=== PATIENT | female | born 1990 | race Caucasian/White ===

== ENCOUNTER 2016-03-12 00:11 | Emergency (ER) | payer OTHER ==
[2016-03-12] MEDS ORDERED: TORAdol 30 mg Injection IM ONE (00:20)
[2016-03-12] MEDS ORDERED: Neurontin 100 MG PO ONE (00:21)
[2016-03-12] MEDS ORDERED: TORAdol 30 mg Injection ONE (00:28)
--- NOTE | 2016-03-12 00:29 | ERPHSYRPT ---
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 She noted numbness in right upper and lateral thigh a month ago. No real back pain. No specific injury. No rash. She notes increased numbness and then pain in this area. She feels like there is some lateral swelling. No redness. No fever or chills. No hx of this in the past. Occurred: other (one month) Severity of Pain-Max: moderate Severity of Pain-Current: moderate Lower Extremities Pain: leg: right Allergies/Adverse Reactions: fluoxetine HCl [From [employer]] Adverse Reaction (Verified 03/12/16 00:26) Nausea Home Medications: Citalopram Hydrobromide [ceLEXa] 40 mg DAILY 12/21/15 [History] Varenicline Tartrate [Chantix] 0.5 mg DAILY 12/21/15 [History] Hx Tetanus, Diphtheria Vaccination/Date Given: No Hx Influenza Vaccination/Date Given: No Hx Pneumococcal Vaccination/Date Given: No - Review of Systems Constitutional: No Fever, No Chills Eyes: No Symptoms Ears, Nose, & Throat: No Symptoms Respiratory: No Dyspnea Cardiac: No Chest Pain Neurological: Parasthesia (right lateral thigh), No Focal Weakness All Other Systems: Reviewed and Negative - Past Medical History Pertinent Past Medical History: Yes Neurological History: Migraines Psycho-Social History: Anxiety, Bipolar, Depression - Past Surgical History Past Surgical History: No - Social History Smoking Status: Current every day smoker How long have you smoked: 11 Exposure to second hand smoke: Yes Drug Use: none Patient Lives Alone: No - Female History Hx Last Menstrual Period: 02/25 Hx Now: No - Nursing Vital Signs Nursing Vital Signs: Initial Vital Signs Temperature 98.8 F Temperature Source Oral Pulse Rate 96 Respiratory Rate 16 Blood Pressure 118/88 Pain Intensity 4 - Physical Exam General Appearance: alert, obese Eyes, Ears, Nose, Throat Exam: moist mucous membranes Neck Exam: normal inspection, supple Cardiovascular/Respiratory Exam: normal breath sounds, regular rate/rhythm Neuro/Tendon Exam: normal sensation, normal motor functions Mental Status Exam: alert, oriented x 3, cooperative Skin Exam: normal color, warm, dry, No rash SpO2 Interpretation: normal SpO2: 96 Oxygen Delivery: Room Air Comments: some light touch tenderness superficially in lateral and upper right leg area. No rash, vesicles, or redness. - Course Nursing assessment & vital signs reviewed: Yes - Radiology Exams right femur X-ray Interpretation: Reviewed by me, Negative Ordered Tests: Active Orders 24 hr Category Date Time Status FEMUR Stat Exams 03/12/16 00:20 Taken Medication Summary Discontinued Medications Generic Name Dose Route Start Last Admin Trade Name Freq PRN Reason Stop Dose Admin Gabapentin 100 mg 03/12/16 00:21 Neurontin 100 Mg PO 03/12/16 00:22 STAT ONE Ketorolac Tromethamine 60 mg 03/12/16 00:20 03/12/16 00:29 Toradol 30 Mg Injection IM 03/12/16 00:21 60 mg STAT ONE Administration Ketorolac Tromethamine Confirm 03/12/16 00:28 Toradol 30 Mg Injection Administered 03/12/16 00:29 Dose 60 mg .ROUTE .STK-MED ONE - Departure Time of Disposition: 01:05 Departure Disposition: Home Clinical Impression: Meralgia paresthetica, right lower limb Condition: Stable Critical Care Time: No Referrals: LIAM DE ANDA MD [Primary Care Provider] - Instructions: Leg Pain Additional Instructions: Rx motrin for pain. Rx Neurontin- take care for sleepiness and no driving with sleepiness. Follow up with Dr De Anda next week. Prescriptions: Ibuprofen 600 mg PO Q6H PRN PRN #24 tablet PRN Reason: Pain Gabapentin [Neurontin] 100 mg PO TID #30 capsule
[2016-03-12 01:36] VITALS: BP 130/78; PULSE 80; O2SAT 98
--- NOTE | 2016-03-12 09:01 | XRAY ---
Indication: Pain and numbness. Comparison: None 2 views of the right femur obtained. No bony, articular, or soft tissue abnormalities.
== END 2016-03-12 01:37 | disposition home or self-care (01) ==
LOC: ED 00:11
DX: G57.11 Meralgia paresthetica, right lower limb (principal); M79.651 Pain in right thigh
CPT/HCPCS: 73552; 96372; 99283; J1885

== ENCOUNTER 2016-03-16 14:44 | Emergency (ER) | payer OTHER ==
[2016-03-16 14:58] VITALS: PULSE 86; O2SAT 97
[2016-03-16] MEDS ORDERED: Tylenol #3 Tablet PO ONE (15:02)
[2016-03-16] MEDS ORDERED: Tylenol #3 Tablet ONE (15:05)
--- NOTE | 2016-03-16 15:05 | ERPHSYRPT ---
- History of Present Illness Time Seen by Provider: 03/16/16 14:50 Source: patient Exam Limitations: clinical condition Patient Subjective Stated Complaint: states twisted left foot earlier today. Triage Nursing Assessment: to room per w/c. left foot has slight swelling. normal temp, normal color. good pedal pulse. Physician History: PATIENT STATES SHE TRIPPED OVER A BUCKET AND INJURED HER LEFT GREAT TOE AND FOOT. HAS PAIN WITH SWELLING, UNABLE TO N BEAR WEIGHT. Method of Injury: direct blow, twisted Occurred: just prior to arrival Quality: constant Severity of Pain-Max: severe Severity of Pain-Current: severe Lower Extremities Pain: 1st toe: left Modifying Factors: Improves With: movement (WEIGHT BEARING) Associated Symptoms: unable to bear weight Allergies/Adverse Reactions: fluoxetine HCl [From [employer]] Adverse Reaction (Verified 03/16/16 15:00) Nausea Hx Tetanus, Diphtheria Vaccination/Date Given: Yes (2015) Hx Influenza Vaccination/Date Given: No Hx Pneumococcal Vaccination/Date Given: No - Review of Systems Constitutional: No Fever, No Chills Respiratory: No Cough, No Dyspnea Cardiac: No Chest Pain, No Edema, No Syncope Abdominal/Gastrointestinal: No Abdominal Pain, No Nausea, No Vomiting, No Diarrhea Genitourinary Symptoms: No Dysuria Musculoskeletal: Injury, Joint Pain, Joint Swelling, No Back Pain, No Neck Pain Skin: No Rash Neurological: No Dizziness, No Focal Weakness, No Sensory Changes Psychological: No Symptoms All Other Systems: Reviewed and Negative - Past Medical History Pertinent Past Medical History: Yes Neurological History: Migraines Psycho-Social History: Anxiety, Depression - Past Surgical History Past Surgical History: No - Social History Smoking Status: Current every day smoker How long have you smoked: 11 Exposure to second hand smoke: Yes Drug Use: none Patient Lives Alone: No - Female History Hx Last Menstrual Period: 02/28/16 Hx Now: No - Nursing Vital Signs Nursing Vital Signs: Initial Vital Signs Temperature 99.1 F Temperature Source Oral Pulse Rate 86 Respiratory Rate 18 Blood Pressure 148/97 Pain Intensity 9 - Physical Exam General Appearance: alert Back Exam: No vertebral tenderness Ankle Exam: left ankle: non-tender, normal inspection, normal range of motion Foot Exam: left foot: pain (LEFT GREAT TOE METATARSAL PHALANGEAL JOINT AND DIP JOINT, WITH SWELLING, TENDERNESS, NO ECCHYMOSIS, LEFT PEDIS PULSE 2+), soft tissue tenderness, swelling Neuro/Tendon Exam: normal sensation, normal motor functions Mental Status Exam: alert, oriented x 3, cooperative Skin Exam: normal color, warm, dry SpO2: 97 Oxygen Delivery: Room Air - Radiology Exams Left Foot X-ray Interpretation: Discussed w/ radiologist, No Fracture (THERE IS A TINY CALCANEAL SPUR) Ordered Tests: Active Orders 24 hr Category Date Time Status Cold Application STAT Care 03/16/16 14:58 Active Crutches STAT Care 03/16/16 15:03 Active Splint STAT Care 03/16/16 15:42 Active FOOT (MINIMUM 3 VIEWS) Stat Exams 03/16/16 15:02 Completed Medication Summary Discontinued Medications Generic Name Dose Route Start Last Admin Trade Name Freq PRN Reason Stop Dose Admin Acetaminophen/Codeine Phosphate 2 tab 03/16/16 15:02 03/16/16 15:05 Tylenol #3 Tablet PO 03/16/16 15:03 2 tab STAT ONE Administration Acetaminophen/Codeine Phosphate Confirm 03/16/16 15:05 Tylenol #3 Tablet Administered 03/16/16 15:06 Dose 2 tab .ROUTE .STK-MED ONE - Progress Progress: pain not gone completely Progress Note: 03/16/16 15:37 PATIENT GIVEN TYLENOL #3, 2 TABLETS, PATIENT PROVIDED WITH CRUTCHES AND POST OP SHOE 03/16/16 15:50 Counseled pt/family regarding: diagnosis, need for follow-up, rad results - Departure Time of Disposition: 15:50 Departure Disposition: Home Clinical Impression: CONTUSION/STRAIN LEFT GREAT TOE Condition: Stable Critical Care Time: No Referrals: LIAM DE ANDA MD [Primary Care Provider] - Additional Instructions: AMBULATE WITH WALKER ASSISTANCE AND POST OP BOOT FOR COMFORT. ELEVATE FOOT AND APPLY ICE OVER FOOT SWELLING EVERY 4 HOURS, 30 MINUTES FOR 48 HOURS. MOTRIN 600MG EVERY 6 HOURS FOR MILD TO MODERATE PAIN. TYLENOL #3 EVERY 4 HOURS FOR SEVERE PAIN. CONSULT YOUR FAMILY PHYSICIAN FOR EVALUATION IN 1 WEEK. Prescriptions: Acetaminophen with Codeine [Tylenol #3 (Acetaminophen-Cod #3) Tablet] 1 each PO Q4H PRN PRN #10 tablet PRN Reason: Pain Ibuprofen 600 mg PO Q6H PRN PRN #15 tablet PRN Reason: Mild To Moderate Pain
--- NOTE | 2016-03-16 15:29 | XRAY ---
Indication: Medial foot pain following tripping injury. Comparison: March 12, 2008 3 nonweightbearing views of the left foot demonstrates stable tiny posterior heel spur. No new/acute bony, articular, or soft tissue abnormalities.
[2016-03-16 16:06] VITALS: BP 142/90
== END 2016-03-16 16:06 | disposition home or self-care (01) ==
LOC: ED 14:44
DX: S90.112A Contusion of left great toe without damage to nail, initial encounter (principal); S93.502A Unspecified sprain of left great toe, initial encounter; X50.0XXA Overexertion from strenuous movement or load, initial encounter; F17.200 Nicotine dependence, unspecified, uncomplicated
CPT/HCPCS: 73630; 99283

== ENCOUNTER 2017-07-06 13:00 | Emergency (ER) | payer OTHER ==
--- NOTE | 2017-07-06 13:17 | ERPHSYRPT ---
- History of Present Illness Time Seen by Provider: 07/06/17 13:14 Source: patient Patient Subjective Stated Complaint: Right Forearm Pain Triage Nursing Assessment: Pt presents to the ED with complaints of right forearm pain. Pt states onset yesterday with worsening today. Pt states movement and touch make pain worse. Pt states she opened a window 2 days ago and believes that caused pain. No distress noted, no wound or deformity noted. Physician History: mild to mod right wrist ache for 2 days after straining to open a window, pt is right handed, pt refuse pain med, no other injury Allergies/Adverse Reactions: fluoxetine HCl [From [employer]] Adverse Reaction (Verified 03/16/16 15:00) Nausea Hx Tetanus, Diphtheria Vaccination/Date Given: Yes Hx Influenza Vaccination/Date Given: No Hx Pneumococcal Vaccination/Date Given: No Immunizations Up to Date: No - Review of Systems Constitutional: No Symptoms Musculoskeletal: Injury Skin: No Rash Neurological: No Dizziness - Past Medical History Pertinent Past Medical History: Yes Neurological History: Migraines Psycho-Social History: Anxiety, Depression - Past Surgical History Past Surgical History: No - Social History Smoking Status: Current every day smoker How long have you smoked: 14 years Exposure to second hand smoke: Yes Drug Use: none Patient Lives Alone: No - Female History Hx Last Menstrual Period: 06/23/2017 Hx Now: No - Nursing Vital Signs Nursing Vital Signs: Initial Vital Signs Temperature 97.5 F 07/06/17 13:05 Pulse Rate 75 07/06/17 13:05 Respiratory Rate 16 07/06/17 13:05 Blood Pressure 170/104 07/06/17 13:05 O2 Sat by Pulse Oximetry 97 07/06/17 13:05 Pain Scale Pain Intensity 7 - Physical Exam General Appearance: no apparent distress Extremity Exam: other (tender right wrist, no sts, rom limited by pain, sen and pulses intact) Neurologic Exam: alert, oriented x 3, cooperative SpO2: 97 Oxygen Delivery: Room Air - Course Nursing assessment & vital signs reviewed: Yes - Radiology Exams Wrist X-ray Interpretation: Discussed w/ radiologist, No Fracture Ordered Tests: Active Orders 24 hr Category Date Time Status Splint STAT Care 07/06/17 13:54 Ordered WRIST (MIN 3 VIEWS) Stat Exams 07/06/17 13:23 Completed - Progress Progress: re-examined Progress Note: 05/03/18 13:55 motrin ice and elevation, see your doctor, return if worse Discussed with : Hailee Will see patient in: office Counseled pt/family regarding: diagnosis, need for follow-up, rad results - Departure Time of Disposition: 13:56 Departure Disposition: Home Clinical Impression: Right wrist sprain Qualifiers: Encounter type: initial encounter Qualified Code(s): S63.501A - Unspecified sprain of right wrist, initial encounter Condition: Stable Critical Care Time: No Referrals: LIAM DE ANDA MD [Primary Care Provider] -
--- NOTE | 2017-07-06 13:40 | XRAY ---
Indication: Pain following injury 3 days ago. Comparison: None 3 views of the right wrist demonstrates normal bones, articulation, and soft tissues.
[2017-07-06 13:57] VITALS: BP 149/84; PULSE 70
[2017-07-06 14:00] VITALS: O2SAT 97
== END 2017-07-06 14:05 | disposition home or self-care (01) ==
LOC: ED 13:00
DX: S63.501A Unspecified sprain of right wrist, initial encounter (principal); M25.531 Pain in right wrist; X50.0XXA Overexertion from strenuous movement or load, initial encounter
CPT/HCPCS: 73110; 99283; L3908

== ENCOUNTER 2018-08-07 21:35 | Emergency (ER) | payer OTHER ==
--- NOTE | 2018-08-07 21:41 | ERPHSYRPT ---
- History of Present Illness Time Seen by Provider: 08/07/18 21:40 Source: patient, family Exam Limitations: no limitations Physician History: 27 y/o right handed white female presents to ED immediately after laceration to left middle finger. 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 pts tetanus status is not utd. Timing/Duration: today Quality: painful Severity: mild Location: hands (left middle finger) Associated Symptoms: denies symptoms Allergies/Adverse Reactions: fluoxetine HCl [From [employer]] Adverse Reaction (Verified 03/16/16 15:00) Nausea Home Medications: Citalopram Hydrobromide [Citalopram HBr] 10 mg PO DAILY 08/07/18 [History] Hx Tetanus, Diphtheria Vaccination/Date Given: Yes Hx Influenza Vaccination/Date Given: No Hx Pneumococcal Vaccination/Date Given: No - Review of Systems Constitutional: No Symptoms Eyes: No Symptoms Ears, Nose, & Throat: No Symptoms Respiratory: No Symptoms Cardiac: No Symptoms Abdominal/Gastrointestinal: No Symptoms Genitourinary Symptoms: No Symptoms Musculoskeletal: No Symptoms Skin: Other (laceration left middle finger) Neurological: No Symptoms Psychological: No Symptoms Endocrine: No Symptoms Hematologic/Lymphatic: No Symptoms Immunological/Allergic: No Symptoms All Other Systems: Reviewed and Negative - Past Medical History Pertinent Past Medical History: Yes Neurological History: Migraines ENT History: No Pertinent History Cardiac History: No Pertinent History Respiratory History: No Pertinent History Endocrine Medical History: No Pertinent History Musculoskeletal History: No Pertinent History GI Medical History: No Pertinent History History: No Pertinent History Psycho-Social History: Anxiety, Depression - Past Surgical History Past Surgical History: No Neuro Surgical History: No Pertinent History Cardiac: No Pertinent History Respiratory: No Pertinent History Gastrointestinal: No Pertinent History Genitourinary: No Pertinent History Musculoskeletal: No Pertinent History Female Surgical History: No Pertinent History - Social History Smoking Status: Current every day smoker How long have you smoked: 14 years Exposure to second hand smoke: Yes Drug Use: none Patient Lives Alone: No - Nursing Vital Signs Nursing Vital Signs: Initial Vital Signs Temperature 99.0 F 08/07/18 21:39 Pulse Rate 83 08/07/18 21:39 Respiratory Rate 18 08/07/18 21:39 Blood Pressure 140/106 08/07/18 21:39 O2 Sat by Pulse Oximetry 96 08/07/18 21:39 Pain Scale Pain Intensity 5 - Physical Exam General Appearance: no apparent distress, alert, anxiety Eye Exam: PERRL/EOMI Ears, Nose, Throat Exam: normal ENT inspection, moist mucous membranes Neck Exam: normal inspection, non-tender, supple, full range of motion Respiratory Exam: airway intact, No chest tenderness, No respiratory distress Gastrointestinal/Abdomen Exam: No tenderness, No guarding Pelvic Exam: not done Rectal Exam: not done Back Exam: normal inspection, normal range of motion, No CVA tenderness, No vertebral tenderness Extremity Exam: normal range of motion, pelvis stable, lacerations (left middle finger) Neurologic Exam: alert, oriented x 3, cooperative, tassel snipper II-XII nml as tested, normal mood/affect, nml cerebellar function, nml station & gait Skin Exam: normal color, warm, dry, laceration (1cm superficial lac left middle finger. no active bleeding. tendon function intact. nv intact) Lymphatic Exam: No adenopathy SpO2 Interpretation: normal O2 Delivery: Room Air Procedures - Laceration/Wound Repair Left Finger Wound Location: Left, hand (middle finger) Wound Length (cm): 1 Wound's Depth, Shape: superficial, linear Wound Explored: to base Irrigated: Yes Hibiclens Prep: Yes Wound Repaired With: Steri-strips, Dermabond Splint Applied?: Yes Type of Splint Applied: finger splint Progress: 08/07/18 22:02 no complications harpreet well - Course Nursing assessment & vital signs reviewed: Yes - Progress Progress: improved Counseled pt/family regarding: diagnosis, need for follow-up - Departure Departure Disposition: Home Clinical Impression: Finger laceration Condition: Stable Critical Care Time: No Referrals: QUINTON POWERS DO [Primary Care Provider] - Additional Instructions: keep top dressing and finger splint in place for 24 hours. after 24 hours may wash daily. leave steristrips in place until they fall.
[2018-08-07 21:45] VITALS: BP 140/106; PULSE 83; O2SAT 96
[2018-08-07] MEDS ORDERED: Adacel Vial IM ONE ×2 (22:04→22:17)
[2018-08-07] MEDS ORDERED: NORCO 5/325 MG PO ONE (22:04)
[2018-08-07] MEDS ORDERED: NORCO 5/325 MG ONE (22:13)
== END 2018-08-07 22:25 | disposition home or self-care (01) ==
LOC: ED 21:35
DX: S61.231A Puncture wound without foreign body of left index finger without damage to nail, initial encounter (principal); W26.8XXA Contact with other sharp object(s), not elsewhere classified, initial encounter
CPT/HCPCS: 12001; 90471; 90715; 99283; A9270-GY

== ENCOUNTER 2018-12-02 13:43 | Emergency (ER) | payer OTHER ==
[2018-12-02] MEDS ORDERED: Norflex 60 MG/2 ML IM ONE (14:04)
[2018-12-02] MEDS ORDERED: TORAdol 30 mg Injection IM ONE (14:04)
[2018-12-02] MEDS ORDERED: Toprol Xl 100 MG PO STA (14:10)
--- NOTE | 2018-12-02 14:10 | ERPHSYRPT ---
- History of Present Illness Time Seen by Provider: 12/02/18 14:05 Source: patient Exam Limitations: no limitations Patient Subjective Stated Complaint: states woke up with "migraine" today. has hx of migraines. Triage Nursing Assessment: ambulated to room per self. skin w/d, color normal. is wearing dark glasses and has pillow over eyes. a/o times four. viveros without difficulty. Physician History: states woke up with "migraine" today. has hx of migraines. also c/o swollen neck glands both side of neck, no fever, Timing/Duration: today Quality: aching, throbbing, tightness Head Pain Location: frontal Severity of Pain-Max: severe Severity of Pain-Current: severe Recent Head Trauma: frequent headaches Modifying Factors: Improves With: exposure to light Associated Symptoms: denies symptoms, other (states that blood pressure runs high when she comes to ER) Allergies/Adverse Reactions: fluoxetine HCl [From [employer]] Adverse Reaction (Verified 03/16/16 15:00) Nausea Home Medications: Citalopram Hydrobromide 20 mg* [ceLEXa 20 MG] 20 mg PO DAILY 12/02/18 [ History] Cyanocobalamin (Vitamin B-12) [Cyanocobalamin Injection] 1,000 mcg IJ UD [History] Levothyroxine Sodium 25 Mcg [Synthroid 25 Mcg] 25 mcg PO DAILY 12/02/18 [ History] Loratadine 10 mg PO DAILY 12/02/18 [History] Quetiapine Fumarate 25 mg PO HS 12/02/18 [History] Simvastatin 10 mg PO DAILY 12/02/18 [History] Hx Tetanus, Diphtheria Vaccination/Date Given: Yes Hx Influenza Vaccination/Date Given: No Hx Pneumococcal Vaccination/Date Given: No - Review of Systems Constitutional: No Fever, No Chills Eyes: No Symptoms Ears, Nose, & Throat: No Symptoms Respiratory: No Cough, No Dyspnea Cardiac: No Chest Pain, No Edema, No Syncope Abdominal/Gastrointestinal: No Abdominal Pain, No Nausea, No Vomiting, No Diarrhea Genitourinary Symptoms: No Dysuria Musculoskeletal: No Back Pain, No Neck Pain Skin: No Rash Neurological: Headache, No Dizziness, No Focal Weakness, No Sensory Changes Psychological: No Symptoms Endocrine: No Symptoms All Other Systems: Reviewed and Negative - Past Medical History Pertinent Past Medical History: Yes Neurological History: Migraines ENT History: No Pertinent History Cardiac History: No Pertinent History Respiratory History: No Pertinent History Endocrine Medical History: No Pertinent History Musculoskeletal History: No Pertinent History GI Medical History: No Pertinent History History: No Pertinent History Psycho-Social History: Anxiety, Depression Female Reproductive Disorders: No Pertinent History - Past Surgical History Past Surgical History: No Neuro Surgical History: No Pertinent History Cardiac: No Pertinent History Respiratory: No Pertinent History Gastrointestinal: No Pertinent History Genitourinary: No Pertinent History Musculoskeletal: No Pertinent History Female Surgical History: No Pertinent History - Social History Smoking Status: Current every day smoker How long have you smoked: 16 Exposure to second hand smoke: No Drug Use: none Patient Lives Alone: No - Female History Hx Last Menstrual Period: three weeks ago Hx Now: No - Nursing Vital Signs Nursing Vital Signs: Initial Vital Signs Temperature 97.2 F 12/02/18 13:50 Pulse Rate 74 12/02/18 13:50 Respiratory Rate 16 12/02/18 13:50 Blood Pressure 163/100 12/02/18 13:50 O2 Sat by Pulse Oximetry 96 12/02/18 13:50 Pain Scale Pain Intensity 9 - Physical Exam General Appearance: no apparent distress Eye Exam: PERRL/EOMI Ears, Nose, Throat Exam: normal ENT inspection, moist mucous membranes Neck Exam: normal inspection, supple, full range of motion, lymphadenopathy ( bilateral posterior neck area), No meningismus Respiratory Exam: normal breath sounds, lungs clear Cardiovascular Exam: regular rate/rhythm, normal heart sounds Gastrointestinal/Abdominal Exam: soft, No tenderness, No distention Back Exam: normal inspection, normal range of motion Mental Status Exam: alert, oriented x 3, cooperative market research manager Exam: normal speech, PERRL, No facial droop Coordination/Gait Exam: normal cerebellar function Motor/Sensory Exam: no motor deficit, no sensory deficit Skin Exam: normal color, warm, dry, No rash SpO2: 96 - Course Nursing assessment & vital signs reviewed: Yes Ordered Tests: Medication Summary Discontinued Medications Generic Name Dose Route Start Last Admin Trade Name Freq PRN Reason Stop Dose Admin Ketorolac Tromethamine 60 mg 12/02/18 14:04 Toradol 30 Mg Injection IM 12/02/18 14:05 STAT ONE Ketorolac Tromethamine Confirm 12/02/18 14:21 Toradol 30 Mg Injection Administered 12/02/18 14:22 Dose 60 mg .ROUTE .STK-MED ONE Metoprolol Succinate 100 mg 12/02/18 14:10 Toprol Xl 100 Mg PO 12/02/18 14:11 DAILY STA Orphenadrine Citrate 60 mg 12/02/18 14:04 Norflex 60 Mg/2 Ml IM 12/02/18 14:05 STAT ONE Orphenadrine Citrate Confirm 12/02/18 14:21 Norflex 60 Mg/2 Ml Administered 12/02/18 14:22 Dose 60 mg .ROUTE .STK-MED ONE - Progress Progress: improved Air Movement: good Counseled pt/family regarding: diagnosis, need for follow-up - Departure Departure Disposition: Home Clinical Impression: Lymphadenitis, acute Migraine Qualifiers: Migraine type: with aura Status migrainosus presence: without status migrainosus Intractability: intractable Qualified Code(s): G43.119 - Migraine with aura, intractable, without status migrainosus Hypertension Qualifiers: Hypertension type: essential hypertension Qualified Code(s): I10 - Essential ( primary) hypertension Condition: Stable Critical Care Time: No Referrals: QUINTON POWERS DO [Primary Care Provider] - Instructions: Migraine Headache (DC), Headache, Adult (DC) Additional Instructions: HEADACHE 1. After discharge from the emergency department, you should rest at home in a cool, dark, quiet place for 12-24 hours. 2. If any of the following signs or symptoms are noticed, you should be re- evaluated right away: A. Visual changes B. Stiff Neck C. Change in quality or location of pain D. Fever E. Recurrent vomiting 3. If pain medications were prescribed or given, they may cause drowsiness. Prescriptions: Amoxicillin 500 mg PO TID #30 tablet Metoprolol Succinate 50 mg [Toprol Xl 50 MG] 50 mg PO DAILY #30 tablet
[2018-12-02] MEDS ORDERED: TORAdol 30 mg Injection ONE (14:21)
[2018-12-02] MEDS ORDERED: Norflex 60 MG/2 ML ONE (14:21)
[2018-12-02 15:26] VITALS: BP 181/105; PULSE 51; O2SAT 97
== END 2018-12-02 15:27 | disposition home or self-care (01) ==
LOC: ED 13:43
DX: I88.9 Nonspecific lymphadenitis, unspecified (principal); G43.119 Migraine with aura, intractable, without status migrainosus; I10 Essential (primary) hypertension
CPT/HCPCS: 96372; 99284; J1885; J2360; A9270-GY

== ENCOUNTER 2018-12-06 15:41 | Emergency (ER) | payer OTHER ==
[2018-12-06 18:03] VITALS: PULSE 70; O2SAT 96
[2018-12-06 19:38] LABS: Group A Strep NEGATIVE (NEGATIVE); INFLUENZA A NEGATIVE (NEGATIVE); INFLUENZA B NEGATIVE (NEGATIVE); RESPIRATORY SYNCTIAL VIRUS NEGATIVE (Negative)
[2018-12-06] MEDS ORDERED: Hydromorphone 1 mg/ml Ampule IM ONE (19:50)
[2018-12-06] MEDS ORDERED: Phenergan 25 MG INJ IM ONE (19:51)
[2018-12-06] MEDS ORDERED: solu-MEDROL 125 MG IM ONE (19:51)
--- NOTE | 2018-12-06 19:57 | ERPHSYRPT ---
- History of Present Illness Time Seen by Provider: 12/06/18 18:30 Source: patient, family Exam Limitations: no limitations Patient Subjective Stated Complaint: STATES WOKE UP THIS AM WITH HEADACHE. TOOK TYLENOL AT 1300 TODAY. APPROX TWO HOURS AGO HAD SOME NUMBNESS TO LEFT SIDE OF FACE AND LEFT HAND. STATES THE NUMBNESS IS GONE NOW. ALSO STATES RIGHT EAR FELT "WET". Triage Nursing Assessment: AMBULATED TO ROOM PER SELF. SKIN W/D, COLOR NORMAL. A/O TIMES FOUR. GATE STEADY. JAY Physician History: 28 y/o obese white female presents with headache and right neck swollen lymph nodes. pt seen here on 12/02/18. pt given rx for amoxicillin. pt still has a few days left. pt denies fever or chills. she has sore throat but no cough. pt denies vomitng and denies diarrhea. 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 those sx now resolved completely. Timing/Duration: day(s) (4) Quality: aching Head Pain Location: global Severity of Pain-Max: moderate Severity of Pain-Current: moderate Recent Head Trauma: no recent headache/trauma Modifying Factors: Improves With: exposure to light, noise Associated Symptoms: No fever/chills, No loss of consciousness, No neck pain, No stiff neck Previous symptoms: same symptoms as today, recently seen, recently treated Allergies/Adverse Reactions: fluoxetine HCl [From [email or web address]] Adverse Reaction (Verified 12/06/18 16:48) Nausea Home Medications: Citalopram Hydrobromide 20 mg* [ceLEXa 20 MG] 20 mg PO DAILY 12/02/18 [ History] Cyanocobalamin (Vitamin B-12) [Cyanocobalamin Injection] 1,000 mcg IJ UD [History] Levothyroxine Sodium 25 Mcg [Synthroid 25 Mcg] 25 mcg PO DAILY 12/02/18 [ History] Loratadine 10 mg PO DAILY 12/02/18 [History] Quetiapine Fumarate 25 mg PO HS 12/02/18 [History] Simvastatin 10 mg PO DAILY 12/02/18 [History] Hx Tetanus, Diphtheria Vaccination/Date Given: Yes Hx Influenza Vaccination/Date Given: Yes Hx Pneumococcal Vaccination/Date Given: No - Review of Systems Eyes: No Symptoms Ears, Nose, & Throat: No Symptoms Respiratory: No Symptoms Cardiac: No Symptoms Abdominal/Gastrointestinal: No Symptoms Genitourinary Symptoms: No Symptoms Musculoskeletal: No Symptoms Neurological: Headache, Parasthesia (resolved) Psychological: No Symptoms Endocrine: No Symptoms Hematologic/Lymphatic: No Symptoms Immunological/Allergic: No Symptoms All Other Systems: Reviewed and Negative - Past Medical History Pertinent Past Medical History: Yes Neurological History: Migraines ENT History: No Pertinent History Cardiac History: No Pertinent History Respiratory History: No Pertinent History Endocrine Medical History: No Pertinent History Musculoskeletal History: No Pertinent History GI Medical History: No Pertinent History History: No Pertinent History Psycho-Social History: Anxiety, Depression Female Reproductive Disorders: No Pertinent History - Past Surgical History Past Surgical History: No Neuro Surgical History: No Pertinent History Cardiac: No Pertinent History Respiratory: No Pertinent History Gastrointestinal: No Pertinent History Genitourinary: No Pertinent History Musculoskeletal: No Pertinent History Female Surgical History: No Pertinent History - Social History Smoking Status: Current every day smoker How long have you smoked: 16 Exposure to second hand smoke: No Drug Use: none Patient Lives Alone: No - Female History Hx Last Menstrual Period: NOW Hx Now: No - Nursing Vital Signs Nursing Vital Signs: Initial Vital Signs Temperature 97.6 F 12/06/18 16:41 Pulse Rate 57 L 12/06/18 16:41 Respiratory Rate 16 12/06/18 16:41 Blood Pressure 164/97 12/06/18 16:41 O2 Sat by Pulse Oximetry 98 12/06/18 16:41 Pain Scale Pain Intensity 8 - Physical Exam General Appearance: mild distress, alert, anxiety Eye Exam: PERRL/EOMI, eyes nml inspection Ears, Nose, Throat Exam: normal ENT inspection, moist mucous membranes Neck Exam: non-tender, supple, full range of motion, lymphadenopathy (right > left) Respiratory Exam: normal breath sounds, lungs clear, airway intact, No chest tenderness, No respiratory distress Cardiovascular Exam: regular rate/rhythm, normal heart sounds, normal peripheral pulses Gastrointestinal/Abdominal Exam: soft, normal bowel sounds, No tenderness Back Exam: normal inspection, normal range of motion, No CVA tenderness Extremity Exam: normal inspection, normal range of motion, pelvis stable Mental Status Exam: alert, oriented x 3, 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 Exam: normal hearing, normal speech, PERRL, tongue midline Coordination/Gait Exam: normal finger to nose, normal gait, normal cerebellar function Motor/Sensory Exam: no motor deficit, no sensory deficit Skin Exam: normal color, warm Lymphatic Exam: adenopathy (as avove) SpO2 Interpretation: normal SpO2: 96 - Course Nursing assessment & vital signs reviewed: Yes Ordered Tests: Active Orders 24 hr Category Date Time Status HEAD WITHOUT CONTRAST [CT] Stat Exams 12/06/18 20:02 Taken Medication Summary Discontinued Medications Generic Name Dose Route Start Last Admin Trade Name Davidq PRN Reason Stop Dose Admin Hydromorphone HCl 1 mg 12/06/18 19:50 12/06/18 20:57 Hydromorphone 1 Mg/Ml Ampule IM 12/06/18 19:51 1 mg STAT ONE Administration Hydromorphone HCl Confirm 12/06/18 20:26 Hydromorphone 1 Mg/Ml Ampule Administered 12/06/18 20:27 Dose 1 mg .ROUTE .STK-MED ONE Methylprednisolone Sodium Succinate 125 mg 12/06/18 19:51 12/06/18 20:57 Solu-Medrol 125 Mg IM 12/06/18 19:52 125 mg STAT ONE Administration Methylprednisolone Sodium Succinate Confirm 12/06/18 20:27 Solu-Medrol 125 Mg Administered 12/06/18 20:28 Dose 125 mg .ROUTE .STK-MED ONE Promethazine HCl 12.5 mg 12/06/18 19:51 12/06/18 20:57 Phenergan 25 Mg Inj IM 12/06/18 19:52 12.5 mg STAT ONE Administration Promethazine HCl Confirm 12/06/18 20:26 Phenergan 25 Mg Inj Administered 12/06/18 20:27 Dose 25 mg .ROUTE .STK-MED ONE Lab/Rad Data: Laboratory Results 12/06/18 Range/Units 19:02 Influenza Type A Ag NEGATIVE (NEGATIVE) Influenza Type B Ag NEGATIVE (NEGATIVE) RSV (PCR) NEGATIVE (Negative) Group A Strep Antibody NEGATIVE (NEGATIVE) - Progress Progress: improved Air Movement: good Progress Note: 12/06/18 21:45 ct head-no acute process Blood Culture(s) Obtained: No Antibiotics given: No Counseled pt/family regarding: lab results, diagnosis, need for follow-up, rad results - Departure Departure Disposition: Home Clinical Impression: Head and neck lymphadenopathy Condition: Stable Critical Care Time: No Referrals: QUINTON POWERS DO [Primary Care Provider] - Additional Instructions: drink plenty of fluids. complete your antibiotic therapy. follow up with primary doctor for further management Prescriptions: Hydrocodone Bit/Acetaminophen [Hydrocodone-Acetaminophen Soln] 10 ml PO Q6H # 120 ml Prednisone 5 mg [Deltasone 5 mg] 5 mg PO TID #6 tablet
[2018-12-06] MEDS ORDERED: Hydromorphone 1 mg/ml Ampule ONE (20:26)
[2018-12-06] MEDS ORDERED: Phenergan 25 MG INJ ONE (20:26)
[2018-12-06] MEDS ORDERED: solu-MEDROL 125 MG ONE (20:27)
[2018-12-06 22:10] VITALS: BP 125/82
--- NOTE | 2018-12-07 08:53 | XRAY ---
Indication: Persistent headache. History of migraines. Multiple contiguous axial images obtained through the head without contrast. Comparison: December 21, 2015. Normal appearing brain parenchyma, ventricles, and bony calvarium. Again incompletely visualized 2 cm right maxillary sinus polyp/retention cyst. Remaining visualized paranasal sinuses and mastoid air cells are clear. Impression: Negative CT head without contrast exam. Again incidental right maxillary sinus polyp/retention cyst. CT DI 68.32
== END 2018-12-06 22:12 | disposition home or self-care (01) ==
LOC: ED 15:41
DX: R59.1 Generalized enlarged lymph nodes (principal)
CPT/HCPCS: 70450; 87631; 87651; 96372; 99284; J1170; J2550; J2930

== ENCOUNTER 2019-02-08 13:37 | Emergency (ER) | payer OTHER ==
--- NOTE | 2019-02-08 13:54 | ERPHSYRPT ---
- History of Present Illness Time Seen by Provider: 02/08/19 13:53 Historian: patient, family Exam Limitations: no limitations Physician History: 28 y/o morbidly obese white female who is 9 weeks , presents with significant and worsening, localized right lower quadrant abdominal pain. nausea but no vomiting. no urinary sx. no pain radiation. denies vaginal bleeding. pt underwent an ultrasound at approx 3 weeks gestation and verified fetus was intrauterine and it was. pt has had issues with maintaining . last pt was bed bound after 7 weeks secondary to subchorionic hemorrhage. Timing/Duration: day(s) (2) Activities at Onset: none Quality: sharpness, stabbing Abdominal Pain Onset Location: RLQ Pain Radiation: no radiation Severity of Pain-Max: moderate Severity of Pain-Current: moderate Modifying Factors: Improves With: nothing Associated Symptoms: nausea, No diaphoresis, No diarrhea, No fever/chills, No loss of appetite, No vomiting Previous symptoms: no prior history Allergies/Adverse Reactions: fluoxetine HCl [From [employer]] Adverse Reaction (Verified 12/06/18 16:48) Nausea Home Medications: Cyanocobalamin (Vitamin B-12) [Cyanocobalamin Injection] 1,000 mcg IJ UD [History] Levothyroxine Sodium 25 Mcg [Synthroid 25 Mcg] 25 mcg PO DAILY 12/02/18 [ History] Loratadine 10 mg PO DAILY 12/02/18 [History] Hx Tetanus, Diphtheria Vaccination/Date Given: Yes Hx Influenza Vaccination/Date Given: Yes Hx Pneumococcal Vaccination/Date Given: No - Review of Systems Constitutional: No Symptoms Eyes: No Symptoms Ears, Nose, & Throat: No Symptoms Respiratory: No Symptoms Cardiac: No Symptoms Abdominal/Gastrointestinal: Abdominal Pain (localized rlq), Nausea, No Vomiting , No Diarrhea Genitourinary Symptoms: No Symptoms Musculoskeletal: No Symptoms Skin: No Symptoms Neurological: No Symptoms Psychological: No Symptoms Endocrine: No Symptoms Hematologic/Lymphatic: No Symptoms Immunological/Allergic: No Symptoms All Other Systems: Reviewed and Negative - Past Medical History Pertinent Past Medical History: Yes Neurological History: Migraines ENT History: No Pertinent History Cardiac History: No Pertinent History Respiratory History: No Pertinent History Endocrine Medical History: No Pertinent History Musculoskeletal History: No Pertinent History GI Medical History: No Pertinent History History: No Pertinent History Psycho-Social History: Anxiety, Depression Female Reproductive Disorders: No Pertinent History - Past Surgical History Past Surgical History: No Neuro Surgical History: No Pertinent History Cardiac: No Pertinent History Respiratory: No Pertinent History Gastrointestinal: No Pertinent History Genitourinary: No Pertinent History Musculoskeletal: No Pertinent History Female Surgical History: No Pertinent History - Social History Smoking Status: Current every day smoker How long have you smoked: 16 Exposure to second hand smoke: No Drug Use: none Patient Lives Alone: No - Nursing Vital Signs Nursing Vital Signs: Initial Vital Signs Temperature 97.4 F 02/08/19 13:47 Pulse Rate 70 02/08/19 13:47 Respiratory Rate 17 02/08/19 13:47 Blood Pressure 116/86 02/08/19 13:47 O2 Sat by Pulse Oximetry 98 02/08/19 13:47 Pain Scale Pain Intensity 4 - Physical Exam General Appearance: mild distress, alert, anxiety Eye Exam: PERRL/EOMI, eyes nml inspection Ears, Nose, Throat Exam: normal ENT inspection, moist mucous membranes Neck Exam: normal inspection, non-tender, supple, full range of motion Respiratory Exam: normal breath sounds, lungs clear, airway intact, No chest tenderness, No respiratory distress Cardiovascular Exam: regular rate/rhythm, normal heart sounds, normal peripheral pulses Gastrointestinal/Abdomen Exam: soft, normal bowel sounds, tenderness (localized rlq), guarding, rebound Pelvic Exam: not done Rectal Exam: not done Back Exam: normal inspection, normal range of motion, No CVA tenderness, No vertebral tenderness Extremity Exam: normal inspection, normal range of motion, pelvis stable Neurologic Exam: alert, oriented x 3, cooperative, 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 nml as tested, normal mood/affect, nml cerebellar function, nml station & gait Skin Exam: normal color, warm, dry Lymphatic Exam: No adenopathy SpO2 Interpretation: normal O2 Delivery: Room Air - Course Nursing assessment & vital signs reviewed: Yes Ordered Tests: Active Orders 24 hr Category Date Time Status IV Insertion STAT Care 02/08/19 14:21 Active ABDOMEN AND PELVIS W/0 CONTRAS [CT] Stat Exams 02/08/19 15:23 Completed AMYLASE Stat Lab 02/08/19 14:21 Completed CBC W DIFF Stat Lab 02/08/19 14:21 Completed CMP Stat Lab 02/08/19 14:21 Completed LIPASE Stat Lab 02/08/19 14:21 Completed Lactic Acid Stat Lab 02/08/19 14:21 Received UA W/RFX UR CULTURE Stat Lab 02/08/19 14:23 Completed Medication Summary Discontinued Medications Generic Name Dose Route Start Last Admin Trade Name Silvestre PRN Reason Stop Dose Admin Sodium Chloride 1,000 mls @ 999 mls/hr 02/08/19 14:21 02/08/19 15:28 Sodium Chloride 0.9% 1000 Ml IV 02/08/19 15:21 Infused .Q1H1M STA Infusion Sodium Chloride Confirm 02/08/19 14:24 Sodium Chloride 0.9% 1000 Ml Administered 02/08/19 14:25 Dose 1,000 mls @ ud .ROUTE .STK-MED ONE Lab/Rad Data: Laboratory Result Diagrams 02/08/19 14:21 02/08/19 14:21 Laboratory Results 02/08/19 02/08/19 02/08/19 Range/Units 14:23 14:21 14:21 WBC 12.8 H (4.0-10.5) K/mm3 RBC 4.26 (4.1-5.4) M/mm3 Hgb 11.8 L (12.0-16.0) gm/dl Hct 36.8 (35-47) % MCV 86.4 (78-100) fl MCH 27.7 (26-32) pg MCHC 32.1 (32-36) g/dl RDW 13.5 (11.5-14.0) % Plt Count 256 (150-450) K/mm3 MPV 11.8 H (6-9.5) fl Gran % 71.8 H (36.0-66.0) % Eos # (Auto) 0.21 (0-0.5) Absolute Lymphs (auto) 2.53 (1.0-4.6) Absolute Monos (auto) 0.84 (0.0-1.3) Lymphocytes % 19.8 L (24.0-44.0) % Monocytes % 6.6 (0.0-12.0) % Eosinophils % 1.6 (0.00-5.0) % Basophils % 0.2 (0.0-0.4) % Absolute Granulocytes 9.16 H (1.4-6.9) Basophils # 0.02 (0-0.4) Sodium 141 (137-145) mmol/L Potassium 4.0 (3.5-5.1) mmol/L Chloride 105 (98-107) mmol/L Carbon Dioxide 26 (22-30) mmol/L Anion Gap 13.3 (5-15) MEQ/L BUN 12 (7-17) mg/dL Creatinine 0.63 (0.52-1.04) mg/dL Estimated GFR > 60.0 ML/MIN Glucose 91 (74-106) mg/dL Calcium 9.6 (8.4-10.2) mg/dL Total Bilirubin 0.50 (0.2-1.3) mg/dL AST 20 (14-36) U/L ALT 13 (0-35) U/L Alkaline Phosphatase 59 (38-126) U/L Serum Total Protein 7.6 (6.3-8.2) g/dL Albumin 3.9 (3.5-5.0) g/dL Amylase 55 (30-110) U/L Lipase 51 (23-300) U/L Urine Color YELLOW (YELLOW) Urine Appearance CLOUDY (CLEAR) Urine pH 5.0 (5-6) Ur Specific Hallock 1.026 (1.005-1.025) Urine Protein NEGATIVE (Negative) Urine Ketones NEGATIVE (NEGATIVE) Urine Blood NEGATIVE (0-5) René/ul Urine Nitrite NEGATIVE (NEGATIVE) Urine Bilirubin NEGATIVE (NEGATIVE) Urine Urobilinogen 4 (0-1) mg/dL Ur Leukocyte Esterase NEGATIVE (NEGATIVE) Urine WBC (Auto) NONE (0-5) /HPF Urine RBC (Auto) 16-25 (0-2) /HPF U Epithel Cells (Auto) RARE (FEW) /HPF Urine Bacteria (Auto) RARE (NEGATIVE) /HPF Amorphous Crystals FEW (NEGATIVE) /HPF Urine Mucus (Auto) SLIGHT (NEGATIVE) /HPF Urine Culture Reflexed NO (NO) Urine Glucose NEGATIVE (NEGATIVE) mg/dL - Progress Progress: unchanged, re-examined Progress Note: 02/08/19 16:20 i had several long discussions with pt and sig other regarding risks, benefits and alternatives to ct scan abd/pelvis. risks of not performing a ct abd/pelvis may lead to worsening condition, to you as well as miscarriage. risks of performing ct abd/pelvis including radiation exposure to fetus and low risk of miscarriage. pt has opted for ct scan abd/pelvis Counseled pt/family regarding: lab results, diagnosis, need for follow-up, rad results - Departure Departure Disposition: Home Clinical Impression: Abdominal pain, Constipation Condition: Stable Critical Care Time: No Referrals: QUINTON POWERS DO [Primary Care Provider] - Additional Instructions: drink plenty fluids. use tylenol for pain. increase activity. follow up with courtroom deputy or calendar clerk for further management
[2019-02-08] MEDS ORDERED: Sodium Chloride 0.9% 1000 ML 1,000 ML IV STA (14:21)
[2019-02-08] MEDS ORDERED: Sodium Chloride 0.9% 1000 ML 1,000 ML ONE (14:24)
[2019-02-08 14:42] LABS: Absolute Neutrophil Ct (ANC) 9.16 (1.4-6.9); BASOPHIL % 0.2 % (0.0-0.4); Basophil (Absolute #) 0.02 (0-0.4); Eosinophil % 1.6 % (0.00-5.0); Eosinophil (Absolute #) 0.21 (0-0.5); Hematocrit 36.8 % (35-47); Hemoglobin 11.8 gm/dl (12.0-16.0); Lymphocyte (Absolute #) 2.53 (1.0-4.6); Lymphocytes % 19.8 % (24.0-44.0); Mean Cell Volume 86.4 fl (78-100); Mean Corpuscular Hemoglobin 27.7 pg (26-32); Mean Corpuscular Hgb Concent. 32.1 g/dl (32-36); Mean Platelet Volume 11.8 fl (6-9.5); Monocyte (Absolute #) 0.84 (0.0-1.3); Monocytes % 6.6 % (0.0-12.0); Neutrophil % 71.8 % (36.0-66.0); Platelet Count 256 K/mm3 (150-450); Red Blood Count 4.26 M/mm3 (4.1-5.4); Red Cell Distribution Width 13.5 % (11.5-14.0); White Blood Count 12.8 K/mm3 (4.0-10.5)
[2019-02-08 14:57] LABS: Amourphous Crystal FEW /HPF (NEGATIVE); Appearance CLOUDY (CLEAR); Bacteria RARE /HPF (NEGATIVE); Bilirubin NEGATIVE (NEGATIVE); Blood NEGATIVE Ery/ul (0-5); Epithelial Cells RARE /HPF (FEW); Glucose NEGATIVE (NEGATIVE); Ketones NEGATIVE (NEGATIVE); Leukocyte Esterase NEGATIVE (NEGATIVE); Mucus SLIGHT /HPF (NEGATIVE); Nitrite NEGATIVE (NEGATIVE); Protein,Urine Dip NEGATIVE (Negative); Specific Gravity 1.026 (1.005-1.025); Urobilinogen 4 mg/dL (0-1)
[2019-02-08 15:22] LABS: ALBUMIN 3.9 g/dL (3.5-5.0); ALKALINE PHOSPHATASE 59 U/L (38-126); AMYLASE 55 U/L (30-110); ANION GAP 13.3 MEQ/L (5-15); BLOOD UREA NITROGEN 12 mg/dL (7-17); CHLORIDE 105 mmol/L (98-107); Calcium 9.6 mg/dL (8.4-10.2); Carbon Dioxide 26 mmol/L (22-30); Creatinine 1 0.63 mg/dL (0.52-1.04); Glucose 91 mg/dL (74-106); LIPASE 51 U/L (23-300); SGOT/AST 20 U/L (14-36); SGPT/ALT 13 U/L (0-35); SODIUM 141 mmol/L (137-145); Total Protein 7.6 g/dL (6.3-8.2)
[2019-02-08 15:47] VITALS: O2SAT 98
--- NOTE | 2019-02-08 16:32 | XRAY ---
Exam: CT of the abdomen and pelvis without IV contrast from 02/08/2019. CTDI: 39.07 mGy. Comparison: CT of the abdomen and pelvis with IV contrast from 12/10/2013. Indication: Right lower quadrant abdominal pain for 2 days with leukocytosis. Possible appendicitis. The patient is known to be 9 weeks . Technique: Non-IV contrast axial images were obtained through the abdomen and pelvis. Reconstructed coronal and sagittal images were created and reviewed. Evidently, the Emergency Department physician, Dr. Dowell, spoke with the patient about the need for the CT examination despite her . The photonics engineering technologist spoke with the patient as well and obtained a written consent to perform the CT scan despite her . I did not personally speak or see the patient before the exam was performed. Findings: The visualized lung bases appear clear. The transverse heart size is normal. Assessment of the solid organs is limited on a non-IV contrast study only. With this limitation in mind, the liver, spleen, pancreas, adrenal glands, and kidneys appear essentially unremarkable. The spleen is perhaps borderline enlarged measuring 12.9 cm in maximum craniocaudal dimension on coronal image #114. I don't believe this represents a significant interval change. Previously noted small nonobstructing right renal calculus on axial image #35 from 12/10/2013 is no longer seen. The gallbladder is only minimally distended. No calcified gallstones are seen within it. The abdominal aorta appears of normal diameter. No abnormal retroperitoneal lymphadenopathy is seen. The patient is noted to be obese. No free intraperitoneal air or ventral abdominal wall hernia is seen. The bowel is not distended. The appendix is identified within the right lower quadrant and appears unremarkable without evidence of appendicitis. Some scattered colonic stool is seen within the colon. The uterus is enlarged and anteflexed. There is a fluid collection within the central aspect of the upper uterine segment measuring 5.1 cm x 3.3 cm in cross section on axial image #73. This is consistent with an intrauterine , probably during the first trimester. The ovaries appear unremarkable. No other suspicious pelvic mass or enlarged pelvic lymph nodes are seen. Abundant stool is seen within the distal rectosigmoid colon. There is no free intraperitoneal fluid. The deep pelvic sidewalls appear unremarkable. The urinary bladder is partially distended and appears unremarkable. The skeleton reveals no acute fracture or aggressive bone lesion. A few small Schmorl's nodes are seen within the vertebral endplates of several lower thoracic and upper lumbar vertebra as an incidental note. Impression: 1. The appendix within the right lower quadrant appears unremarkable. No findings to suggest acute appendicitis are seen. 2. Moderate scattered colonic stool is noted, particularly within the distal rectosigmoid colon. Consider constipation. 3. Prior small nonobstructing stone within the right kidney is no longer seen. 4. No other acute intra-abdominal or pelvic process is seen. 5. Enlarged anteflexed uterus containing an apparent gestational sac within the central aspect of the upper uterine segment consistent with a first trimester . This was known prior to the CT exam. Evidently, the pros and cons of performing the exam were explained to the patient by the Emergency Department physician prior to the exam, and it was decided to proceed with the CT study. The patient signed a consent for the exam be performed despite her before the exam was performed.
[2019-02-08 17:13] VITALS: BP 148/87; PULSE 87
== END 2019-02-08 17:11 | disposition home or self-care (01) ==
LOC: ED 13:37
DX: O26.891 Other specified pregnancy related conditions, first trimester (principal); R10.31 Right lower quadrant pain; K59.00 Constipation, unspecified; Z3A.09 9 weeks gestation of pregnancy
CPT/HCPCS: 36000; 36415; 74176; 80053; 81001; 82150; 83605; 83690; 85025; 96360; 99284

== ENCOUNTER 2019-05-25 11:13 | Observation (INO) | payer OTHER ==
[2019-05-25 11:55] VITALS: PULSE 87
[2019-05-25 12:44] VITALS: BP 131/70
== END 2019-05-25 12:40 | disposition home or self-care (01) ==
LOC: OB 11:13
PROVIDERS: ADMIT Obstetrics & Gynecology; ATTEND Obstetrics & Gynecology
DX: Z34.82 Encounter for supervision of other normal pregnancy, second trimester (principal)
CPT/HCPCS: 84112; G0378

== ENCOUNTER 2019-07-17 07:46 | Observation (INO) | payer OTHER ==
[2019-07-17 14:31] VITALS: BP 132/75; PULSE 88
--- NOTE | 2019-07-17 15:24 | XRAY ---
Indication: well-being. 2-dimensional OB ultrasound performed. Comparison: None for this . There is a single viable intrauterine currently in breech presentation. heart rates 141 BPM. Posterior placenta without abruption/previa. BPD measures 8.53 cm corresponding to 34 weeks 3 days. HC measures 30.69 cm corresponding to 34 weeks 1 day. AC measures 30.99 cm corresponding to 35 weeks 0 days. FL measures 6.62 cm corresponding to 34 weeks 1 day. ANDREW is 15.4 cm. Impression: Single viable intrauterine with mean gestational age 34 weeks 3 days. Expected date of confinement is August 25, 2019.
--- NOTE | 2019-07-17 15:24 | XRAY ---
Indication: well-being. Ultrasound biophysical profile exam was performed. There is a single viable intrauterine reported separately. Four-quadrant ANDREW is 15.4 cm. 2 points given for breathing, movement, tone, and qualitative amniotic fluid volume. Impression: Total biophysical profile score is 8 out of 8.
== END 2019-07-17 15:25 | disposition home or self-care (01) ==
LOC: OB 14:03
PROVIDERS: ADMIT Obstetrics & Gynecology; ATTEND Obstetrics & Gynecology
DX: O24.410 Gestational diabetes mellitus in pregnancy, diet controlled (principal); Z3A.32 32 weeks gestation of pregnancy
CPT/HCPCS: 59025; 76805; 76819; G0378

== ENCOUNTER 2019-07-24 14:25 | Observation (INO) | payer OTHER ==
[2019-07-24 14:56] VITALS: BP 142/65; PULSE 76
== END 2019-07-24 15:35 | disposition home or self-care (01) ==
LOC: OB 14:25
PROVIDERS: ADMIT Obstetrics & Gynecology; ATTEND Obstetrics & Gynecology
DX: Z34.83 Encounter for supervision of other normal pregnancy, third trimester (principal)
CPT/HCPCS: 59025; G0378

== ENCOUNTER 2019-07-31 11:59 | Observation (INO) | payer OTHER ==
[2019-07-31 13:04] VITALS: PULSE 74
--- NOTE | 2019-07-31 13:08 | XRAY ---
Indication: Gestational diabetes. Ultrasound biophysical profile exam was performed. There is a single viable intrauterine currently in cephalic presentation with heart rate 151 BPM. Four-quadrant ANDREW is 14.5 cm. 2 points given for breathing and qualitative amniotic fluid volume. 0 points given for movement and tone. Impression: Total biophysical profile score is 4 out of 8. Preliminary report was given to the patient's nurse.
[2019-07-31 13:55] VITALS: BP 140/77
== END 2019-07-31 13:35 | disposition home or self-care (01) ==
LOC: OB 11:59
PROVIDERS: ADMIT Obstetrics & Gynecology; ATTEND Obstetrics & Gynecology
DX: O24.410 Gestational diabetes mellitus in pregnancy, diet controlled (principal); Z3A.34 34 weeks gestation of pregnancy
CPT/HCPCS: 59025; 76818; G0378

== ENCOUNTER 2019-08-03 10:38 | Observation (INO) | payer OTHER ==
[2019-08-03 12:29] VITALS: O2SAT 98
[2019-08-03 12:48] VITALS: BP 138/75; PULSE 93
== END 2019-08-03 11:50 | disposition home or self-care (01) ==
LOC: OB 10:38
PROVIDERS: ADMIT Obstetrics & Gynecology; ATTEND Obstetrics & Gynecology
DX: Z34.83 Encounter for supervision of other normal pregnancy, third trimester (principal)
CPT/HCPCS: 59025; G0378

== ENCOUNTER 2019-08-07 07:09 | Observation (INO) | payer OTHER ==
[2019-08-18 12:37] VITALS: BP 143/76; PULSE 90; O2SAT 96
== END 2019-08-18 11:40 | disposition home or self-care (01) ==
LOC: EDSTATUS 07:09 → OB 08-18 10:44
PROVIDERS: ADMIT Obstetrics & Gynecology; ATTEND Obstetrics & Gynecology
DX: Z34.83 Encounter for supervision of other normal pregnancy, third trimester (principal)
CPT/HCPCS: 59025; G0378

== ENCOUNTER 2019-08-07 13:55 | Observation (INO) | payer OTHER ==
--- NOTE | 2019-08-07 14:56 | XRAY ---
Indication: Gestational diabetes. Comparison: July 31, 2019. Ultrasound biophysical profile exam was performed. There is a single viable intrauterine in cephalic presentation. heart rate 133 BPM. 4 quadrant ANDREW is 15.2 cm. 2 points given for breathing, movements, tone, and qualitative amniotic fluid volume. Impression: Total biophysical profile score is now 8 out of 8.
[2019-08-07 15:24] VITALS: BP 146/86; PULSE 86
== END 2019-08-07 15:05 | disposition home or self-care (01) ==
LOC: OB 13:55
PROVIDERS: ADMIT Obstetrics & Gynecology; ATTEND Obstetrics & Gynecology
DX: Z34.83 Encounter for supervision of other normal pregnancy, third trimester (principal)
CPT/HCPCS: 59025; 76818; G0378

== ENCOUNTER 2019-08-11 12:29 | Observation (INO) | payer OTHER ==
[2019-08-11 14:30] VITALS: BP 128/76; PULSE 86
== END 2019-08-11 13:45 | disposition home or self-care (01) ==
LOC: OB 12:29
PROVIDERS: ADMIT Obstetrics & Gynecology; ATTEND Obstetrics & Gynecology
DX: Z34.83 Encounter for supervision of other normal pregnancy, third trimester (principal)
CPT/HCPCS: 59025; G0378

== ENCOUNTER 2019-08-14 10:36 | Observation (INO) | payer OTHER ==
[2019-08-14 14:10] VITALS: BP 145/70; PULSE 77
--- NOTE | 2019-08-14 22:38 | XRAY ---
Exam: OB biophysical profile without nonstress from 08/14/2019. Comparison: OB biophysical profile with nonstress from 08/07/2019. Indication: Gestational diabetes, well being. Findings: A follow-up OB ultrasound was obtained concomitantly. Please see that study. The biophysical profile reveals 2 points out of a possible 2 points for breathing movements, gross body movements, tone, and qualitative amniotic fluid volume. The biophysical profile score is 8 points out of a maximum of 8 points representing no change from 08/07/2019. Impression: 1. Biophysical profile score is 8 points out of a maximum of 8 points representing no change from 08/07/2019.
--- NOTE | 2019-08-15 10:14 | XRAY ---
Exam: OB follow-up ultrasound from 08/14/2019. Comparison: OB ultrasound greater than 14 weeks from 07/17/2019. Indication: Gestational diabetes, well being. Findings: The fetus is now in a cephalic lie. The heart rate measures 134 bpm. Amniotic fluid index measures 11.53 cm with the largest pocket measuring 4.23 cm. Prior posteriorly located placenta is not well imaged on the current study. biometry: BPD measures 8.94 cm consistent with a gestational age of 36 weeks, 1 day. Head circumference measures 32.62 cm consistent with a gestational age of 37 weeks, 0 days. Abdominal circumference measures 34.42 cm consistent with a gestational age of 38 weeks, 2 days. Femur length measures 7.19 cm consistent with a gestational age of 36 weeks, 6 days. The average composite gestational age based on all of the above dates is 37 weeks, 1 day plus or -2 weeks, 4 days yielding a due date of 09/03/2019. This is about 9 days behind that anticipated by the size measurements from the OB ultrasound of 07/17/2019, but is still within the normal range of variability of plus or -2 weeks, 4 days. Correlate clinically. Estimated weight is 3245 g plus or -486.69 g (7 lbs. 2 oz.+ or -1 lb. 1 oz.) placing the fetus in the 86.6 percentile. size ratios are all within normal limits. body movement was identified. Both a fluid-filled stomach and fluid filled urinary bladder are seen. A detailed anatomy scan was not performed. The charge histotechnologist noted respiration. Impression: 1. 37 week, 1 day single live intrauterine fetus which is now in the cephalic lie. See above. heart rate measured 134 bpm. 2. Previously noted posterior located placenta is not well imaged on the current study. 3. Amniotic fluid index measures 11.53 cm which is within normal limits for this stage of .
== END 2019-08-14 15:11 | disposition home or self-care (01) ==
LOC: WHC 10:36 → OB 13:42
PROVIDERS: ADMIT Obstetrics & Gynecology; ATTEND Obstetrics & Gynecology
DX: Z34.83 Encounter for supervision of other normal pregnancy, third trimester (principal); Z3A.36 36 weeks gestation of pregnancy
CPT/HCPCS: 59025; 76816; 76819; G0378; 59426

== ENCOUNTER 2019-08-21 13:26 | Observation (INO) | payer OTHER ==
[2019-08-21 14:12] VITALS: BP 138/77; PULSE 77
--- NOTE | 2019-08-21 14:55 | XRAY ---
Indication: well-being. Ultrasound biophysical profile exam was performed and compared to August 14, 2019. There is again a single viable intrauterine currently in cephalic presentation with heart rate 120 BPM. Four-quadrant ANDREW is 20 cm. 2 points given for breathing, movements, tone, and qualitative amniotic fluid volume. Impression: Total biophysical profile score remains 8 out of 8.
== END 2019-08-21 15:10 | disposition home or self-care (01) ==
LOC: OB 13:26
PROVIDERS: ADMIT Obstetrics & Gynecology; ATTEND Obstetrics & Gynecology
DX: O24.410 Gestational diabetes mellitus in pregnancy, diet controlled (principal); Z3A.37 37 weeks gestation of pregnancy
CPT/HCPCS: 59025; 76819; G0378

== ENCOUNTER 2019-08-24 10:37 | Observation (INO) | payer OTHER ==
[2019-08-24 11:41] VITALS: BP 132/75; PULSE 71
== END 2019-08-24 11:25 | disposition home or self-care (01) ==
LOC: OB 10:37
PROVIDERS: ADMIT Obstetrics & Gynecology; ATTEND Obstetrics & Gynecology
DX: Z34.83 Encounter for supervision of other normal pregnancy, third trimester (principal)
CPT/HCPCS: 59025; G0378

== ENCOUNTER 2019-08-27 12:45 | Observation (INO) | payer OTHER ==
[2019-08-27 14:07] VITALS: BP 145/80; PULSE 94
[2019-08-27 14:29] LABS: Amphetamine,Urine NEGATIVE (NEGATIVE); Barbiturate,Urine NEGATIVE (NEGATIVE); Benzodiazepine,Urine NEGATIVE (NEGATIVE); Cocaine,Urine NEGATIVE (NEGATIVE); Methadone,Urine NEGATIVE (NEGATIVE); Opiate,Urine NEGATIVE (NEGATIVE); PCP,Urine NEGATIVE (NEGATIVE); THC,Urine NEGATIVE (NEGATIVE)
[2019-08-27 14:47] LABS: Amourphous Crystal FEW /HPF (NEGATIVE); Appearance CLOUDY (CLEAR); Bacteria RARE /HPF (NEGATIVE); Bilirubin NEGATIVE (NEGATIVE); Blood NEGATIVE Ery/ul (0-5); Epithelial Cells RARE /HPF (FEW); Glucose NEGATIVE (NEGATIVE); Ketones NEGATIVE (NEGATIVE); Leukocyte Esterase NEGATIVE (NEGATIVE); Mucus SLIGHT /HPF (NEGATIVE); Nitrite NEGATIVE (NEGATIVE); Protein,Urine Dip NEGATIVE (Negative); Specific Gravity 1.019 (1.005-1.025); Urobilinogen 2 mg/dL (0-1)
== END 2019-08-27 15:00 | disposition home or self-care (01) ==
LOC: OB 12:45
PROVIDERS: ADMIT Obstetrics & Gynecology; ATTEND Obstetrics & Gynecology
DX: Z34.83 Encounter for supervision of other normal pregnancy, third trimester (principal)
CPT/HCPCS: 59025; 80307; 81001; G0378

== ENCOUNTER 2019-08-29 07:45 | Inpatient (IN) | payer OTHER ==
[2019-08-29] MEDS ORDERED: Zofran 4 MG/2 ML VIAL IV PRN (19:59)
[2019-08-29] MEDS ORDERED: PITOCIN 30 UNITS/ LR 500 ML 30 UNITS/500 ML IV.SOLN. IV SCH ×2 (20:00→20:30)
[2019-08-29] MEDS ORDERED: BRETHINE 1 MG/ML SQ PRN (20:01)
[2019-08-29 20:54] LABS: Amphetamine,Urine NEGATIVE (NEGATIVE); Barbiturate,Urine NEGATIVE (NEGATIVE); Benzodiazepine,Urine NEGATIVE (NEGATIVE); Cocaine,Urine NEGATIVE (NEGATIVE); Methadone,Urine NEGATIVE (NEGATIVE); Opiate,Urine NEGATIVE (NEGATIVE); PCP,Urine NEGATIVE (NEGATIVE); THC,Urine NEGATIVE (NEGATIVE)
[2019-08-29 21:05] LABS: Hematocrit 35.5 % (35-47); Hemoglobin 11.4 gm/dl (12.0-16.0); Mean Cell Volume 84.1 fl (78-100); Mean Corpuscular Hgb Concent. 32.1 g/dl (32-36); Mean Platelet Volume 12.6 fl (7.5-11.0); Platelet Count 229 K/mm3 (150-450); Red Blood Count 4.22 M/mm3 (4.1-5.4); Red Cell Distribution Width 15.3 % (11.5-14.0); White Blood Count 13.8 K/mm3 (4.0-10.5)
[2019-08-29] MEDS: Lactated Ringers 1,000 ML IV SCH (21:27)
[2019-08-29 22:44] LABS: Basophil 1 % (0.0-1.0); Eosinophil 2 % (0.00-3.0); Lymphocytes 16 % (24-44); Monocyte 6 % (0.0-12.0); Neutrophils 75 % (36.0-66.0); Platelet Estimate NORMAL (NORMAL); Total Cells Counted 100
[2019-08-30] MEDS: Lactated Ringers 1,000 ML IV SCH ×3 (02:04→13:15)
[2019-08-30] MEDS ORDERED: Lactated Ringers 1,000 ML IV ONE (06:04)
[2019-08-30] MEDS ORDERED: OB EPIDURAL NAROPIN/SUFENTANIL IN NACL EPIDURAL PRN (06:04)
[2019-08-30] MEDS ORDERED: Ephedrine Sulfate 50 MG/ML IV PRN (06:04)
[2019-08-30] MEDS ORDERED: XYLOCAINE 1% HCL 20 ML MDV ONE (08:57)
[2019-08-30] MEDS ORDERED: [UNRECOGNIZED DRUG - REMARK] PO SCH (10:00)
[2019-08-30] MEDS ORDERED: VALACYCLOVIR HCL PO SCH (10:00)
[2019-08-30] MEDS: SYNTHROID 25 MCG PO SCH (11:35)
[2019-08-30] MEDS: ZOVIRAX 200 MG PO SCH ×3 (11:35→21:40)
[2019-08-30] MEDS: THERAGRAN MULTIVITAMIN PO SCH (11:35)
[2019-08-30] MEDS: CLARITIN 10 MG PO SCH (11:40)
[2019-08-30] MEDS: ECOTRIN 81 MG PO SCH (11:40)
[2019-08-30] MEDS ORDERED: Anucort-HC SUPPOSITORY PR PRN (18:07)
[2019-08-30] MEDS ORDERED: Ambien 10 MG PO PRN (18:07)
[2019-08-30] MEDS ORDERED: Dulcolax 10 MG SUPP PR PRN (18:07)
[2019-08-30] MEDS ORDERED: Dermoplast Spray TP PRN (18:07)
[2019-08-30] MEDS ORDERED: NORCO 5/325 MG PO PRN (18:07)
[2019-08-30] MEDS ORDERED: Restoril 15 MG PO PRN (18:07)
[2019-08-30] MEDS ORDERED: CORTISONE 1% CREAM TP PRN (18:07)
[2019-08-30] MEDS ORDERED: TYLENOL EXTRA STRENGTH 500 MG PO PRN (18:07)
[2019-08-30] MEDS ORDERED: LANSINOH 40 GM TOP PRN (18:07)
[2019-08-30] MEDS ORDERED: TUCKS TP PRN (18:07)
[2019-08-30] MEDS ORDERED: Mylicon 80MG PO PRN (18:07)
[2019-08-30] MEDS: MOTRIN 400 MG PO PRN (21:39)
[2019-08-30] MEDS: Colace 100 MG PO SCH (21:39)
[2019-08-31] MEDS: MOTRIN 400 MG PO PRN ×3 (03:45→21:39)
[2019-08-31] MEDS: ENOXAPARIN SODIUM SQ SCH ×2 (06:34→13:09)
[2019-08-31] MEDS: TYLENOL EXTRA STRENGTH 500 MG PO PRN (08:09)
[2019-08-31 08:32] LABS: Absolute Neutrophil Ct (ANC) 9.71 (1.4-6.9); BASOPHIL % 0.1 % (0.0-0.4); Basophil (Absolute #) 0.02 (0-0.4); Eosinophil % 2.6 % (0.00-5.0); Eosinophil (Absolute #) 0.35 (0-0.5); Hematocrit 33.2 % (35-47); Hemoglobin 10.5 gm/dl (12.0-16.0); Lymphocyte (Absolute #) 2.65 (1.0-4.6); Lymphocytes % 19.6 % (24.0-44.0); Mean Cell Volume 85.1 fl (78-100); Mean Corpuscular Hemoglobin 26.9 pg (26-32); Mean Corpuscular Hgb Concent. 31.6 g/dl (32-36); Mean Platelet Volume 12.5 fl (7.5-11.0); Monocytes % 5.9 % (0.0-12.0); Neutrophil % 71.8 % (36.0-66.0); Platelet Count 181 K/mm3 (150-450); Red Cell Distribution Width 15.4 % (11.5-14.0); White Blood Count 13.5 K/mm3 (4.0-10.5)
[2019-08-31] MEDS: THERAGRAN MULTIVITAMIN PO SCH (09:52)
[2019-08-31] MEDS: FERREX 150 PO SCH (09:53)
[2019-08-31] MEDS: ECOTRIN 81 MG PO SCH (09:53)
[2019-08-31] MEDS: CLARITIN 10 MG PO SCH (09:54)
[2019-08-31] MEDS: Colace 100 MG PO SCH ×2 (09:54→21:39)
[2019-08-31] MEDS: SYNTHROID 25 MCG PO SCH (09:54)
[2019-08-31] MEDS: ZOVIRAX 200 MG PO SCH (09:54)
--- NOTE | 2019-08-31 10:28 | PCM.NOTE ---
Date and Time: 08/31/19 1025 Subjective Assessment: PPD 1 SP PT RESTING IN BED AND DOING WELL. AMBULATING AND TOLERATING DIET WITHOUT COMPLAINTS VSS AFEBRILE ABD; SOFT UTERUS; FIRM LOCHIA; MILD LAB; HGB; 10 A/P SP PPD 1 ANTICIPATE DISCHARGE HOME TOMORROW OBJECTIVE DATA Vital Signs: Vital Signs - 24 hr Temp Pulse Resp BP BP Pulse Ox 08/31/19 02:00 97.7 F 84 20 134/68 97 08/31/19 00:00 98.2 F 89 20 132/77 97 08/30/19 20:00 98.2 F 100 H 20 135/71 97 08/30/19 19:15 130 H 20 136/85 08/30/19 19:00 98.2 F 130 H 20 136/85 08/30/19 18:00 108 H 20 150/65 08/30/19 17:45 99 H 20 155/71 08/30/19 17:34 20 08/30/19 17:30 90 20 216/100 08/30/19 17:15 90 20 161/92 08/30/19 17:00 71 20 121/60 08/30/19 16:45 75 20 123/58 08/30/19 16:30 88 20 117/60 08/30/19 16:15 77 20 149/75 08/30/19 16:00 77 20 143/78 08/30/19 15:54 70 20 129/63 08/30/19 15:45 82 20 166/98 08/30/19 15:30 70 20 129/63 08/30/19 15:15 84 20 141/83 08/30/19 15:00 82 20 142/77 08/30/19 14:45 74 20 131/65 08/30/19 14:30 76 20 128/61 08/30/19 14:15 77 20 106/54 08/30/19 14:00 63 20 110/54 08/30/19 13:45 82 20 114/56 08/30/19 13:30 67 20 112/53 08/30/19 13:15 77 20 107/53 08/30/19 13:00 75 20 130/68 08/30/19 12:45 66 20 136/72 08/30/19 12:30 71 20 134/76 08/30/19 12:15 65 20 126/59 08/30/19 12:00 65 20 130/65 08/30/19 11:45 62 20 131/66 08/30/19 11:30 65 20 121/60 08/30/19 11:15 75 20 122/61 08/30/19 11:00 72 20 114/60 08/30/19 10:45 72 20 114/60 08/30/19 10:30 72 20 136/63 Pain Assessment - Last Documented Pain Intensity [Lower Anterior 3 Medial] Pain Intensity 2 Pain Scale Used 0-10 Pain Scale Intake and Output: Intake & Output 08/28/19 08/29/19 08/30/19 08/31/19 11:59 11:59 11:59 11:59 Intake Total 3711 3688 Output Total 8050 Balance 3711 1638 Weight 165.561 kg Lab Results: Accuchecks Date 08/30/19 Time 21:00 Accucheck Value: 85 Lab Results-Last 24 Hours 08/31/19 Range/Units 08:25 WBC 13.5 H (4.0-10.5) K/mm3 RBC 3.90 L (4.1-5.4) M/mm3 Hgb 10.5 L (12.0-16.0) gm/dl Hct 33.2 L (35-47) % MCV 85.1 (78-100) fl MCH 26.9 (26-32) pg MCHC 31.6 L (32-36) g/dl RDW 15.4 H (11.5-14.0) % Plt Count 181 (150-450) K/mm3 MPV 12.5 H (7.5-11.0) fl Gran % 71.8 H (36.0-66.0) % Eos # (Auto) 0.35 (0-0.5) Absolute Lymphs (auto) 2.65 (1.0-4.6) Absolute Monos (auto) 0.80 (0.0-1.3) Lymphocytes % 19.6 L (24.0-44.0) % Monocytes % 5.9 (0.0-12.0) % Eosinophils % 2.6 (0.00-5.0) % Basophils % 0.1 (0.0-0.4) % Absolute Granulocytes 9.71 H (1.4-6.9) Basophils # 0.02 (0-0.4) Multi-Disciplinary Progress Notes: Multi-Disciplinary Progress Notes 08/30/19 17:57 Respiratory Note by Rosangela Le FOR DELIVERY PER REQUEST NO COMPLICATIONS Initialized on 08/30/19 17:57 - END OF NOTE Assessment/Plan (1) Gestational diabetes mellitus (GDM) affecting Current Visit: Yes Status: Acute Code(s): O24.419 - GESTATIONAL DIABETES MELLITUS IN , UNSP CONTROL (2) Labor abnormality, delivered Current Visit: Yes Status: Acute Code(s): O62.9 - ABNORMALITY OF FORCES OF LABOR, UNSPECIFIED
[2019-08-31 17:33] VITALS: O2SAT 98
[2019-09-01 02:03] VITALS: PULSE 67
[2019-09-01] MEDS: MOTRIN 400 MG PO PRN (04:20)
[2019-09-01 08:49] VITALS: BP 154/77
[2019-09-01] MEDS: SYNTHROID 25 MCG PO SCH (09:33)
[2019-09-01] MEDS: Colace 100 MG PO SCH (09:33)
[2019-09-01] MEDS: ENOXAPARIN SODIUM SQ SCH (09:33)
[2019-09-01] MEDS: FERREX 150 PO SCH (09:33)
[2019-09-01] MEDS: ECOTRIN 81 MG PO SCH (09:33)
[2019-09-01] MEDS: THERAGRAN MULTIVITAMIN PO SCH (09:33)
[2019-09-01] MEDS: CLARITIN 10 MG PO SCH (09:34)
[2019-09-01] MEDS: TYLENOL EXTRA STRENGTH 500 MG PO PRN (09:37)
--- NOTE | 2019-09-01 09:57 | PCM.NOTE ---
Date and Time: 09/01/19954 Subjective Assessment: PPD 2 SP PT RESTING IN BED AND DONG WELL, AMBULATING AND TOLERATING DIET VSS AFEBRILE 150/92 ABD; SOFT UTERUS; FIRM LOCHI; MILD A/P SP PPD 2 DC HOME TODAY PT NOTED HAVING MILDLY ELEVATED BP SHOULD FU IN OFFICE IN 1 WK FOR EVAL OF BP OBJECTIVE DATA Vital Signs: Vital Signs - 24 hr Temp Pulse Resp BP Pulse Ox 09/01/19 08:00 97.2 F 20 154/77 09/01/19 02:00 98.2 F 67 18 113/62 08/31/19 19:59 97.4 F 77 20 146/72 08/31/19 14:00 98.2 F 85 20 133/78 98 Pain Assessment - Last Documented Pain Intensity [Lower Anterior 3 Medial] Pain Intensity 2 Pain Scale Used 0-10 Pain Scale Intake and Output: Intake & Output 08/29/19 08/30/19 08/31/19 09/01/19 11:59 11:59 11:59 11:59 Intake Total 3711 3688 1000 Output Total 2300 Balance 3711 1388 1000 Weight 165.561 kg Lab Results: Lab Results-Last 24 Hours 08/29/19 Range/Units 21:00 Hep Bs Antigen Non Reactive (Non Reactive) Assessment/Plan (1) Gestational diabetes mellitus (GDM) affecting Current Visit: Yes Status: Acute Code(s): O24.419 - GESTATIONAL DIABETES MELLITUS IN , UNSP CONTROL (2) Labor abnormality, delivered Current Visit: Yes Status: Acute Code(s): O62.9 - ABNORMALITY OF FORCES OF LAB[employer], UNSPECIFIED
--- NOTE | 2019-09-01 09:58 | PCM.DS ---
Discharge Summary Date of Admission: 08/30/19 07:45 Admitting Physician: JUAN WHITING DO Consults: Consults on Case 08/30/19 06:04 Notify Anesthesia Provider PRN Primary Care Provider: QUINTON POWERS DO Allergies Allergies fluoxetine HCl [From Prozac] Adverse Reaction (Severe, Verified 08/29/19 21:55) Nausea PROZAC WITH FLUOXETINE HAS BLOOD IN STOOL Hospital Summary - Vitals & Intake/Output Vital Signs: Vital Signs Temperature 97.2 F 09/01/19 08:00 Pulse Rate 67 09/01/19 02:00 Respiratory Rate 20 09/01/19 08:00 Blood Pressure 154/77 09/01/19 08:00 O2 Sat by Pulse Oximetry 98 08/31/19 14:00 Intake & Output: Intake & Output 08/29/19 08/30/19 08/31/19 09/01/19 11:59 11:59 11:59 11:59 Intake Total 3711 3688 1000 Output Total 2300 Balance 3711 1388 1000 Weight 165.561 kg - Lab Result Diagrams: 08/31/19 08:25 Lab Results-Last 24 Hrs: Lab Results-Last 24 Hours 08/29/19 Range/Units 21:00 Hep Bs Antigen Non Reactive (Non Reactive) Micro Results-Entire Visit: Microbiology 08/30/19 11:02 Urine Culture - Preliminary Catherized NO GROWTH TO DATE - Procedures and Test Procedures and Tests throughout Hospitalization: Therapy Orders & Screens 08/30/19 17:56 Standby ROUTINE Comment: Final Diagnosis/Problem List - Final Discharge Diagnosis/Problem (1) Gestational diabetes mellitus (GDM) affecting Current Visit: Yes Status: Acute Code(s): O24.419 - GESTATIONAL DIABETES MELLITUS IN , UNSP CONTROL (2) Labor abnormality, delivered Current Visit: Yes Status: Acute Code(s): O62.9 - ABNORMALITY OF FORCES OF LAB[employer], UNSPECIFIED - Discharge Condition: Stable Prescriptions: No Action Levothyroxine Sodium 25 Mcg [Synthroid 25 Mcg] 25 mcg PO DAILY Loratadine 10 mg PO DAILY Pnv No.103/Folic/Om3s/Fish Oil [ Gummies] 2 cap PO DAILY Aspirin 81 gm Chew [Baby Aspirin 81 mg Chew] 2 cap PO DAILY glyBURIDE [Glyburide] 2.5 mg PO BID Valacyclovir HCl [Valtrex] 1 tab PO BID Instructions: Vaginal Delivery (DC) Follow up with: QUINTON POWERS DO [Primary Care Provider] - JUAN WHITING DO [ACTIVE STAFF] - 1 Week (MAKE A FOLLOW UP APPOINTMENT FOR NEXT WEEK WITH DR WHITING TO RECHECK BLOOD PRESSURE. ) Forms: OB Discharge Instructions
--- NOTE | 2019-09-01 09:59 | PCM.DCORD ---
- Discharge Condition: Stable Prescriptions: No Action Levothyroxine Sodium 25 Mcg [Synthroid 25 Mcg] 25 mcg PO DAILY Loratadine 10 mg PO DAILY Pnv No.103/Folic/Om3s/Fish Oil [ Gummies] 2 cap PO DAILY Aspirin 81 gm Chew [Baby Aspirin 81 mg Chew] 2 cap PO DAILY glyBURIDE [Glyburide] 2.5 mg PO BID Valacyclovir HCl [Valtrex] 1 tab PO BID Instructions: Vaginal Delivery (DC) Additional Instructions: CALL DR WHITING IF YOU HAVE ANY SYMPTOMS OF HEADACHE, BLURRY VISION, NAUSEA OR ANYTHING OUT OF THE ORDINARY TO BE SEEN EARLIER THAN ONE WEEK. Follow up with: QUINTON POWERS DO [Primary Care Provider] - JUAN WHITING DO [ACTIVE STAFF] - 1 Week (MAKE A FOLLOW UP APPOINTMENT FOR NEXT WEEK WITH DR WHITING TO RECHECK BLOOD PRESSURE. ) Forms: OB Discharge Instructions
== END 2019-09-01 12:45 | disposition home or self-care (01) | DRG 806 ==
LOC: OB 07:45 → UNDOADMOB 20:05 → OBSVTOIN 08-30 07:45 → INTOOBSV 08-30 07:45
PROVIDERS: ADMIT Obstetrics & Gynecology; ATTEND Obstetrics & Gynecology
PROC: 10E0XZZ Delivery of Products of Conception, External Approach (ICD-10-PCS; principal; 2019-08-30)
PROC: 0HQ9XZZ Repair Perineum Skin, External Approach (ICD-10-PCS; 2019-08-30)
DX: O24.425 Gestational diabetes mellitus in childbirth, controlled by oral hypoglycemic drugs (principal); O41.03X0 Oligohydramnios, third trimester, not applicable or unspecified; Z37.0 Single live birth; Z3A.38 38 weeks gestation of pregnancy
CPT/HCPCS: 36415; 59409; 80307; 82962; 85025; 87086; 87340; 94799; G0378; J1650; J2590; J2795; A9270-GY

== ENCOUNTER 2019-09-04 22:03 | Emergency (ER) | payer OTHER ==
[2019-09-04] MEDS ORDERED: BABY ASPIRIN 81 MG CHEW PO ONE (22:23)
--- NOTE | 2019-09-04 22:23 | ERPHSYRPT ---
- History of Present Illness Time Seen by Provider: 09/04/19 22:20 Historian: patient Physician History: Patient is a 29-year-old female who presents to our ED with complaints of pain to her left shoulder and arm. Patient is 5 days status post normal spontaneous vaginal delivery. was complicated by gestational diabetes. Patient blood pressure was somewhat elevated. Patient states her legs are somewhat swollen. Patient currently being worked up for possible preeclampsia. No associated nausea vomiting or diaphoresis. Patient was just started on nifedipine today for elevated blood pressure. Patient symptoms are mild to moderate intensity. No specific worsening or improving factors. Patient is otherwise generally healthy. She voices no other complaint at this time. Timing/Duration: today Activities at Onset: none Quality: aching Location: other (Pain at her left arm left shoulder and patient voiced pain under left breast to RN.) Chest Pain Radiation: no radiation Severity of Pain-Max: moderate Severity of Pain-Current: mild Modifying Factors: Improves With: nothing Associated Symptoms: denies symptoms Prior Chest Pain/Cardiac Workup: no prior chest pain Nitro Today/Relief: no nitro taken today Aspirin Treatment Today: 81 mg x 2 Allergies/Adverse Reactions: fluoxetine HCl [From Prozac] Adverse Reaction (Severe, Verified 09/04/19 22:35) Nausea PROZAC WITH FLUOXETINE HAS BLOOD IN STOOL Home Medications: Levothyroxine Sodium 25 Mcg [Synthroid 25 Mcg] 25 mcg PO DAILY 12/02/18 [History] Loratadine 10 mg PO DAILY 12/02/18 [History] Aspirin 81 gm Chew [Baby Aspirin 81 mg Chew] 2 cap PO DAILY 05/25/19 [History] Pnv No.103/Folic/Om3s/Fish Oil [ Gummies] 2 cap PO DAILY 05/25/19 [History] Nifedipine Xl 30 mg [Adalat CC 30 MG TABLET] 30 mg PO DAILY 09/04/19 [History] Hx Tetanus, Diphtheria Vaccination/Date Given: Yes Hx Influenza Vaccination/Date Given: Yes Hx Pneumococcal Vaccination/Date Given: No - Review of Systems Constitutional: No Symptoms, No Fever, No Chills Eyes: No Symptoms Ears, Nose, & Throat: No Symptoms Respiratory: No Symptoms, No Cough, No Dyspnea Cardiac: No Symptoms, No Chest Pain, No Edema, No Syncope Abdominal/Gastrointestinal: No Symptoms, No Abdominal Pain, No Nausea, No Vomiting, No Diarrhea Genitourinary Symptoms: No Symptoms, No Dysuria Musculoskeletal: No Symptoms, No Back Pain, No Neck Pain Skin: No Symptoms, No Rash Neurological: No Symptoms, No Dizziness, No Focal Weakness, No Sensory Changes Psychological: No Symptoms Endocrine: No Symptoms Hematologic/Lymphatic: No Symptoms Immunological/Allergic: No Symptoms All Other Systems: Reviewed and Negative - Past Medical History Pertinent Past Medical History: Yes Neurological History: Migraines ENT History: No Pertinent History Cardiac History: No Pertinent History Respiratory History: No Pertinent History Endocrine Medical History: Diabetes Type II, Hypothyroidism Musculoskeletal History: No Pertinent History GI Medical History: No Pertinent History History: No Pertinent History Psycho-Social History: Anxiety, Depression Female Reproductive Disorders: No Pertinent History - Past Surgical History Past Surgical History: No Neuro Surgical History: No Pertinent History Cardiac: No Pertinent History Respiratory: No Pertinent History Gastrointestinal: No Pertinent History Genitourinary: No Pertinent History Musculoskeletal: No Pertinent History Female Surgical History: No Pertinent History - Social History Smoking Status: Former smoker How long have you smoked: 16 Exposure to second hand smoke: Yes Drug Use: none Patient Lives Alone: No - Nursing Vital Signs Nursing Vital Signs: Initial Vital Signs Temperature 98.8 F 09/04/19 22:17 Pulse Rate 68 09/04/19 22:17 Respiratory Rate 18 09/04/19 22:17 Blood Pressure 165/99 09/04/19 22:17 O2 Sat by Pulse Oximetry 99 09/04/19 22:17 Pain Scale Pain Intensity 7 - Physical Exam General Appearance: no apparent distress, alert Eye Exam: PERRL/EOMI, eyes nml inspection Ears, Nose, Throat Exam: normal ENT inspection, moist mucous membranes Neck Exam: normal inspection, non-tender, supple, full range of motion Respiratory Exam: normal breath sounds, lungs clear, No respiratory distress Cardiovascular Exam: regular rate/rhythm, normal heart sounds Gastrointestinal/Abdomen Exam: soft, No tenderness, No mass Pelvic Exam: not done Rectal Exam: deferred Back Exam: normal inspection, No CVA tenderness, No vertebral tenderness Extremity Exam: normal inspection, normal range of motion Neurologic Exam: alert, oriented x 3, cooperative, normal mood/affect, sensation nml, No motor deficits Skin Exam: normal color, warm, dry SpO2 Interpretation: normal SpO2: 99 O2 Delivery: Room Air - Course Nursing assessment & vital signs reviewed: Yes EKG Interpreted by Me: RATE (66), Sinus Rhythm, NORMAL AXIS, NORMAL INTERVALS - Radiology Exams Chest X-ray Interpretation: Interpreted by me (No infiltrate, no consolidation, no pneumothorax, no pleural effusion, normal cardiac silhouette. Normal bony thorax.) - CT Exams Chest CT Interpretation: Tele-radiologist Report (Lung granuloma. Negative for PE.) Ordered Tests: Active Orders 24 hr Category Date Time Status Clinical Assistant STAT Care 09/04/19 22:24 Active EKG-ER Only STAT Care 09/04/19 22:23 Active IV Insertion STAT Care 09/04/19 22:23 Active Pulse Oximetry (ED) STAT Care 09/04/19 22:23 Active CHEST 1 VIEW (PORTABLE) Stat Exams 09/04/19 22:24 Taken CHEST WITH CONTRAST [CT] Stat Exams 09/04/19 23:11 Taken CBC W DIFF Stat Lab 09/04/19 22:48 Completed CMP Stat Lab 09/04/19 22:48 Completed D-DIMER QUANTITATIVE Stat Lab 09/04/19 22:48 Completed NT PRO BNP Stat Lab 09/04/19 22:48 Completed TROPONIN Q3H Lab 09/04/19 22:48 Completed TROPONIN Q3H Lab 09/05/19 01:02 Completed TROPONIN Q3H Lab 09/05/19 04:30 Ordered TROPONIN Q3H Lab 09/05/19 07:30 Ordered TROPONIN Q3H Lab 09/05/19 10:30 Ordered Medication Summary Discontinued Medications Generic Name Dose Route Start Last Admin Trade Name Freq PRN Reason Stop Dose Admin Aspirin 324 mg 09/04/19 22:23 09/04/19 22:42 Baby Aspirin 81 Mg Chew PO 09/04/19 22:24 324 mg STAT ONE Administration Sodium Chloride Confirm 09/04/19 23:27 Sodium Chloride 0.9% 1000 Ml Administered 09/04/19 23:28 Dose 1,000 mls @ .[facility] Lab/Rad Data: Laboratory Result Diagrams 09/04/19 22:48 09/04/19 22:48 Laboratory Results 09/05/19 09/04/19 09/04/19 Range/Units 01:02 22:48 22:48 WBC (4.0-10.5) K/mm3 RBC (4.1-5.4) M/mm3 Hgb (12.0-16.0) gm/dl Hct (35-47) % MCV (78-100) fl MCH (26-32) pg MCHC (32-36) g/dl RDW (11.5-14.0) % Plt Count (150-450) K/mm3 MPV (7.5-11.0) fl Gran % (36.0-66.0) % Eos # (Auto) (0-0.5) Absolute Lymphs (auto) (1.0-4.6) Absolute Monos (auto) (0.0-1.3) Lymphocytes % (24.0-44.0) % Monocytes % (0.0-12.0) % Eosinophils % (0.00-5.0) % Basophils % (0.0-0.4) % Absolute Granulocytes (1.4-6.9) Basophils # (0-0.4) D-Dimer 1200 H* (215-500) ng/mL Sodium (137-145) mmol/L Potassium (3.5-5.1) mmol/L Chloride (98-107) mmol/L Carbon Dioxide (22-30) mmol/L Anion Gap (5-15) MEQ/L BUN (7-17) mg/dL Creatinine (0.52-1.04) mg/dL Estimated GFR ML/MIN Glucose (74-106) mg/dL Calcium (8.4-10.2) mg/dL Total Bilirubin (0.2-1.3) mg/dL AST (14-36) U/L ALT (0-35) U/L Alkaline Phosphatase (38-126) U/L Troponin I < 0.012 < 0.012 (0.000-0.034) ng/mL NT-Pro-B Natriuret Pep (0-450) pg/mL Serum Total Protein (6.3-8.2) g/dL Albumin (3.5-5.0) g/dL Urine Opiates Level (NEGATIVE) Ur Methadone (NEGATIVE) Urine Barbiturates (NEGATIVE) Ur Phencyclidine (PCP) (NEGATIVE) Urine Amphetamine (NEGATIVE) U Benzodiazepine Level (NEGATIVE) Urine Cocaine (NEGATIVE) Urine Marijuana (THC) (NEGATIVE) 09/04/19 09/04/19 09/04/19 Range/Units 22:48 22:48 00:04 WBC 9.3 (4.0-10.5) K/mm3 RBC 3.84 L (4.1-5.4) M/mm3 Hgb 10.4 L (12.0-16.0) gm/dl Hct 33.3 L (35-47) % MCV 86.7 (78-100) fl MCH 27.1 (26-32) pg MCHC 31.2 L (32-36) g/dl RDW 14.9 H (11.5-14.0) % Plt Count 215 (150-450) K/mm3 MPV 12.2 H (7.5-11.0) fl Gran % 60.7 (36.0-66.0) % Eos # (Auto) 0.51 H (0-0.5) Absolute Lymphs (auto) 2.49 (1.0-4.6) Absolute Monos (auto) 0.64 (0.0-1.3) Lymphocytes % 26.7 (24.0-44.0) % Monocytes % 6.9 (0.0-12.0) % Eosinophils % 5.5 H (0.00-5.0) % Basophils % 0.2 (0.0-0.4) % Absolute Granulocytes 5.68 (1.4-6.9) Basophils # 0.02 (0-0.4) D-Dimer (215-500) ng/mL Sodium 141 (137-145) mmol/L Potassium 4.0 (3.5-5.1) mmol/L Chloride 108 H (98-107) mmol/L Carbon Dioxide 28 (22-30) mmol/L Anion Gap 8.8 (5-15) MEQ/L BUN 15 (7-17) mg/dL Creatinine 0.74 (0.52-1.04) mg/dL Estimated GFR > 60.0 ML/MIN Glucose 98 (74-106) mg/dL Calcium 9.0 (8.4-10.2) mg/dL Total Bilirubin 0.40 (0.2-1.3) mg/dL AST 35 (14-36) U/L ALT 29 (0-35) U/L Alkaline Phosphatase 96 (38-126) U/L Troponin I (0.000-0.034) ng/mL NT-Pro-B Natriuret Pep 146 (0-450) pg/mL Serum Total Protein 6.7 (6.3-8.2) g/dL Albumin 3.4 L (3.5-5.0) g/dL Urine Opiates Level NEGATIVE (NEGATIVE) Ur Methadone NEGATIVE (NEGATIVE) Urine Barbiturates NEGATIVE (NEGATIVE) Ur Phencyclidine (PCP) NEGATIVE (NEGATIVE) Urine Amphetamine NEGATIVE (NEGATIVE) U Benzodiazepine Level NEGATIVE (NEGATIVE) Urine Cocaine NEGATIVE (NEGATIVE) Urine Marijuana (THC) NEGATIVE (NEGATIVE) - Progress Progress: improved Air Movement: good Progress Note: 09/05/19 01:35 Patient reassessed. No chest pain. Patient is comfortable. Work-up essentially negative. EKG negative for ischemic changes. Chest x-ray negative for acute pathology. CT chest negative for PE. Cardiac troponin negative x2. Will discharge patient home. Patient follow-up with a primary care doctor within 48 hours for reevaluation. Blood Culture(s) Obtained: No Antibiotics given: No Counseled pt/family regarding: lab results, diagnosis, need for follow-up, rad results - Departure Departure Disposition: Home Clinical Impression: Arm pain, left, Shoulder pain, Hypertension Condition: Stable Critical Care Time: No Referrals: QUINTON POWERS DO [Primary Care Provider] - Additional Instructions: Discharge/Care Plan KENERIC DANA was seen on 09/05/19 in the Emergency Room. The patient was counseled regarding Diagnosis,Lab results, Imaging studies, need for follow up and when to return to the Emergency Room. Prescriptions given: Discharge Note I have spoken with the patient and/or caregivers. I have explained the patient's condition, diagnosis and treatment plan based on the information available to me at this time. I have answered the patient's and/or caregiver's questions and addressed any concerns. The patient and/or caregivers have as good understanding of the patient's diagnosis, condition and treatment plan as can be expected at this point. The vital signs have been stable. The patient's condition is stable and appropriate for discharge from the emergency department. The patient will pursue further outpatient evaluation with the primary care physician or other designated or consulting physician as outlined in the discharge instructions. The patient and/or caregivers are agreeable to this plan of care and follow-up instructions have been explained in detail. The patient and/or caregivers have received these instruction. The patient/and or caregivers are aware that any significant change in condition or worsening of symptoms should prompt an immediate return to this or the closest emergency department or call 911.
[2019-09-04 22:52] LABS: Absolute Neutrophil Ct (ANC) 5.68 (1.4-6.9); BASOPHIL % 0.2 % (0.0-0.4); Basophil (Absolute #) 0.02 (0-0.4); Eosinophil % 5.5 % (0.00-5.0); Eosinophil (Absolute #) 0.51 (0-0.5); Hematocrit 33.3 % (35-47); Hemoglobin 10.4 gm/dl (12.0-16.0); Lymphocyte (Absolute #) 2.49 (1.0-4.6); Lymphocytes % 26.7 % (24.0-44.0); Mean Cell Volume 86.7 fl (78-100); Mean Corpuscular Hemoglobin 27.1 pg (26-32); Mean Corpuscular Hgb Concent. 31.2 g/dl (32-36); Mean Platelet Volume 12.2 fl (7.5-11.0); Monocyte (Absolute #) 0.64 (0.0-1.3); Monocytes % 6.9 % (0.0-12.0); Neutrophil % 60.7 % (36.0-66.0); Platelet Count 215 K/mm3 (150-450); Red Blood Count 3.84 M/mm3 (4.1-5.4); Red Cell Distribution Width 14.9 % (11.5-14.0); White Blood Count 9.3 K/mm3 (4.0-10.5)
[2019-09-04 23:13] LABS: ALBUMIN 3.4 g/dL (3.5-5.0); ALKALINE PHOSPHATASE 96 U/L (38-126); ANION GAP 8.8 MEQ/L (5-15); BLOOD UREA NITROGEN 15 mg/dL (7-17); CHLORIDE 108 mmol/L (98-107); Carbon Dioxide 28 mmol/L (22-30); Creatinine 1 0.74 mg/dL (0.52-1.04); Glucose 98 mg/dL (74-106); NT PRO BNP 146 pg/mL (0-450); SGOT/AST 35 U/L (14-36); SGPT/ALT 29 U/L (0-35); SODIUM 141 mmol/L (137-145); Total Protein 6.7 g/dL (6.3-8.2)
[2019-09-04] MEDS ORDERED: Sodium Chloride 0.9% 1000 ML 1,000 ML ONE (23:27)
[2019-09-05 00:25] VITALS: O2SAT 99
[2019-09-05 00:26] LABS: Amphetamine,Urine NEGATIVE (NEGATIVE); Barbiturate,Urine NEGATIVE (NEGATIVE); Benzodiazepine,Urine NEGATIVE (NEGATIVE); Cocaine,Urine NEGATIVE (NEGATIVE); Methadone,Urine NEGATIVE (NEGATIVE); Opiate,Urine NEGATIVE (NEGATIVE); PCP,Urine NEGATIVE (NEGATIVE); THC,Urine NEGATIVE (NEGATIVE)
[2019-09-05 01:32] VITALS: BP 176/97; PULSE 63
--- NOTE | 2019-09-05 08:56 | XRAY ---
Indication: Chest pain. Status post . Comparison: June 25, 2008. Portable chest again demonstrates normal heart, lungs, and bony thorax.
--- NOTE | 2019-09-05 09:06 | XRAY ---
Indication: Chest pain radiating left arm/shoulder. Status post . Multiple contiguous axial images obtained through the chest using 80 cc Isovue 370 contrast and PE protocol. Comparison: None There is satisfactory opacification of the pulmonary arteries including lobar and segmental branches. No filling defect or pulmonary embolus. Heart is not enlarged. Aorta is normal in course and caliber. No pathologic mediastinal/hilar lymphadenopathy. Lungs inflated and clear with incidental tiny left upper lobe calcified granuloma. Bony thorax intact. Limited upper abdomen demonstrates mild fatty liver. Impression: Negative pulmonary embolus. No acute cardiopulmonary abnormalities. Incidental fatty liver. Comment: Preliminary interpretation was made by [facility]. No critical discrepancy
== END 2019-09-05 01:53 | disposition home or self-care (01) ==
LOC: ED 22:03
DX: M25.512 Pain in left shoulder (principal); I10 Essential (primary) hypertension
CPT/HCPCS: 36000; 36415; 71045; 71260; 80053; 80307; 83880; 84484; 85025; 85379; 93005; 93041; 94760; 99284; A9270-GY

== ENCOUNTER 2019-11-13 05:42 | Emergency (ER) | payer OTHER ==
[2019-11-13] MEDS ORDERED: XYLOCAINE 1% HCL 20 ML MDV IJ ONE (05:43)
[2019-11-13] MEDS ORDERED: Rocephin 1000 MG INJ IM ONE (06:16)
[2019-11-13] MEDS ORDERED: solu-MEDROL 125 MG IM ONE (06:16)
[2019-11-13] MEDS ORDERED: HYDROCODONE-ACETAMIN 2.5-108/5 ML SOLUTION PO STA (06:17)
[2019-11-13] MEDS ORDERED: Rocephin 1000 MG INJ ONE (06:23)
[2019-11-13] MEDS ORDERED: solu-MEDROL 125 MG ONE (06:23)
[2019-11-13] MEDS ORDERED: HYDROCODONE-ACETAMIN 2.5-108/5 ML SOLUTION ONE (06:23)
--- NOTE | 2019-11-13 06:24 | ERPHSYRPT ---
- History of Present Illness Time Seen by Provider: 11/13/19 06:00 Source: patient Exam Limitations: no limitations Patient Subjective Stated Complaint: pt states she woke up with sore throat. states she feels like her throat is swollen and scratchy. also has had rt ear pa in for approx 1 week. Triage Nursing Assessment: pt alert and oriented, answers qeustions approp. pt ambualtory with steady gait noted. respirations nonlabored with lungs cta. redness noted to throat, no distress, no difficulty breathing or swallowing. skin pink warm and dry Physician History: This is a morbidly obese 29-year-old white female who presents with right ear pain for 1 week and sore throat for 1 day. Symptoms of sore throat were worse this morning. She had a mild cough as well. She denies fever chills, shortness of air and chest pain. She denies abdominal pain, nausea vomiting and diarrhea. Timing/Duration: yesterday Cough Quality/Degree: mild, dry cough Possible Cause: occasional episodes Associated Symptoms: earache (Right), sore throat, No fever, No chills, No shortness of breath Allergies/Adverse Reactions: fluoxetine HCl [From Prozac] Adverse Reaction (Severe, Verified 11/13/19 06:04) Nausea PROZAC WITH FLUOXETINE HAS BLOOD IN STOOL sertraline [From Zoloft] Adverse Reaction (Intermediate, Verified 11/13/19 06:04) Home Medications: Levothyroxine Sodium 25 Mcg [Synthroid 25 Mcg] 25 mcg PO DAILY 12/02/18 [History] Loratadine 10 mg PO DAILY 12/02/18 [History] Aspirin 81 gm Chew [Baby Aspirin 81 mg Chew] 2 cap PO DAILY 05/25/19 [History] Nifedipine Xl 30 mg [Adalat CC 30 MG TABLET] 60 mg PO DAILY 09/04/19 [History] Citalopram Hydrobromide 20 mg* [ceLEXa 20 MG] 20 mg PO DAILY 11/13/19 [History] Hx Tetanus, Diphtheria Vaccination/Date Given: Yes Hx Influenza Vaccination/Date Given: No Hx Pneumococcal Vaccination/Date Given: No Immunizations Up to Date: Yes Travel Risk - International Travel Have you traveled outside of the country in past 3 weeks: No - Coronavirus Screening Are you exhibiting any of the following symptoms?: No Close contact with a COVID-19 positive Pt in past 14-21 Days: No - Review of Systems Constitutional: No Symptoms Eyes: No Symptoms Ears, Nose, & Throat: Ear Pain (Right), Throat Pain Respiratory: Cough (Held) Cardiac: No Symptoms Abdominal/Gastrointestinal: No Symptoms Genitourinary Symptoms: No Symptoms Musculoskeletal: No Symptoms Skin: No Symptoms Neurological: No Symptoms Psychological: No Symptoms Endocrine: No Symptoms Hematologic/Lymphatic: No Symptoms Immunological/Allergic: No Symptoms All Other Systems: Reviewed and Negative - Past Medical History Pertinent Past Medical History: Yes Neurological History: Migraines ENT History: No Pertinent History Cardiac History: Hypertension Respiratory History: No Pertinent History Endocrine Medical History: Hypothyroidism Musculoskeletal History: No Pertinent History GI Medical History: No Pertinent History History: No Pertinent History Psycho-Social History: Anxiety, Depression Female Reproductive Disorders: No Pertinent History Other Medical History: gestational diabetes - Past Surgical History Past Surgical History: No Neuro Surgical History: No Pertinent History Cardiac: No Pertinent History Respiratory: No Pertinent History Gastrointestinal: No Pertinent History Genitourinary: No Pertinent History Musculoskeletal: No Pertinent History Female Surgical History: No Pertinent History - Social History Smoking Status: Former smoker How long have you smoked: 16 Exposure to second hand smoke: No Drug Use: none Patient Lives Alone: No - Female History Hx Last Menstrual Period: last week Hx Now: No - Nursing Vital Signs Nursing Vital Signs: Initial Vital Signs Temperature 98.0 F 11/13/19 05:48 Pulse Rate 80 11/13/19 05:48 Respiratory Rate 16 11/13/19 05:48 Blood Pressure 149/83 11/13/19 05:48 O2 Sat by Pulse Oximetry 97 11/13/19 05:48 Pain Scale Pain Intensity 5 - Physical Exam General Appearance: no apparent distress, anxiety, obese Eye Exam: PERRL/EOMI, eyes nml inspection Ears, Nose, Throat Exam: TMs normal, moist mucous membranes, pharyngeal erythema Neck Exam: normal inspection, non-tender, supple, full range of motion Respiratory Exam: normal breath sounds, lungs clear, airway intact, No chest tenderness, No respiratory distress Cardiovascular Exam: regular rate/rhythm, normal heart sounds, normal peripheral pulses Gastrointestinal/Abdomen Exam: No tenderness Pelvic Exam: not done Rectal Exam: not done Back Exam: normal inspection, normal range of motion, No CVA tenderness Extremity Exam: normal inspection, normal range of motion, pelvis stable Neurologic Exam: alert, oriented x 3, cooperative, clinical team lead II-XII nml as tested, normal mood/affect, nml cerebellar function, nml station & gait, sensation nml Skin Exam: normal color, warm, dry Lymphatic Exam: No adenopathy SpO2 Interpretation: normal SpO2: 97 O2 Delivery: Room Air - Course Nursing assessment & vital signs reviewed: Yes Ordered Tests: Medication Summary Generic Name Dose Route Start Last Admin Trade Name Silvestre PRN Reason Stop Dose Admin Ceftriaxone Sodium 1,000 mg 11/13/19 06:16 Rocephin 1000 Mg Inj IM 11/13/19 06:17 STAT ONE - Progress Progress: unchanged Air Movement: good Blood Culture(s) Obtained: No Antibiotics given: Yes Counseled pt/family regarding: diagnosis, need for follow-up - Departure Departure Disposition: Home Clinical Impression: Pharyngitis, Upper respiratory infection Condition: Stable Critical Care Time: No Referrals: QUINTON POWERS, [Primary Care Provider] - Additional Instructions: Drink plenty of fluids. Take medication as prescribed. Follow-up with your primary care physician for persistent symptoms. Prescriptions: Prednisone 10 mg [Deltasone 10 mg] 10 mg PO TID #12 tablet Hydrocodone Bit/Acetaminophen [Hydrocodone-Acetaminophen Soln] 10 ml PO Q6H #120 ml Azithromycin 250 mg [Zithromax 250 MG TABLET] 250 mg PO ZPACK #6 tablet
[2019-11-13 06:51] VITALS: BP 144/88; PULSE 70; O2SAT 98
== END 2019-11-13 06:59 | disposition home or self-care (01) ==
LOC: ED 05:42
DX: J02.9 Acute pharyngitis, unspecified (principal); J06.9 Acute upper respiratory infection, unspecified
CPT/HCPCS: 96372; 99284; J0696; J2930; A9270-GY

== ENCOUNTER 2019-12-19 11:31 | Observation (INO) | payer OTHER ==
--- NOTE | 2019-12-19 11:55 | ERPHSYRPT ---
- History of Present Illness Time Seen by Provider: 12/19/19 11:40 Historian: patient Exam Limitations: no limitations Patient Subjective Stated Complaint: chest pain, FELIX, nausa Triage Nursing Assessment: pt to ED with multiple complaints. states woke with FELIX at 0700 and has progressed to nausea, L sided chest pain, and HTN after seeing chiropractor this am. routine adjustment done this am. rates chest pain 5/10 that does not radiate out of L chest. rates 9/10 headache that she has not yet treated with OTC meds. heart sounds clear, lungs clear and equal. A&Ox4. Physician History: Patient is a 29-year-old female who presents to our ED with complaints of a headache that started at 7 AM this morning. Headache progressed to nausea and left-sided chest pain. Chest pain described as an ache that is well localized. No radiation. Patient had a chiropractic manipulation done today. Shortly thereafter she checked her blood pressure and found it was elevated. Patient became concerned and came to our ED for an evaluation. Symptoms are mild to moderate in intensity. No specific worsening or improving factors. Patient voices no other complaints or concerns at this time. Timing/Duration: today Activities at Onset: none Quality: aching Location: other (Chest) Chest Pain Radiation: no radiation Severity of Pain-Max: moderate Modifying Factors: Improves With: nothing Associated Symptoms: nausea Nitro Today/Relief: no nitro taken today Aspirin Treatment Today: no aspirin today Allergies/Adverse Reactions: fluoxetine HCl [From Prozac] Adverse Reaction (Severe, Verified 12/19/19 11:49) Nausea PROZAC WITH FLUOXETINE HAS BLOOD IN STOOL sertraline [From Zoloft] Adverse Reaction (Intermediate, Verified 12/19/19 11:49) Home Medications: Levothyroxine Sodium 25 Mcg [Synthroid 25 Mcg] 25 mcg PO DAILY 12/02/18 [History] Citalopram Hydrobromide 20 mg* [ceLEXa 20 MG] 30 mg PO DAILY 11/13/19 [History] Loratadine 10 mg [Claritin 10 mg] 10 mg PO DAILY 12/19/19 [History] Hx Tetanus, Diphtheria Vaccination/Date Given: Yes Hx Influenza Vaccination/Date Given: Yes Hx Pneumococcal Vaccination/Date Given: No Immunizations Up to Date: Yes Travel Risk - International Travel Have you traveled outside of the country in past 3 weeks: No - Coronavirus Screening Are you exhibiting any of the following symptoms?: Yes Symptoms: Headaches/Body Aches/Fatigue Close contact with a COVID-19 positive Pt in past 14-21 Days: No - Review of Systems Constitutional: No Symptoms, No Fever, No Chills Eyes: No Symptoms Ears, Nose, & Throat: No Symptoms Respiratory: No Symptoms, No Cough, No Dyspnea Cardiac: No Symptoms, No Chest Pain, No Edema, No Syncope Abdominal/Gastrointestinal: No Symptoms, No Abdominal Pain, No Nausea, No Vomiting, No Diarrhea Genitourinary Symptoms: No Symptoms, No Dysuria Musculoskeletal: No Symptoms, No Back Pain, No Neck Pain Skin: No Symptoms, No Rash Neurological: No Symptoms, No Dizziness, No Focal Weakness, No Sensory Changes Psychological: No Symptoms Endocrine: No Symptoms Hematologic/Lymphatic: No Symptoms Immunological/Allergic: No Symptoms All Other Systems: Reviewed and Negative - Past Medical History Pertinent Past Medical History: Yes Neurological History: Migraines ENT History: No Pertinent History Cardiac History: Hypertension Respiratory History: No Pertinent History Endocrine Medical History: Hypothyroidism Musculoskeletal History: No Pertinent History GI Medical History: No Pertinent History History: No Pertinent History Psycho-Social History: Anxiety, Depression Female Reproductive Disorders: No Pertinent History Other Medical History: gestational diabetes. 2 vaginal births - Past Surgical History Past Surgical History: No Neuro Surgical History: No Pertinent History Cardiac: No Pertinent History Respiratory: No Pertinent History Gastrointestinal: No Pertinent History Genitourinary: No Pertinent History Musculoskeletal: No Pertinent History Female Surgical History: No Pertinent History - Social History Smoking Status: Former smoker How long have you smoked: 16 Exposure to second hand smoke: No Drug Use: none Patient Lives Alone: No - Female History Hx Now: No - Nursing Vital Signs Nursing Vital Signs: Initial Vital Signs Temperature 97.7 F 12/19/19 11:34 Pulse Rate 73 12/19/19 11:34 Respiratory Rate 17 12/19/19 11:34 Blood Pressure 140/80 12/19/19 11:34 O2 Sat by Pulse Oximetry 99 12/19/19 11:34 Pain Scale Pain Intensity 2 - Physical Exam General Appearance: no apparent distress, alert Eye Exam: PERRL/EOMI, eyes nml inspection Ears, Nose, Throat Exam: normal ENT inspection, moist mucous membranes Neck Exam: normal inspection, non-tender, supple, full range of motion Respiratory Exam: normal breath sounds, lungs clear, No respiratory distress Cardiovascular Exam: regular rate/rhythm, normal heart sounds Gastrointestinal/Abdomen Exam: soft, No tenderness, No mass Back Exam: normal inspection, No CVA tenderness, No vertebral tenderness Extremity Exam: normal inspection, normal range of motion Neurologic Exam: alert, oriented x 3, cooperative, normal mood/affect, sensation nml, No motor deficits Skin Exam: normal color, warm, dry Lymphatic Exam: No adenopathy SpO2 Interpretation: normal SpO2: 98 O2 Delivery: Room Air - Course Nursing assessment & vital signs reviewed: Yes EKG Interpreted by Me: RATE (61), Sinus Rhythm, NORMAL AXIS, NORMAL INTERVALS - Radiology Exams Chest X-ray Interpretation: Teleradiologist Report (Heart normal lungs normal bony thorax. A few incidental tiny calcified granulomas.) - CT Exams Chest CT Interpretation: Tele-radiologist Report (New tiny nonoccluding pulmonary emboli in the distal right lower lobe lingula and left upper lobe segmental branch. New hiatal hernia.) Ordered Tests: Active Orders 24 hr Category Date Time Status Consulting Sme STAT Care 12/19/19 11:39 Active EKG-ER Only STAT Care 12/19/19 11:37 Active IV Insertion STAT Care 12/19/19 11:37 Active Pulse Oximetry (ED) STAT Care 12/19/19 11:37 Active CHEST 1 VIEW (PORTABLE) Stat Exams 12/19/19 11:38 Completed CHEST WITH CONTRAST [CT] Stat Exams 12/19/19 12:40 Completed CBC W DIFF Stat Lab 12/19/19 11:37 Completed CMP Stat Lab 12/19/19 11:50 Completed D-DIMER QUANTITATIVE Stat Lab 12/19/19 11:50 Completed HCG,QUALITATIVE URINE Stat Lab 12/19/19 12:22 Completed MAGNESIUM Stat Lab 12/19/19 11:50 Completed NT PRO BNP Stat Lab 12/19/19 11:50 Completed TROPONIN Q3H Lab 12/19/19 11:50 Completed TROPONIN Q3H Lab 12/19/19 14:31 Completed TROPONIN Q3H Lab 12/19/19 17:45 Ordered TROPONIN Q3H Lab 12/19/19 20:45 Ordered TROPONIN Q3H Lab 12/19/19 23:45 Ordered UA W/RFX UR CULTURE Stat Lab 12/19/19 12:09 Completed Urine Triage Profile Stat Lab 12/19/19 12:22 Completed Transfer Order Routine Transfer 12/19/19 Ordered Medication Summary Discontinued Medications Generic Name Dose Route Start Last Admin Trade Name Silvestre PRN Reason Stop Dose Admin Morphine Sulfate 4 mg 12/19/19 12:04 12/19/19 12:08 Morphine Sulfate 4 Mg Inj IV 12/19/19 12:05 4 mg STAT ONE Administration Morphine Sulfate Confirm 12/19/19 12:06 Morphine Sulfate 4 Mg Inj Administered 12/19/19 12:07 Dose 4 mg .ROUTE .STK-MED ONE Prochlorperazine Edisylate 10 mg 12/19/19 12:04 12/19/19 12:08 Compazine 10 Mg/2 Ml IV 12/19/19 12:05 10 mg STAT ONE Administration Prochlorperazine Edisylate Confirm 12/19/19 12:06 Compazine 10 Mg/2 Ml Administered 12/19/19 12:07 Dose 10 mg .ROUTE .STK-MED ONE Lab/Rad Data: Laboratory Result Diagrams 12/19/19 11:37 12/19/19 11:50 Laboratory Results 12/19/19 12/19/19 12/19/19 Range/Units 14:31 12:22 12:22 WBC (4.0-10.5) K/mm3 RBC (4.1-5.4) M/mm3 Hgb (12.0-16.0) gm/dl Hct (35-47) % MCV (78-100) fl MCH (26-32) pg MCHC (32-36) g/dl RDW (11.5-14.0) % Plt Count (150-450) K/mm3 MPV (7.5-11.0) fl Gran % (36.0-66.0) % Eos # (Auto) (0-0.5) Absolute Lymphs (auto) (1.0-4.6) Absolute Monos (auto) (0.0-1.3) Lymphocytes % (24.0-44.0) % Monocytes % (0.0-12.0) % Eosinophils % (0.00-5.0) % Basophils % (0.0-0.4) % Absolute Granulocytes (1.4-6.9) Basophils # (0-0.4) D-Dimer (215-500) ng/mL Sodium (137-145) mmol/L Potassium (3.5-5.1) mmol/L Chloride (98-107) mmol/L Carbon Dioxide (22-30) mmol/L Anion Gap (5-15) MEQ/L BUN (7-17) mg/dL Creatinine (0.52-1.04) mg/dL Estimated GFR ML/MIN Glucose (74-106) mg/dL Calcium (8.4-10.2) mg/dL Magnesium (1.6-2.3) mg/dL Total Bilirubin (0.2-1.3) mg/dL AST (14-36) U/L ALT (0-35) U/L Alkaline Phosphatase (38-126) U/L Troponin I < 0.012 (0.000-0.034) ng/mL NT-Pro-B Natriuret Pep (0-450) pg/mL Serum Total Protein (6.3-8.2) g/dL Albumin (3.5-5.0) g/dL Urine Color (YELLOW) Urine Appearance (CLEAR) Urine pH (5-6) Ur Specific [place] (1.005-1.025) Urine Protein (Negative) Urine Ketones (NEGATIVE) Urine Blood (0-5) René/ul Urine Nitrite (NEGATIVE) Urine Bilirubin (NEGATIVE) Urine Urobilinogen (0-1) mg/dL Ur Leukocyte Esterase (NEGATIVE) Urine WBC (Auto) (0-5) /HPF Urine RBC (Auto) (0-2) /HPF U Epithel Cells (Auto) (FEW) /HPF Urine Bacteria (Auto) (NEGATIVE) /HPF Urine Mucus (Auto) (NEGATIVE) /HPF Urine Culture Reflexed (NO) Urine Glucose (NEGATIVE) mg/dL Urine HCG, Qual NEGATIVE (Negative) Urine Opiates Level NEGATIVE (NEGATIVE) Ur Methadone NEGATIVE (NEGATIVE) Urine Barbiturates NEGATIVE (NEGATIVE) Ur Phencyclidine (PCP) NEGATIVE (NEGATIVE) Urine Amphetamine NEGATIVE (NEGATIVE) U Benzodiazepine Level NEGATIVE (NEGATIVE) Urine Cocaine NEGATIVE (NEGATIVE) Urine Marijuana (THC) NEGATIVE (NEGATIVE) 12/19/19 12/19/19 12/19/19 Range/Units 12:09 11:50 11:50 WBC (4.0-10.5) K/mm3 RBC (4.1-5.4) M/mm3 Hgb (12.0-16.0) gm/dl Hct (35-47) % MCV (78-100) fl MCH (26-32) pg MCHC (32-36) g/dl RDW (11.5-14.0) % Plt Count (150-450) K/mm3 MPV (7.5-11.0) fl Gran % (36.0-66.0) % Eos # (Auto) (0-0.5) Absolute Lymphs (auto) (1.0-4.6) Absolute Monos (auto) (0.0-1.3) Lymphocytes % (24.0-44.0) % Monocytes % (0.0-12.0) % Eosinophils % (0.00-5.0) % Basophils % (0.0-0.4) % Absolute Granulocytes (1.4-6.9) Basophils # (0-0.4) D-Dimer 717 H* (215-500) ng/mL Sodium (137-145) mmol/L Potassium (3.5-5.1) mmol/L Chloride (98-107) mmol/L Carbon Dioxide (22-30) mmol/L Anion Gap (5-15) MEQ/L BUN (7-17) mg/dL Creatinine (0.52-1.04) mg/dL Estimated GFR ML/MIN Glucose (74-106) mg/dL Calcium (8.4-10.2) mg/dL Magnesium (1.6-2.3) mg/dL Total Bilirubin (0.2-1.3) mg/dL AST (14-36) U/L ALT (0-35) U/L Alkaline Phosphatase (38-126) U/L Troponin I < 0.012 (0.000-0.034) ng/mL NT-Pro-B Natriuret Pep (0-450) pg/mL Serum Total Protein (6.3-8.2) g/dL Albumin (3.5-5.0) g/dL Urine Color YELLOW (YELLOW) Urine Appearance CLEAR (CLEAR) Urine pH 7.0 (5-6) Ur Specific [place] 1.018 (1.005-1.025) Urine Protein NEGATIVE (Negative) Urine Ketones NEGATIVE (NEGATIVE) Urine Blood NEGATIVE (0-5) René/ul Urine Nitrite NEGATIVE (NEGATIVE) Urine Bilirubin NEGATIVE (NEGATIVE) Urine Urobilinogen NEGATIVE (0-1) mg/dL Ur Leukocyte Esterase NEGATIVE (NEGATIVE) Urine WBC (Auto) 0-2 (0-5) /HPF Urine RBC (Auto) 3-5 (0-2) /HPF U Epithel Cells (Auto) RARE (FEW) /HPF Urine Bacteria (Auto) NONE (NEGATIVE) /HPF Urine Mucus (Auto) SLIGHT (NEGATIVE) /HPF Urine Culture Reflexed NO (NO) Urine Glucose NEGATIVE (NEGATIVE) mg/dL Urine HCG, Qual (Negative) Urine Opiates Level (NEGATIVE) Ur Methadone (NEGATIVE) Urine Barbiturates (NEGATIVE) Ur Phencyclidine (PCP) (NEGATIVE) Urine Amphetamine (NEGATIVE) U Benzodiazepine Level (NEGATIVE) Urine Cocaine (NEGATIVE) Urine Marijuana (THC) (NEGATIVE) 12/19/19 12/19/19 Range/Units 11:50 11:37 WBC 9.2 (4.0-10.5) K/mm3 RBC 4.77 (4.1-5.4) M/mm3 Hgb 11.7 L (12.0-16.0) gm/dl Hct 38.7 (35-47) % MCV 81.1 (78-100) fl MCH 24.5 L (26-32) pg MCHC 30.2 L (32-36) g/dl RDW 14.9 H (11.5-14.0) % Plt Count 272 (150-450) K/mm3 MPV 12.3 H (7.5-11.0) fl Gran % 65.5 (36.0-66.0) % Eos # (Auto) 0.28 (0-0.5) Absolute Lymphs (auto) 2.22 (1.0-4.6) Absolute Monos (auto) 0.67 (0.0-1.3) Lymphocytes % 24.0 (24.0-44.0) % Monocytes % 7.3 (0.0-12.0) % Eosinophils % 3.0 (0.00-5.0) % Basophils % 0.2 (0.0-0.4) % Absolute Granulocytes 6.05 (1.4-6.9) Basophils # 0.02 (0-0.4) D-Dimer (215-500) ng/mL Sodium 138 (137-145) mmol/L Potassium 4.5 (3.5-5.1) mmol/L Chloride 106 (98-107) mmol/L Carbon Dioxide 28 (22-30) mmol/L Anion Gap 9.0 (5-15) MEQ/L BUN 11 (7-17) mg/dL Creatinine 0.70 (0.52-1.04) mg/dL Estimated GFR > 60.0 ML/MIN Glucose 119 H (74-106) mg/dL Calcium 8.9 (8.4-10.2) mg/dL Magnesium 2.0 (1.6-2.3) mg/dL Total Bilirubin 0.60 (0.2-1.3) mg/dL AST 30 (14-36) U/L ALT 29 (0-35) U/L Alkaline Phosphatase 83 (38-126) U/L Troponin I (0.000-0.034) ng/mL NT-Pro-B Natriuret Pep 60.8 (0-450) pg/mL Serum Total Protein 7.7 (6.3-8.2) g/dL Albumin 4.2 (3.5-5.0) g/dL Urine Color (YELLOW) Urine Appearance (CLEAR) Urine pH (5-6) Ur Specific [place] (1.005-1.025) Urine Protein (Negative) Urine Ketones (NEGATIVE) Urine Blood (0-5) René/ul Urine Nitrite (NEGATIVE) Urine Bilirubin (NEGATIVE) Urine Urobilinogen (0-1) mg/dL Ur Leukocyte Esterase (NEGATIVE) Urine WBC (Auto) (0-5) /HPF Urine RBC (Auto) (0-2) /HPF U Epithel Cells (Auto) (FEW) /HPF Urine Bacteria (Auto) (NEGATIVE) /HPF Urine Mucus (Auto) (NEGATIVE) /HPF Urine Culture Reflexed (NO) Urine Glucose (NEGATIVE) mg/dL Urine HCG, Qual (Negative) Urine Opiates Level (NEGATIVE) Ur Methadone (NEGATIVE) Urine Barbiturates (NEGATIVE) Ur Phencyclidine (PCP) (NEGATIVE) Urine Amphetamine (NEGATIVE) U Benzodiazepine Level (NEGATIVE) Urine Cocaine (NEGATIVE) Urine Marijuana (THC) (NEGATIVE) - Progress Progress: improved Air Movement: good Progress Note: 12/19/19 14:50 Patient reassessed. She feels well. Small nonoccluding bilateral PE observed. This is likely due to hypercoagulable state from . Patient is 3 months . We will admit patient for further work-up and treatment. Plan of care discussed with patient. She agrees to admission to [facility] for further evaluation and treatment. Case discussed with Dr. Colin who accepts admission to observation. Lovenox injection administered. Blood Culture(s) Obtained: No Antibiotics given: No Discussed with .: Rocio Will see patient in: hospital (observation) Counseled pt/family regarding: lab results, diagnosis, need for follow-up, rad results - Departure Departure Disposition: Observation Clinical Impression: Calcified granuloma of lung, Pulmonary embolism, Hiatal hernia, Fatty liver Condition: Stable Critical Care Time: No Referrals: QUINTON POWERS DO [Primary Care Provider] -
[2019-12-19] MEDS ORDERED: Compazine 10 MG/2 ML IV ONE (12:04)
[2019-12-19] MEDS ORDERED: MORPHINE SULFATE 4 MG INJ IV ONE (12:04)
[2019-12-19 12:05] LABS: Absolute Neutrophil Ct (ANC) 6.05 (1.4-6.9); BASOPHIL % 0.2 % (0.0-0.4); Basophil (Absolute #) 0.02 (0-0.4); Eosinophil (Absolute #) 0.28 (0-0.5); Hematocrit 38.7 % (35-47); Hemoglobin 11.7 gm/dl (12.0-16.0); Lymphocyte (Absolute #) 2.22 (1.0-4.6); Mean Cell Volume 81.1 fl (78-100); Mean Corpuscular Hemoglobin 24.5 pg (26-32); Mean Corpuscular Hgb Concent. 30.2 g/dl (32-36); Mean Platelet Volume 12.3 fl (7.5-11.0); Monocyte (Absolute #) 0.67 (0.0-1.3); Monocytes % 7.3 % (0.0-12.0); Neutrophil % 65.5 % (36.0-66.0); Platelet Count 272 K/mm3 (150-450); Red Blood Count 4.77 M/mm3 (4.1-5.4); Red Cell Distribution Width 14.9 % (11.5-14.0); White Blood Count 9.2 K/mm3 (4.0-10.5)
[2019-12-19] MEDS ORDERED: MORPHINE SULFATE 4 MG INJ ONE (12:06)
[2019-12-19] MEDS ORDERED: Compazine 10 MG/2 ML ONE (12:06)
--- NOTE | 2019-12-19 12:08 | XRAY ---
Indication: Chest pain and short of breath. Comparison: September 04, 2019. Portable chest again demonstrates normal heart, lungs, and bony thorax with a few incidental tiny calcified granulomas.
[2019-12-19 12:19] LABS: Appearance CLEAR (CLEAR); Bilirubin NEGATIVE (NEGATIVE); Blood NEGATIVE Ery/ul (0-5); Epithelial Cells RARE /HPF (FEW); Glucose NEGATIVE (NEGATIVE); Ketones NEGATIVE (NEGATIVE); Leukocyte Esterase NEGATIVE (NEGATIVE); Mucus SLIGHT /HPF (NEGATIVE); Nitrite NEGATIVE (NEGATIVE); Protein,Urine Dip NEGATIVE (Negative); Specific Gravity 1.018 (1.005-1.025); Urobilinogen NEGATIVE mg/dL (0-1); WBC 0-2 /HPF (0-5)
[2019-12-19 12:26] LABS: ALBUMIN 4.2 g/dL (3.5-5.0); ALKALINE PHOSPHATASE 83 U/L (38-126); BLOOD UREA NITROGEN 11 mg/dL (7-17); CHLORIDE 106 mmol/L (98-107); Calcium 8.9 mg/dL (8.4-10.2); Carbon Dioxide 28 mmol/L (22-30); EST GLOMERULAR FILTRATION RATE > 60.0 ML/MIN; Glucose 119 mg/dL (74-106); NT PRO BNP 60.8 pg/mL (0-450); Potassium 4.5 mmol/L (3.5-5.1); SGOT/AST 30 U/L (14-36); SGPT/ALT 29 U/L (0-35); SODIUM 138 mmol/L (137-145); Total Protein 7.7 g/dL (6.3-8.2)
[2019-12-19 12:33] LABS: Amphetamine,Urine NEGATIVE (NEGATIVE); Barbiturate,Urine NEGATIVE (NEGATIVE); Benzodiazepine,Urine NEGATIVE (NEGATIVE); Cocaine,Urine NEGATIVE (NEGATIVE); Methadone,Urine NEGATIVE (NEGATIVE); Opiate,Urine NEGATIVE (NEGATIVE); PCP,Urine NEGATIVE (NEGATIVE); THC,Urine NEGATIVE (NEGATIVE)
--- NOTE | 2019-12-19 13:57 | XRAY ---
Indication: Chest pain. Elevated d-dimer. Multiple contiguous axial images obtained through the chest using 80 cc Isovue 370 contrast and PE protocol. Comparison: September 04, 2019. There is adequate opacification of the pulmonary arteries to include the lobar and segmental branches. New nonoccluding tiny pulmonary emboli in the distal right lower lobe, lingula, and left upper lobe anterior segmental branch. Heart is not enlarged. Aorta is normal in course and caliber. No pathologic mediastinal/hilar lymphadenopathy. New small hiatal hernia. Lungs inflated with stable tiny left upper lobe calcified granuloma. No infiltrate or effusion. Bony thorax intact. Limited upper abdomen again demonstrates fatty liver. Impression: 1. New tiny nonoccluding pulmonary emboli in the distal right lower lobe, lingula, and left upper lobe segmental branch. No distal infarct. 2. New small hiatal hernia. 3. Stable fatty liver.
[2019-12-19] MEDS ORDERED: ENOXAPARIN SODIUM SQ STA (14:53)
[2019-12-19] MEDS ORDERED: ENOXAPARIN SODIUM SQ ONE (15:01)
[2019-12-19] MEDS ORDERED: MILK OF MAGNESIA 30 ML PO PRN (15:38)
[2019-12-19] MEDS ORDERED: MAALOX ES 30 ML UNIT DOSE PO PRN (15:38)
[2019-12-19] MEDS ORDERED: TYLENOL 325 MG PO PRN (15:38)
[2019-12-19] MEDS ORDERED: Senokot-S Tablet PO PRN (15:38)
[2019-12-20 05:54] LABS: Risk Ratio 6.9
[2019-12-20 07:26] VITALS: O2SAT 94
--- NOTE | 2019-12-20 07:56 | HP ---
CHIEF COMPLAINT: Chest pain, headache, nausea. HISTORY OF PRESENT ILLNESS: The patient is a 29 year old white female who is now three months reports that she had leg swelling in both legs after delivery but the right leg has been persistently swollen for approximately a week ago. The patient began having problems when she woke with headaches at 0700 hours this morning and progressed to nausea. She was complaining also of left-sided chest pain. The patient was seen in the emergency room. Her D-dimer was elevated. She had CT scan of the chest which was positive for small non-occluding emboli. The patient was admitted to the hospital for monitoring and anticoagulant therapy. The patient has already received Lovenox injection in the emergency room at this point. PAST MEDICAL/SURGICAL HISTORY: Significant for hypothyroid and allergy issues. HOME MEDICATIONS: Levothyroxine, Citalopram, loratadine. ALLERGIES: FLUOXETINE. ZOLOFT. PHYSICAL EXAMINATION: The patient is obese. Her vital signs showed a temperature of 97.7F, pulse 72, respiratory rate 17 and blood pressure 148/80. O2 saturation 99% on room air. HEENT: Normocephalic, atraumatic. Pupils equal round reactive to light. Extraocular movements intact. Oropharynx is pink and moist. NECK: Supple without lymphadenopathy, thyromegaly or JVD. CHEST: Clear to auscultation. HEART: Regular rate and rhythm without murmurs, rubs or gallops. ABDOMEN: Soft. No palpable masses. EXTREMITIES: Without cyanosis, clubbing or edema presently. NEUROLOGIC: The patient is alert and oriented x3. No focal deficits are noted. LAB DATA AND TESTS: The patient's laboratory studies showed the troponin less than 0.012. HCG test is currently negative. Urine drug screen was negative. D-dimer was elevated at 717 with a high in our lab of 500. The second troponin was less than 0.012. Metabolic panel showed non-fasting sugar of 119. The metabolic panel was otherwise entirely normal. UA was normal. CBC showed a white count of 9,200, hemoglobin 11.7, PLT count 272,000. Chest x-ray was negative. CT scan of the chest for pulmonary emboli showed new tiny non-occluding pulmonary emboli in the distal right lower lobe and left upper lobe segmental branch with no distal infarct. Stable fatty liver. ASSESSMENT: A patient with new non-occluding pulmonary emboli. She has been admitted for observation. She had already received Lovenox injection today. Her regular doctor, Dr. Serna, will see her tomorrow where at that time they will have further discussion about her anticoagulant therapy. We will also check her Doppler of the lower extremity to see if a pulmonary emboli had actually begun in her deep venous leg vessels.
[2019-12-20 08:05] VITALS: BP 133/62; PULSE 72
--- NOTE | 2019-12-20 08:41 | XRAY ---
Indication: PE. Elevated d-dimer. DVT. Two-dimensional sonogram and color Doppler imaging of the major venous vessels of the left and right leg was performed. Comparison: None No thrombus seen in the examined deep venous vessels of the left and right leg including greater saphenous vein. Veins demonstrate normal compressibility. Venous waveforms are normal with and without augmentation. Impression: Left and right legs negative for DVT.
[2019-12-20] MEDS ORDERED: SYNTHROID 25 MCG PO SCH (10:00)
[2019-12-20] MEDS ORDERED: CLARITIN 10 MG PO SCH (10:00)
[2019-12-20] MEDS ORDERED: ceLEXa 20 MG PO SCH (10:00)
[2019-12-20] MEDS ORDERED: ELIQUIS 2.5 MG TABLET PO SCH (10:45)
== END 2019-12-20 11:35 | disposition home or self-care (01) ==
LOC: ED 11:31 → MED SURG 15:18
PROVIDERS: ADMIT Family Medicine; ATTEND Family Medicine
DX: I26.99 Other pulmonary embolism without acute cor pulmonale (principal); R07.9 Chest pain, unspecified; R51.9 Headache, unspecified; R11.0 Nausea; E03.9 Hypothyroidism, unspecified; Z79.899 Other long term (current) drug therapy
CPT/HCPCS: 36000; 36415; 71045; 71260; 80053; 80061; 80307; 81001; 83721; 83735; 83880; 84484; 84703; 85025; 85379; 93005; 93041; 93970; 94760; 96372; 96374; 96375; 99285; J1650; J2270; A9270-GY; G0378

== ENCOUNTER 2020-02-11 16:35 | Emergency (ER) | payer OTHER ==
--- NOTE | 2020-02-11 16:58 | ERPHSYRPT ---
- History of Present Illness Time Seen by Provider: 02/11/20 16:55 Source: patient Exam Limitations: no limitations Patient Subjective Stated Complaint: HTN, dizziness Triage Nursing Assessment: pt to ED c/u HTN and dizziness x 1 day. stastes she w as shopping eariler, heard pop behind R ear and dizziness has increased since. states she recently started abx for tooth infx on Monday. has hx HTN after , is 5 mo post now. states she was taken off BP meds about 2 months ago. Physician History: This is a morbidly obese 29-year-old white female who has a history of hypertension but has been off her Procardia for 2 months. Patient delivered a child 5 months ago. Today she felt her ear pop on the right side and she noticed her blood pressure was elevated. She was slightly dizzy. Her symptoms have resolved prior to arrival to the emergency department. She called her prescribing doctor's office who suggested that she come to the emergency department to be further evaluated. Patient denies chest pain. She denies shortness of breath. She denies cough. She denies flulike symptoms. She denie s fever. Patient has a history of hypothyroidism, migraines, anxiety issues. Timing/Duration: today Severity: mild Associated Symptoms: other (Seen this) Allergies/Adverse Reactions: fluoxetine HCl [From Prozac] Adverse Reaction (Severe, Verified 02/11/20 16:44) Nausea PROZAC WITH FLUOXETINE HAS BLOOD IN STOOL sertraline [From Zoloft] Adverse Reaction (Intermediate, Verified 02/11/20 16:44) Home Medications: Levothyroxine Sodium 25 Mcg [Synthroid 25 Mcg] 25 mcg PO DAILY 12/02/18 [History] Citalopram Hydrobromide 20 mg* [ceLEXa 20 MG] 30 mg PO DAILY 11/13/19 [History] Loratadine 10 mg [Claritin 10 mg] 10 mg PO DAILY 12/19/19 [History] Hx Tetanus, Diphtheria Vaccination/Date Given: Yes Hx Influenza Vaccination/Date Given: Yes Hx Pneumococcal Vaccination/Date Given: No Travel Risk - International Travel Have you traveled outside of the country in past 3 weeks: No - Coronavirus Screening Are you exhibiting any of the following symptoms?: No Close contact with a COVID-19 positive Pt in past 14-21 Days: No - Review of Systems Constitutional: No Symptoms Eyes: No Symptoms Ears, Nose, & Throat: No Symptoms Respiratory: No Symptoms Cardiac: No Symptoms Abdominal/Gastrointestinal: No Symptoms Genitourinary Symptoms: No Symptoms Musculoskeletal: No Symptoms Skin: No Symptoms Neurological: Dizziness Psychological: No Symptoms Endocrine: No Symptoms Hematologic/Lymphatic: No Symptoms Immunological/Allergic: No Symptoms All Other Systems: Reviewed and Negative - Past Medical History Pertinent Past Medical History: Yes Neurological History: Migraines ENT History: No Pertinent History Cardiac History: Hypertension Respiratory History: No Pertinent History Endocrine Medical History: Hypothyroidism Musculoskeletal History: No Pertinent History GI Medical History: No Pertinent History History: No Pertinent History Psycho-Social History: Anxiety, Depression Female Reproductive Disorders: No Pertinent History Other Medical History: gestational diabetes. 2 vaginal births - Past Surgical History Past Surgical History: No Neuro Surgical History: No Pertinent History Cardiac: No Pertinent History Respiratory: No Pertinent History Gastrointestinal: No Pertinent History Genitourinary: No Pertinent History Musculoskeletal: No Pertinent History Female Surgical History: No Pertinent History - Social History Smoking Status: Former smoker How long have you smoked: 16 Exposure to second hand smoke: No Drug Use: none Patient Lives Alone: No - Female History Hx Now: No (nexplanon) - Nursing Vital Signs Nursing Vital Signs: Initial Vital Signs Temperature 98.2 F 02/11/20 16:36 Pulse Rate 70 02/11/20 16:36 Respiratory Rate 18 02/11/20 16:36 Blood Pressure 178/102 02/11/20 16:36 O2 Sat by Pulse Oximetry 98 02/11/20 16:36 Pain Scale Pain Intensity 0 - Physical Exam General Appearance: no apparent distress, alert, anxiety, obese Eye Exam: PERRL/EOMI, eyes nml inspection Ears, Nose, Throat Exam: normal ENT inspection, moist mucous membranes Neck Exam: normal inspection, non-tender, supple, full range of motion Respiratory Exam: normal breath sounds, lungs clear, No chest tenderness, No respiratory distress, No airway intact Cardiovascular Exam: regular rate/rhythm, normal heart sounds, normal peripheral pulses Gastrointestinal/Abdomen Exam: soft, normal bowel sounds, No tenderness Pelvic Exam: not done Rectal Exam: not done Extremity Exam: normal inspection, normal range of motion, pelvis stable Neurologic Exam: alert, oriented x 3, cooperative, pump runner II-XII nml as tested, normal mood/affect, nml cerebellar function, nml station & gait, sensation nml Skin Exam: normal color, warm, dry Lymphatic Exam: No adenopathy SpO2 Interpretation: normal SpO2: 98 O2 Delivery: Room Air - Course Nursing assessment & vital signs reviewed: Yes EKG Interpreted by Me: RATE (59), Sinus Rhythm, NORMAL AXIS, NORMAL INTERVALS, NORMAL QRS, NORMAL ST-T, Other (Acute ischemic changes. When compared to EKG there are no changes.) Ordered Tests: Active Orders 24 hr Category Date Time Status EKG-ER Only STAT Care 02/11/20 16:58 Active IV Insertion STAT Care 02/11/20 16:58 Active Pulse Oximetry (ED) STAT Care 02/11/20 16:58 Active CBC W DIFF Stat Lab 02/11/20 16:58 Completed CMP Stat Lab 02/11/20 16:58 Completed MAGNESIUM Stat Lab 02/11/20 16:58 Completed UA W/RFX UR CULTURE Stat Lab 02/11/20 17:11 Completed Medication Summary Discontinued Medications Generic Name Dose Route Start Last Admin Trade Name Davidq PRN Reason Stop Dose Admin Hydrocodone Bitart/Acetaminophen 10 ml 02/11/20 17:29 02/11/20 17:34 Hydrocodone-Acetamin 2.5-108/5 Ml Solution PO 02/11/20 17:30 10 ml STAT STA Administration Hydrocodone Bitart/Acetaminophen Confirm 02/11/20 17:33 Hydrocodone-Acetamin 2.5-108/5 Ml Solution Administered 02/11/20 17:34 Dose 10 ml .ROUTE .STK-MED ONE Enalaprilat 1.25 mg 02/11/20 17:51 Vasotec I.V. 2.5 Mg IV 02/11/20 17:52 STAT ONE Methylprednisolone Sodium Succinate 125 mg 02/11/20 17:29 02/11/20 17:34 Solu-Medrol 125 Mg IV 02/11/20 17:30 125 mg STAT ONE Administration Methylprednisolone Sodium Succinate Confirm 02/11/20 17:33 Solu-Medrol 125 Mg Administered 02/11/20 17:34 Dose 125 mg .ROUTE .STK-MED ONE Lab/Rad Data: Laboratory Result Diagrams 02/11/20 16:58 02/11/20 16:58 Laboratory Results 02/11/20 02/11/20 02/11/20 Range/Units 17:11 16:58 16:58 WBC 9.1 (4.0-10.5) K/mm3 RBC 4.64 (4.1-5.4) M/mm3 Hgb 11.2 L (12.0-16.0) gm/dl Hct 37.6 (35-47) % MCV 81.0 (78-100) fl MCH 24.1 L (26-32) pg MCHC 29.8 L (32-36) g/dl RDW 15.6 H (11.5-14.0) % Plt Count 270 (150-450) K/mm3 MPV 12.1 H (7.5-11.0) fl Gran % 61.5 (36.0-66.0) % Eos # (Auto) 0.27 (0-0.5) Absolute Lymphs (auto) 2.48 (1.0-4.6) Absolute Monos (auto) 0.71 (0.0-1.3) Lymphocytes % 27.3 (24.0-44.0) % Monocytes % 7.8 (0.0-12.0) % Eosinophils % 3.0 (0.00-5.0) % Basophils % 0.4 (0.0-0.4) % Absolute Granulocytes 5.57 (1.4-6.9) Basophils # 0.04 (0-0.4) Sodium 142 (137-145) mmol/L Potassium 4.1 (3.5-5.1) mmol/L Chloride 106 (98-107) mmol/L Carbon Dioxide 30 (22-30) mmol/L Anion Gap 9.5 (5-15) MEQ/L BUN 10 (7-17) mg/dL Creatinine 0.83 (0.52-1.04) mg/dL Estimated GFR > 60.0 ML/MIN Glucose 129 H (74-106) mg/dL Calcium 9.3 (8.4-10.2) mg/dL Magnesium 2.0 (1.6-2.3) mg/dL Total Bilirubin 0.60 (0.2-1.3) mg/dL AST 33 (14-36) U/L ALT 37 H (0-35) U/L Alkaline Phosphatase 78 (38-126) U/L Serum Total Protein 7.5 (6.3-8.2) g/dL Albumin 4.1 (3.5-5.0) g/dL Urine Color YELLOW (YELLOW) Urine Appearance SLIGHTLY CLOUDY (CLEAR) Urine pH 7.0 (5-6) Ur Specific [place]vo 1.019 (1.005-1.025) Urine Protein NEGATIVE (Negative) Urine Ketones NEGATIVE (NEGATIVE) Urine Blood NEGATIVE (0-5) René/ul Urine Nitrite NEGATIVE (NEGATIVE) Urine Bilirubin NEGATIVE (NEGATIVE) Urine Urobilinogen NEGATIVE (0-1) mg/dL Ur Leukocyte Esterase NEGATIVE (NEGATIVE) Urine WBC (Auto) 0-2 (0-5) /HPF Urine RBC (Auto) 3-5 (0-2) /HPF U Epithel Cells (Auto) RARE (FEW) /HPF Urine Bacteria (Auto) NONE (NEGATIVE) /HPF Urine Culture Reflexed NO (NO) Urine Glucose NEGATIVE (NEGATIVE) mg/dL - Progress Progress: improved, re-examined Counseled pt/family regarding: lab results, diagnosis, need for follow-up - Departure Departure Disposition: Home Clinical Impression: Hypertension, Earache symptoms in both ears Condition: Stable Critical Care Time: Yes Critical Care Time(excluding separately billable procedures): Critical 30-74 mins Referrals: QUINTON SERNA DO [Primary Care Provider] - Additional Instructions: Follow-up with Dr. Serna tomorrow morning for further management of your blood pressure and ear pain.
[2020-02-11 17:23] LABS: Absolute Neutrophil Ct (ANC) 5.57 (1.4-6.9); BASOPHIL % 0.4 % (0.0-0.4); Basophil (Absolute #) 0.04 (0-0.4); Eosinophil (Absolute #) 0.27 (0-0.5); Hematocrit 37.6 % (35-47); Hemoglobin 11.2 gm/dl (12.0-16.0); Lymphocyte (Absolute #) 2.48 (1.0-4.6); Lymphocytes % 27.3 % (24.0-44.0); Mean Corpuscular Hemoglobin 24.1 pg (26-32); Mean Corpuscular Hgb Concent. 29.8 g/dl (32-36); Mean Platelet Volume 12.1 fl (7.5-11.0); Monocyte (Absolute #) 0.71 (0.0-1.3); Monocytes % 7.8 % (0.0-12.0); Neutrophil % 61.5 % (36.0-66.0); Platelet Count 270 K/mm3 (150-450); Red Blood Count 4.64 M/mm3 (4.1-5.4); Red Cell Distribution Width 15.6 % (11.5-14.0); White Blood Count 9.1 K/mm3 (4.0-10.5)
[2020-02-11 17:28] LABS: Appearance SLIGHTLY CLOUDY (CLEAR); Bilirubin NEGATIVE (NEGATIVE); Blood NEGATIVE Ery/ul (0-5); Epithelial Cells RARE /HPF (FEW); Glucose NEGATIVE (NEGATIVE); Ketones NEGATIVE (NEGATIVE); Leukocyte Esterase NEGATIVE (NEGATIVE); Nitrite NEGATIVE (NEGATIVE); Protein,Urine Dip NEGATIVE (Negative); Specific Gravity 1.019 (1.005-1.025); Urobilinogen NEGATIVE mg/dL (0-1); WBC 0-2 /HPF (0-5)
[2020-02-11] MEDS ORDERED: HYDROCODONE-ACETAMIN 2.5-108/5 ML SOLUTION PO STA (17:29)
[2020-02-11] MEDS ORDERED: solu-MEDROL 125 MG IV ONE (17:29)
[2020-02-11] MEDS ORDERED: solu-MEDROL 125 MG ONE (17:33)
[2020-02-11] MEDS ORDERED: HYDROCODONE-ACETAMIN 2.5-108/5 ML SOLUTION ONE (17:33)
[2020-02-11 17:39] LABS: ALBUMIN 4.1 g/dL (3.5-5.0); ALKALINE PHOSPHATASE 78 U/L (38-126); ANION GAP 9.5 MEQ/L (5-15); BLOOD UREA NITROGEN 10 mg/dL (7-17); CHLORIDE 106 mmol/L (98-107); Calcium 9.3 mg/dL (8.4-10.2); Carbon Dioxide 30 mmol/L (22-30); Creatinine 1 0.83 mg/dL (0.52-1.04); EST GLOMERULAR FILTRATION RATE > 60.0 ML/MIN; Glucose 129 mg/dL (74-106); Potassium 4.1 mmol/L (3.5-5.1); SGOT/AST 33 U/L (14-36); SGPT/ALT 37 U/L (0-35); SODIUM 142 mmol/L (137-145); Total Protein 7.5 g/dL (6.3-8.2)
[2020-02-11] MEDS ORDERED: VASOTEC I.V. 2.5 MG IV ONE ×2 (17:51→17:55)
[2020-02-11 17:53] VITALS: BP 167/87; PULSE 59
[2020-02-11 17:55] VITALS: O2SAT 98
== END 2020-02-11 18:27 | disposition home or self-care (01) ==
LOC: ED 16:35
DX: I10 Essential (primary) hypertension (principal); H92.03 Otalgia, bilateral
CPT/HCPCS: 36000; 36415; 80053; 81001; 83735; 85025; 93005; 94760; 96374; 96375; 99284; 99291; J2930; A9270-GY

== ENCOUNTER 2020-05-25 20:30 | Emergency (ER) | payer OTHER ==
--- NOTE | 2020-05-25 21:02 | ERPHSYRPT ---
- History of Present Illness Historian: patient Patient Subjective Stated Complaint: pt c/o shortness of breath and a pain to left upper chest. SOB started at 8pm tonight, pt states, "I've had some chest tenderness since yesterday". Lungs clear, heart tones reg, abd lg, obese with active bsx4 quad, nontender. Triage Nursing Assessment: pt ambulated to room 6 of ER. Pt alert and oriented x3, pleasant. Pt c/o sob which started about 30 minutes ago. Pt c/o sharp pain to left upper chest, nonradiating, feels like "heaviness/sharp pain". Physician History: 29 yo morbidly obese wf w mid-sternal chest pain x 1 day. Pain 8/10 wo radiation/Stabbing/worse w deep breaths. She has mild dyspnea wo N/V/Diaphoresis/cough. Timing/Duration: yesterday Activities at Onset: rest Quality: stabbing Location: substernal Chest Pain Radiation: no radiation Severity of Pain-Max: severe Severity of Pain-Current: severe Modifying Factors: Improves With: nothing Associated Symptoms: shortness of breath, hurts to breathe, No nausea, No vomiting, No palpitations, No heartburn, No abdominal pain, No cough, No diaphoresis, No chills, No fever, No fatigue, No weakness, No swelling/lump in chest, No syncope, No rash, No headache, No dizziness, No edema, No back pain Prior Chest Pain/Cardiac Workup: no prior chest pain Nitro Today/Relief: no nitro taken today Aspirin Treatment Today: no aspirin today Allergies/Adverse Reactions: fluoxetine HCl [From Prozac] Adverse Reaction (Severe, Verified 05/25/20 20:45) Nausea PROZAC WITH FLUOXETINE HAS BLOOD IN STOOL sertraline [From Zoloft] Adverse Reaction (Intermediate, Verified 05/25/20 20:45) Home Medications: Levothyroxine Sodium 25 Mcg [Synthroid 25 Mcg] 25 mcg PO DAILY 12/02/18 [History] Citalopram Hydrobromide 20 mg* [ceLEXa 20 MG] 30 mg PO DAILY 11/13/19 [History] Loratadine 10 mg [Claritin 10 mg] 10 mg PO DAILY 12/19/19 [History] Gabapentin 100 mg PO TID PRN PRN 05/25/20 [History] Naproxen 500 mg [Naprosyn 500 MG] 500 mg PO BID PRN PRN 05/25/20 [History] Tramadol HCl 50 mg [Ultram 50 mg] 50 mg PO Q6H PRN PRN 05/25/20 [History] Hx Tetanus, Diphtheria Vaccination/Date Given: Yes Hx Influenza Vaccination/Date Given: No Hx Pneumococcal Vaccination/Date Given: No Immunizations Up to Date: Yes Travel Risk - International Travel Have you traveled outside of the country in past 3 weeks: No - Coronavirus Screening Symptoms: Cough: New Onset, Shortness of Breath, Vomiting/Diarrhea, Headaches/Body Aches/Fatigue Close contact with a COVID-19 positive Pt in past 14-21 Days: No - Review of Systems Constitutional: No Symptoms Eyes: No Symptoms Ears, Nose, & Throat: No Symptoms Respiratory: Dyspnea Cardiac: Chest Pain Abdominal/Gastrointestinal: No Symptoms Genitourinary Symptoms: No Symptoms Musculoskeletal: No Symptoms Skin: No Symptoms Neurological: No Symptoms Psychological: No Symptoms Endocrine: No Symptoms Hematologic/Lymphatic: No Symptoms Immunological/Allergic: No Symptoms - Past Medical History Pertinent Past Medical History: Yes Neurological History: Migraines ENT History: No Pertinent History Cardiac History: No Pertinent History Respiratory History: No Pertinent History Endocrine Medical History: Hypothyroidism Musculoskeletal History: No Pertinent History GI Medical History: No Pertinent History History: No Pertinent History Psycho-Social History: Anxiety, Depression Female Reproductive Disorders: No Pertinent History Other Medical History: She notes sharp pain down R LE that go to her ankle. 8 months post . She notes back pain when she was . - Past Surgical History Past Surgical History: No Neuro Surgical History: No Pertinent History Cardiac: No Pertinent History Respiratory: No Pertinent History Gastrointestinal: No Pertinent History Genitourinary: No Pertinent History Musculoskeletal: No Pertinent History Female Surgical History: No Pertinent History - Social History Smoking Status: Former smoker How long have you smoked: 16 Exposure to second hand smoke: Yes Drug Use: none Patient Lives Alone: No Significant Family History: no pertinent family hx - Female History Hx Now: No - Nursing Vital Signs Nursing Vital Signs: Initial Vital Signs Temperature 98.4 F 05/25/20 20:31 Pulse Rate 66 05/25/20 20:31 Respiratory Rate 20 05/25/20 20:31 Blood Pressure 157/78 05/25/20 20:31 O2 Sat by Pulse Oximetry 98 05/25/20 20:31 Pain Scale Pain Intensity 5 - Physical Exam General Appearance: no apparent distress Eye Exam: PERRL/EOMI, eyes nml inspection Ears, Nose, Throat Exam: normal ENT inspection, TMs normal, pharynx normal, moist mucous membranes, tonsillar exudate Neck Exam: normal inspection, non-tender, supple, No meningismus, No mass, No Brudzinski, No Kernig's, No carotid bruit Respiratory Exam: normal breath sounds, chest tenderness (Mid-sternal TTP), lungs clear, airway intact, No respiratory distress Cardiovascular Exam: regular rate/rhythm, normal heart sounds, normal peripheral pulses, No murmur Gastrointestinal/Abdomen Exam: soft, normal bowel sounds, No tenderness Back Exam: normal inspection, normal range of motion, No CVA tenderness, No vertebral tenderness Extremity Exam: normal inspection, normal range of motion Neurologic Exam: alert, oriented x 3, cooperative, gsa coordinator II-XII nml as tested, normal mood/affect, nml station & gait, sensation nml Skin Exam: normal color, warm, dry Lymphatic Exam: No adenopathy SpO2 Interpretation: normal SpO2: 98 O2 Delivery: Room Air - Course Nursing assessment & vital signs reviewed: Yes EKG Interpreted by Me: RATE (NSR/R67/Normal QT-QTc/No acute ST-T wave changes) - Radiology Exams Chest X-ray Interpretation: Interpreted by me (Nothing acute) Ordered Tests: Active Orders 24 hr Category Date Time Status EKG-ER Only STAT Care 05/25/20 20:56 Completed CHEST 1 VIEW (PORTABLE) Stat Exams 05/25/20 20:56 Taken CBC W DIFF Stat Lab 05/25/20 20:45 Completed D-DIMER QUANTITATIVE Stat Lab 05/25/20 20:56 Completed Medication Summary Discontinued Medications Generic Name Dose Route Start Last Admin Trade Name Davidq PRN Reason Stop Dose Admin Ketorolac Tromethamine 30 mg 05/25/20 22:18 05/25/20 22:21 Toradol 30 Mg Injection IV 05/25/20 22:19 30 mg STAT ONE Administration Ketorolac Tromethamine Confirm 05/25/20 22:18 Toradol 30 Mg Injection Administered 05/25/20 22:19 Dose 30 mg .ROUTE .STK-MED ONE Lab/Rad Data: Laboratory Result Diagrams 05/25/20 20:45 05/25/20 20:45 Laboratory Results 05/25/20 05/25/20 05/25/20 Range/Units 20:56 20:45 20:45 WBC (4.0-10.5) K/mm3 RBC (4.1-5.4) M/mm3 Hgb (12.0-16.0) gm/dl Hct (35-47) % MCV (78-100) fl MCH (26-32) pg MCHC (32-36) g/dl RDW (11.5-14.0) % Plt Count (150-450) K/mm3 MPV (7.5-11.0) fl Gran % (36.0-66.0) % Eos # (Auto) (0-0.5) Absolute Lymphs (auto) (1.0-4.6) Absolute Monos (auto) (0.0-1.3) Lymphocytes % (24.0-44.0) % Monocytes % (0.0-12.0) % Eosinophils % (0.00-5.0) % Basophils % (0.0-0.4) % Absolute Granulocytes (1.4-6.9) Basophils # (0-0.4) D-Dimer 448 (215-500) ng/mL Sodium Direct 140 (138-146) mmol/L Potassium 3.7 (3.5-4.9) mmol/L Chloride 103 (98-109) mmol/L Carbon Dioxide 26 (24-29) mmol/L Venous BUN 11 (8-26) mg/dL Creatinine 0.6 (0.6-1.3) mg/dL Glucose 112 H (70-105) mg/dL Ionized Calcium 1.18 (1.12-1.32) mmol/L Troponin 0.00 (0.00-0.03) ng/mL 05/25/20 Range/Units 20:45 WBC 9.2 (4.0-10.5) K/mm3 RBC 4.42 (4.1-5.4) M/mm3 Hgb 10.9 L (12.0-16.0) gm/dl Hct 35.7 (35-47) % MCV 80.8 (78-100) fl MCH 24.7 L (26-32) pg MCHC 30.5 L (32-36) g/dl RDW 14.9 H (11.5-14.0) % Plt Count 263 (150-450) K/mm3 MPV 12.6 H (7.5-11.0) fl Gran % 65.1 (36.0-66.0) % Eos # (Auto) 0.35 (0-0.5) Absolute Lymphs (auto) 2.08 (1.0-4.6) Absolute Monos (auto) 0.76 (0.0-1.3) Lymphocytes % 22.6 L (24.0-44.0) % Monocytes % 8.3 (0.0-12.0) % Eosinophils % 3.8 (0.00-5.0) % Basophils % 0.2 (0.0-0.4) % Absolute Granulocytes 5.98 (1.4-6.9) Basophils # 0.02 (0-0.4) D-Dimer (215-500) ng/mL Sodium Direct (138-146) mmol/L Potassium (3.5-4.9) mmol/L Chloride (98-109) mmol/L Carbon Dioxide (24-29) mmol/L Venous BUN (8-26) mg/dL Creatinine (0.6-1.3) mg/dL Glucose (70-105) mg/dL Ionized Calcium (1.12-1.32) mmol/L Troponin (0.00-0.03) ng/mL - Progress Air Movement: fair Progress Note: 05/25/20 22:18 30mg IV Toradol Counseled pt/family regarding: lab results, diagnosis, need for follow-up, rad results - Departure Departure Disposition: Home Clinical Impression: Chest pain Condition: Stable Critical Care Time: No Referrals: QUINTON POWERS DO [Primary Care Provider] - Instructions: Chest Pain (DC), Costochondritis (DC) Additional Instructions: Follow up with your family MD Return to ER for increasing pain or shortness of breath Prescriptions: Ketorolac Tromethamine [Toradol] 10 mg PO TID PRN #10 tablet PRN Reason: Pain
[2020-05-25 21:18] LABS: Absolute Neutrophil Ct (ANC) 5.98 (1.4-6.9); BASOPHIL % 0.2 % (0.0-0.4); Basophil (Absolute #) 0.02 (0-0.4); Eosinophil % 3.8 % (0.00-5.0); Eosinophil (Absolute #) 0.35 (0-0.5); Hematocrit 35.7 % (35-47); Hemoglobin 10.9 gm/dl (12.0-16.0); Lymphocyte (Absolute #) 2.08 (1.0-4.6); Lymphocytes % 22.6 % (24.0-44.0); Mean Cell Volume 80.8 fl (78-100); Mean Corpuscular Hemoglobin 24.7 pg (26-32); Mean Corpuscular Hgb Concent. 30.5 g/dl (32-36); Mean Platelet Volume 12.6 fl (7.5-11.0); Monocyte (Absolute #) 0.76 (0.0-1.3); Monocytes % 8.3 % (0.0-12.0); Neutrophil % 65.1 % (36.0-66.0); Platelet Count 263 K/mm3 (150-450); Red Blood Count 4.42 M/mm3 (4.1-5.4); Red Cell Distribution Width 14.9 % (11.5-14.0); White Blood Count 9.2 K/mm3 (4.0-10.5)
[2020-05-25 21:33] LABS: ISTAT CREA 0.6 mg/dL (0.6-1.3)
[2020-05-25] MEDS ORDERED: TORAdol 30 mg Injection ONE (22:18)
[2020-05-25] MEDS ORDERED: TORAdol 30 mg Injection IV ONE (22:18)
[2020-05-25 22:29] VITALS: BP 157/80; PULSE 55
[2020-05-26 00:14] VITALS: O2SAT 98
--- NOTE | 2020-05-26 08:58 | XRAY ---
Indication: Chest pain. Comparison: December 19, 2019. Portable chest less inflated accentuating cardiopulmonary structures. No focal infiltrate, consolidation, or large effusion. Heart still measures within normal limits for AP portable technique. Bony thorax intact. Impression: Nonacute underinflated chest.
== END 2020-05-25 22:40 | disposition home or self-care (01) ==
LOC: ED 20:30
DX: R07.9 Chest pain, unspecified (principal)
CPT/HCPCS: 36000; 36415; 71045; 80047; 84484; 85025; 85379; 93005; 96374; 99284; J1885

== ENCOUNTER 2020-06-01 19:12 | Emergency (ER) | payer OTHER ==
--- NOTE | 2020-06-01 19:17 | ERPHSYRPT ---
- History of Present Illness Time Seen by Provider: 06/01/20 19:16 Source: patient Exam Limitations: no limitations Physician History: This is a morbidly obese 29-year-old white female has a history of hypothyroidism and hypertension and presents with shortness of breath and "legs giving out". This occurred at approximately 7 PM which was approximately 15 to 20 minutes prior to her arrival here. Patient did not have chest pain at the time of this incident but complains of some chest and rib pain bilaterally. Patient was seen here on 05/25/2020. She had complains of chest pain and shortness of breath at that time. Her work-up was negative. Her EKG was normal sinus rhythm with no acute ischemic changes at that time. In addition, patient had normal troponin level and normal D-dimer level. Patient states that her was anxious and therefore he wanted her to come in and be evaluated. She has no head injury. She has no strokelike symptoms. Patient ambulated from the emergency department into her emergency department room. Timing/Duration: today Activities at Onset: other (Walking) Severity of Dyspnea-Max: mild Severity of Dyspnea-Current: mild Possible Cause: occasional episodes Modifying Factors: Improves With: activity Associated Symptoms: anxiety, cough (Has a chronic cough), No chest pain/discomfort, No fever, No lightheadedness Allergies/Adverse Reactions: fluoxetine HCl [From Prozac] Adverse Reaction (Severe, Verified 06/01/20 19:23) Nausea PROZAC WITH FLUOXETINE HAS BLOOD IN STOOL sertraline [From Zoloft] Adverse Reaction (Intermediate, Verified 06/01/20 19:23) Home Medications: Levothyroxine Sodium 25 Mcg [Synthroid 25 Mcg] 25 mcg PO DAILY 12/02/18 [History] Citalopram Hydrobromide 20 mg* [ceLEXa 20 MG] 30 mg PO DAILY 11/13/19 [History] Loratadine 10 mg [Claritin 10 mg] 10 mg PO DAILY 12/19/19 [History] Gabapentin 100 mg PO TID PRN PRN 05/25/20 [History] Naproxen 500 mg [Naprosyn 500 MG] 500 mg PO BID PRN PRN 05/25/20 [History] Tramadol HCl 50 mg [Ultram 50 mg] 50 mg PO Q6H PRN PRN 05/25/20 [History] Hx Tetanus, Diphtheria Vaccination/Date Given: Yes Hx Influenza Vaccination/Date Given: No Hx Pneumococcal Vaccination/Date Given: No Travel Risk - International Travel Have you traveled outside of the country in past 3 weeks: No - Coronavirus Screening Are you exhibiting any of the following symptoms?: No Close contact with a COVID-19 positive Pt in past 14-21 Days: No - Review of Systems Constitutional: No Symptoms Eyes: No Symptoms Ears, Nose, & Throat: No Symptoms Respiratory: Dyspnea on Exertion (LR) (Chronic) Cardiac: No Symptoms Abdominal/Gastrointestinal: No Symptoms Genitourinary Symptoms: No Symptoms Musculoskeletal: Other ("Legs gave out") Neurological: No Symptoms, No Dizziness Psychological: No Symptoms Endocrine: No Symptoms Hematologic/Lymphatic: No Symptoms Immunological/Allergic: No Symptoms All Other Systems: Reviewed and Negative - Past Medical History Pertinent Past Medical History: Yes Neurological History: Migraines ENT History: No Pertinent History Cardiac History: No Pertinent History Respiratory History: No Pertinent History Endocrine Medical History: Hypothyroidism Musculoskeletal History: No Pertinent History GI Medical History: No Pertinent History History: No Pertinent History Psycho-Social History: Anxiety, Depression Female Reproductive Disorders: No Pertinent History Other Medical History: She notes sharp pain down R LE that go to her ankle. 8 months post . She notes back pain when she was . - Past Surgical History Past Surgical History: No Neuro Surgical History: No Pertinent History Cardiac: No Pertinent History Respiratory: No Pertinent History Gastrointestinal: No Pertinent History Genitourinary: No Pertinent History Musculoskeletal: No Pertinent History Female Surgical History: No Pertinent History - Social History Smoking Status: Former smoker How long have you smoked: 16 Exposure to second hand smoke: Yes Drug Use: none Patient Lives Alone: No Significant Family History: no pertinent family hx - Nursing Vital Signs Nursing Vital Signs: Initial Vital Signs Temperature 97.9 F 06/01/20 19:15 Pulse Rate 91 H 06/01/20 19:15 Respiratory Rate 20 06/01/20 19:15 Blood Pressure 156/96 06/01/20 19:15 O2 Sat by Pulse Oximetry 98 06/01/20 19:15 Pain Scale Pain Intensity 6 - Physical Exam General Appearance: no apparent distress, alert, anxiety Eye Exam: PERRL/EOMI, eyes nml inspection Ears, Nose, Throat Exam: hearing grossly normal, normal ENT inspection Neck Exam: normal inspection, non-tender, supple, full range of motion Respiratory Exam: normal breath sounds, lungs clear, respiratory distress, airway intact, No chest tenderness Cardiovascular/Chest Exam: normal heart sounds, regular rate/rhythm, normal peripheral pulses Abdominal/Gastrointestinal Exam: soft, normal bowel sounds, No tenderness Rectal Exam: not done Extremity Exam: non-tender, normal range of motion, normal inspection, normal capillary refill, no calf tenderness, no pedal edema, pelvis stable Neurologic Exam: alert, oriented x 3, 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 No changes when compared to EKG dated 05/25/2020.) Ordered Tests: Active Orders 24 hr Category Date Time Status Emergency Department STAT Care 06/01/20 19:33 Active EKG-ER Only STAT Care 06/01/20 19:33 Active IV Insertion STAT Care 06/01/20 19:28 Active Pulse Oximetry (ED) STAT Care 06/01/20 19:28 Active CHEST WITH CONTRAST [CT] Stat Exams 06/01/20 20:05 Taken CBC W DIFF Stat Lab 06/01/20 19:30 Completed CMP Stat Lab 06/01/20 19:30 Completed D-DIMER QUANTITATIVE Stat Lab 06/01/20 19:30 Completed INFLUENZA A+B LEILA Stat Lab 06/01/20 19:33 Completed MAGNESIUM Stat Lab 06/01/20 19:30 Completed NT PRO BNP Stat Lab 06/01/20 19:30 Completed T4 (Thyroxine) Routine Lab 06/01/20 19:30 Completed TROPONIN Q3H Lab 06/01/20 19:30 Completed TROPONIN Q3H Lab 06/01/20 22:30 Ordered TROPONIN Q3H Lab 06/02/20 01:30 Ordered TROPONIN Q3H Lab 06/02/20 04:30 Ordered TROPONIN Q3H Lab 06/02/20 07:30 Ordered TSH, 3RD Generation Routine Lab 06/01/20 19:30 Completed UA W/RFX UR CULTURE Stat Lab 06/01/20 19:40 Completed Medication Summary Discontinued Medications Generic Name Dose Route Start Last Admin Trade Name Silvestre PRN Reason Stop Dose Admin Sodium Chloride 500 mls @ 500 mls/hr 06/01/20 20:05 06/01/20 20:22 Sodium Chloride 0.9% 500 Ml IV 06/01/20 21:04 500 mls/hr .Q1H ONE Administration Sodium Chloride Confirm 06/01/20 20:21 Sodium Chloride 0.9% 500 Ml Administered 06/01/20 20:22 Dose 500 mls @ ud IV .STK-MED ONE Lab/Rad Data: Laboratory Result Diagrams 06/01/20 19:30 06/01/20 19:30 Laboratory Results 06/01/20 06/01/20 06/01/20 Range/Units 19:40 19:33 19:30 WBC (4.0-10.5) K/mm3 RBC (4.1-5.4) M/mm3 Hgb (12.0-16.0) gm/dl Hct (35-47) % MCV (78-100) fl MCH (26-32) pg MCHC (32-36) g/dl RDW (11.5-14.0) % Plt Count (150-450) K/mm3 MPV (7.5-11.0) fl Gran % (36.0-66.0) % Eos # (Auto) (0-0.5) Absolute Lymphs (auto) (1.0-4.6) Absolute Monos (auto) (0.0-1.3) Lymphocytes % (24.0-44.0) % Monocytes % (0.0-12.0) % Eosinophils % (0.00-5.0) % Basophils % (0.0-0.4) % Absolute Granulocytes (1.4-6.9) Basophils # (0-0.4) D-Dimer (215-500) ng/mL Sodium (137-145) mmol/L Potassium (3.5-5.1) mmol/L Chloride (98-107) mmol/L Carbon Dioxide (22-30) mmol/L Anion Gap (5-15) MEQ/L BUN (7-17) mg/dL Creatinine (0.52-1.04) mg/dL Estimated GFR ML/MIN Glucose (74-106) mg/dL Calcium (8.4-10.2) mg/dL Magnesium (1.6-2.3) mg/dL Total Bilirubin (0.2-1.3) mg/dL AST (14-36) U/L ALT (0-35) U/L Alkaline Phosphatase (38-126) U/L Troponin I < 0.012 (0.000-0.034) ng/mL NT-Pro-B Natriuret Pep (0-450) pg/mL Serum Total Protein (6.3-8.2) g/dL Albumin (3.5-5.0) g/dL Thyroxine (T4) 8.42 (5.53-10.96) ug/dL TSH 3rd Generation 3.600 (0.47-4.68) mIU/L Urine Color YELLOW (YELLOW) Urine Appearance SLIGHTLY CLOUDY (CLEAR) Urine pH 6.0 (5-6) Ur Specific [place] 1.024 (1.005-1.025) Urine Protein NEGATIVE (Negative) Urine Ketones NEGATIVE (NEGATIVE) Urine Blood NEGATIVE (0-5) René/ul Urine Nitrite NEGATIVE (NEGATIVE) Urine Bilirubin NEGATIVE (NEGATIVE) Urine Urobilinogen 2 (0-1) mg/dL Ur Leukocyte Esterase NEGATIVE (NEGATIVE) Urine WBC (Auto) 3-5 (0-5) /HPF Urine RBC (Auto) 6-10 (0-2) /HPF U Epithel Cells (Auto) FEW (FEW) /HPF Urine Bacteria (Auto) FEW (NEGATIVE) /HPF Urine Mucus (Auto) SLIGHT (NEGATIVE) /HPF Urine Culture Reflexed NO (NO) Urine Glucose NEGATIVE (NEGATIVE) mg/dL Influenza Type A Ag NEGATIVE (NEGATIVE) Influenza Type B Ag NEGATIVE (NEGATIVE) 06/01/20 06/01/20 06/01/20 Range/Units 19:30 19:30 19:30 WBC 10.3 (4.0-10.5) K/mm3 RBC 4.72 (4.1-5.4) M/mm3 Hgb 11.7 L (12.0-16.0) gm/dl Hct 38.4 (35-47) % MCV 81.4 (78-100) fl MCH 24.8 L (26-32) pg MCHC 30.5 L (32-36) g/dl RDW 15.0 H (11.5-14.0) % Plt Count 262 (150-450) K/mm3 MPV 11.8 H (7.5-11.0) fl Gran % 69.2 H (36.0-66.0) % Eos # (Auto) 0.34 (0-0.5) Absolute Lymphs (auto) 2.18 (1.0-4.6) Absolute Monos (auto) 0.62 (0.0-1.3) Lymphocytes % 21.2 L (24.0-44.0) % Monocytes % 6.0 (0.0-12.0) % Eosinophils % 3.3 (0.00-5.0) % Basophils % 0.3 (0.0-0.4) % Absolute Granulocytes 7.09 H (1.4-6.9) Basophils # 0.03 (0-0.4) D-Dimer 614 H* (215-500) ng/mL Sodium 140 (137-145) mmol/L Potassium 4.0 (3.5-5.1) mmol/L Chloride 101 (98-107) mmol/L Carbon Dioxide 27 (22-30) mmol/L Anion Gap 15.5 H (5-15) MEQ/L BUN 10 (7-17) mg/dL Creatinine 0.67 (0.52-1.04) mg/dL Estimated GFR > 60.0 ML/MIN Glucose 121 H (74-106) mg/dL Calcium 8.8 (8.4-10.2) mg/dL Magnesium 1.9 (1.6-2.3) mg/dL Total Bilirubin 0.70 (0.2-1.3) mg/dL AST 21 (14-36) U/L ALT 21 (0-35) U/L Alkaline Phosphatase 85 (38-126) U/L Troponin I (0.000-0.034) ng/mL NT-Pro-B Natriuret Pep 21.2 (0-450) pg/mL Serum Total Protein 7.6 (6.3-8.2) g/dL Albumin 4.3 (3.5-5.0) g/dL Thyroxine (T4) (5.53-10.96) ug/dL TSH 3rd Generation (0.47-4.68) mIU/L Urine Color (YELLOW) Urine Appearance (CLEAR) Urine pH (5-6) Ur Specific [place] (1.005-1.025) Urine Protein (Negative) Urine Ketones (NEGATIVE) Urine Blood (0-5) Reén/ul Urine Nitrite (NEGATIVE) Urine Bilirubin (NEGATIVE) Urine Urobilinogen (0-1) mg/dL Ur Leukocyte Esterase (NEGATIVE) Urine WBC (Auto) (0-5) /HPF Urine RBC (Auto) (0-2) /HPF U Epithel Cells (Auto) (FEW) /HPF Urine Bacteria (Auto) (NEGATIVE) /HPF Urine Mucus (Auto) (NEGATIVE) /HPF Urine Culture Reflexed (NO) Urine Glucose (NEGATIVE) mg/dL Influenza Type A Ag (NEGATIVE) Influenza Type B Ag (NEGATIVE) - Progress Progress: improved Air Movement: good Progress Note: 06/01/20 21:22 CAT scan of the chest with contrast was read by Dr. Doherty the radiologist. Pulmonary emboli evaluation limited due to to suboptimal opacification. No obvious central pulmonary emboli present. No new/acute cardiopulmonary findings. Blood Culture(s) Obtained: No Antibiotics given: No Counseled pt/family regarding: lab results, diagnosis, need for follow-up, rad results - Departure Departure Disposition: Home Clinical Impression: Shortness of breath, Weakness of both legs Condition: Stable Critical Care Time: No Referrals: QUINTON POWERS DO [Primary Care Provider] - Additional Instructions: Take all your medication as prescribed. Follow-up with your primary care physician for further management of your symptoms.
[2020-06-01 19:45] LABS: Absolute Neutrophil Ct (ANC) 7.09 (1.4-6.9); BASOPHIL % 0.3 % (0.0-0.4); Basophil (Absolute #) 0.03 (0-0.4); Eosinophil % 3.3 % (0.00-5.0); Eosinophil (Absolute #) 0.34 (0-0.5); Hematocrit 38.4 % (35-47); Hemoglobin 11.7 gm/dl (12.0-16.0); Lymphocyte (Absolute #) 2.18 (1.0-4.6); Lymphocytes % 21.2 % (24.0-44.0); Mean Cell Volume 81.4 fl (78-100); Mean Corpuscular Hemoglobin 24.8 pg (26-32); Mean Corpuscular Hgb Concent. 30.5 g/dl (32-36); Mean Platelet Volume 11.8 fl (7.5-11.0); Monocyte (Absolute #) 0.62 (0.0-1.3); Neutrophil % 69.2 % (36.0-66.0); Platelet Count 262 K/mm3 (150-450); Red Blood Count 4.72 M/mm3 (4.1-5.4); White Blood Count 10.3 K/mm3 (4.0-10.5)
[2020-06-01 20:00] LABS: Appearance SLIGHTLY CLOUDY (CLEAR); Bacteria FEW /HPF (NEGATIVE); Bilirubin NEGATIVE (NEGATIVE); Blood NEGATIVE Ery/ul (0-5); Epithelial Cells FEW /HPF (FEW); Glucose NEGATIVE (NEGATIVE); Ketones NEGATIVE (NEGATIVE); Leukocyte Esterase NEGATIVE (NEGATIVE); Mucus SLIGHT /HPF (NEGATIVE); Nitrite NEGATIVE (NEGATIVE); Protein,Urine Dip NEGATIVE (Negative); Specific Gravity 1.024 (1.005-1.025); Urobilinogen 2 mg/dL (0-1)
[2020-06-01] MEDS ORDERED: Sodium Chloride 0.9% 500 ML 500 ML IV ONE ×2 (20:05→20:21)
[2020-06-01 20:06] LABS: ALBUMIN 4.3 g/dL (3.5-5.0); ALKALINE PHOSPHATASE 85 U/L (38-126); ANION GAP 15.5 MEQ/L (5-15); BLOOD UREA NITROGEN 10 mg/dL (7-17); CHLORIDE 101 mmol/L (98-107); Calcium 8.8 mg/dL (8.4-10.2); Carbon Dioxide 27 mmol/L (22-30); Creatinine 1 0.67 mg/dL (0.52-1.04); EST GLOMERULAR FILTRATION RATE > 60.0 ML/MIN; Glucose 121 mg/dL (74-106); MAGNESIUM 1.9 mg/dL (1.6-2.3); NT PRO BNP 21.2 pg/mL (0-450); SGOT/AST 21 U/L (14-36); SGPT/ALT 21 U/L (0-35); SODIUM 140 mmol/L (137-145); Total Protein 7.6 g/dL (6.3-8.2)
[2020-06-01 20:16] LABS: INFLUENZA A NEGATIVE (NEGATIVE); INFLUENZA B NEGATIVE (NEGATIVE)
[2020-06-01 20:28] LABS: T4 (Thyroxine) 8.42 ug/dL (5.53-10.96); TROPONIN < 0.012 ng/mL (0.000-0.034)
[2020-06-01 21:27] VITALS: BP 155/99; PULSE 76; O2SAT 99
--- NOTE | 2020-06-02 08:38 | XRAY ---
Indication: Chest pain, back pain, and dyspnea on exertion. Elevated d-dimer. Multiple contiguous axial images obtained through the chest using 100 cc Isovue 370 contrast and PE protocol. Comparison: December 19, 2019. There is suboptimal opacification of the pulmonary arteries limiting evaluation for pulmonary embolus. No obvious central pulmonary embolus. Heart is not enlarged. Aorta is normal in course and caliber. No pathologic mediastinal/hilar lymphadenopathy. Lungs are inflated and clear. Bony thorax intact. Limited upper abdomen again demonstrates fatty liver. Impression: 1. Pulmonary embolus evaluation limited due to suboptimal opacification. No obvious central pulmonary embolus. 2. No new/acute cardiopulmonary abnormalities. 3. Again incidental fatty liver.
== END 2020-06-01 21:31 | disposition home or self-care (01) ==
LOC: ED 19:12
DX: R06.02 Shortness of breath (principal); R53.1 Weakness
CPT/HCPCS: 36000; 36415; 71260; 80053; 81001; 83735; 83880; 84436; 84443; 84484; 85025; 85379; 87400; 93005; 93041; 94760; 99284

== ENCOUNTER 2020-07-18 16:03 | Emergency (ER) | payer OTHER ==
[2020-07-18 16:18] VITALS: O2SAT 98
[2020-07-18] MEDS ORDERED: Rocephin 1000 MG INJ IM ONE (16:33)
--- NOTE | 2020-07-18 16:38 | ERPHSYRPT ---
- History of Present Illness Time Seen by Provider: 07/18/20 16:34 Source: patient Exam Limitations: no limitations Patient Subjective Stated Complaint: Pt states "I was working and got a sudden stabbing pain in my right ear and the pain went up and over my forehead. I got dizzy and was stumbling around." Triage Nursing Assessment: Pt presented alert and oriented X 3, skin pwd Pt ambulates with unsteady stumbling gait. Pt able to speak in clear full sentences. Pt pupils are perrl. 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 Physician History: Pt states "I was working and got a sudden stabbing pain in my right ear and the pain went up and over my forehead. I got dizzy and was stumbling around." Denies any fever or chills Timing/Duration: today Cough Quality/Degree: no cough Possible Cause: no prior episodes Modifying Factors: Improves With: activity Associated Symptoms: dizziness, sore throat Allergies/Adverse Reactions: fluoxetine HCl [From Prozac] Adverse Reaction (Severe, Verified 06/01/20 19:23) Nausea PROZAC WITH FLUOXETINE HAS BLOOD IN STOOL sertraline [From Zoloft] Adverse Reaction (Intermediate, Verified 06/01/20 19:23) Home Medications: Levothyroxine Sodium 25 Mcg [Synthroid 25 Mcg] 25 mcg PO DAILY 12/02/18 [History] Citalopram Hydrobromide 20 mg* [ceLEXa 20 MG] 30 mg PO DAILY 11/13/19 [History] Loratadine 10 mg [Claritin 10 mg] 10 mg PO DAILY 12/19/19 [History] Gabapentin 100 mg PO TID PRN PRN 05/25/20 [History] Naproxen 500 mg [Naprosyn 500 MG] 500 mg PO BID PRN PRN 05/25/20 [History] Tramadol HCl 50 mg [Ultram 50 mg] 50 mg PO Q6H PRN PRN 05/25/20 [History] Hx Tetanus, Diphtheria Vaccination/Date Given: Yes Hx Influenza Vaccination/Date Given: No Hx Pneumococcal Vaccination/Date Given: No Immunizations Up to Date: Yes Travel Risk - International Travel Have you traveled outside of the country in past 3 weeks: No - Coronavirus Screening Are you exhibiting any of the following symptoms?: No Close contact with a COVID-19 positive Pt in past 14-21 Days: No - Vaccine Status Have you recieved a Covid-19 vaccination: No - Review of Systems Constitutional: No Fever, No Chills Eyes: No Symptoms Ears, Nose, & Throat: Ear Pain, Ear Discharge, Throat Pain, Throat Swelling, Hoarse Respiratory: No Cough, No Dyspnea Cardiac: No Chest Pain, No Edema, No Syncope Abdominal/Gastrointestinal: No Abdominal Pain, No Nausea, No Vomiting, No Diarrh ea Genitourinary Symptoms: No Dysuria Musculoskeletal: No Back Pain, No Neck Pain Skin: No Rash Neurological: No Dizziness, No Focal Weakness, No Sensory Changes Psychological: No Symptoms Endocrine: No Symptoms All Other Systems: Reviewed and Negative - Past Medical History Pertinent Past Medical History: Yes Neurological History: Migraines ENT History: No Pertinent History Cardiac History: No Pertinent History Respiratory History: No Pertinent History Endocrine Medical History: Hypothyroidism Musculoskeletal History: No Pertinent History GI Medical History: No Pertinent History History: No Pertinent History Psycho-Social History: Anxiety, Depression Female Reproductive Disorders: No Pertinent History Other Medical History: She notes sharp pain down R LE that go to her ankle. 8 months post . She notes back pain when she was . - Past Surgical History Past Surgical History: No Neuro Surgical History: No Pertinent History Cardiac: No Pertinent History Respiratory: No Pertinent History Gastrointestinal: No Pertinent History Genitourinary: No Pertinent History Musculoskeletal: No Pertinent History Female Surgical History: No Pertinent History - Social History Smoking Status: Former smoker How long have you smoked: 16 Exposure to second hand smoke: Yes Drug Use: none Patient Lives Alone: No Significant Family History: no pertinent family hx - Female History Hx Last Menstrual Period: unknown Hx Now: No (unknown) - Nursing Vital Signs Nursing Vital Signs: Initial Vital Signs Temperature 98.4 F 07/18/20 16:12 Pulse Rate 82 07/18/20 16:12 Respiratory Rate 20 07/18/20 16:12 Blood Pressure 144/93 07/18/20 16:12 O2 Sat by Pulse Oximetry 98 07/18/20 16:12 Pain Scale Pain Intensity 7 - Physical Exam General Appearance: no apparent distress, alert Eye Exam: PERRL/EOMI, eyes nml inspection Ears, Nose, Throat Exam: normal ENT inspection, TMs normal, pharynx normal, moist mucous membranes, TM abnormal (R), TM abnormal (L), pharyngeal erythema, tonsillar exudate Neck Exam: normal inspection, non-tender, supple, full range of motion Respiratory Exam: normal breath sounds, lungs clear, No respiratory distress Cardiovascular Exam: regular rate/rhythm, normal heart sounds Gastrointestinal/Abdomen Exam: soft, No tenderness Back Exam: normal inspection, No CVA tenderness, No vertebral tenderness Extremity Exam: normal inspection, normal range of motion Neurologic Exam: alert, oriented x 3, cooperative, normal mood/affect, sensation nml, No motor deficits Skin Exam: normal color, warm, dry, No rash Lymphatic Exam: No adenopathy SpO2: 98 - Course Nursing assessment & vital signs reviewed: Yes - Progress Progress: improved Air Movement: good Blood Culture(s) Obtained: No Antibiotics given: Yes Counseled pt/family regarding: diagnosis, need for follow-up - Departure Departure Disposition: Home Clinical Impression: Dizziness and giddiness Pharyngitis Qualifiers: Pharyngitis/tonsillitis etiology: streptococcus Qualified Code(s): J02.0 - Streptococcal pharyngitis Condition: Stable Critical Care Time: No Referrals: QUINTON POWERS DO [Primary Care Provider] - Instructions: Dizziness, Nonvertigo, (DC) Additional Instructions: Discharge/Care Plan ERIC ROGERS was seen on 07/18/20 in the Emergency Room. The patient was counseled regarding Diagnosis,Lab results, Imaging studies, need for follow up and when to return to the Emergency Room. Prescriptions given: Discharge Note I have spoken with the patient and/or caregivers. I have explained the patient's condition, diagnosis and treatment plan based on the information available to me at this time. I have answered the patient's and/or caregiver's questions and addressed any concerns. The patient and/or caregivers have as good understanding of the patient's diagnosis, condition and treatment plan as can be expected at this point. The vital signs have been stable. The patient's condition is stable and appropriate for discharge from the emergency department. The patient will pursue further outpatient evaluation with the primary care physician or other designated or consulting physician as outlined in the discharge instructions. The patient and/or caregivers are agreeable to this plan of care and follow-up instructions have been explained in detail. The patient and/or caregivers have received these instruction. The patient/and or caregivers are aware that any significant change in condition or worsening of symptoms should prompt an immediate return to this or the closest emergency department or call 911. ERIC ROGERS was seen on 07/18/20 n the Emergency Room. At that time you were treated for an emergent condition, during your visit Laboratory, Radiology and/or other procedures may have been ordered. It is very important that you follow-up with your Primary Care Physician QUINTON POWERS, within the next 24-48 hours to review your Emergency Room visit and the final results of testing that was ordered. Some test results such as Urine Cultures, Blood Cultures, and other cultures if ordered will not be finalized for 24-48 hours. If you do not have a Primary Care Provider please call the medical records depa rtment at [phone] ext [phone] to obtain a copy of your results or you may sign into our patient portal to obtain these results by visiting us @ [email or web address] and completing the following steps: 1. Click on the Patient Portal link 2. Click the Patient Self Enrollment Link to complete the enrollment form and entering your 3. Once the enrollment form is completed you will receive an email with a temporary ID and password at the email address you provided. 4. Next choose a user name and password. Your user name must be at least 4 characters long and your password must be at least 4 characters long. 5. Choose a security question from the list and provide your answer to the question. If you already have signed into the Health Portal you may access your Health Care Information 26/09 by the following steps: 1. Login to our website @ [email or web address] 2. Enter your original user name and password. FAQS [facility] Health Portal is an online tool that contains your Lab Results, Radiology Reports, Visit History, Discharge Instructions and Health Summary Lab and Radiology Results will not be available for 72 hours on the portal. The Portal is a secure site, passwords are encryted and URLs are re-written so they cannot be copied and pasted. You and authorized family members are the only ones who can access your Portal. Also there is a timeout feature that protects your information if you leave the Portal page open. If you have technical difficulty please use the Contact Us link on the page this will allow you to submit any questions you have regarding the Portal or you may contact the Medical Record Department at [phone]. Prescriptions: Azithromycin [Zithromax] 250 mg PO UD 5 Days #6 tablet
[2020-07-18] MEDS ORDERED: XYLOCAINE 1% HCL 20 ML MDV IJ ONE (17:02)
[2020-07-18] MEDS ORDERED: Rocephin 1000 MG INJ ONE (17:02)
[2020-07-18 17:17] VITALS: BP 155/80; PULSE 78
== END 2020-07-18 17:34 | disposition home or self-care (01) ==
LOC: ED 16:03
DX: R42 Dizziness and giddiness (principal); J02.0 Streptococcal pharyngitis
CPT/HCPCS: 96372; 99283; J0696

== ENCOUNTER 2020-11-30 09:21 | Emergency (ER) | payer OTHER ==
[2020-11-30 09:37] VITALS: O2SAT 98
[2020-11-30] MEDS ORDERED: TYLENOL 325 MG PO STA (09:50)
[2020-11-30] MEDS ORDERED: TYLENOL 325 MG ONE (09:51)
--- NOTE | 2020-11-30 10:16 | ERPHSYRPT ---
- History of Present Illness Time Seen by Provider: 11/30/20 09:22 Source: patient Exam Limitations: no limitations Patient Subjective Stated Complaint: Pt states "I was leaving my house and I hit my husbands 25 lb weight with my toes on my right foot." Triage Nursing Assessment: Pt presented alert and oriented X 3, skin wpd Pt ambulates with a limp. Pt 3rd and 4th toe on right foot swollen, tender. Physician History: 30 years old morbidly obese female presented in the ER with chief complaint of right third and fourth toe moderate intensity sharp pain after she accidentally hit her 25 pound dumbbell while getting out of her house prior to arrival. Method of Injury: direct blow Occurred: just prior to arrival Quality: sharpness Severity of Pain-Max: moderate Severity of Pain-Current: moderate Lower Extremities Pain: 3rd toe: right, 4th toe: right Modifying Factors: Improves With: immobilization. Worsens With: movement Associated Symptoms: popping sensation Allergies/Adverse Reactions: fluoxetine HCl [From Prozac] Adverse Reaction (Severe, Verified 06/01/20 19:23) Nausea PROZAC WITH FLUOXETINE HAS BLOOD IN STOOL sertraline [From Zoloft] Adverse Reaction (Intermediate, Verified 06/01/20 19:23) Home Medications: Levothyroxine Sodium 25 Mcg [Synthroid 25 Mcg] 25 mcg PO DAILY 12/02/18 [History] Citalopram Hydrobromide 20 mg* [ceLEXa 20 MG] 30 mg PO DAILY 11/13/19 [History] Loratadine 10 mg [Claritin 10 mg] 10 mg PO DAILY 12/19/19 [History] Gabapentin 100 mg PO TID PRN PRN 05/25/20 [History] Naproxen 500 mg [Naprosyn 500 MG] 500 mg PO BID PRN PRN 05/25/20 [History] Hx Tetanus, Diphtheria Vaccination/Date Given: Yes Hx Influenza Vaccination/Date Given: No Hx Pneumococcal Vaccination/Date Given: No Immunizations Up to Date: Yes Travel Risk - International Travel Have you traveled outside of the country in past 3 weeks: No - Coronavirus Screening Are you exhibiting any of the following symptoms?: No Close contact with a COVID-19 positive Pt in past 14-21 Days: No - Vaccine Status Have you recieved a Covid-19 vaccination: Yes 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 - Vaccination Dates Date of 2cond Vaccination (if applicable): 10/2020 - Review of Systems Constitutional: No Symptoms Ears, Nose, & Throat: No Symptoms Respiratory: No Symptoms Cardiac: No Symptoms Abdominal/Gastrointestinal: No Symptoms Musculoskeletal: Injury, Joint Pain Skin: No Symptoms Neurological: No Symptoms Endocrine: No Symptoms Hematologic/Lymphatic: No Symptoms Immunological/Allergic: No Symptoms - Past Medical History Pertinent Past Medical History: Yes Neurological History: Migraines ENT History: No Pertinent History Cardiac History: No Pertinent History Respiratory History: No Pertinent History Endocrine Medical History: Hypothyroidism Musculoskeletal History: No Pertinent History GI Medical History: No Pertinent History History: No Pertinent History Psycho-Social History: Anxiety, Depression Female Reproductive Disorders: No Pertinent History Other Medical History: She notes sharp pain down R LE that go to her ankle. 8 months post . She notes back pain when she was . - Past Surgical History Past Surgical History: No Neuro Surgical History: No Pertinent History Cardiac: No Pertinent History Respiratory: No Pertinent History Gastrointestinal: No Pertinent History Genitourinary: No Pertinent History Musculoskeletal: No Pertinent History Female Surgical History: No Pertinent History - Social History Smoking Status: Current every day smoker How long have you smoked: 2 years Exposure to second hand smoke: Yes Drug Use: none Patient Lives Alone: No Significant Family History: no pertinent family hx - Female History Hx Last Menstrual Period: 11/04/2020 Hx Now: No - Nursing Vital Signs Nursing Vital Signs: Initial Vital Signs Temperature 97.6 F 11/30/20 09:31 Pulse Rate 91 H 11/30/20 09:31 Respiratory Rate 22 11/30/20 09:31 Blood Pressure 172/88 11/30/20 09:31 O2 Sat by Pulse Oximetry 98 11/30/20 09:31 Pain Scale Pain Intensity 8 - Physical Exam General Appearance: no apparent distress, alert Neck Exam: normal inspection, full range of motion Cardiovascular/Respiratory Exam: normal breath sounds, regular rate/rhythm Ankle Exam: bilateral ankle: non-tender, normal inspection, normal range of motion Foot Exam: right foot: limited range of motion (Third and fourth toe), pain, soft tissue tenderness, swelling, left foot: non-tender, normal inspection, normal range of motion, no evidence of injury Neuro/Tendon Exam: normal sensation, normal motor functions Mental Status Exam: alert, oriented x 3, cooperative Skin Exam: normal color SpO2 Interpretation: normal SpO2: 98 O2 Delivery: Room Air Ordered Tests: Active Orders 24 hr Category Date Time Status FOOT (MINIMUM 3 VIEWS) Stat Exams 11/30/20 09:49 Taken Medication Summary Discontinued Medications Generic Name Dose Route Start Last Admin Trade Name Silvestre PRN Reason Stop Dose Admin Acetaminophen 975 mg 11/30/20 09:50 11/30/20 09:52 Tylenol 325 Mg PO 11/30/20 09:51 975 mg STAT STA Administration Acetaminophen Confirm 11/30/20 09:51 Tylenol 325 Mg Administered 11/30/20 09:52 Dose 975 mg .ROUTE .STK-MED ONE - Progress Progress: improved, pain not gone completely, re-examined Progress Note: 11/30/20 10:12 She is given Tylenol for symptomatic relief, he is not an ideal candidate for NSAIDs because of her being on Eliquis. X-rays. Fracture told him fifth toe, dinorah taping and postop shoe given, outpatient follow-up with podiatry. - Departure Departure Disposition: Home Clinical Impression: Toe fracture, right Qualifiers: Encounter type: initial encounter Toe: unspecified toe Fracture type: closed Fracture alignment: nondisplaced Qualified Code(s): S92.911A - Unspecified fracture of right toe(s), initial encounter for closed fracture Condition: Stable Critical Care Time: No Referrals: QUINTON POWERS DO [Primary Care Provider] - Follow Up with PCP/3 days ASHLEY GEE DPM [ACTIVE STAFF] - Instructions: Foot Fracture (DC) Additional Instructions: Take pain medications only as needed. Avoid exertional activities, follow-up with podiatry for reevaluation. Prescriptions: Hydrocodone/APAP 5/325 [[place] 5/325 mg] 1 each PO Q6H PRN PRN #10 tablet MDD 4 PRN Reason: Pain
[2020-11-30 10:17] VITALS: BP 168/81; PULSE 86
--- NOTE | 2020-11-30 10:34 | XRAY ---
Indication: 4th digit pain following injury. Comparison: None 3 nonweightbearing views right foot demonstrates nondisplaced shaft fractures of 4th and 5th proximal toes with soft tissue swelling. Incidental tiny posterior heel spur. No other bony, articular, or soft tissue abnormalities.
== END 2020-11-30 10:43 | disposition home or self-care (01) ==
LOC: ED 09:21
DX: S92.911A Unspecified fracture of right toe(s), initial encounter for closed fracture (principal); W22.8XXA Striking against or struck by other objects, initial encounter
CPT/HCPCS: 73630; 99284; A9270-GY

== ENCOUNTER 2021-01-06 05:56 | Emergency (ER) | payer OTHER ==
[2021-01-06] MEDS ORDERED: BABY ASPIRIN 81 MG CHEW PO ONE (06:06)
[2021-01-06] MEDS ORDERED: BABY ASPIRIN 81 MG CHEW ONE (06:10)
--- NOTE | 2021-01-06 06:22 | ERPHSYRPT ---
- History of Present Illness Source: patient Exam Limitations: no limitations Patient Subjective Stated Complaint: I was getting ready for work and became sob and had some pain to lt side of chest. It's like I can't get a whole breath in Triage Nursing Assessment: pt was getting ready for work this morning and became sob. Pt states, "It's like I can't get a whole breath in". Pt c/o some lt upper shoulder/chest pain when trying to take a deep breath. Pt has a dry, non prod cough x2 days. Pt has had a headache x3 days. Lungs clear throughout. Heart tones reg, abd lg, obese with active bs x4 quad, nontender. Timing/Duration: day(s) (2 to 3 days) Severity of Dyspnea-Max: moderate Severity of Dyspnea-Current: mild (To moderate) Possible Cause: occasional episodes Associated Symptoms: cough, chest pain/discomfort (With deep inspiration), weakness Hx Tetanus, Diphtheria Vaccination/Date Given: Yes Hx Influenza Vaccination/Date Given: No Hx Pneumococcal Vaccination/Date Given: No Immunizations Up to Date: Yes <TESS STACK - Last Filed: 01/06/21 06:50> <BERNIE RAMIREZ - Last Filed: 01/06/21 10:12> - History of Present Illness Time Seen by Provider: 01/06/21 06:10 Physician History: This is a 30-year-old morbidly obese white female patient of Dr. Serna who has not been feeling well for a few days. 3 days ago, the patient stated she began having headache and myalgias and arthralgias. 2 days ago she was experiencing dry, nonproductive cough with associated sore throat. This morning she complains of shortness of breath and chest pain on the left anterior chest wall with deep inspiration. Patient is a former smoker. Patient has a history of hypothyroidism, hypertension, migraine headaches, anxiety/depression, and chronic recurrent shortness of breath. Patient states there is no other individuals in the family with similar symptoms. He has no known exposures to any individual with viral illness that she is aware of. (TESS STACK) Allergies/Adverse Reactions: fluoxetine HCl [From Prozac] Adverse Reaction (Severe, Verified 06/01/20 19:23) Nausea PROZAC WITH FLUOXETINE HAS BLOOD IN STOOL sertraline [From Zoloft] Adverse Reaction (Intermediate, Verified 06/01/20 19:23) Home Medications: Levothyroxine Sodium 25 Mcg [Synthroid 25 Mcg] 25 mcg PO DAILY 12/02/18 [History] Citalopram Hydrobromide 20 mg* [ceLEXa 20 MG] 30 mg PO DAILY 11/13/19 [History] Loratadine 10 mg [Claritin 10 mg] 10 mg PO DAILY 12/19/19 [History] Gabapentin 100 mg PO TID PRN PRN 05/25/20 [History] Naproxen 500 mg [Naprosyn 500 MG] 500 mg PO BID PRN PRN 05/25/20 [History] Travel Risk - International Travel Have you traveled outside of the country in past 3 weeks: No - Coronavirus Screening Are you exhibiting any of the following symptoms?: Yes Symptoms: Cough: New Onset, Shortness of Breath, Headaches/Body Aches/Fatigue Close contact with a COVID-19 positive Pt in past 14-21 Days: No - Vaccine Status Have you recieved a Covid-19 vaccination: Yes Stock [employer]: Moderna - Vaccination Dates Date of 2cond Vaccination (if applicable): 10/2020 <TESS STACK - Last Filed: 01/06/21 06:50> - Review of Systems Constitutional: Weakness Eyes: No Symptoms Ears, Nose, & Throat: No Symptoms Respiratory: Cough, Dyspnea Cardiac: Chest Pain (With deep inspiration) Abdominal/Gastrointestinal: No Symptoms Genitourinary Symptoms: No Symptoms Musculoskeletal: No Symptoms Skin: No Symptoms Neurological: No Symptoms Psychological: No Symptoms Endocrine: No Symptoms Hematologic/Lymphatic: No Symptoms Immunological/Allergic: No Symptoms All Other Systems: Reviewed and Negative <TESS STACK - Last Filed: 01/06/21 06:50> - Past Medical History Pertinent Past Medical History: Yes Neurological History: Migraines ENT History: No Pertinent History Cardiac History: No Pertinent History Respiratory History: No Pertinent History Endocrine Medical History: Hypothyroidism Musculoskeletal History: No Pertinent History GI Medical History: No Pertinent History History: No Pertinent History Psycho-Social History: Anxiety, Depression Female Reproductive Disorders: No Pertinent History Other Medical History: She notes sharp pain down R LE that go to her ankle. 8 months post . She notes back pain when she was . - Past Surgical History Past Surgical History: No Neuro Surgical History: No Pertinent History Cardiac: No Pertinent History Respiratory: No Pertinent History Gastrointestinal: No Pertinent History Genitourinary: No Pertinent History Musculoskeletal: No Pertinent History Female Surgical History: No Pertinent History - Social History Smoking Status: Current every day smoker How long have you smoked: 2 months Exposure to second hand smoke: Yes Drug Use: none Patient Lives Alone: No Significant Family History: no pertinent family hx - Female History Hx Last Menstrual Period: last week Hx Now: No <TESS STACK - Last Filed: 01/06/21 06:50> - Physical Exam General Appearance: no apparent distress, alert, anxiety, obese Eye Exam: PERRL/EOMI, eyes nml inspection Ears, Nose, Throat Exam: hearing grossly normal, pharyngeal erythema (Mild) Neck Exam: normal inspection, non-tender, supple, full range of motion Respiratory Exam: normal breath sounds, chest tenderness, lungs clear (Left anterior chest with deep inspiration), airway intact, No respiratory distress Cardiovascular/Chest Exam: normal heart sounds, regular rate/rhythm Abdominal/Gastrointestinal Exam: soft, normal bowel sounds, No tenderness Rectal Exam: not done Extremity Exam: non-tender, normal range of motion, normal inspection, normal capillary refill, no calf tenderness, no pedal edema, pelvis stable Neurologic Exam: alert, oriented x 3, cooperative, sole stitcher hand II-XII nml as tested, normal mood/affect, nml cerebellar function, nml station & gait, sensation nml Skin Exam: normal color, warm, dry Lymphatic Exam: No adenopathy SpO2 Interpretation: normal SpO2: 98 O2 Delivery: Room Air <TESS STACK - Last Filed: 01/06/21 06:50> - Nursing Vital Signs Nursing Vital Signs: Initial Vital Signs Temperature 97.5 F 01/06/21 05:56 Pulse Rate 63 01/06/21 05:56 Respiratory Rate 22 01/06/21 05:56 Blood Pressure 171/95 01/06/21 05:56 O2 Sat by Pulse Oximetry 98 01/06/21 05:56 Pain Scale Pain Intensity 0 - Course Nursing assessment & vital signs reviewed: Yes EKG Interpreted by Me: RATE (61), Sinus Rhythm, NORMAL AXIS, NORMAL INTERVALS, NORMAL QRS, NORMAL ST-T, Non-specific ST Changes, Other (No acute ischemic changes on today's EKG. There is no change when compared to EKG dated 07/18/2020.) <TESS STACK - Last Filed: 01/06/21 06:50> - Radiology Exams Chest X-ray Interpretation: Teleradiologist Report (Lung douglass are clear. Heart and mediastinal structures are within normal limits. Bony thorax intact. No new ac eliza findings.) - CT Exams Chest CT Interpretation: Tele-radiologist Report (New tiny nonoccluding pulmonary emboli in the distal right lower lobe and lateral segment of the right middle lobe. No distal pulmonary infarct. New small hiatal hernia. Again incidental fatty liver and old granulomatous disease) <BERNIE RAMIREZ - Last Filed: 01/06/21 10:12> Ordered Tests: Active Orders 24 hr Category Date Time Status Supervisor Area STAT Care 01/06/21 06:07 Active EKG-ER Only STAT Care 01/06/21 06:06 Active IV Insertion STAT Care 01/06/21 06:06 Active Pulse Oximetry (ED) STAT Care 01/06/21 06:06 Active CHEST 1 VIEW (PORTABLE) Stat Exams 01/06/21 06:06 Completed CHEST WITH CONTRAST [CT] Stat Exams 01/06/21 07:38 Completed CBC W DIFF Stat Lab 01/06/21 06:28 Completed CMP Stat Lab 01/06/21 06:28 Completed D-DIMER QUANTITATIVE Stat Lab 01/06/21 06:06 Completed INFLUENZA A+B LEILA Stat Lab 01/06/21 06:28 Completed Smyth Screen Stat Lab 01/06/21 06:28 Completed PROTIME WITH INR Stat Lab 01/06/21 06:06 Completed T4 (Thyroxine) Stat Lab 01/06/21 06:28 Completed TROPONIN Q3H Lab 01/06/21 06:28 Completed TROPONIN Q3H Lab 01/06/21 09:18 Completed TROPONIN Q3H Lab 01/06/21 12:15 Ordered TROPONIN Q3H Lab 01/06/21 15:15 Ordered TROPONIN Q3H Lab 01/06/21 18:15 Ordered TSH, 3RD Generation Stat Lab 01/06/21 06:28 Completed Medication Summary Discontinued Medications Generic Name Dose Route Start Last Admin Trade Name Freq PRN Reason Stop Dose Admin Aspirin 324 mg 01/06/21 06:06 01/06/21 06:12 Aspirin 81 Mg Tab.Chew PO 01/06/21 06:07 324 mg STAT ONE Administration Aspirin Confirm 01/06/21 06:10 Aspirin 81 Mg Tab.Chew Administered 01/06/21 06:11 Dose 324 mg .ROUTE .STK-MED ONE Enoxaparin Sodium 120 mg 01/06/21 09:36 01/06/21 09:46 Enoxaparin Sodium 120 Mg/0.8 Ml Syringe SQ 01/06/21 09:37 120 mg STAT STA Administration Enoxaparin Sodium Confirm 01/06/21 09:45 Enoxaparin Sodium 120 Mg/0.8 Ml Syringe Administered 01/06/21 09:46 Dose 120 mg SQ .STK-MED ONE Lab/Rad Data: Laboratory Result Diagrams 01/06/21 06:28 01/06/21 06:28 Laboratory Results 01/06/21 01/06/21 01/06/21 Range/Units 09:18 06:28 06:28 WBC (4.0-10.5) K/mm3 RBC (4.1-5.4) M/mm3 Hgb (12.0-16.0) gm/dl Hct (35-47) % MCV (78-100) fl MCH (26-32) pg MCHC (32-36) g/dl RDW (11.5-14.0) % Plt Count (150-450) K/mm3 MPV (7.5-11.0) fl Gran % (36.0-66.0) % Eos # (Auto) (0-0.5) Absolute Lymphs (auto) (1.0-4.6) Absolute Monos (auto) (0.0-1.3) Lymphocytes % (24.0-44.0) % Monocytes % (0.0-12.0) % Eosinophils % (0.00-5.0) % Basophils % (0.0-0.4) % Absolute Granulocytes (1.4-6.9) Basophils # (0-0.4) PT (9.4-12.5) SECONDS INR (0.8-3.0) D-Dimer (215-500) ng/mL Sodium (137-145) mmol/L Potassium (3.5-5.1) mmol/L Chloride (98-107) mmol/L Carbon Dioxide (22-30) mmol/L Anion Gap (5-15) MEQ/L BUN (7-17) mg/dL Creatinine (0.52-1.04) mg/dL Estimated GFR ML/MIN Glucose (74-106) mg/dL Calcium (8.4-10.2) mg/dL Total Bilirubin (0.2-1.3) mg/dL AST (14-36) U/L ALT (0-35) U/L Alkaline Phosphatase (38-126) U/L Troponin I < 0.012 (0.000-0.034) ng/mL Serum Total Protein (6.3-8.2) g/dL Albumin (3.5-5.0) g/dL TSH 3rd Generation (0.47-4.68) mIU/L Monoscreen NEGATIVE (Negative) Influenza Type A Ag (NEGATIVE) Influenza Type B Ag (NEGATIVE) Group A Strep Antibody NOT DETECTED (NEGATIVE) 01/06/21 01/06/21 01/06/21 Range/Units 06:28 06:28 06:28 WBC (4.0-10.5) K/mm3 RBC (4.1-5.4) M/mm3 Hgb (12.0-16.0) gm/dl Hct (35-47) % MCV (78-100) fl MCH (26-32) pg MCHC (32-36) g/dl RDW (11.5-14.0) % Plt Count (150-450) K/mm3 MPV (7.5-11.0) fl Gran % (36.0-66.0) % Eos # (Auto) (0-0.5) Absolute Lymphs (auto) (1.0-4.6) Absolute Monos (auto) (0.0-1.3) Lymphocytes % (24.0-44.0) % Monocytes % (0.0-12.0) % Eosinophils % (0.00-5.0) % Basophils % (0.0-0.4) % Absolute Granulocytes (1.4-6.9) Basophils # (0-0.4) PT (9.4-12.5) SECONDS INR (0.8-3.0) D-Dimer (215-500) ng/mL Sodium 141 (137-145) mmol/L Potassium 3.9 (3.5-5.1) mmol/L Chloride 105 (98-107) mmol/L Carbon Dioxide 28 (22-30) mmol/L Anion Gap 11.7 (5-15) MEQ/L BUN 9 (7-17) mg/dL Creatinine 0.68 (0.52-1.04) mg/dL Estimated GFR > 60.0 ML/MIN Glucose 111 H (74-106) mg/dL Calcium 9.0 (8.4-10.2) mg/dL Total Bilirubin 0.70 (0.2-1.3) mg/dL AST 29 (14-36) U/L ALT 35 (0-35) U/L Alkaline Phosphatase 78 (38-126) U/L Troponin I < 0.012 (0.000-0.034) ng/mL Serum Total Protein 7.0 (6.3-8.2) g/dL Albumin 3.9 (3.5-5.0) g/dL TSH 3rd Generation 3.340 (0.47-4.68) mIU/L Monoscreen (Negative) Influenza Type A Ag NEGATIVE (NEGATIVE) Influenza Type B Ag NEGATIVE (NEGATIVE) Group A Strep Antibody (NEGATIVE) 01/06/21 01/06/21 Range/Units 06:28 06:06 WBC 10.2 (4.0-10.5) K/mm3 RBC 4.56 (4.1-5.4) M/mm3 Hgb 11.8 L (12.0-16.0) gm/dl Hct 38.9 (35-47) % MCV 85.3 (78-100) fl MCH 25.9 L (26-32) pg MCHC 30.3 L (32-36) g/dl RDW 14.5 H (11.5-14.0) % Plt Count 237 (150-450) K/mm3 MPV 13.0 H (7.5-11.0) fl Gran % 67.8 H (36.0-66.0) % Eos # (Auto) 0.51 H (0-0.5) Absolute Lymphs (auto) 2.03 (1.0-4.6) Absolute Monos (auto) 0.72 (0.0-1.3) Lymphocytes % 19.9 L (24.0-44.0) % Monocytes % 7.1 (0.0-12.0) % Eosinophils % 5.0 (0.00-5.0) % Basophils % 0.2 (0.0-0.4) % Absolute Granulocytes 6.91 H (1.4-6.9) Basophils # 0.02 (0-0.4) PT 12.1 (9.4-12.5) SECONDS INR 1.03 (0.8-3.0) D-Dimer 670 H* (215-500) ng/mL Sodium (137-145) mmol/L Potassium (3.5-5.1) mmol/L Chloride (98-107) mmol/L Carbon Dioxide (22-30) mmol/L Anion Gap (5-15) MEQ/L BUN (7-17) mg/dL Creatinine (0.52-1.04) mg/dL Estimated GFR ML/MIN Glucose (74-106) mg/dL Calcium (8.4-10.2) mg/dL Total Bilirubin (0.2-1.3) mg/dL AST (14-36) U/L ALT (0-35) U/L Alkaline Phosphatase (38-126) U/L Troponin I (0.000-0.034) ng/mL Serum Total Protein (6.3-8.2) g/dL Albumin (3.5-5.0) g/dL TSH 3rd Generation (0.47-4.68) mIU/L Monoscreen (Negative) Influenza Type A Ag (NEGATIVE) Influenza Type B Ag (NEGATIVE) Group A Strep Antibody (NEGATIVE) - Progress Air Movement: good Counseled pt/family regarding: lab results, diagnosis, rad results <TESS STACK - Last Filed: 01/06/21 06:50> - Progress Progress: improved Blood Culture(s) Obtained: No Antibiotics given: No Discussed with : Nina <BERNIE RAMIREZ - Last Filed: 01/06/21 10:12> - Progress Progress Note: 01/06/21 06:22 Chest x-ray shows no acute cardiopulmonary process. 01/06/21 06:50 Transfer of care in the emergency department has been made to Dr. Bernie Ramirez at shift change. I reviewed the patient history and the results of the chest x- ray and EKG. There multiple lab results pending I discussed these with him. He is to follow-up with those results and make the final disposition on this patient. (TESS STACK) Endorsed Dr. Ramirez at approximately 7 AM. D-dimer positive. CTA chest positive for PE. Patient has a history of PE. Patient states she has not been taking her Eliquis. Patient discontinued Eliquis on her own accord. Patient received a dose of weight-based Lovenox. We will admit to Dr. Castanon for further evaluation and treatment. 01/06/21 09:42 01/06/21 10:06 Patient refused admission. She would leave AMA. Patient is of sound mind. Patient is appropriate to make informed and independent medical decisions. Patient understands that leaving AGAINST MEDICAL ADVICE can result in delayed diagnosis, increased risk of morbidity, mortality, short and long-term disability including . In spite of these risks, patient has decided to leave AGAINST MEDICAL ADVICE. Patient understands that she may return to our ED at any point if she reconsiders. Patient agrees to follow-up with her primary care doctor within 48 hours for reevaluation. Patient voices no other complaints or concerns at this time. We will release patient AGAINST MEDICAL ADVICE per their request. Case discussed with patient's ticket worker who advised writing her prescription for Eliquis 10 mg twice daily for a week followed by 5 mg twice daily ongoing. He will see patient early next week. Patient advised on plan of care. She will call her ticket worker office today to schedule an appointment. Patient received a dose of Lovenox in our ED today. Portions of this note were created with voice recognition technology. There may be grammatical, spelling, punctuation or sound alike errors 01/06/21 10:08 Influenza mono group A strep negative (BERNIE RAMIREZ) - Departure Departure Disposition: Home Critical Care Time: No <TESS STACK - Last Filed: 01/06/21 06:50> - Departure Departure Disposition: Observation <BERNIE RAMIREZ - Last Filed: 01/06/21 10:12> - Departure Clinical Impression: Shortness of breath, Chest pain, Pulmonary emboli, Calcified hilar lymph node, Hiatal hernia Condition: Stable Referrals: QUINTON SERNA, [Primary Care Provider] - Follow up/PCP as directed Additional Instructions: Discharge/Care Plan ERIC ROGERS was seen on 01/06/21 in the Emergency Room. The patient was counseled regarding Diagnosis,Lab results, Imaging studies, need for follow up and when to return to the Emergency Room. Prescriptions given: Discharge Note I have spoken with the patient and/or caregivers. I have explained the patient's condition, diagnosis and treatment plan based on the information available to me at this time. I have answered the patient's and/or caregiver's questions and addressed any concerns. The patient and/or caregivers have as good understanding of the patient's diagnosis, condition and treatment plan as can be expected at this point. The vital signs have been stable. The patient's condition is stable and appropriate for discharge from the emergency department. The patient will pursue further outpatient evaluation with the primary care physician or other designated or consulting physician as outlined in the discharge instructions. The patient and/or caregivers are agreeable to this plan of care and follow-up instructions have been explained in detail. The patient and/or caregivers have received these instruction. The patient/and or caregivers are aware that any significant change in condition or worsening of symptoms should prompt an immediate return to this or the closest emergency department or call 911. Prescriptions: Apixaban [Eliquis 2.5 mg Tablet] 10 mg PO BID 12 Days #76 tablet
[2021-01-06 06:50] LABS: INR 1.03 (0.8-3.0); PROTIME 12.1 SECONDS (9.4-12.5)
[2021-01-06 06:54] LABS: ALBUMIN 3.9 g/dL (3.5-5.0); ALKALINE PHOSPHATASE 78 U/L (38-126); ANION GAP 11.7 MEQ/L (5-15); BLOOD UREA NITROGEN 9 mg/dL (7-17); CHLORIDE 105 mmol/L (98-107); Carbon Dioxide 28 mmol/L (22-30); Creatinine 1 0.68 mg/dL (0.52-1.04); EST GLOMERULAR FILTRATION RATE > 60.0 ML/MIN; Glucose 111 mg/dL (74-106); Potassium 3.9 mmol/L (3.5-5.1); SGOT/AST 29 U/L (14-36); SGPT/ALT 35 U/L (0-35); SODIUM 141 mmol/L (137-145)
[2021-01-06 07:49] LABS: INFLUENZA A NEGATIVE (NEGATIVE); INFLUENZA B NEGATIVE (NEGATIVE)
--- NOTE | 2021-01-06 08:40 | XRAY ---
Indication: Chest pain. Comparison: May 25, 2020. Portable apical lordotic chest clear. Heart and mediastinal structures within normal limits for AP portable technique. Bony thorax intact. No new/acute findings.
--- NOTE | 2021-01-06 09:12 | XRAY ---
Indication: Chest pain. Elevated d-dimer. Multiple contiguous axial images obtained through the chest using 100 cc Isovue 370 contrast and PE protocol. Comparison: June 01, 2020. There is good opacification of the pulmonary arteries to include the lobar and segmental branches. New tiny nonoccluding pulmonary emboli in the distal right lower lobe and lateral segment of the right middle lobe. Heart not enlarged. Aorta is normal in course and caliber. Again tiny right hilar calcified nodes. No pathologic mediastinal lymphadenopathy. New small hiatal hernia. Lungs inflated again with small right middle lobe calcified granuloma. No suspicious pulmonary mass, infiltrate, or effusion. Bony thorax intact. Limited upper abdomen again demonstrates fatty liver. Impression: 1. New tiny pulmonary emboli in the right middle and right lower lobe as detailed. No distal pulmonary infarct. 2. New small hiatal hernia. 3. Again incidental fatty liver and old granulomatous disease.
[2021-01-06 09:22] LABS: Absolute Neutrophil Ct (ANC) 6.91 (1.4-6.9); BASOPHIL % 0.2 % (0.0-0.4); Basophil (Absolute #) 0.02 (0-0.4); Eosinophil (Absolute #) 0.51 (0-0.5); Hematocrit 38.9 % (35-47); Hemoglobin 11.8 gm/dl (12.0-16.0); Lymphocyte (Absolute #) 2.03 (1.0-4.6); Lymphocytes % 19.9 % (24.0-44.0); Mean Cell Volume 85.3 fl (78-100); Mean Corpuscular Hemoglobin 25.9 pg (26-32); Mean Corpuscular Hgb Concent. 30.3 g/dl (32-36); Monocyte (Absolute #) 0.72 (0.0-1.3); Monocytes % 7.1 % (0.0-12.0); Neutrophil % 67.8 % (36.0-66.0); Platelet Count 237 K/mm3 (150-450); Red Blood Count 4.56 M/mm3 (4.1-5.4); Red Cell Distribution Width 14.5 % (11.5-14.0); White Blood Count 10.2 K/mm3 (4.0-10.5)
[2021-01-06] MEDS ORDERED: ENOXAPARIN SODIUM SQ STA (09:36)
[2021-01-06] MEDS ORDERED: ENOXAPARIN SODIUM SQ ONE (09:45)
[2021-01-06 10:52] VITALS: BP 151/90; PULSE 65; O2SAT 100
== END 2021-01-06 10:52 | disposition left against medical advice (07) ==
LOC: ED 05:56
DX: R06.02 Shortness of breath (principal); R07.9 Chest pain, unspecified; I26.99 Other pulmonary embolism without acute cor pulmonale; I89.8 Other specified noninfective disorders of lymphatic vessels and lymph nodes; K44.9 Diaphragmatic hernia without obstruction or gangrene
CPT/HCPCS: 36000; 36415; 71045; 71260; 80053; 84436; 84443; 84484; 85025; 85379; 85610; 86308; 87400; 87651; 93005; 93041; 94760; 96372; 99284; J1650; A9270-GY

== ENCOUNTER 2021-01-11 09:40 | Emergency (ER) | payer OTHER ==
[2021-01-11 10:09] LABS: INR 1.23 (0.8-3.0); PROTIME 14.5 SECONDS (9.4-12.5)
[2021-01-11 10:12] LABS: PTT 36.1 SECONDS (25.1-36.5)
[2021-01-11] MEDS ORDERED: Sodium Chloride 0.9% 1000 ML 1,000 ML IV SCH (10:30)
[2021-01-11] MEDS ORDERED: Sodium Chloride 0.9% 1000 ML 1,000 ML ONE (10:31)
[2021-01-11 10:32] LABS: Absolute Neutrophil Ct (ANC) 4.63 (1.4-6.9); BASOPHIL % 0.4 % (0.0-0.4); Basophil (Absolute #) 0.03 (0-0.4); Eosinophil % 6.4 % (0.00-5.0); Eosinophil (Absolute #) 0.49 (0-0.5); Hematocrit 40.2 % (35-47); Hemoglobin 12.2 gm/dl (12.0-16.0); Lymphocytes % 27.3 % (24.0-44.0); Mean Cell Volume 84.8 fl (78-100); Mean Corpuscular Hemoglobin 25.7 pg (26-32); Mean Corpuscular Hgb Concent. 30.3 g/dl (32-36); Mean Platelet Volume 12.9 fl (7.5-11.0); Monocyte (Absolute #) 0.44 (0.0-1.3); Monocytes % 5.7 % (0.0-12.0); Neutrophil % 60.2 % (36.0-66.0); Platelet Count 228 K/mm3 (150-450); Red Blood Count 4.74 M/mm3 (4.1-5.4); Red Cell Distribution Width 14.4 % (11.5-14.0); White Blood Count 7.7 K/mm3 (4.0-10.5)
[2021-01-11 11:00] LABS: ALBUMIN 3.9 g/dL (3.5-5.0); ALKALINE PHOSPHATASE 76 U/L (38-126); ANION GAP 12.6 MEQ/L (5-15); BLOOD UREA NITROGEN 8 mg/dL (7-17); CHLORIDE 105 mmol/L (98-107); Carbon Dioxide 27 mmol/L (22-30); Creatinine 1 0.64 mg/dL (0.52-1.04); EST GLOMERULAR FILTRATION RATE > 60.0 ML/MIN; Glucose 130 mg/dL (74-106); Potassium 3.8 mmol/L (3.5-5.1); SGOT/AST 31 U/L (14-36); SGPT/ALT 39 U/L (0-35); SODIUM 141 mmol/L (137-145); TROPONIN < 0.012 ng/mL (0.000-0.034); Total Protein 6.8 g/dL (6.3-8.2)
--- NOTE | 2021-01-11 11:34 | ERPHSYRPT ---
- History of Present Illness Time Seen by Provider: 01/11/21 10:00 Source: patient Exam Limitations: no limitations Patient Subjective Stated Complaint: Pt states that she was here approx 5-7 days ago and was diagnosed with a PE and she chose to go AMA, pt returns due to f eeling short of breath Triage Nursing Assessment: Pt was brought to the ER by her , hypertensive, rates pain in her left chest as 5/10, skin n/w/d, pulses normal, diminished lung sounds in the bases, doesn't appear to be in any distress Physician History: Patient is a 30-year-old female presents to our ED for evaluation of shortness of breath and chest pain. Patient was in our ED 5 days ago. She was diagnosed with a pulmonary embolus. Patient left AMA. However at that time she was prescribed Eliquis. Patient has been taking Eliquis as prescribed. Patient presents with the same symptoms that she presented with last week but a greater intensity. No nausea vomiting or diaphoresis. Symptoms are moderate in intensity. Exertion worsens her symptomology. Patient continues to be a smoker. Patient voices no other complaints or concerns at this time. Timing/Duration: day(s) (5 days.) Activities at Onset: none Severity of Dyspnea-Max: moderate Severity of Dyspnea-Current: mild Possible Cause: unknown cause (Patient is noted to have a pulmonary embolus.) Modifying Factors: Improves With: exertion Associated Symptoms: chest pain/discomfort, No fever, No lightheadedness, No calf pain, No heart racing, No tightness, No tingling hands Allergies/Adverse Reactions: fluoxetine HCl [From Prozac] Adverse Reaction (Severe, Verified 01/11/21 09:51) Nausea PROZAC WITH FLUOXETINE HAS BLOOD IN STOOL sertraline [From Zoloft] Adverse Reaction (Intermediate, Verified 01/11/21 09:51) Home Medications: Levothyroxine Sodium 25 Mcg [Synthroid 25 Mcg] 50 mcg PO DAILY 12/02/18 [History] Citalopram Hydrobromide 20 mg* [ceLEXa 20 MG] 30 mg PO DAILY 11/13/19 [History] Loratadine 10 mg [Claritin 10 mg] 10 mg PO DAILY 12/19/19 [History] Gabapentin 100 mg PO TID PRN PRN 05/25/20 [History] Naproxen 500 mg [Naprosyn 500 MG] 500 mg PO BID PRN PRN 05/25/20 [History] Hx Tetanus, Diphtheria Vaccination/Date Given: Yes Hx Influenza Vaccination/Date Given: No Hx Pneumococcal Vaccination/Date Given: No Travel Risk - International Travel Have you traveled outside of the country in past 3 weeks: No - Coronavirus Screening Are you exhibiting any of the following symptoms?: No Close contact with a COVID-19 positive Pt in past 14-21 Days: No - Vaccine Status Have you recieved a Covid-19 vaccination: Yes Filling Mixer: Moderna - Vaccination Dates Date of 2cond Vaccination (if applicable): 10/2020 - Review of Systems Constitutional: No Symptoms, No Fever, No Chills Eyes: No Symptoms Ears, Nose, & Throat: No Symptoms Respiratory: No Symptoms, No Cough, No Dyspnea Cardiac: No Symptoms, No Chest Pain, No Edema, No Syncope Abdominal/Gastrointestinal: No Abdominal Pain, No Nausea, No Vomiting, No Diarrhea Genitourinary Symptoms: No Dysuria Musculoskeletal: No Symptoms, No Back Pain, No Neck Pain Skin: Other (Rash to right arm), No Rash Neurological: No Symptoms, No Dizziness, No Focal Weakness, No Sensory Changes Psychological: No Symptoms Endocrine: No Symptoms Hematologic/Lymphatic: No Symptoms Immunological/Allergic: No Symptoms All Other Systems: Reviewed and Negative - Past Medical History Pertinent Past Medical History: Yes Neurological History: Migraines ENT History: No Pertinent History Cardiac History: No Pertinent History Respiratory History: No Pertinent History Endocrine Medical History: Hypothyroidism Musculoskeletal History: No Pertinent History GI Medical History: No Pertinent History History: No Pertinent History Psycho-Social History: Anxiety, Depression Female Reproductive Disorders: No Pertinent History Other Medical History: She notes sharp pain down R LE that go to her ankle. 8 months post . She notes back pain when she was . - Past Surgical History Past Surgical History: No Neuro Surgical History: No Pertinent History Cardiac: No Pertinent History Respiratory: No Pertinent History Gastrointestinal: No Pertinent History Genitourinary: No Pertinent History Musculoskeletal: No Pertinent History Female Surgical History: No Pertinent History - Social History Smoking Status: Current every day smoker How long have you smoked: 2 months Exposure to second hand smoke: Yes Drug Use: none Patient Lives Alone: No Significant Family History: no pertinent family hx - Female History Hx Now: No - Nursing Vital Signs Nursing Vital Signs: Initial Vital Signs Pulse Rate 78 01/11/21 09:41 Respiratory Rate 13 01/11/21 09:41 Blood Pressure 166/86 01/11/21 09:41 O2 Sat by Pulse Oximetry 99 01/11/21 09:41 Pain Scale Pain Intensity 4 - Physical Exam General Appearance: no apparent distress, alert Eye Exam: PERRL/EOMI Ears, Nose, Throat Exam: hearing grossly normal, normal ENT inspection, normal pharynx Neck Exam: normal inspection, non-tender, supple, full range of motion Respiratory Exam: normal breath sounds, chest tenderness, lungs clear, airway intact, No respiratory distress Cardiovascular/Chest Exam: normal heart sounds, regular rate/rhythm Abdominal/Gastrointestinal Exam: soft, No tenderness, No distention, No mass Extremity Exam: non-tender, normal range of motion, normal inspection, no calf tenderness, no pedal edema Peripheral Pulses Exam: dorsalis-pedis (R): 2+, dorsalis-pedis (L): 2+ Neurologic Exam: alert, oriented x 3, cooperative, regional operations director II-XII nml as tested, normal mood/affect, sensation nml, No motor deficits Skin Exam: normal color, warm, other (Tinea corporis right upper extremity.), No dry Lymphatic Exam: No adenopathy SpO2 Interpretation: normal SpO2: 99 O2 Delivery: Room Air - Course Nursing assessment & vital signs reviewed: Yes EKG Interpreted by Me: RATE (73), Sinus Rhythm, NORMAL AXIS, NORMAL INTERVALS Ordered Tests: Active Orders 24 hr Category Date Time Status Director Diabetes STAT Care 01/11/21 10:22 Active EKG-ER Only STAT Care 01/11/21 10:22 Active IV Insertion STAT Care 01/11/21 10:22 Active Pulse Oximetry (ED) STAT Care 01/11/21 10:22 Active CHEST 1 VIEW (PORTABLE) Stat Exams 01/11/21 10:22 Ordered CBC W DIFF Stat Lab 01/11/21 09:55 Completed CMP Urgent Lab 01/11/21 09:55 Completed HCG,QUALITATIVE URINE Stat Lab 01/11/21 11:28 Ordered PROTIME WITH INR Stat Lab 01/11/21 09:55 Completed PTT Stat Lab 01/11/21 09:55 Completed TROPONIN Q3H Lab 01/11/21 09:55 Completed TROPONIN Q3H Lab 01/11/21 13:30 Ordered TROPONIN Q3H Lab 01/11/21 16:30 Ordered TROPONIN Q3H Lab 01/11/21 19:30 Ordered TROPONIN Q3H Lab 01/11/21 22:30 Ordered UA W/RFX UR CULTURE Stat Lab 01/11/21 11:28 Ordered Transfer Order Routine Transfer 01/11/21 Ordered Medication Summary Generic Name Dose Route Start Last Admin Trade Name Freq PRN Reason Stop Dose Admin Sodium Chloride 1,000 mls @ 100 mls/hr 01/11/21 10:30 01/11/21 10:31 Sodium Chloride 0.9% 1000 Ml IV 02/10/21 10:29 100 mls/hr .Q10H HOWARD Administration Lab/Rad Data: Laboratory Result Diagrams 01/11/21 09:55 01/11/21 09:55 Laboratory Results 01/11/21 01/11/21 01/11/21 Range/Units 10:19 09:55 09:55 WBC 7.7 (4.0-10.5) K/mm3 RBC 4.74 (4.1-5.4) M/mm3 Hgb 12.2 (12.0-16.0) gm/dl Hct 40.2 (35-47) % MCV 84.8 (78-100) fl MCH 25.7 L (26-32) pg MCHC 30.3 L (32-36) g/dl RDW 14.4 H (11.5-14.0) % Plt Count 228 (150-450) K/mm3 MPV 12.9 H (7.5-11.0) fl Gran % 60.2 (36.0-66.0) % Eos # (Auto) 0.49 (0-0.5) Absolute Lymphs (auto) 2.10 (1.0-4.6) Absolute Monos (auto) 0.44 (0.0-1.3) Lymphocytes % 27.3 (24.0-44.0) % Monocytes % 5.7 (0.0-12.0) % Eosinophils % 6.4 H (0.00-5.0) % Basophils % 0.4 (0.0-0.4) % Absolute Granulocytes 4.63 (1.4-6.9) Basophils # 0.03 (0-0.4) PT (9.4-12.5) SECONDS INR (0.8-3.0) APTT (25.1-36.5) SECONDS Sodium 141 (137-145) mmol/L Potassium 3.8 (3.5-5.1) mmol/L Chloride 105 (98-107) mmol/L Carbon Dioxide 27 (22-30) mmol/L Anion Gap 12.6 (5-15) MEQ/L BUN 8 (7-17) mg/dL Creatinine 0.64 (0.52-1.04) mg/dL Estimated GFR > 60.0 ML/MIN Glucose 130 H (74-106) mg/dL Calcium 9.0 (8.4-10.2) mg/dL Total Bilirubin 0.60 (0.2-1.3) mg/dL AST 31 (14-36) U/L ALT 39 H (0-35) U/L Alkaline Phosphatase 76 (38-126) U/L Troponin I < 0.012 (0.000-0.034) ng/mL Serum Total Protein 6.8 (6.3-8.2) g/dL Albumin 3.9 (3.5-5.0) g/dL SARS-CoV-2 (PCR) NEGATIVE (NEGATIVE) 01/11/21 Range/Units 09:55 WBC (4.0-10.5) K/mm3 RBC (4.1-5.4) M/mm3 Hgb (12.0-16.0) gm/dl Hct (35-47) % MCV (78-100) fl MCH (26-32) pg MCHC (32-36) g/dl RDW (11.5-14.0) % Plt Count (150-450) K/mm3 MPV (7.5-11.0) fl Gran % (36.0-66.0) % Eos # (Auto) (0-0.5) Absolute Lymphs (auto) (1.0-4.6) Absolute Monos (auto) (0.0-1.3) Lymphocytes % (24.0-44.0) % Monocytes % (0.0-12.0) % Eosinophils % (0.00-5.0) % Basophils % (0.0-0.4) % Absolute Granulocytes (1.4-6.9) Basophils # (0-0.4) PT 14.5 H (9.4-12.5) SECONDS INR 1.23 (0.8-3.0) APTT 36.1 (25.1-36.5) SECONDS Sodium (137-145) mmol/L Potassium (3.5-5.1) mmol/L Chloride (98-107) mmol/L Carbon Dioxide (22-30) mmol/L Anion Gap (5-15) MEQ/L BUN (7-17) mg/dL Creatinine (0.52-1.04) mg/dL Estimated GFR ML/MIN Glucose (74-106) mg/dL Calcium (8.4-10.2) mg/dL Total Bilirubin (0.2-1.3) mg/dL AST (14-36) U/L ALT (0-35) U/L Alkaline Phosphatase (38-126) U/L Troponin I (0.000-0.034) ng/mL Serum Total Protein (6.3-8.2) g/dL Albumin (3.5-5.0) g/dL SARS-CoV-2 (PCR) (NEGATIVE) - Progress Progress: improved Air Movement: good Progress Note: Patient reassessed. She is comfortable. Vital stable. Patient is known to have a pulmonary embolus. Her symptoms are worsening. Patient took her Eliquis this morning. Staff discussed the case with pharmacy. They advised to hold th e Lovenox dose today however Lovenox may be administered this evening. She can start Lovenox twice daily tomorrow at 150 mg. Case discussed with Dr. Castanon. Dr. Castanon advised to not repeat the CT chest. Chest x-ray was ordered however it has not been done. We are awaiting the results. Patient is Covid negative. We will transfer patient to the floor to follow-up on the chest x-ray today. Plan of care discussed with patient. She agrees to admission [facility] for further evaluation and treatment. Patient voices no other complaints or concerns at this time. Patient is a current smoker and understands the importance of quitting as smoking is a risk factor for PE.. Portions of this note were created with voice recognition technology. There may be grammatical, spelling, punctuation or sound alike errors 01/11/21 12:02 01/11/21 12:03 01/11/21 12:04 Blood Culture(s) Obtained: No Antibiotics given: No Discussed with : Nina Will see patient in: hospital (observation) Counseled pt/family regarding: lab results, diagnosis, rad results, smoking cessation - Departure Departure Disposition: Observation Clinical Impression: Pulmonary embolus, SOB (shortness of breath), Tinea corporis Condition: Stable Critical Care Time: No Referrals: QUINTON POWERS, [Primary Care Provider] - Follow up/PCP as directed
[2021-01-11 11:46] LABS: Appearance CLOUDY (CLEAR); Bacteria RARE /HPF (NEGATIVE); Bilirubin NEGATIVE (NEGATIVE); Blood NEGATIVE Ery/ul (0-5); Epithelial Cells RARE /HPF (FEW); Glucose NEGATIVE (NEGATIVE); Ketones NEGATIVE (NEGATIVE); Leukocyte Esterase NEGATIVE (NEGATIVE); Mucus SLIGHT /HPF (NEGATIVE); Nitrite NEGATIVE (NEGATIVE); Protein,Urine Dip NEGATIVE (Negative); Specific Gravity 1.018 (1.005-1.025); Urobilinogen NEGATIVE mg/dL (0-1)
--- NOTE | 2021-01-11 12:07 | XRAY ---
Indication: Short of breath and chest pain. PE on recent CT chest January 06, 2021. Comparison: January 06, 2021 Portable chest again demonstrates normal heart, lungs, and bony thorax.
[2021-01-11] MEDS ORDERED: Senokot-S Tablet PO PRN (12:14)
[2021-01-11] MEDS ORDERED: TYLENOL 325 MG PO PRN (12:14)
[2021-01-11] MEDS ORDERED: MAALOX ES 30 ML UNIT DOSE PO PRN (12:14)
[2021-01-11] MEDS ORDERED: MILK OF MAGNESIA 30 ML PO PRN (12:14)
[2021-01-11] MEDS ORDERED: XANAX 1 MG PO PRN (12:53)
--- NOTE | 2021-01-11 15:41 | XRAY ---
Indication: History of pulmonary embolus. Two-dimensional sonogram and color Doppler imaging of the major venous vessels of the left and right leg performed. Comparison: December 19, 2019. No thrombus seen in the visualized deep venous vessels of the left and right leg including greater saphenous vein. Veins demonstrate normal compressibility. Venous waveforms are normal with and without augmentation. Impression: Left and right legs again negative for DVT.
[2021-01-11] MEDS: LOTRIMIN CREAM 30 GM TOP SCH ×2 (15:45→21:13)
[2021-01-11] MEDS ORDERED: Neurontin 100 MG PO PRN (17:22)
[2021-01-11] MEDS ORDERED: Naprosyn 500 MG PO PRN (17:22)
--- NOTE | 2021-01-11 20:36 | PCM.BN ---
Brief Admission Note - Admission Note Brief Admisson Note: Patient admitted @ 01/11/21 12:02 to [facility]. Medication List reviewed and reconciled. Dr Miller to advise regarding tx of reoccurrence of PE. ECHO and venous doppler ordered.
[2021-01-11] MEDS: ENOXAPARIN SODIUM SQ SCH (21:13)
[2021-01-12] MEDS: ENOXAPARIN SODIUM SQ SCH (08:35)
[2021-01-12] MEDS: LOTRIMIN CREAM 30 GM TOP SCH (08:58)
--- NOTE | 2021-01-12 09:43 | CONS ---
CONSULT DATE: 01/11/2021 REASON FOR CONSULT: Evaluation of pulmonary embolism. HISTORY: Ora Mcguire is a 30-year-old woman with previous history of pulmonary embolism about a year ago. The patient was discharged home on Eliquis. The patient reports that she is followed by a surgical services tech and was being "weaned off of Eliquis" with doses being lowered to 2.5 mg b.i.d. For the last month and a half, she was unable to procure it due to some insurance problems. She did develop some shortness of breath and returned to the Emergency Room at [facility]. Initial CT-angiogram did confirm pulmonary embolism again and she was advised to increase the dose to 10 mg b.i.d. The patient however signed out AMA only to return back again with worsening pleuritic pain. She has now been admitted and is currently being started on full dose anticoagulation with Lovenox. The patient does report family history of pulmonary embolism with a grandfather and maternal aunt both had "blood clots". She denies any other obvious risk factors for deep vein thrombosis or pulmonary embolism. PAST MEDICAL HISTORY: Positive for history of anxiety, depression, hypothyroidism, allergic rhinitis and gout. PAST SURGICAL HISTORY: No recent surgery. PERSONAL AND SOCIAL HISTORY: Unremarkable. MEDICATIONS: Home and current medications are reviewed. ALLERGIES: FLUOXETINE. SERTRALINE. PHYSICAL EXAMINATION: This is a middle-aged woman who appears comfortable on room air. Vital signs noted. HEENT: Normocephalic. Oral exam is unremarkable. NECK: Supple. CVS: First and second heart sounds are normal, regular, rhythmic. RESPIRATORY: Shows diminished breath sounds. ABDOMEN: Obese. EXTREMITIES: No significant edema is noted. LABORATORY DATA AND TESTS: Lower extremity venous Dopplers were negative. Labs reviewed. ASSESSMENT: This is a 30-year-old woman who has been readmitted with pulmonary embolism largely due to inappropriate doses of Eliquis complicated by noncompliance for a month and a half, who very likely has underlying hypercoag state, who has been readmitted for further treatment. The patient's recurrence of pulmonary embolism appears to be likely from hypercoag state rather than medication failure. She had done well on Eliquis and I explained to her that the appropriate dose for someone at her age for indication would be 10 mg b.i.d. for 7 days followed by 5 mg b.i.d. A lowering of dose is not recommended and likely she would benefit from staying on anticoagulation lifelong. If the patient desires after six months of therapy, when a repeat CT-angiography shows resolution of clot, the patient can be taken off of anticoagulation for a brief period to run hypercoag work up. The patient has received a dose of Lovenox this evening. A switch to oral Eliquis can be made tomorrow although I would recommend starting with 10 mg b.i.d. for seven days followed by 5 mg b.i.d. She can follow with me in the outpatient setting. Further recommendations await clinical improvement and resolution of clot. All questions answered. Risks, benefits, precautions particularly in a young female individual were discussed as well. Thank you for allowing me to participate in the care of this patient.
[2021-01-12] MEDS ORDERED: ceLEXa 20 MG PO SCH (10:00)
[2021-01-12] MEDS ORDERED: CLARITIN 10 MG PO SCH (10:00)
[2021-01-12] MEDS ORDERED: SYNTHROID 50 MCG PO SCH (10:00)
[2021-01-12] MEDS ORDERED: ZYLOPRIM 100 MG PO SCH (10:00)
[2021-01-12] MEDS ORDERED: SYNTHROID 25 MCG PO SCH (10:00)
--- NOTE | 2021-01-12 10:07 | PCM.SSS ---
History of Present Illness - Chief Complaint Chief Complaint: Pulmonary embolus History of Present Illness: is a 30 year old female. Medications & Allergies Home Medications: Home Medication List Levothyroxine Sodium 25 Mcg [Synthroid 25 Mcg] 50 mcg PO DAILY 12/02/18 [History Confirmed 01/11/21] Citalopram Hydrobromide 20 mg* [ceLEXa 20 MG] 30 mg PO DAILY 11/13/19 [History Confirmed 01/11/21] Loratadine 10 mg [Claritin 10 mg] 10 mg PO DAILY 12/19/19 [History Confirmed 01/11/21] Gabapentin 100 mg PO TID PRN PRN 05/25/20 [History Confirmed 01/11/21] Naproxen 500 mg [Naprosyn 500 MG] 500 mg PO BID PRN PRN 05/25/20 [History Confirmed 01/11/21] Apixaban [Eliquis 2.5 mg Tablet] 10 mg PO BID 12 Days #76 tablet 01/06/21 [Rx Confirmed 01/11/21] Allopurinol 100 mg [Zyloprim 100 mg] 100 mg PO DAILY 01/11/21 [History Confirmed 01/11/21] Allergies/Adverse Reactions: Allergies Allergy/AdvReac Type Severity Reaction Status Date / Time fluoxetine HCl [From Prozac] AdvReac Severe Nausea Verified 01/11/21 09:51 sertraline [From Zoloft] AdvReac Intermediate Verified 01/11/21 09:51 - Past Medical History Past Medical History: Yes Neurological History: Migraines ENT History: No Pertinent History Cardiac History: No Pertinent History Respiratory History: No Pertinent History Endocrine Medical History: Hypothyroidism Musculoskelatal History: No Pertinent History GI Medical History: No Pertinent History History: No Pertinent History Pyscho-Social History: Anxiety, Depression Reproductive Disorders: No Pertinent History Comment: She notes sharp pain down R LE that go to her ankle. 8 months post . She notes back pain when she was . - Female History Are you now?: No - Past Surgical History Past Surgical History: No Neuro Surgical History: No Pertinent History Cardiac History: No Pertinent History Respiratory Surgery: No Pertinent History GI Surgical History: No Pertinent History Genitourinary Surgical Hx: No Pertinent History Musculskeletal Surgical Hx: No Pertinent History Female Surgical History: No Pertinent History - Social History Smoking Status: Current every day smoker How long have you smoked: 2 months Exposure to second hand smoke: Yes Alcohol: None Drug Use: none Significant Family History: no pertinent family hx - Physical Exam Vital Signs: Vital Signs - 24 hr Temp Pulse Resp BP Pulse Ox 01/12/21 07:34 98.6 F 67 20 137/76 95 01/12/21 04:50 16 01/12/21 04:00 97.8 F 62 18 127/85 97 01/12/21 00:59 18 01/12/21 00:00 98.0 F 55 L 18 138/78 96 01/11/21 21:00 18 01/11/21 19:40 97.8 F 61 18 137/72 94 L 01/11/21 17:00 16 01/11/21 16:00 98.6 F 60 21 137/72 97 01/11/21 12:26 62 158/84 99 01/11/21 12:07 99 01/11/21 11:20 62 20 99 01/11/21 10:44 55 L 20 158/84 97 Results - Labs Lab/Micro Results: Lab Results-Last 24 Hours 01/11/21 01/11/21 01/11/21 Range/Units 09:55 09:55 09:55 WBC 7.7 (4.0-10.5) K/mm3 RBC 4.74 (4.1-5.4) M/mm3 Hgb 12.2 (12.0-16.0) gm/dl Hct 40.2 (35-47) % MCV 84.8 (78-100) fl MCH 25.7 L (26-32) pg MCHC 30.3 L (32-36) g/dl RDW 14.4 H (11.5-14.0) % Plt Count 228 (150-450) K/mm3 MPV 12.9 H (7.5-11.0) fl Gran % 60.2 (36.0-66.0) % Eos # (Auto) 0.49 (0-0.5) Absolute Lymphs (auto) 2.10 (1.0-4.6) Absolute Monos (auto) 0.44 (0.0-1.3) Lymphocytes % 27.3 (24.0-44.0) % Monocytes % 5.7 (0.0-12.0) % Eosinophils % 6.4 H (0.00-5.0) % Basophils % 0.4 (0.0-0.4) % Absolute Granulocytes 4.63 (1.4-6.9) Basophils # 0.03 (0-0.4) PT 14.5 H (9.4-12.5) SECONDS INR 1.23 (0.8-3.0) APTT 36.1 (25.1-36.5) SECONDS Sodium 141 (137-145) mmol/L Potassium 3.8 (3.5-5.1) mmol/L Chloride 105 (98-107) mmol/L Carbon Dioxide 27 (22-30) mmol/L Anion Gap 12.6 (5-15) MEQ/L BUN 8 (7-17) mg/dL Creatinine 0.64 (0.52-1.04) mg/dL Estimated GFR > 60.0 ML/MIN Glucose 130 H (74-106) mg/dL Calcium 9.0 (8.4-10.2) mg/dL Total Bilirubin 0.60 (0.2-1.3) mg/dL AST 31 (14-36) U/L ALT 39 H (0-35) U/L Alkaline Phosphatase 76 (38-126) U/L Troponin I < 0.012 (0.000-0.034) ng/mL Serum Total Protein 6.8 (6.3-8.2) g/dL Albumin 3.9 (3.5-5.0) g/dL Urine Color (YELLOW) Urine Appearance (CLEAR) Urine pH (5-6) Ur Specific [place] (1.005-1.025) Urine Protein (Negative) Urine Ketones (NEGATIVE) Urine Blood (0-5) René/ul Urine Nitrite (NEGATIVE) Urine Bilirubin (NEGATIVE) Urine Urobilinogen (0-1) mg/dL Ur Leukocyte Esterase (NEGATIVE) Urine WBC (Auto) (0-5) /HPF Urine RBC (Auto) (0-2) /HPF U Epithel Cells (Auto) (FEW) /HPF Urine Bacteria (Auto) (NEGATIVE) /HPF Urine Mucus (Auto) (NEGATIVE) /HPF Urine Culture Reflexed (NO) Urine Glucose (NEGATIVE) mg/dL Urine HCG, Qual (Negative) SARS-CoV-2 (PCR) (NEGATIVE) 01/11/21 01/11/21 01/11/21 Range/Units 10:19 11:28 11:28 WBC (4.0-10.5) K/mm3 RBC (4.1-5.4) M/mm3 Hgb (12.0-16.0) gm/dl Hct (35-47) % MCV (78-100) fl MCH (26-32) pg MCHC (32-36) g/dl RDW (11.5-14.0) % Plt Count (150-450) K/mm3 MPV (7.5-11.0) fl Gran % (36.0-66.0) % Eos # (Auto) (0-0.5) Absolute Lymphs (auto) (1.0-4.6) Absolute Monos (auto) (0.0-1.3) Lymphocytes % (24.0-44.0) % Monocytes % (0.0-12.0) % Eosinophils % (0.00-5.0) % Basophils % (0.0-0.4) % Absolute Granulocytes (1.4-6.9) Basophils # (0-0.4) PT (9.4-12.5) SECONDS INR (0.8-3.0) APTT (25.1-36.5) SECONDS Sodium (137-145) mmol/L Potassium (3.5-5.1) mmol/L Chloride (98-107) mmol/L Carbon Dioxide (22-30) mmol/L Anion Gap (5-15) MEQ/L BUN (7-17) mg/dL Creatinine (0.52-1.04) mg/dL Estimated GFR ML/MIN Glucose (74-106) mg/dL Calcium (8.4-10.2) mg/dL Total Bilirubin (0.2-1.3) mg/dL AST (14-36) U/L ALT (0-35) U/L Alkaline Phosphatase (38-126) U/L Troponin I (0.000-0.034) ng/mL Serum Total Protein (6.3-8.2) g/dL Albumin (3.5-5.0) g/dL Urine Color YELLOW (YELLOW) Urine Appearance CLOUDY (CLEAR) Urine pH 8.0 (5-6) Ur Specific [place] 1.018 (1.005-1.025) Urine Protein NEGATIVE (Negative) Urine Ketones NEGATIVE (NEGATIVE) Urine Blood NEGATIVE (0-5) René/ul Urine Nitrite NEGATIVE (NEGATIVE) Urine Bilirubin NEGATIVE (NEGATIVE) Urine Urobilinogen NEGATIVE (0-1) mg/dL Ur Leukocyte Esterase NEGATIVE (NEGATIVE) Urine WBC (Auto) NONE (0-5) /HPF Urine RBC (Auto) 3-5 (0-2) /HPF U Epithel Cells (Auto) RARE (FEW) /HPF Urine Bacteria (Auto) RARE (NEGATIVE) /HPF Urine Mucus (Auto) SLIGHT (NEGATIVE) /HPF Urine Culture Reflexed NO (NO) Urine Glucose NEGATIVE (NEGATIVE) mg/dL Urine HCG, Qual NEGATIVE (Negative) SARS-CoV-2 (PCR) NEGATIVE (NEGATIVE) 01/11/21 01/11/21 01/11/21 Range/Units 13:40 16:12 19:30 WBC (4.0-10.5) K/mm3 RBC (4.1-5.4) M/mm3 Hgb (12.0-16.0) gm/dl Hct (35-47) % MCV (78-100) fl MCH (26-32) pg MCHC (32-36) g/dl RDW (11.5-14.0) % Plt Count (150-450) K/mm3 MPV (7.5-11.0) fl Gran % (36.0-66.0) % Eos # (Auto) (0-0.5) Absolute Lymphs (auto) (1.0-4.6) Absolute Monos (auto) (0.0-1.3) Lymphocytes % (24.0-44.0) % Monocytes % (0.0-12.0) % Eosinophils % (0.00-5.0) % Basophils % (0.0-0.4) % Absolute Granulocytes (1.4-6.9) Basophils # (0-0.4) PT (9.4-12.5) SECONDS INR (0.8-3.0) APTT (25.1-36.5) SECONDS Sodium (137-145) mmol/L Potassium (3.5-5.1) mmol/L Chloride (98-107) mmol/L Carbon Dioxide (22-30) mmol/L Anion Gap (5-15) MEQ/L BUN (7-17) mg/dL Creatinine (0.52-1.04) mg/dL Estimated GFR ML/MIN Glucose (74-106) mg/dL Calcium (8.4-10.2) mg/dL Total Bilirubin (0.2-1.3) mg/dL AST (14-36) U/L ALT (0-35) U/L Alkaline Phosphatase (38-126) U/L Troponin I < 0.012 < 0.012 < 0.012 (0.000-0.034) ng/mL Serum Total Protein (6.3-8.2) g/dL Albumin (3.5-5.0) g/dL Urine Color (YELLOW) Urine Appearance (CLEAR) Urine pH (5-6) Ur Specific [place] (1.005-1.025) Urine Protein (Negative) Urine Ketones (NEGATIVE) Urine Blood (0-5) René/ul Urine Nitrite (NEGATIVE) Urine Bilirubin (NEGATIVE) Urine Urobilinogen (0-1) mg/dL Ur Leukocyte Esterase (NEGATIVE) Urine WBC (Auto) (0-5) /HPF Urine RBC (Auto) (0-2) /HPF U Epithel Cells (Auto) (FEW) /HPF Urine Bacteria (Auto) (NEGATIVE) /HPF Urine Mucus (Auto) (NEGATIVE) /HPF Urine Culture Reflexed (NO) Urine Glucose (NEGATIVE) mg/dL Urine HCG, Qual (Negative) SARS-CoV-2 (PCR) (NEGATIVE) 01/11/21 Range/Units 22:50 WBC (4.0-10.5) K/mm3 RBC (4.1-5.4) M/mm3 Hgb (12.0-16.0) gm/dl Hct (35-47) % MCV (78-100) fl MCH (26-32) pg MCHC (32-36) g/dl RDW (11.5-14.0) % Plt Count (150-450) K/mm3 MPV (7.5-11.0) fl Gran % (36.0-66.0) % Eos # (Auto) (0-0.5) Absolute Lymphs (auto) (1.0-4.6) Absolute Monos (auto) (0.0-1.3) Lymphocytes % (24.0-44.0) % Monocytes % (0.0-12.0) % Eosinophils % (0.00-5.0) % Basophils % (0.0-0.4) % Absolute Granulocytes (1.4-6.9) Basophils # (0-0.4) PT (9.4-12.5) SECONDS INR (0.8-3.0) APTT (25.1-36.5) SECONDS Sodium (137-145) mmol/L Potassium (3.5-5.1) mmol/L Chloride (98-107) mmol/L Carbon Dioxide (22-30) mmol/L Anion Gap (5-15) MEQ/L BUN (7-17) mg/dL Creatinine (0.52-1.04) mg/dL Estimated GFR ML/MIN Glucose (74-106) mg/dL Calcium (8.4-10.2) mg/dL Total Bilirubin (0.2-1.3) mg/dL AST (14-36) U/L ALT (0-35) U/L Alkaline Phosphatase (38-126) U/L Troponin I < 0.012 (0.000-0.034) ng/mL Serum Total Protein (6.3-8.2) g/dL Albumin (3.5-5.0) g/dL Urine Color (YELLOW) Urine Appearance (CLEAR) Urine pH (5-6) Ur Specific [place] (1.005-1.025) Urine Protein (Negative) Urine Ketones (NEGATIVE) Urine Blood (0-5) René/ul Urine Nitrite (NEGATIVE) Urine Bilirubin (NEGATIVE) Urine Urobilinogen (0-1) mg/dL Ur Leukocyte Esterase (NEGATIVE) Urine WBC (Auto) (0-5) /HPF Urine RBC (Auto) (0-2) /HPF U Epithel Cells (Auto) (FEW) /HPF Urine Bacteria (Auto) (NEGATIVE) /HPF Urine Mucus (Auto) (NEGATIVE) /HPF Urine Culture Reflexed (NO) Urine Glucose (NEGATIVE) mg/dL Urine HCG, Qual (Negative) SARS-CoV-2 (PCR) (NEGATIVE) - Radiology Impressions Radiology Exams & Impressions: Radiology Procedures Category Date Time Status CHEST 1 VIEW (PORTABLE) Stat Exams 01/11/21 10:22 Completed ECHO W/2D AND DOPPLER [US] Routine Exams 01/11/21 Taken VENOUS BILATERAL EXTREMITY [US] Routine Exams 01/11/21 Completed Hospital Summary - Vitals & Intake/Output Vital Signs: Vital Signs Temperature 98.6 F 01/12/21 07:34 Pulse Rate 67 01/12/21 07:34 Respiratory Rate 20 01/12/21 07:34 Blood Pressure 137/76 01/12/21 07:34 O2 Sat by Pulse Oximetry 95 01/12/21 07:34 Intake & Output: Intake & Output 01/09/21 01/10/21 01/11/21 01/12/21 12:59 11:59 11:59 11:59 Intake Total 600 Output Total 1 Balance 599 Weight 172.9 kg 172.9 kg - Lab Result Diagrams: 01/11/21 09:55 01/11/21 09:55 Lab Results-Last 24 Hrs: Lab Results-Last 24 Hours 01/11/21 01/11/21 01/11/21 Range/Units 09:55 09:55 09:55 WBC 7.7 (4.0-10.5) K/mm3 RBC 4.74 (4.1-5.4) M/mm3 Hgb 12.2 (12.0-16.0) gm/dl Hct 40.2 (35-47) % MCV 84.8 (78-100) fl MCH 25.7 L (26-32) pg MCHC 30.3 L (32-36) g/dl RDW 14.4 H (11.5-14.0) % Plt Count 228 (150-450) K/mm3 MPV 12.9 H (7.5-11.0) fl Gran % 60.2 (36.0-66.0) % Eos # (Auto) 0.49 (0-0.5) Absolute Lymphs (auto) 2.10 (1.0-4.6) Absolute Monos (auto) 0.44 (0.0-1.3) Lymphocytes % 27.3 (24.0-44.0) % Monocytes % 5.7 (0.0-12.0) % Eosinophils % 6.4 H (0.00-5.0) % Basophils % 0.4 (0.0-0.4) % Absolute Granulocytes 4.63 (1.4-6.9) Basophils # 0.03 (0-0.4) PT 14.5 H (9.4-12.5) SECONDS INR 1.23 (0.8-3.0) APTT 36.1 (25.1-36.5) SECONDS Sodium 141 (137-145) mmol/L Potassium 3.8 (3.5-5.1) mmol/L Chloride 105 (98-107) mmol/L Carbon Dioxide 27 (22-30) mmol/L Anion Gap 12.6 (5-15) MEQ/L BUN 8 (7-17) mg/dL Creatinine 0.64 (0.52-1.04) mg/dL Estimated GFR > 60.0 ML/MIN Glucose 130 H (74-106) mg/dL Calcium 9.0 (8.4-10.2) mg/dL Total Bilirubin 0.60 (0.2-1.3) mg/dL AST 31 (14-36) U/L ALT 39 H (0-35) U/L Alkaline Phosphatase 76 (38-126) U/L Troponin I < 0.012 (0.000-0.034) ng/mL Serum Total Protein 6.8 (6.3-8.2) g/dL Albumin 3.9 (3.5-5.0) g/dL Urine Color (YELLOW) Urine Appearance (CLEAR) Urine pH (5-6) Ur Specific [place] (1.005-1.025) Urine Protein (Negative) Urine Ketones (NEGATIVE) Urine Blood (0-5) René/ul Urine Nitrite (NEGATIVE) Urine Bilirubin (NEGATIVE) Urine Urobilinogen (0-1) mg/dL Ur Leukocyte Esterase (NEGATIVE) Urine WBC (Auto) (0-5) /HPF Urine RBC (Auto) (0-2) /HPF U Epithel Cells (Auto) (FEW) /HPF Urine Bacteria (Auto) (NEGATIVE) /HPF Urine Mucus (Auto) (NEGATIVE) /HPF Urine Culture Reflexed (NO) Urine Glucose (NEGATIVE) mg/dL Urine HCG, Qual (Negative) SARS-CoV-2 (PCR) (NEGATIVE) 01/11/21 01/11/21 01/11/21 Range/Units 10:19 11:28 11:28 WBC (4.0-10.5) K/mm3 RBC (4.1-5.4) M/mm3 Hgb (12.0-16.0) gm/dl Hct (35-47) % MCV (78-100) fl MCH (26-32) pg MCHC (32-36) g/dl RDW (11.5-14.0) % Plt Count (150-450) K/mm3 MPV (7.5-11.0) fl Gran % (36.0-66.0) % Eos # (Auto) (0-0.5) Absolute Lymphs (auto) (1.0-4.6) Absolute Monos (auto) (0.0-1.3) Lymphocytes % (24.0-44.0) % Monocytes % (0.0-12.0) % Eosinophils % (0.00-5.0) % Basophils % (0.0-0.4) % Absolute Granulocytes (1.4-6.9) Basophils # (0-0.4) PT (9.4-12.5) SECONDS INR (0.8-3.0) APTT (25.1-36.5) SECONDS Sodium (137-145) mmol/L Potassium (3.5-5.1) mmol/L Chloride (98-107) mmol/L Carbon Dioxide (22-30) mmol/L Anion Gap (5-15) MEQ/L BUN (7-17) mg/dL Creatinine (0.52-1.04) mg/dL Estimated GFR ML/MIN Glucose (74-106) mg/dL Calcium (8.4-10.2) mg/dL Total Bilirubin (0.2-1.3) mg/dL AST (14-36) U/L ALT (0-35) U/L Alkaline Phosphatase (38-126) U/L Troponin I (0.000-0.034) ng/mL Serum Total Protein (6.3-8.2) g/dL Albumin (3.5-5.0) g/dL Urine Color YELLOW (YELLOW) Urine Appearance CLOUDY (CLEAR) Urine pH 8.0 (5-6) Ur Specific [place] 1.018 (1.005-1.025) Urine Protein NEGATIVE (Negative) Urine Ketones NEGATIVE (NEGATIVE) Urine Blood NEGATIVE (0-5) René/ul Urine Nitrite NEGATIVE (NEGATIVE) Urine Bilirubin NEGATIVE (NEGATIVE) Urine Urobilinogen NEGATIVE (0-1) mg/dL Ur Leukocyte Esterase NEGATIVE (NEGATIVE) Urine WBC (Auto) NONE (0-5) /HPF Urine RBC (Auto) 3-5 (0-2) /HPF U Epithel Cells (Auto) RARE (FEW) /HPF Urine Bacteria (Auto) RARE (NEGATIVE) /HPF Urine Mucus (Auto) SLIGHT (NEGATIVE) /HPF Urine Culture Reflexed NO (NO) Urine Glucose NEGATIVE (NEGATIVE) mg/dL Urine HCG, Qual NEGATIVE (Negative) SARS-CoV-2 (PCR) NEGATIVE (NEGATIVE) 01/11/21 01/11/21 01/11/21 Range/Units 13:40 16:12 19:30 WBC (4.0-10.5) K/mm3 RBC (4.1-5.4) M/mm3 Hgb (12.0-16.0) gm/dl Hct (35-47) % MCV (78-100) fl MCH (26-32) pg MCHC (32-36) g/dl RDW (11.5-14.0) % Plt Count (150-450) K/mm3 MPV (7.5-11.0) fl Gran % (36.0-66.0) % Eos # (Auto) (0-0.5) Absolute Lymphs (auto) (1.0-4.6) Absolute Monos (auto) (0.0-1.3) Lymphocytes % (24.0-44.0) % Monocytes % (0.0-12.0) % Eosinophils % (0.00-5.0) % Basophils % (0.0-0.4) % Absolute Granulocytes (1.4-6.9) Basophils # (0-0.4) PT (9.4-12.5) SECONDS INR (0.8-3.0) APTT (25.1-36.5) SECONDS Sodium (137-145) mmol/L Potassium (3.5-5.1) mmol/L Chloride (98-107) mmol/L Carbon Dioxide (22-30) mmol/L Anion Gap (5-15) MEQ/L BUN (7-17) mg/dL Creatinine (0.52-1.04) mg/dL Estimated GFR ML/MIN Glucose (74-106) mg/dL Calcium (8.4-10.2) mg/dL Total Bilirubin (0.2-1.3) mg/dL AST (14-36) U/L ALT (0-35) U/L Alkaline Phosphatase (38-126) U/L Troponin I < 0.012 < 0.012 < 0.012 (0.000-0.034) ng/mL Serum Total Protein (6.3-8.2) g/dL Albumin (3.5-5.0) g/dL Urine Color (YELLOW) Urine Appearance (CLEAR) Urine pH (5-6) Ur Specific [place] (1.005-1.025) Urine Protein (Negative) Urine Ketones (NEGATIVE) Urine Blood (0-5) René/ul Urine Nitrite (NEGATIVE) Urine Bilirubin (NEGATIVE) Urine Urobilinogen (0-1) mg/dL Ur Leukocyte Esterase (NEGATIVE) Urine WBC (Auto) (0-5) /HPF Urine RBC (Auto) (0-2) /HPF U Epithel Cells (Auto) (FEW) /HPF Urine Bacteria (Auto) (NEGATIVE) /HPF Urine Mucus (Auto) (NEGATIVE) /HPF Urine Culture Reflexed (NO) Urine Glucose (NEGATIVE) mg/dL Urine HCG, Qual (Negative) SARS-CoV-2 (PCR) (NEGATIVE) 01/11/21 Range/Units 22:50 WBC (4.0-10.5) K/mm3 RBC (4.1-5.4) M/mm3 Hgb (12.0-16.0) gm/dl Hct (35-47) % MCV (78-100) fl MCH (26-32) pg MCHC (32-36) g/dl RDW (11.5-14.0) % Plt Count (150-450) K/mm3 MPV (7.5-11.0) fl Gran % (36.0-66.0) % Eos # (Auto) (0-0.5) Absolute Lymphs (auto) (1.0-4.6) Absolute Monos (auto) (0.0-1.3) Lymphocytes % (24.0-44.0) % Monocytes % (0.0-12.0) % Eosinophils % (0.00-5.0) % Basophils % (0.0-0.4) % Absolute Granulocytes (1.4-6.9) Basophils # (0-0.4) PT (9.4-12.5) SECONDS INR (0.8-3.0) APTT (25.1-36.5) SECONDS Sodium (137-145) mmol/L Potassium (3.5-5.1) mmol/L Chloride (98-107) mmol/L Carbon Dioxide (22-30) mmol/L Anion Gap (5-15) MEQ/L BUN (7-17) mg/dL Creatinine (0.52-1.04) mg/dL Estimated GFR ML/MIN Glucose (74-106) mg/dL Calcium (8.4-10.2) mg/dL Total Bilirubin (0.2-1.3) mg/dL AST (14-36) U/L ALT (0-35) U/L Alkaline Phosphatase (38-126) U/L Troponin I < 0.012 (0.000-0.034) ng/mL Serum Total Protein (6.3-8.2) g/dL Albumin (3.5-5.0) g/dL Urine Color (YELLOW) Urine Appearance (CLEAR) Urine pH (5-6) Ur Specific [place] (1.005-1.025) Urine Protein (Negative) Urine Ketones (NEGATIVE) Urine Blood (0-5) René/ul Urine Nitrite (NEGATIVE) Urine Bilirubin (NEGATIVE) Urine Urobilinogen (0-1) mg/dL Ur Leukocyte Esterase (NEGATIVE) Urine WBC (Auto) (0-5) /HPF Urine RBC (Auto) (0-2) /HPF U Epithel Cells (Auto) (FEW) /HPF Urine Bacteria (Auto) (NEGATIVE) /HPF Urine Mucus (Auto) (NEGATIVE) /HPF Urine Culture Reflexed (NO) Urine Glucose (NEGATIVE) mg/dL Urine HCG, Qual (Negative) SARS-CoV-2 (PCR) (NEGATIVE) - Radiology Exams Ordered Rad Exams-Entire Visit: Radiology Procedures Category Date Time Status CHEST 1 VIEW (PORTABLE) Stat Exams 01/11/21 10:22 Completed ECHO W/2D AND DOPPLER [US] Routine Exams 01/11/21 Taken VENOUS BILATERAL EXTREMITY [US] Routine Exams 01/11/21 Completed - Procedures and Test Procedures and Tests throughout Hospitalization: Therapy Orders & Screens 01/11/21 18:00 EKG ONCE Comment: Diagnosis: Pulmonary embolus 01/12/21 05:00 EKG QAM Comment: Diagnosis: Pulmonary embolus 01/13/21 05:00 EKG QAM Comment: Diagnosis: Pulmonary embolus 01/14/21 05:00 EKG ONCE Comment: Diagnosis: Pulmonary embolus - Discharge Disposition: Home, Self-Care Condition: Stable Prescriptions: No Action Levothyroxine Sodium 25 Mcg [Synthroid 25 Mcg] 50 mcg PO DAILY Citalopram Hydrobromide 20 mg* [ceLEXa 20 MG] 30 mg PO DAILY Loratadine 10 mg [Claritin 10 mg] 10 mg PO DAILY Naproxen 500 mg [Naprosyn 500 MG] 500 mg PO BID PRN PRN PRN Reason: Pain Gabapentin 100 mg PO TID PRN PRN PRN Reason: Pain Apixaban [Eliquis 2.5 mg Tablet] 10 mg PO BID 12 Days #76 tablet Allopurinol 100 mg [Zyloprim 100 mg] 100 mg PO DAILY Instructions: Pulmonary Embolism (Blood Clot in the Lungs) (DC) Follow up with: JUAN PEDERSON [CONSULTING PHYSICIAN] - 01/13/21 1:15 pm (at [place] ) MEÑO ALONZO [ACTIVE STAFF] - 01/25/21 3:15 pm QUINTON POWERS DO [Primary Care Provider] - 01/19/21 9:30 am Forms: Discharge Instructions
--- NOTE | 2021-01-14 08:20 | ECHO ---
DATE OF PROCEDURE: 01/11/2021 CLINICAL INFORMATION: History of pulmonary embolism with shortness of breath. The M-mode 2D, and Doppler echocardiogram had limited subcostal views due to morbid obesity. The left ventricle was dilated with a dimension of 6.1 cm. There is no thrombus noted. The septal wall thickness is increased at 1.5 cm. The left ventricular posterior wall thickness is 0.7 cm. There is normal contractility of the left ventricle. The ejection fraction is calculated to be 62%. The right ventricle is grossly normal. The left atrium is mildly dilated with a dimension of 4.5 cm. The interatrial septum is intact. The right atrium is normal. The aortic valve opens well. There is no aortic regurgitation. The mitral valve is normal. There is mild tricuspid regurgitation. The right ventricular systolic pressure is calculated to be 49 mm of Mercury. The pulmonic valve is not well visualized. The aortic root is normal at 3.3 cm. There is no pericardial effusion present. IMPRESSION: 1) NORMAL CONTRACTILITY OF THE LEFT VENTRICLE. 2) MODERATE LEFT VENTRICULAR DILATATION. 3) MODERATE ASYMMETRIC LEFT VENTRICULAR HYPERTROPHY. 4) MILD TRICUSPID REGURGITATION. 5) MODERATE PULMONARY HYPERTENSION. 6) MILD LEFT ATRIAL DILATATION.
== END 2021-01-12 09:30 | disposition home or self-care (01) ==
LOC: ED 09:40 → MED SURG 12:02
PROVIDERS: ADMIT Family Medicine; ATTEND Family Medicine
DX: I26.99 Other pulmonary embolism without acute cor pulmonale (principal); R06.02 Shortness of breath; Z79.899 Other long term (current) drug therapy; Z72.0 Tobacco use; B35.4 Tinea corporis
CPT/HCPCS: 36000; 36415; 71045; 80053; 81001; 84484; 84703; 85025; 85610; 85730; 93005; 93041; 93306; 93970; 94760; 99284; G0378; U0003; J1650; A9270-GY

== ENCOUNTER 2021-03-22 11:05 | Emergency (ER) | payer OTHER ==
--- NOTE | 2021-03-22 12:07 | XRAY ---
Indication: Chest pain. Comparison: January 11, 2021. Portable chest again demonstrates normal heart, lungs, and bony thorax with a few incidental left lung calcified granulomas.
[2021-03-22 12:10] LABS: Absolute Neutrophil Ct (ANC) 6.46 (1.4-6.9); Basophil (Absolute #) 0.03 (0-0.4); Eosinophil (Absolute #) 0.28 (0-0.5); Hematocrit 41.2 % (35-47); Hemoglobin 12.7 gm/dl (12.0-16.0); Lymphocyte (Absolute #) 2.06 (1.0-4.6); Lymphocytes % 21.9 % (24.0-44.0); Mean Cell Volume 86.6 fl (78-100); Mean Corpuscular Hemoglobin 26.7 pg (26-32); Mean Corpuscular Hgb Concent. 30.8 g/dl (32-36); Mean Platelet Volume 12.2 fl (7.5-11.0); Monocyte (Absolute #) 0.58 (0.0-1.3); Monocytes % 6.2 % (0.0-12.0); Neutrophil % 68.6 % (36.0-66.0); Platelet Count 236 K/mm3 (150-450); Red Blood Count 4.76 M/mm3 (4.1-5.4); Red Cell Distribution Width 14.3 % (11.5-14.0); White Blood Count 9.4 K/mm3 (4.0-10.5)
--- NOTE | 2021-03-22 12:13 | ERPHSYRPT ---
- History of Present Illness Time Seen by Provider: 03/22/21 11:15 Historian: patient Exam Limitations: no limitations Patient Subjective Stated Complaint: Chest pain Triage Nursing Assessment: Patient ambulated back to ED and transferred self to bed. Patient A+O X3. Patient's skin pink, warm and dry. Patient complains of left sided chest pain that started 15 min prior to coming to ED while at rest. Patient denies SOB. Patient's lungs clear a/p servando. Patient complains of left sided chest pain 7/10. Physician History: Patient is a 30-year-old female presents to our ED with complaints of left-sided chest pain started approximately 15 minutes prior to arrival. Chest pain rated 7/10. Chest pain is constant. Pain reproduced with palpation to left chest. Patient believes it is her rib. No trauma. No fever. No nausea or vomiting. No diaphoresis. No dizziness or lightheadedness. Symptoms are mild in intensit y. Patient voices no other complaints or concerns at this time. Timing/Duration: today Activities at Onset: none Quality: aching Location: other (Left chest) Chest Pain Radiation: no radiation Severity of Pain-Max: moderate Severity of Pain-Current: mild Modifying Factors: Improves With: palpation (Palpation the left chest reproduce symptoms.) Associated Symptoms: denies symptoms Prior Chest Pain/Cardiac Workup: no prior cardiac workup Nitro Today/Relief: no nitro taken today Aspirin Treatment Today: no aspirin today Allergies/Adverse Reactions: fluoxetine HCl [From Prozac] Adverse Reaction (Severe, Verified 03/22/21 11:10) Nausea PROZAC WITH FLUOXETINE HAS BLOOD IN STOOL sertraline [From Zoloft] Adverse Reaction (Intermediate, Verified 03/22/21 11:10) Home Medications: Levothyroxine Sodium 25 Mcg [Synthroid 25 Mcg] 75 mcg PO DAILY 12/02/18 [History] Citalopram Hydrobromide 20 mg* [ceLEXa 20 MG] 30 mg PO DAILY 11/13/19 [History] Gabapentin 100 mg PO TID PRN PRN 05/25/20 [History] Naproxen 500 mg [Naprosyn 500 MG] 500 mg PO BID PRN PRN 05/25/20 [History] Allopurinol 100 mg [Zyloprim 100 mg] 100 mg PO DAILY 01/11/21 [History] Apixaban [Eliquis 2.5 mg Tablet] 5 mg PO BID 03/22/21 [History] Hx Tetanus, Diphtheria Vaccination/Date Given: Yes Hx Influenza Vaccination/Date Given: No Hx Pneumococcal Vaccination/Date Given: No Immunizations Up to Date: Yes Travel Risk - International Travel Have you traveled outside of the country in past 3 weeks: No - Coronavirus Screening Are you exhibiting any of the following symptoms?: No Close contact with a COVID-19 positive Pt in past 14-21 Days: No - Vaccine Status Have you recieved a Covid-19 vaccination: Yes Learning Administrator: Moderna - Vaccination Dates Date of 2cond Vaccination (if applicable): 10/2020 - Review of Systems Constitutional: No Symptoms, No Fever, No Chills Eyes: No Symptoms Ears, Nose, & Throat: No Symptoms Respiratory: No Symptoms, No Cough, No Dyspnea Cardiac: No Symptoms, No Chest Pain, No Edema, No Syncope Abdominal/Gastrointestinal: No Symptoms, No Abdominal Pain, No Nausea, No Vomiting, No Diarrhea Genitourinary Symptoms: No Symptoms, No Dysuria Musculoskeletal: No Symptoms, No Back Pain, No Neck Pain Skin: No Symptoms, No Rash Neurological: No Symptoms, No Dizziness, No Focal Weakness, No Sensory Changes Psychological: No Symptoms Endocrine: No Symptoms Hematologic/Lymphatic: No Symptoms Immunological/Allergic: No Symptoms All Other Systems: Reviewed and Negative - Past Medical History Pertinent Past Medical History: Yes Neurological History: Migraines ENT History: No Pertinent History Cardiac History: No Pertinent History Respiratory History: No Pertinent History Endocrine Medical History: Hypothyroidism Musculoskeletal History: No Pertinent History GI Medical History: No Pertinent History History: No Pertinent History Psycho-Social History: Anxiety, Depression Female Reproductive Disorders: No Pertinent History Other Medical History: She notes sharp pain down R LE that go to her ankle. 8 months post . She notes back pain when she was . - Past Surgical History Past Surgical History: No Neuro Surgical History: No Pertinent History Cardiac: No Pertinent History Respiratory: No Pertinent History Gastrointestinal: No Pertinent History Genitourinary: No Pertinent History Musculoskeletal: No Pertinent History Female Surgical History: No Pertinent History - Social History Smoking Status: Current every day smoker How long have you smoked: 2 months Exposure to second hand smoke: Yes Drug Use: none Patient Lives Alone: No Significant Family History: no pertinent family hx - Female History Hx Last Menstrual Period: last week Hx Now: No - Nursing Vital Signs Nursing Vital Signs: Initial Vital Signs Temperature 96.6 F 03/22/21 11:12 Pulse Rate 63 03/22/21 11:12 Respiratory Rate 18 03/22/21 11:12 Blood Pressure 125/67 03/22/21 11:12 O2 Sat by Pulse Oximetry 98 03/22/21 11:12 Pain Scale Pain Intensity 0 - Physical Exam General Appearance: no apparent distress, alert Eye Exam: PERRL/EOMI, eyes nml inspection Ears, Nose, Throat Exam: normal ENT inspection, moist mucous membranes Neck Exam: normal inspection, non-tender, supple, full range of motion Respiratory Exam: normal breath sounds, lungs clear, No respiratory distress Cardiovascular Exam: regular rate/rhythm, normal heart sounds Gastrointestinal/Abdomen Exam: soft, No tenderness, No mass Back Exam: normal inspection, No CVA tenderness, No vertebral tenderness Extremity Exam: normal inspection, normal range of motion Neurologic Exam: alert, oriented x 3, cooperative, normal mood/affect, sensation nml, No motor deficits Skin Exam: normal color, warm, dry Lymphatic Exam: No adenopathy SpO2 Interpretation: normal SpO2: 97 O2 Delivery: Room Air - Course Nursing assessment & vital signs reviewed: Yes EKG Interpreted by Me: RATE (56), Sinus Rhythm, NORMAL AXIS, NORMAL INTERVALS - Radiology Exams Chest X-ray Interpretation: Teleradiologist Report (Normal chest again demonstrates normal heart lungs and bony thorax with a few incidental left lung calcified granulomas) Ordered Tests: Active Orders 24 hr Category Date Time Status 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[employer] STAT Care 03/22/21 11:30 Active EKG-ER Only STAT Care 03/22/21 11:29 Active Pulse Oximetry (ED) STAT Care 03/22/21 11:29 Active CHEST 1 VIEW (PORTABLE) Stat Exams 03/22/21 11:30 Completed CBC W DIFF Stat Lab 03/22/21 12:05 Completed CMP Stat Lab 03/22/21 12:05 Completed D-DIMER QUANTITATIVE Stat Lab 03/22/21 12:05 Completed NT PRO BNP Stat Lab 03/22/21 12:05 Completed TROPONIN Q3H Lab 03/22/21 12:05 Completed TROPONIN Q3H Lab 03/22/21 15:22 Completed TROPONIN Q3H Lab 03/22/21 17:30 Ordered TROPONIN Q3H Lab 03/22/21 20:30 Ordered TROPONIN Q3H Lab 03/22/21 23:30 Ordered Medication Summary Discontinued Medications Generic Name Dose Route Start Last Admin Trade Name Silvestre PRN Reason Stop Dose Admin Aspirin 324 mg 03/22/21 12:18 03/22/21 12:28 Aspirin 81 Mg Tab.Chew PO 03/22/21 12:19 324 mg STAT ONE Administration Aspirin Confirm 03/22/21 12:27 Aspirin 81 Mg Tab.Chew Administered 03/22/21 12:28 Dose 324 mg .ROUTE .STK-MED ONE Nitroglycerin 1 gm 03/22/21 12:19 03/22/21 12:28 Nitroglycerin 1 Gm Packet TOP 03/22/21 12:20 1 gm STAT ONE Administration Nitroglycerin Confirm 03/22/21 12:27 Nitroglycerin 1 Gm Packet Administered 03/22/21 12:28 Dose 1 gm .ROUTE .STK-MED ONE Lab/Rad Data: Laboratory Result Diagrams 03/22/21 12:05 03/22/21 12:05 Laboratory Results 03/22/21 03/22/21 03/22/21 Range/Units 15:22 12:05 12:05 WBC (4.0-10.5) K/mm3 RBC (4.1-5.4) M/mm3 Hgb (12.0-16.0) gm/dl Hct (35-47) % MCV (78-100) fl MCH (26-32) pg MCHC (32-36) g/dl RDW (11.5-14.0) % Plt Count (150-450) K/mm3 MPV (7.5-11.0) fl Gran % (36.0-66.0) % Eos # (Auto) (0-0.5) Absolute Lymphs (auto) (1.0-4.6) Absolute Monos (auto) (0.0-1.3) Lymphocytes % (24.0-44.0) % Monocytes % (0.0-12.0) % Eosinophils % (0.00-5.0) % Basophils % (0.0-0.4) % Absolute Granulocytes (1.4-6.9) Basophils # (0-0.4) D-Dimer 265 (215-500) ng/mL Sodium (137-145) mmol/L Potassium (3.5-5.1) mmol/L Chloride (98-107) mmol/L Carbon Dioxide (22-30) mmol/L Anion Gap (5-15) MEQ/L BUN (7-17) mg/dL Creatinine (0.52-1.04) mg/dL Estimated GFR ML/MIN Glucose (74-106) mg/dL Calcium (8.4-10.2) mg/dL Total Bilirubin (0.2-1.3) mg/dL AST (14-36) U/L ALT (0-35) U/L Alkaline Phosphatase (38-126) U/L Troponin I < 0.012 < 0.012 (0.000-0.034) ng/mL NT-Pro-B Natriuret Pep (0-450) pg/mL Serum Total Protein (6.3-8.2) g/dL Albumin (3.5-5.0) g/dL 03/22/21 03/22/21 Range/Units 12:05 12:05 WBC 9.4 (4.0-10.5) K/mm3 RBC 4.76 (4.1-5.4) M/mm3 Hgb 12.7 (12.0-16.0) gm/dl Hct 41.2 (35-47) % MCV 86.6 (78-100) fl MCH 26.7 (26-32) pg MCHC 30.8 L (32-36) g/dl RDW 14.3 H (11.5-14.0) % Plt Count 236 (150-450) K/mm3 MPV 12.2 H (7.5-11.0) fl Gran % 68.6 H (36.0-66.0) % Eos # (Auto) 0.28 (0-0.5) Absolute Lymphs (auto) 2.06 (1.0-4.6) Absolute Monos (auto) 0.58 (0.0-1.3) Lymphocytes % 21.9 L (24.0-44.0) % Monocytes % 6.2 (0.0-12.0) % Eosinophils % 3.0 (0.00-5.0) % Basophils % 0.3 (0.0-0.4) % Absolute Granulocytes 6.46 (1.4-6.9) Basophils # 0.03 (0-0.4) D-Dimer (215-500) ng/mL Sodium 139 (137-145) mmol/L Potassium 4.7 (3.5-5.1) mmol/L Chloride 105 (98-107) mmol/L Carbon Dioxide 30 (22-30) mmol/L Anion Gap 8.3 (5-15) MEQ/L BUN 9 (7-17) mg/dL Creatinine 0.74 (0.52-1.04) mg/dL Estimated GFR > 60.0 ML/MIN Glucose 94 (74-106) mg/dL Calcium 9.1 (8.4-10.2) mg/dL Total Bilirubin 0.60 (0.2-1.3) mg/dL AST 20 (14-36) U/L ALT 28 (0-35) U/L Alkaline Phosphatase 90 (38-126) U/L Troponin I (0.000-0.034) ng/mL NT-Pro-B Natriuret Pep 64.5 (0-450) pg/mL Serum Total Protein 6.9 (6.3-8.2) g/dL Albumin 4.0 (3.5-5.0) g/dL - Progress Progress: improved Air Movement: good Progress Note: Patient reassessed. She is resting comfortably. Work-up essentially nonremarkable. Chest x-ray negative. Troponin negative x2. D-dimer negative. Vital stable. Patient's chest pain reproduced with palpation to left chest wall. Patient states he is ready for discharge. She voices no other complaints or concerns at this time. She agrees to follow-up with her primary care doctor within 48 hours for reevaluation. Portions of this note were created with voice recognition technology. There may be grammatical, spelling, punctuation or sound alike errors 03/22/21 16:07 Blood Culture(s) Obtained: No Antibiotics given: No Counseled pt/family regarding: lab results, diagnosis, need for follow-up, rad results - Departure Departure Disposition: Home Clinical Impression: Chest wall muscle strain Condition: Stable Critical Care Time: No Referrals: QUINTON POWERS, [Primary Care Provider] - Follow up/PCP as directed Additional Instructions: Discharge/Care Plan ERIC ROGERS was seen on 03/22/21 in the Emergency Room. The patient was counseled regarding Diagnosis,Lab results, Imaging studies, need for follow up a nd when to return to the Emergency Room. Prescriptions given: Discharge Note I have spoken with the patient and/or caregivers. I have explained the patient's condition, diagnosis and treatment plan based on the information available to me at this time. I have answered the patient's and/or caregiver's questions and addressed any concerns. The patient and/or caregivers have as good understanding of the patient's diagnosis, condition and treatment plan as can be expected at this point. The vital signs have been stable. The patient's condition is stable and appropriate for discharge from the emergency department. The patient will pursue further outpatient evaluation with the primary care physician or other designated or consulting physician as outlined in the discharge instructions. The patient and/or caregivers are agreeable to this plan of care and follow-up instructions have been explained in detail. The patient and/or caregivers have received these instruction. The patient/and or caregivers are aware that any significant change in condition or worsening of symptoms should prompt an immediate return to this or the closest emergency department or call 911.
[2021-03-22] MEDS ORDERED: BABY ASPIRIN 81 MG CHEW PO ONE (12:18)
[2021-03-22] MEDS ORDERED: NITRO-BID 2% UD PACKETS TOP ONE (12:19)
[2021-03-22] MEDS ORDERED: BABY ASPIRIN 81 MG CHEW ONE (12:27)
[2021-03-22] MEDS ORDERED: NITRO-BID 2% UD PACKETS ONE (12:27)
[2021-03-22 12:30] LABS: ALKALINE PHOSPHATASE 90 U/L (38-126); ANION GAP 8.3 MEQ/L (5-15); BLOOD UREA NITROGEN 9 mg/dL (7-17); CHLORIDE 105 mmol/L (98-107); Calcium 9.1 mg/dL (8.4-10.2); Carbon Dioxide 30 mmol/L (22-30); Creatinine 1 0.74 mg/dL (0.52-1.04); EST GLOMERULAR FILTRATION RATE > 60.0 ML/MIN; Glucose 94 mg/dL (74-106); NT PRO BNP 64.5 pg/mL (0-450); Potassium 4.7 mmol/L (3.5-5.1); SGOT/AST 20 U/L (14-36); SGPT/ALT 28 U/L (0-35); SODIUM 139 mmol/L (137-145); Total Protein 6.9 g/dL (6.3-8.2)
[2021-03-22 16:02] VITALS: BP 125/65; PULSE 69
[2021-03-22 16:08] VITALS: O2SAT 97
== END 2021-03-22 16:13 | disposition home or self-care (01) ==
LOC: ED 11:05
DX: S29.011A Strain of muscle and tendon of front wall of thorax, initial encounter (principal); Z79.01 Long term (current) use of anticoagulants; Z79.899 Other long term (current) drug therapy; Z72.0 Tobacco use
CPT/HCPCS: 36415; 71045; 80053; 83880; 84484; 85025; 85379; 93005; 93041; 94760; 99284; A9270-GY

== ENCOUNTER 2021-05-05 15:04 | Emergency (ER) | payer OTHER ==
--- NOTE | 2021-05-05 15:13 | ERPHSYRPT ---
- History of Present Illness Time Seen by Provider: 05/05/21 15:12 Source: patient Exam Limitations: no limitations Physician History: This is a 30-year-old morbidly obese white female patient of Dr. Serna who has a history of anxiety, depression, migraine headaches, and hypothyroidism and presents to the emergency department with right foot pain. Patient accidentally dropped a 5 pound cutting board directly onto her right foot. Patient is concerned there may be a fracture present. This occurred approximately an hour and a half prior to arrival into the emergency department Method of Injury: direct blow Occurred: just prior to arrival Quality: aching, throbbing Severity of Pain-Max: moderate Severity of Pain-Current: mild (To moderate) Lower Extremities Pain: foot: right (Dorsal lateral aspect) Modifying Factors: Improves With: movement Associated Symptoms: other (Hurts to bear weight but can do so) Allergies/Adverse Reactions: fluoxetine HCl [From Prozac] Adverse Reaction (Severe, Verified 05/05/21 15:20) Nausea PROZAC WITH FLUOXETINE HAS BLOOD IN STOOL sertraline [From Zoloft] Adverse Reaction (Intermediate, Verified 05/05/21 15:20) Home Medications: RX: Levothyroxine Sodium 25 Mcg [Synthroid 25 Mcg] 75 mcg PO DAILY 12/02/18 [History] RX: Citalopram Hydrobromide 20 mg* [ceLEXa 20 MG] 30 mg PO DAILY 11/13/19 [History] RX: Gabapentin 100 mg PO TID PRN PRN 05/25/20 [History] RX: Naproxen 500 mg [Naprosyn 500 MG] 500 mg PO BID PRN PRN 05/25/20 [History] RX: Allopurinol 100 mg [Zyloprim 100 mg] 100 mg PO DAILY 01/11/21 [History] RX: Apixaban [Eliquis 2.5 mg Tablet] 5 mg PO BID 03/22/21 [History] Hx Tetanus, Diphtheria Vaccination/Date Given: Yes Hx Influenza Vaccination/Date Given: No Hx Pneumococcal Vaccination/Date Given: No Travel Risk - International Travel Have you traveled outside of the country in past 3 weeks: No - Coronavirus Screening Are you exhibiting any of the following symptoms?: No Close contact with a COVID-19 positive Pt in past 14-21 Days: No - Vaccine Status Have you recieved a Covid-19 vaccination: Yes Hand Tacker: Moderna - Vaccination Dates Date of 2cond Vaccination (if applicable): 10/2020 - Review of Systems Constitutional: No Symptoms Eyes: No Symptoms Ears, Nose, & Throat: No Symptoms Respiratory: No Symptoms Cardiac: No Symptoms Abdominal/Gastrointestinal: No Symptoms Genitourinary Symptoms: No Symptoms Musculoskeletal: Injury (Dorsallateral aspect right foot), No Deformity Skin: No Symptoms Neurological: No Symptoms Psychological: No Symptoms Endocrine: No Symptoms Hematologic/Lymphatic: No Symptoms Immunological/Allergic: No Symptoms All Other Systems: Reviewed and Negative - Past Medical History Pertinent Past Medical History: Yes Neurological History: Migraines ENT History: No Pertinent History Cardiac History: No Pertinent History Respiratory History: No Pertinent History Endocrine Medical History: Hypothyroidism Musculoskeletal History: No Pertinent History GI Medical History: No Pertinent History History: No Pertinent History Psycho-Social History: Anxiety, Depression Female Reproductive Disorders: No Pertinent History Other Medical History: She notes sharp pain down R LE that go to her ankle. 8 months post . She notes back pain when she was . - Past Surgical History Past Surgical History: No Neuro Surgical History: No Pertinent History Cardiac: No Pertinent History Respiratory: No Pertinent History Gastrointestinal: No Pertinent History Genitourinary: No Pertinent History Musculoskeletal: No Pertinent History Female Surgical History: No Pertinent History - Social History Smoking Status: Current every day smoker How long have you smoked: 2 months Exposure to second hand smoke: Yes Drug Use: none Patient Lives Alone: No Significant Family History: no pertinent family hx - Nursing Vital Signs Nursing Vital Signs: Initial Vital Signs Temperature 97.7 F 05/05/21 15:13 Pulse Rate 94 H 05/05/21 15:13 Respiratory Rate 18 05/05/21 15:13 Blood Pressure 167/89 05/05/21 15:13 O2 Sat by Pulse Oximetry 97 05/05/21 15:13 Pain Scale Pain Intensity 4 - Physical Exam General Appearance: no apparent distress, alert, anxiety, obese Eyes, Ears, Nose, Throat Exam: normal ENT inspection, moist mucous membranes Neck Exam: normal inspection, non-tender, supple, full range of motion Cardiovascular/Respiratory Exam: chest non-tender, no respiratory distress Gastrointestinal/Abdominal Exam: non-tender Back Exam: normal inspection, normal range of motion, No CVA tenderness, No vertebral tenderness Hips Exam: bilateral: non-tender, normal inspection, normal range of motion, no evidence of injury Legs Exam: bilateral leg: non-tender, normal inspection, normal range of motion, no evidence of injury Knees Exam: bilateral knee: non-tender, normal inspection, normal range of motion, no evidence of injury Ankle Exam: bilateral ankle: non-tender, normal inspection, normal range of motion, no evidence of injury Foot Exam: right foot: bone tenderness (Dorsal aspect), soft tissue tenderness (Dorsal aspect), left foot: non-tender, normal inspection, no evidence of injury, bilateral foot: normal range of motion Neuro/Tendon Exam: normal sensation, normal motor functions, normal tendon functions, responds to pain Mental Status Exam: alert, oriented x 3, cooperative Skin Exam: normal color, warm, dry SpO2 Interpretation: normal O2 Delivery: Room Air - Course Nursing assessment & vital signs reviewed: Yes Ordered Tests: Active Orders 24 hr Category Date Time Status FOOT (MINIMUM 3 VIEWS) Stat Exams 05/05/21 15:35 Taken - Progress Progress: unchanged, pain not gone completely Progress Note: 05/05/21 16:37 X-ray right foot shows no acute fracture or dislocation Counseled pt/family regarding: diagnosis, need for follow-up, rad results - Departure Departure Disposition: Home Clinical Impression: Contusion of right foot Condition: Stable Critical Care Time: No Referrals: QUINTON SERNA DO [Primary Care Provider] - Follow up/PCP as directed Additional Instructions: Ice pack to area 3 times a day for the next 48 hours. Use Tylenol and ibuprofen for pain control. Follow-up in [facility] orthopedic clinic for persistent symptoms
[2021-05-05 15:20] VITALS: BP 167/89; PULSE 94; O2SAT 97
--- NOTE | 2021-05-05 16:51 | XRAY ---
Indication: Pain following injury. Comparison: November 30, 2020. 3 nonweightbearing views right foot old 4th/5th proximal phalanx fracture deformities. Stable tiny posterior heel spur. No other bony, articular, or soft tissue abnormalities.
== END 2021-05-05 16:50 | disposition home or self-care (01) ==
LOC: ED 15:04
DX: S90.31XA Contusion of right foot, initial encounter (principal); W20.8XXA Other cause of strike by thrown, projected or falling object, initial encounter; Z79.01 Long term (current) use of anticoagulants; Z79.899 Other long term (current) drug therapy; Z72.0 Tobacco use
CPT/HCPCS: 73630; 99283

== ENCOUNTER 2021-09-03 16:11 | Emergency (ER) | payer OTHER ==
--- NOTE | 2021-09-03 16:15 | ERPHSYRPT ---
- History of Present Illness Time Seen by Provider: 09/03/21 16:15 Source: patient Exam Limitations: no limitations Physician History: This is a 31-year-old morbidly obese white female patient of Dr. Serna who has a history of hypothyroidism and also history of DVT and pulmonary embolism in the past. She is on Eliquis. Patient presents with sudden onset (30 minutes prior to arrival) right lower extremity discomfort and swelling. Patient is concerned about a recurrent DVT. Patient does not have a cough. She has no chest pain. She has no shortness of breath. Method of Injury: other (No injury) Occurred: just prior to arrival Quality: aching Severity of Pain-Max: mild Severity of Pain-Current: mild Lower Extremities Pain: leg: right Modifying Factors: Improves With: nothing Associated Symptoms: none Allergies/Adverse Reactions: fluoxetine HCl [From Prozac] Adverse Reaction (Severe, Verified 09/03/21 16:21) Nausea PROZAC WITH FLUOXETINE HAS BLOOD IN STOOL sertraline [From Zoloft] Adverse Reaction (Intermediate, Verified 09/03/21 16:21) Home Medications: Levothyroxine Sodium 25 Mcg [Synthroid 25 Mcg] 88 mcg PO DAILY 12/02/18 [History] Gabapentin 100 mg PO TID PRN PRN 05/25/20 [History] Naproxen 500 mg [Naprosyn 500 MG] 500 mg PO BID PRN PRN 05/25/20 [History] Allopurinol 100 mg [Zyloprim 100 mg] 100 mg PO DAILY 01/11/21 [History] Apixaban [Eliquis 2.5 mg Tablet] 5 mg PO BID 03/22/21 [History] Escitalopram Oxalate [Lexapro] 20 mg PO DAILY 09/03/21 [History] Hx Tetanus, Diphtheria Vaccination/Date Given: Yes Hx Influenza Vaccination/Date Given: No Hx Pneumococcal Vaccination/Date Given: No Travel Risk - International Travel Have you traveled outside of the country in past 3 weeks: No - Coronavirus Screening Are you exhibiting any of the following symptoms?: No Close contact with a COVID-19 positive Pt in past 14-21 Days: No - Vaccine Status Have you recieved a Covid-19 vaccination: Yes [employer]: Moderna - Vaccination Dates Date of 2cond Vaccination (if applicable): 10/2020 - Review of Systems Constitutional: No Symptoms Eyes: No Symptoms Ears, Nose, & Throat: No Symptoms Respiratory: No Symptoms Cardiac: No Symptoms Abdominal/Gastrointestinal: No Symptoms Genitourinary Symptoms: No Symptoms Musculoskeletal: Other (Painful right lower extremity specifically below the knee on the right side) Skin: No Symptoms Neurological: No Symptoms Psychological: No Symptoms Endocrine: No Symptoms Hematologic/Lymphatic: No Symptoms Immunological/Allergic: No Symptoms All Other Systems: Reviewed and Negative - Past Medical History Pertinent Past Medical History: Yes Neurological History: Migraines ENT History: No Pertinent History Cardiac History: No Pertinent History Respiratory History: No Pertinent History Endocrine Medical History: Hypothyroidism Musculoskeletal History: No Pertinent History GI Medical History: No Pertinent History History: No Pertinent History Psycho-Social History: Anxiety, Depression Female Reproductive Disorders: No Pertinent History Other Medical History: She notes sharp pain down R LE that go to her ankle. 8 months post . She notes back pain when she was . - Past Surgical History Past Surgical History: No Neuro Surgical History: No Pertinent History Cardiac: No Pertinent History Respiratory: No Pertinent History Gastrointestinal: No Pertinent History Genitourinary: No Pertinent History Musculoskeletal: No Pertinent History Female Surgical History: No Pertinent History - Social History Smoking Status: Current every day smoker How long have you smoked: 2 months Exposure to second hand smoke: Yes Drug Use: none Patient Lives Alone: No Significant Family History: no pertinent family hx - Nursing Vital Signs Nursing Vital Signs: Initial Vital Signs Temperature 97.8 F 09/03/21 16:23 Pulse Rate 78 09/03/21 16:23 Respiratory Rate 18 09/03/21 16:23 Blood Pressure 178/109 09/03/21 16:23 O2 Sat by Pulse Oximetry 98 09/03/21 16:23 Pain Scale Pain Intensity 3 - Physical Exam General Appearance: no apparent distress, alert, anxiety, obese Eyes, Ears, Nose, Throat Exam: normal ENT inspection, moist mucous membranes Neck Exam: normal inspection, non-tender, supple, full range of motion Cardiovascular/Respiratory Exam: chest non-tender, no respiratory distress Gastrointestinal/Abdominal Exam: non-tender Back Exam: normal inspection, normal range of motion, No CVA tenderness, No vertebral tenderness Hips Exam: bilateral: non-tender, normal inspection, normal range of motion, no evidence of injury Legs Exam: right leg: other (Patient thinks her right lower extremity is swollen), left leg: non-tender, soft tissue tenderness (At the level of the calf), bilateral leg: normal inspection, normal range of motion, no evidence of injury Knees Exam: bilateral knee: non-tender, normal inspection, normal range of motion Ankle Exam: bilateral ankle: non-tender, normal inspection, normal range of motion, no evidence of injury Foot Exam: bilateral foot: non-tender, normal inspection, normal range of motion, no evidence of injury Neuro/Tendon Exam: normal sensation, normal motor functions, normal tendon functions Mental Status Exam: alert, oriented x 3, cooperative Skin Exam: normal color, warm, dry SpO2 Interpretation: No normal O2 Delivery: Room Air - Course Nursing assessment & vital signs reviewed: Yes Ordered Tests: Active Orders 24 hr Category Date Time Status VENOUS UNILAT/LIMITED EXTREMIT [US] Stat Exams 09/03/21 16:21 Ordered - Progress Progress: unchanged Progress Note: 09/03/21 16:47 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 Counseled pt/family regarding: diagnosis, need for follow-up, rad results - Departure Departure Disposition: Home Clinical Impression: Tenderness of right lower extremity Condition: Stable Critical Care Time: No Referrals: QUINTON SERNA DO [Primary Care Provider] - Follow up/PCP as directed Additional Instructions: Take your medication as prescribed. Use Tylenol for pain. Follow-up with your primary care physician for further evaluation and management.
[2021-09-03 16:32] VITALS: BP 178/109; PULSE 78; O2SAT 98
--- NOTE | 2021-09-03 17:25 | XRAY ---
Exam: Duplex Doppler Ultrasound of the right lower extremity. Comparison: [None.] Indication: 31-year-old female with right leg pain/swelling; rule out DVT. Findings: The examination of the right lower extremity was carried out in the usual manner imaging technical support representative sections of the common femoral vein through the popliteal vein. The posterior tibial veins were also evaluated. Normal color flow was seen throughout. Normal spontaneous and phasic flow was seen at all technical support representative sections. There was normal transducer compression and doppler signal augmentation at all levels. The greater saphenous vein demonstrated transverse posterior compression, color blood flow, and Doppler signal augmentation within the proximal right thigh. Impression: 1. No evidence of deep venous thrombosis within the right lower extremity.
== END 2021-09-03 16:46 | disposition home or self-care (01) ==
LOC: ED 16:11
DX: M79.604 Pain in right leg (principal); Z86.718 Personal history of other venous thrombosis and embolism; Z79.01 Long term (current) use of anticoagulants; Z79.899 Other long term (current) drug therapy; Z72.0 Tobacco use
CPT/HCPCS: 93971; 99282

== ENCOUNTER 2021-12-26 18:05 | Emergency (ER) | payer OTHER ==
[2021-12-26 18:31] VITALS: O2SAT 97
[2021-12-26] MEDS ORDERED: Sodium Chloride 0.9% 1000 ML 1,000 ML IV STA (18:41)
[2021-12-26] MEDS ORDERED: Sodium Chloride 0.9% 1000 ML 1,000 ML ONE (18:57)
[2021-12-26 18:58] LABS: Absolute Neutrophil Ct (ANC) 5.99 x10^3/uL (1.4-6.9); Basophil (Absolute #) 0.03 x10^3/uL (0-0.4); Eosinophil % 4.1 % (0.00-5.0); Eosinophil (Absolute #) 0.39 x10^3/uL (0-0.5); Hematocrit 43.3 % (35-47); Hemoglobin 13.1 g/dL (12.0-16.0); Lymphocyte (Absolute #) 2.52 x10^3/uL (1.0-4.6); Lymphocytes % 26.3 % (24.0-44.0); Mean Cell Volume 86.8 fL (78-100); Mean Corpuscular Hemoglobin 26.3 pg (26-32); Mean Corpuscular Hgb Concent. 30.3 g/dL (32-36); Monocyte (Absolute #) 0.63 x10^3/uL (0.0-1.3); Monocytes % 6.6 % (0.0-12.0); Neutrophil % 62.4 % (36.0-66.0); Platelet Count 228 x10^3/uL (150-450); Red Blood Count 4.99 x10^6/uL (4.1-5.4); White Blood Count 9.6 x10^3/uL (4.0-10.5)
[2021-12-26 19:11] LABS: ALKALINE PHOSPHATASE 76 U/L (38-126); ANION GAP 9.4 MEQ/L (5-15); BLOOD UREA NITROGEN 11 mg/dL (7-17); CHLORIDE 107 mmol/L (98-107); Calcium 8.8 mg/dL (8.4-10.2); Carbon Dioxide 27 mmol/L (22-30); Creatinine 1 0.65 mg/dL (0.52-1.04); EST GLOMERULAR FILTRATION RATE > 60.0 ML/MIN; Glucose 138 mg/dL (74-106); SGOT/AST 28 U/L (14-36); SGPT/ALT 30 U/L (0-35); SODIUM 140 mmol/L (137-145); Total Protein 7.5 g/dL (6.3-8.2)
--- NOTE | 2021-12-26 21:04 | ERPHSYRPT ---
- History of Present Illness Time Seen by Provider: 12/26/21 18:13 Source: patient Exam Limitations: no limitations Patient Subjective Stated Complaint: States walking around [employer] just prior to arriving to ED and started seeing halos around lights in [employer]. C/O forehead pressure and heaviness. Denies pain, states it isn't pain. Triage Nursing Assessment: Patient ambulated back to ED without difficulties. She is alert and oriented. No SOB. Physician History: 31-year-old female morbidly obese with history of PE with history of chronic right thigh numbness and some weakness secondary to hip arthritis, recently ran out of [employer] for the last for 5 days [place] and all of a sudden started to have some visual disturbance with a ring of light around peripheral field of vision, some flashing and it seemed as if everything is shifting to the right side with odd feeling. She denies any headache. reports she got a little wobbly which she denies and also she had some slurring of speech which is improved now. On presentation in the ER she also reports she had some tingling sensation and weakness of right upper extremity which is improved now during evaluation. No history of previous stroke. Timing/Duration: hour(s) (0.5), sudden, improved Severity: moderate Character of Deficits: altered sensation Deficits: no difficulties Baseline/Normal Cognition: alert oriented x 3 Current Cognition: alert oriented x 3 Baseline Gait: walks w/o assistance Associated Symptoms: numbness/tingling in legs/feet, paresthesia, No confusion, No fever, No loss of consciousness, No vomiting, No weakness, No insomnia, No ringing in ears, No seizures, No trouble walking, No vision changes, No chest pain Allergies/Adverse Reactions: fluoxetine HCl [From Prozac] Adverse Reaction (Severe, Verified 12/26/21 18:17) Nausea PROZAC WITH FLUOXETINE HAS BLOOD IN STOOL sertraline [From Zoloft] Adverse Reaction (Intermediate, Verified 12/26/21 18:17) Home Medications: Levothyroxine Sodium 25 Mcg [Synthroid 25 Mcg] 88 mcg PO DAILY 12/02/18 [History] Gabapentin 100 mg PO TID PRN PRN 05/25/20 [History] Naproxen 500 mg [Naprosyn 500 MG] 500 mg PO BID PRN PRN 05/25/20 [History] Allopurinol 100 mg [Zyloprim 100 mg] 100 mg PO DAILY 01/11/21 [History] Apixaban [Eliquis 2.5 mg Tablet] 5 mg PO BID 03/22/21 [History] Escitalopram Oxalate [Lexapro] 20 mg PO DAILY 09/03/21 [History] Hx Tetanus, Diphtheria Vaccination/Date Given: Yes Hx Influenza Vaccination/Date Given: No Hx Pneumococcal Vaccination/Date Given: No Immunizations Up to Date: Yes Travel Risk - International Travel Have you traveled outside of the country in past 3 weeks: No - Coronavirus Screening Are you exhibiting any of the following symptoms?: No Close contact with a COVID-19 positive Pt in past 14-21 Days: No - Vaccine Status Have you recieved a Covid-19 vaccination: Yes 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: [place] - Vaccination Dates Date of 2cond Vaccination (if applicable): 10/2020 - Review of Systems Constitutional: Weakness Eyes: No Symptoms Ears, Nose, & Throat: No Symptoms Respiratory: No Symptoms Cardiac: No Symptoms Abdominal/Gastrointestinal: No Symptoms Genitourinary Symptoms: No Symptoms Musculoskeletal: No Symptoms Skin: No Symptoms Neurological: Parasthesia, Sensory Changes Psychological: No Symptoms Endocrine: No Symptoms Hematologic/Lymphatic: No Symptoms Immunological/Allergic: No Symptoms - Past Medical History Pertinent Past Medical History: Yes Neurological History: Migraines ENT History: No Pertinent History Cardiac History: No Pertinent History Respiratory History: No Pertinent History Endocrine Medical History: Hypothyroidism Musculoskeletal History: No Pertinent History GI Medical History: No Pertinent History History: No Pertinent History Psycho-Social History: Anxiety, Depression Female Reproductive Disorders: No Pertinent History Other Medical History: She notes sharp pain down R LE that go to her ankle. 8 months post . She notes back pain when she was . - Past Surgical History Past Surgical History: No Neuro Surgical History: No Pertinent History Cardiac: No Pertinent History Respiratory: No Pertinent History Gastrointestinal: No Pertinent History Genitourinary: No Pertinent History Musculoskeletal: No Pertinent History Female Surgical History: No Pertinent History - Social History Smoking Status: Current every day smoker How long have you smoked: 12 years Exposure to second hand smoke: Yes Drug Use: none Patient Lives Alone: No Significant Family History: no pertinent family hx - Female History Hx Last Menstrual Period: This month Hx Now: No - Nursing Vital Signs Nursing Vital Signs: Initial Vital Signs Temperature 97.9 F 12/26/21 18:19 Pulse Rate 95 H 12/26/21 18:19 Respiratory Rate 18 12/26/21 18:19 Blood Pressure 158/95 12/26/21 18:19 O2 Sat by Pulse Oximetry 97 12/26/21 18:19 Pain Scale Pain Intensity 0 - [place] Coma Scale Best Eye Response ([place]): (4) open spontaneously Best Verbal Response ([place]): (5) oriented Best Motor Response ([place]): (6) obeys commands Will Total: 15 - Physical Exam General Appearance: no apparent distress, alert Eye Exam: bilateral eye: normal inspection, PERRL, EOMI Ears, Nose, Throat Exam: normal ENT inspection, TMs normal, pharynx normal Neck Exam: normal inspection, supple, full range of motion Respiratory: normal breath sounds, lungs clear Cardiovascular: regular rate/rhythm, normal heart sounds Gastrointestinal: soft, No tenderness Back Exam: normal inspection, normal range of motion Extremity Exam: normal inspection, normal range of motion Mental Status: alert, oriented x 3, 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 Exam: normal hearing, normal speech, PERRL Coordination/Gait: normal finger to nose, normal gait, normal cerebellar function, negative Romberg's sign Motor/Sensory: no motor deficit, no sensory deficit, no pronator drift, negative Babinski's sign DTR: bicep (R): 2+, bicep (L): 2+, knee (R): 2+, knee (L): 2+ Skin Exam: normal color SpO2 Interpretation: normal SpO2: 97 O2 Delivery: Room Air - Course EKG Interpreted by Me: RATE (70), Sinus Rhythm, NORMAL AXIS, NORMAL INTERVALS, NORMAL QRS Ordered Tests: Active Orders 24 hr Category Date Time Status AMA [Release AMA] OM.NOW Care 12/26/21 21:01 Completed EKG-ER Only STAT Care 12/26/21 18:41 Completed IV Insertion STAT Care 12/26/21 18:41 Completed NPO (ED) STAT Care 12/26/21 18:41 Completed POCT Glucose Check STAT Care 12/26/21 18:41 Completed HEAD W/WO CONTRAST [CT] Stat Exams 12/26/21 18:40 Taken CBC W DIFF Stat Lab 12/26/21 18:56 Completed CMP Stat Lab 12/26/21 18:56 Completed POCT GLUCOSE Stat Lab 12/26/21 18:54 Completed TROPONIN Q3H Lab 12/26/21 18:56 Completed UA W/RFX CULTURE Stat Lab 12/26/21 20:18 Received Medication Summary Discontinued Medications Generic Name Dose Route Start Last Admin Trade Name Silvestre PRN Reason Stop Dose Admin Sodium Chloride 1,000 mls @ 999 mls/hr 12/26/21 18:41 12/26/21 20:00 Sodium Chloride 0.9% 1000 Ml IV 12/26/21 19:41 Infused .Q1H1M STA Infusion Sodium Chloride Confirm 12/26/21 18:57 Sodium Chloride 0.9% 1000 Ml Administered 12/26/21 18:58 Dose 1,000 mls @ ud .ROUTE .STK-MED ONE Lab/Rad Data: Laboratory Result Diagrams 12/26/21 18:56 12/26/21 18:56 Laboratory Results 12/26/21 12/26/21 12/26/21 Range/Units 18:56 18:56 18:56 WBC 9.6 (4.0-10.5) x10^3/uL RBC 4.99 (4.1-5.4) x10^6/uL Hgb 13.1 (12.0-16.0) g/dL Hct 43.3 (35-47) % MCV 86.8 (78-100) fL MCH 26.3 (26-32) pg MCHC 30.3 L (32-36) g/dL RDW 14.0 (11.5-14.0) % Plt Count 228 (150-450) x10^3/uL MPV 12.0 H (7.5-11.0) fL Gran % 62.4 (36.0-66.0) % Immature Gran % (Auto) 0.3 (0.00-0.4) % Nucleat RBC Rel Count 0.0 (0.00-0.1) % Eos # (Auto) 0.39 (0-0.5) x10^3/uL Immature Gran # (Auto) 0.03 (0.00-0.03) x10^3u/L Absolute Lymphs (auto) 2.52 (1.0-4.6) x10^3/uL Absolute Monos (auto) 0.63 (0.0-1.3) x10^3/uL Absolute Nucleated RBC 0.00 (0.00-0.01) x10^3u/L Lymphocytes % 26.3 (24.0-44.0) % Monocytes % 6.6 (0.0-12.0) % Eosinophils % 4.1 (0.00-5.0) % Basophils % 0.3 (0.0-0.4) % Absolute Granulocytes 5.99 (1.4-6.9) x10^3/uL Basophils # 0.03 (0-0.4) x10^3/uL Sodium 140 (137-145) mmol/L Potassium 4.0 (3.5-5.1) mmol/L Chloride 107 (98-107) mmol/L Carbon Dioxide 27 (22-30) mmol/L Anion Gap 9.4 (5-15) MEQ/L BUN 11 (7-17) mg/dL Creatinine 0.65 (0.52-1.04) mg/dL Estimated GFR > 60.0 ML/MIN Glucose 138 H (74-106) mg/dL POC Glucometer (74 to 106) mg/dL Calcium 8.8 (8.4-10.2) mg/dL Total Bilirubin 0.30 (0.2-1.3) mg/dL AST 28 (14-36) U/L ALT 30 (0-35) U/L Alkaline Phosphatase 76 (38-126) U/L Troponin I < 0.012 (0.000-0.034) ng/mL Serum Total Protein 7.5 (6.3-8.2) g/dL Albumin 4.0 (3.5-5.0) g/dL 12/26/21 Range/Units 18:54 WBC (4.0-10.5) x10^3/uL RBC (4.1-5.4) x10^6/uL Hgb (12.0-16.0) g/dL Hct (35-47) % MCV (78-100) fL MCH (26-32) pg MCHC (32-36) g/dL RDW (11.5-14.0) % Plt Count (150-450) x10^3/uL MPV (7.5-11.0) fL Gran % (36.0-66.0) % Immature Gran % (Auto) (0.00-0.4) % Nucleat RBC Rel Count (0.00-0.1) % Eos # (Auto) (0-0.5) x10^3/uL Immature Gran # (Auto) (0.00-0.03) x10^3u/L Absolute Lymphs (auto) (1.0-4.6) x10^3/uL Absolute Monos (auto) (0.0-1.3) x10^3/uL Absolute Nucleated RBC (0.00-0.01) x10^3u/L Lymphocytes % (24.0-44.0) % Monocytes % (0.0-12.0) % Eosinophils % (0.00-5.0) % Basophils % (0.0-0.4) % Absolute Granulocytes (1.4-6.9) x10^3/uL Basophils # (0-0.4) x10^3/uL Sodium (137-145) mmol/L Potassium (3.5-5.1) mmol/L Chloride (98-107) mmol/L Carbon Dioxide (22-30) mmol/L Anion Gap (5-15) MEQ/L BUN (7-17) mg/dL Creatinine (0.52-1.04) mg/dL Estimated GFR ML/MIN Glucose (74-106) mg/dL POC Glucometer 132 H (74 to 106) mg/dL Calcium (8.4-10.2) mg/dL Total Bilirubin (0.2-1.3) mg/dL AST (14-36) U/L ALT (0-35) U/L Alkaline Phosphatase (38-126) U/L Troponin I (0.000-0.034) ng/mL Serum Total Protein (6.3-8.2) g/dL Albumin (3.5-5.0) g/dL - Progress Progress: improved Progress Note: 12/26/21 21:02 I did not appreciate any obvious deficit. Has negative CT head without contrast. Baseline work-up unremarkable. [facility] neurology consult is obtained who thinks patient has migraine with aura but with her history of PE and being out of Eliquis she has a risk for infarct although does not seem like she has a large vessel occlusion. Recommended MRI. Patient does not want to stay in the hospital at all and states that all her symptoms are improved. She also has mild headache now. Patient wants to leave AGAINST MEDICAL ADVICE and does understand the risk of leaving without full work-up with worsening of condition, permanent disability including but she still wants to leave. She is not confused or altered at all. Her was also involved in decision making. She said that she will follow-up with her primary care. She is advised/encouraged to follow-up outpatient and have MRI done. Also to return to ER for any worsening which she agrees. Discussed with : Other Counseled pt/family regarding: lab results, diagnosis, need for follow-up, rad results - Departure Departure Disposition: AMA Clinical Impression: Migraine with aura Condition: Stable Critical Care Time: No Referrals: QUINTON POWERS, [Primary Care Provider] - Follow up/PCP as directed (tomorrow for re evaluation ) Instructions: Migraines (DC), Stroke (DC) Additional Instructions: Follow-up with primary care for reevaluation and may need referral for neurology and also outpatient MRI for further evaluation. Get your Eliquis prescription filled and start taking it regularly.
[2021-12-26 21:11] VITALS: BP 120/83; PULSE 82
[2021-12-26 22:05] LABS: Epithelial Cells RARE /HPF (FEW); Mucus SLIGHT /HPF (NEGATIVE); WBC 0-2 /HPF (0-5)
[2021-12-26 22:15] LABS: Appearance CLEAR (CLEAR); Bilirubin NEGATIVE (NEGATIVE); Dipstick done @ ? MAIN LAB; Glucose NEGATIVE (NEGATIVE); Ketones NEGATIVE (NEGATIVE); Nitrite NEGATIVE (NEGATIVE); Ph 5.5 (5-6); Protein,Urine Dip NEGATIVE (Negative); RBC NEGATIVE Ery/ul (0-5); Urobilinogen 0.2 mg/dL (0-1)
[2021-12-26 22:16] LABS: RBC 0-2 /HPF (0-2); Urine Cultured Indicated? NO
--- NOTE | 2021-12-27 08:46 | XRAY ---
Indication: "Halo" in both eyes. "Odd" feeling. Right-sided heaviness. Multiple contiguous axial images obtained through the head prior to and following 80 cc Isovue 370 contrast. Comparison: December 06, 2018 Ventriculosulcal pattern appears symmetric. No acute intracranial hemorrhage, abnormal extra-axial fluid collection, or mass effect. Postcontrast images are negative for abnormal enhancing intra or extra-axial mass. Ventricle is midline without hydrocephalus. Sood-white matter differentiation preserved. Bony calvarium intact. Again incompletely visualized 2.8 cm right maxillary sinus polyp/retention cyst with new smaller polyps/retention cysts in left sphenoid sinus. Mastoid air cells are clear. Impression: Paranasal polyps/retention cysts. Remaining CT head with and without contrast exam is normal. Comment: Preliminary interpretation made by [facility]. No critical discrepancy.
[2021-12-27 13:02] LABS: MAGNESIUM 1.8 mg/dL (1.6-2.3)
== END 2021-12-26 21:16 | disposition home or self-care (01) ==
LOC: ED 18:05
DX: G43.109 Migraine with aura, not intractable, without status migrainosus (principal); M62.830 Muscle spasm of back; H53.19 Other subjective visual disturbances; R20.2 Paresthesia of skin; Z72.0 Tobacco use; Z79.01 Long term (current) use of anticoagulants; Z79.899 Other long term (current) drug therapy
CPT/HCPCS: 36000; 36415; 70470; 80053; 81015; 82947; 83735; 84484; 85025; 93005; 96360; 99284

== ENCOUNTER 2021-12-31 22:09 | Emergency (ER) | payer OTHER ==
--- NOTE | 2021-12-31 22:35 | ERPHSYRPT ---
- History of Present Illness Time Seen by Provider: 12/31/21 22:19 Historian: patient, EMS Exam Limitations: no limitations Patient Subjective Stated Complaint: pt states while sitting she began having lt arm pain. states she then had pain in her chest, describes as tightness. started amlodipine monday and hasnt been feeling well since. Triage Nursing Assessment: pt alert and oriented, answers questions approp. pt arrive per ambulance and ambulates to stretcher per self. skin warm and dry, respirations nonlabored. lungs cta. heart rate 92 on monitor, sinus rhythm. Physician History: 31-year-old morbidly obese female with history of PE was recently off of Eliquis and started taking again 3 to 4 days ago presented in the ER with chief complaint of chest pain via EMS. Patient reports she was sitting on a couch and started feel having some arm pain, stood up and pain was in the left side chest moderate intensity, nonradiating without associated palpitations or shortness of breath. It lasted for less than 2 minutes and on EMS arrival chest pain was improved. She is currently pain-free. Patient reports she is recently started on amlodipine and has not been feeling well and her pulse is in low 100s. Timing/Duration: hour(s) (0.5), sudden, improved Activities at Onset: rest Quality: sharpness Location: substernal Chest Pain Radiation: arm Severity of Pain-Max: moderate Severity of Pain-Current: none Modifying Factors: Improves With: nothing Associated Symptoms: denies symptoms Prior Chest Pain/Cardiac Workup: no prior cardiac workup Nitro Today/Relief: no nitro taken today Aspirin Treatment Today: unknown Allergies/Adverse Reactions: fluoxetine HCl [From Prozac] Adverse Reaction (Severe, Verified 12/31/21 22:28) Nausea PROZAC WITH FLUOXETINE HAS BLOOD IN STOOL sertraline [From Zoloft] Adverse Reaction (Intermediate, Verified 12/31/21 22:28) Home Medications: Levothyroxine Sodium 25 Mcg [Synthroid 25 Mcg] 88 mcg PO DAILY 12/02/18 [History] Gabapentin 100 mg PO TID PRN PRN 05/25/20 [History] Naproxen 500 mg [Naprosyn 500 MG] 500 mg PO BID PRN PRN 05/25/20 [History] Allopurinol 100 mg [Zyloprim 100 mg] 100 mg PO DAILY 01/11/21 [History] Apixaban [Eliquis 2.5 mg Tablet] 5 mg PO DAILY 03/22/21 [History] Escitalopram Oxalate [Lexapro] 20 mg PO DAILY 09/03/21 [History] Amlodipine Besylate [Norvasc] 2.5 mg PO DAILY 12/31/21 [History] Hx Tetanus, Diphtheria Vaccination/Date Given: Yes Hx Influenza Vaccination/Date Given: No Hx Pneumococcal Vaccination/Date Given: No Immunizations Up to Date: Yes Travel Risk - International Travel Have you traveled outside of the country in past 3 weeks: No - Coronavirus Screening Are you exhibiting any of the following symptoms?: No Close contact with a COVID-19 positive Pt in past 14-21 Days: No - Vaccine Status Have you recieved a Covid-19 vaccination: Yes 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 - Vaccination Dates Date of 2cond Vaccination (if applicable): 10/2020 - Review of Systems Constitutional: No Symptoms Eyes: No Symptoms Ears, Nose, & Throat: No Symptoms Respiratory: No Symptoms Cardiac: Chest Pain Abdominal/Gastrointestinal: No Symptoms Genitourinary Symptoms: No Symptoms Musculoskeletal: No Symptoms Skin: No Symptoms Neurological: No Symptoms Psychological: No Symptoms Endocrine: No Symptoms Hematologic/Lymphatic: Blood Clots Immunological/Allergic: No Symptoms - Past Medical History Pertinent Past Medical History: Yes Neurological History: Migraines ENT History: No Pertinent History Cardiac History: Deep Vein Thrombosis, Hypertension Respiratory History: No Pertinent History Endocrine Medical History: Hypothyroidism Musculoskeletal History: No Pertinent History GI Medical History: No Pertinent History History: No Pertinent History Psycho-Social History: Anxiety, Depression Female Reproductive Disorders: No Pertinent History Other Medical History: She notes sharp pain down R LE that go to her ankle. 8 months post . She notes back pain when she was . - Past Surgical History Past Surgical History: No Neuro Surgical History: No Pertinent History Cardiac: No Pertinent History Respiratory: No Pertinent History Gastrointestinal: No Pertinent History Genitourinary: No Pertinent History Musculoskeletal: No Pertinent History Female Surgical History: No Pertinent History - Social History Smoking Status: Current every day smoker How long have you smoked: 12 years Exposure to second hand smoke: Yes Drug Use: none Patient Lives Alone: No Significant Family History: no pertinent family hx - Female History Hx Last Menstrual Period: today Hx Now: (unkn) - Nursing Vital Signs Nursing Vital Signs: Initial Vital Signs Temperature 97.1 F 12/31/21 22:10 Pulse Rate 95 H 12/31/21 22:10 Blood Pressure 156/101 12/31/21 22:10 O2 Sat by Pulse Oximetry 98 12/31/21 22:10 Pain Scale Pain Intensity 0 - Physical Exam General Appearance: no apparent distress Eye Exam: PERRL/EOMI Ears, Nose, Throat Exam: normal ENT inspection Neck Exam: normal inspection, supple, full range of motion Respiratory Exam: normal breath sounds, lungs clear Cardiovascular Exam: regular rate/rhythm, normal heart sounds Gastrointestinal/Abdomen Exam: soft, normal bowel sounds, No tenderness Back Exam: normal inspection, normal range of motion Extremity Exam: normal inspection, normal range of motion Neurologic Exam: alert, oriented x 3, cooperative Skin Exam: normal color SpO2 Interpretation: normal SpO2: 98 O2 Delivery: Room Air - Course EKG Interpreted by Me: RATE (92), Sinus Rhythm, NORMAL AXIS, NORMAL INTERVALS, Q-wave Lab/Rad Data: Laboratory Result Diagrams 12/31/21 23:07 12/31/21 23:07 Laboratory Results 01/01/22 01/01/22 12/31/21 Range/Units 01:44 00:09 23:07 WBC (4.0-10.5) x10^3/uL RBC (4.1-5.4) x10^6/uL Hgb (12.0-16.0) g/dL Hct (35-47) % MCV (78-100) fL MCH (26-32) pg MCHC (32-36) g/dL RDW (11.5-14.0) % Plt Count (150-450) x10^3/uL MPV (7.5-11.0) fL Gran % (36.0-66.0) % Immature Gran % (Auto) (0.00-0.4) % Nucleat RBC Rel Count (0.00-0.1) % Eos # (Auto) (0-0.5) x10^3/uL Immature Gran # (Auto) (0.00-0.03) x10^3u/L Absolute Lymphs (auto) (1.0-4.6) x10^3/uL Absolute Monos (auto) (0.0-1.3) x10^3/uL Absolute Nucleated RBC (0.00-0.01) x10^3u/L Lymphocytes % (24.0-44.0) % Monocytes % (0.0-12.0) % Eosinophils % (0.00-5.0) % Basophils % (0.0-0.4) % Absolute Granulocytes (1.4-6.9) x10^3/uL Basophils # (0-0.4) x10^3/uL D-Dimer (0.0-0.50) mg/L Sodium (137-145) mmol/L Potassium (3.5-5.1) mmol/L Chloride (98-107) mmol/L Carbon Dioxide (22-30) mmol/L Anion Gap (5-15) MEQ/L BUN (7-17) mg/dL Creatinine (0.52-1.04) mg/dL Estimated GFR ML/MIN Glucose (74-106) mg/dL Calcium (8.4-10.2) mg/dL Total Bilirubin (0.2-1.3) mg/dL AST (14-36) U/L ALT (0-35) U/L Alkaline Phosphatase (38-126) U/L Troponin I < 0.012 < 0.012 (0.000-0.034) ng/mL NT-Pro-B Natriuret Pep (0-450) pg/mL Serum Total Protein (6.3-8.2) g/dL Albumin (3.5-5.0) g/dL Urine HCG, Qual NEGATIVE (Negative) 12/31/21 12/31/21 12/31/21 Range/Units 23:07 23:07 23:07 WBC 8.8 (4.0-10.5) x10^3/uL RBC 4.81 (4.1-5.4) x10^6/uL Hgb 12.8 (12.0-16.0) g/dL Hct 41.9 (35-47) % MCV 87.1 (78-100) fL MCH 26.6 (26-32) pg MCHC 30.5 L (32-36) g/dL RDW 14.0 (11.5-14.0) % Plt Count 219 (150-450) x10^3/uL MPV 11.7 H (7.5-11.0) fL Gran % 60.4 (36.0-66.0) % Immature Gran % (Auto) 0.3 (0.00-0.4) % Nucleat RBC Rel Count 0.0 (0.00-0.1) % Eos # (Auto) 0.31 (0-0.5) x10^3/uL Immature Gran # (Auto) 0.03 (0.00-0.03) x10^3u/L Absolute Lymphs (auto) 2.43 (1.0-4.6) x10^3/uL Absolute Monos (auto) 0.67 (0.0-1.3) x10^3/uL Absolute Nucleated RBC 0.00 (0.00-0.01) x10^3u/L Lymphocytes % 27.8 (24.0-44.0) % Monocytes % 7.7 (0.0-12.0) % Eosinophils % 3.5 (0.00-5.0) % Basophils % 0.3 (0.0-0.4) % Absolute Granulocytes 5.28 (1.4-6.9) x10^3/uL Basophils # 0.03 (0-0.4) x10^3/uL D-Dimer 0.76 H* (0.0-0.50) mg/L Sodium 138 (137-145) mmol/L Potassium 3.8 (3.5-5.1) mmol/L Chloride 104 (98-107) mmol/L Carbon Dioxide 31 H (22-30) mmol/L Anion Gap 7.2 (5-15) MEQ/L BUN 10 (7-17) mg/dL Creatinine 0.79 (0.52-1.04) mg/dL Estimated GFR > 60.0 ML/MIN Glucose 122 H (74-106) mg/dL Calcium 8.1 L (8.4-10.2) mg/dL Total Bilirubin 0.50 (0.2-1.3) mg/dL AST 58 H (14-36) U/L ALT 53 H (0-35) U/L Alkaline Phosphatase 69 (38-126) U/L Troponin I (0.000-0.034) ng/mL NT-Pro-B Natriuret Pep 131 (0-450) pg/mL Serum Total Protein 7.2 (6.3-8.2) g/dL Albumin 3.9 (3.5-5.0) g/dL Urine HCG, Qual (Negative) - Progress Progress: improved Air Movement: good Progress Note: 01/01/22 ruled out acute coronary syndrome, pneumonia, pneumothorax, pulmonary embolism, dissection. Patient is feeling better on reevaluation. Low heart score. Do not think she needs any further work-up in the ER or needs inpatient admission. Recommended outpatient follow-up. Discussed signs symptoms of worsening needing return to ER which she seems understanding. Blood Culture(s) Obtained: No Antibiotics given: No Counseled pt/family regarding: lab results, diagnosis, need for follow-up, rad results - Departure Departure Disposition: Home Clinical Impression: Atypical chest pain Condition: Stable Critical Care Time: No Referrals: QUINTON POWERS DO [Primary Care Provider] - Follow Up with PCP/3 days Instructions: Angina (DC), Chest Pain (DC) Additional Instructions: Follow-up with primary care for reevaluation. Take Tylenol/ibuprofen as needed. Return to ER for worsening chest pain or if having difficulty breathing. Continue taking your Eliquis regularly.
[2021-12-31 23:11] LABS: Absolute Neutrophil Ct (ANC) 5.28 x10^3/uL (1.4-6.9); Basophil (Absolute #) 0.03 x10^3/uL (0-0.4); Eosinophil % 3.5 % (0.00-5.0); Eosinophil (Absolute #) 0.31 x10^3/uL (0-0.5); Hematocrit 41.9 % (35-47); Hemoglobin 12.8 g/dL (12.0-16.0); Lymphocyte (Absolute #) 2.43 x10^3/uL (1.0-4.6); Lymphocytes % 27.8 % (24.0-44.0); Mean Cell Volume 87.1 fL (78-100); Mean Corpuscular Hemoglobin 26.6 pg (26-32); Mean Corpuscular Hgb Concent. 30.5 g/dL (32-36); Mean Platelet Volume 11.7 fL (7.5-11.0); Monocyte (Absolute #) 0.67 x10^3/uL (0.0-1.3); Monocytes % 7.7 % (0.0-12.0); Neutrophil % 60.4 % (36.0-66.0); Platelet Count 219 x10^3/uL (150-450); Red Blood Count 4.81 x10^6/uL (4.1-5.4); White Blood Count 8.8 x10^3/uL (4.0-10.5)
[2021-12-31 23:35] LABS: ALBUMIN 3.9 g/dL (3.5-5.0); ALKALINE PHOSPHATASE 69 U/L (38-126); ANION GAP 7.2 MEQ/L (5-15); BLOOD UREA NITROGEN 10 mg/dL (7-17); CHLORIDE 104 mmol/L (98-107); Calcium 8.1 mg/dL (8.4-10.2); Carbon Dioxide 31 mmol/L (22-30); Creatinine 1 0.79 mg/dL (0.52-1.04); EST GLOMERULAR FILTRATION RATE > 60.0 ML/MIN; Glucose 122 mg/dL (74-106); NT PRO BNP 131 pg/mL (0-450); Potassium 3.8 mmol/L (3.5-5.1); SGOT/AST 58 U/L (14-36); SGPT/ALT 53 U/L (0-35); SODIUM 138 mmol/L (137-145); Total Protein 7.2 g/dL (6.3-8.2)
[2022-01-01 02:21] VITALS: BP 93/67; PULSE 66
--- NOTE | 2022-01-01 08:20 | XRAY ---
Indication: Chest pain, dizziness, and lightheaded. Elevated d-dimer. Multiple contiguous axial images obtained through the chest using 100 cc Isovue 370 contrast and PE protocol. Comparison: July 20, 2021 Good opacification of the pulmonary arteries to include the lobar and segmental branches. No pulmonary embolus. Heart not enlarged. Aorta is normal in course and caliber. Stable tiny right hilar calcified nodes. No pathologic mediastinal/hilar lymphadenopathy. Stable small hiatal hernia. Lungs inflated with stable small right middle lobe calcified granuloma. No suspicious pulmonary mass, infiltrate, or effusion. Bony thorax intact. Limited upper abdomen again demonstrates fatty liver. Impression: 1. Continued negative pulmonary embolus. No new/acute cardiopulmonary abdomen abnormalities. 2. Again incidental small hiatal hernia, fatty liver, and old granulomatous disease. Comment: Preliminary interpretation may by C. No critical discrepancy.
--- NOTE | 2022-01-01 08:22 | XRAY ---
Indication: Chest pain. Comparison: March 22, 2021 Portable chest again demonstrates normal heart, lungs, and bony thorax.
[2022-01-02 19:42] VITALS: O2SAT 98
== END 2022-01-01 02:26 | disposition home or self-care (01) ==
LOC: ED 22:09
DX: R07.89 Other chest pain (principal); I10 Essential (primary) hypertension; Z72.0 Tobacco use; Z79.01 Long term (current) use of anticoagulants; Z79.899 Other long term (current) drug therapy
CPT/HCPCS: 36000; 36415; 71045; 71260; 80053; 81025; 83880; 84484; 85025; 85379; 93005; 93041; 99284

== ENCOUNTER 2022-05-28 07:30 | Emergency (ER) | payer OTHER ==
[2022-05-28] MEDS ORDERED: Sodium Chloride 0.9% 1000 ML 1,000 ML IV STA (07:40)
[2022-05-28] MEDS ORDERED: Hydromorphone 1 mg/ml Injection IV ONE ×2 (07:40→09:43)
[2022-05-28] MEDS ORDERED: Reglan 10 MG/2 ML IV ONE (07:43)
--- NOTE | 2022-05-28 07:48 | ERPHSYRPT ---
- History of Present Illness Time Seen by Provider: 05/28/22 07:44 Historian: patient Exam Limitations: no limitations Physician History: Patient is a 31-year-old white female who was awakened from sleep with a popping sensation in her right upper quadrant at 5:30 AM. She continues to complain of pain in the right upper quadrant. She says that she saw her PCP yesterday for routine visit and upon palpation of the abdomen right upper quadrant tenderness was noted at that time. Her PCC's PCP mention she might have a gallbladder problem. She denies any fever chills or sweats no nausea vomiting or diarrhea she denies any previous abdominal surgery Timing/Duration: today Activities at Onset: none Quality: cramping Abdominal Pain Onset Location: RUQ Pain Radiation: no radiation Severity of Pain-Max: moderate Severity of Pain-Current: moderate Modifying Factors: Improves With: nothing Previous symptoms: no prior history Allergies/Adverse Reactions: fluoxetine HCl [From Prozac] Adverse Reaction (Severe, Verified 05/28/22 07:37) Nausea PROZAC WITH FLUOXETINE HAS BLOOD IN STOOL sertraline [From Zoloft] Adverse Reaction (Intermediate, Verified 05/28/22 07:37) Home Medications: Levothyroxine Sodium 25 Mcg [Synthroid 25 Mcg] 88 mcg PO DAILY 12/02/18 [History] Gabapentin 100 mg PO TID PRN PRN 05/25/20 [History] Naproxen 500 mg [Naprosyn 500 MG] 500 mg PO BID PRN PRN 05/25/20 [History] Allopurinol 100 mg [Zyloprim 100 mg] 100 mg PO DAILY 01/11/21 [History] Apixaban [Eliquis 2.5 mg Tablet] 5 mg PO DAILY 03/22/21 [History] Escitalopram Oxalate [Lexapro] 20 mg PO DAILY 09/03/21 [History] Metoprolol Succinate 25 mg Xl* [Toprol-Xl 25MG Tablets] 1 tab PO DAILY 05/28/22 [History] Hx Tetanus, Diphtheria Vaccination/Date Given: Yes Hx Influenza Vaccination/Date Given: No Hx Pneumococcal Vaccination/Date Given: No Travel Risk - Vaccine Status Have you recieved a Covid-19 vaccination: Yes Manager Java: 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 - Vaccination Dates Date of 2cond Vaccination (if applicable): 10/2020 - Review of Systems Constitutional: No Fever, No Chills Eyes: No Symptoms Ears, Nose, & Throat: No Symptoms Respiratory: No Cough, No Dyspnea Cardiac: No Chest Pain, No Edema, No Syncope Abdominal/Gastrointestinal: Abdominal Pain, No Nausea, No Vomiting, No Diarrhea Genitourinary Symptoms: No Dysuria Musculoskeletal: No Back Pain, No Neck Pain Skin: No Rash Neurological: No Dizziness, No Focal Weakness, No Sensory Changes Psychological: No Symptoms Endocrine: No Symptoms All Other Systems: Reviewed and Negative - Past Medical History Pertinent Past Medical History: Yes Neurological History: Migraines ENT History: No Pertinent History Cardiac History: Deep Vein Thrombosis, Hypertension Respiratory History: No Pertinent History Endocrine Medical History: Hypothyroidism Musculoskeletal History: No Pertinent History GI Medical History: No Pertinent History History: No Pertinent History Psycho-Social History: Anxiety, Depression Female Reproductive Disorders: No Pertinent History Other Medical History: She notes sharp pain down R LE that go to her ankle. 8 months post . She notes back pain when she was . - Past Surgical History Past Surgical History: No Neuro Surgical History: No Pertinent History Cardiac: No Pertinent History Respiratory: No Pertinent History Gastrointestinal: No Pertinent History Genitourinary: No Pertinent History Musculoskeletal: No Pertinent History Female Surgical History: No Pertinent History - Social History Smoking Status: Current every day smoker How long have you smoked: 12 years Exposure to second hand smoke: Yes Drug Use: none Patient Lives Alone: No Significant Family History: no pertinent family hx - Female History Hx Now: No - Nursing Vital Signs Nursing Vital Signs: Initial Vital Signs Temperature 96.9 F 05/28/22 07:41 Pulse Rate 75 05/28/22 07:41 Respiratory Rate 18 05/28/22 07:41 Blood Pressure 182/115 05/28/22 07:41 O2 Sat by Pulse Oximetry 97 05/28/22 07:41 Pain Scale Pain Intensity 4 - Physical Exam General Appearance: mild distress, alert Eye Exam: PERRL/EOMI, eyes nml inspection Ears, Nose, Throat Exam: normal ENT inspection, pharynx normal, moist mucous membranes Neck Exam: normal inspection, non-tender, supple, full range of motion Respiratory Exam: normal breath sounds, lungs clear, No respiratory distress Cardiovascular Exam: regular rate/rhythm, normal heart sounds Gastrointestinal/Abdomen Exam: soft, tenderness (Right upper quadrant questionably positive Cross sign), No mass Back Exam: normal inspection, normal range of motion, No CVA tenderness, No vertebral tenderness Extremity Exam: normal inspection, normal range of motion, pelvis stable Neurologic Exam: alert, oriented x 3, cooperative, normal mood/affect, nml cerebellar function, sensation nml, No motor deficits Skin Exam: normal color, warm, dry - Course Nursing assessment & vital signs reviewed: Yes - CT Exams Abdomen/Pelvis CT Interpretation: Tele-radiologist Report, Other (Reviewed today essentially negative report.) Ordered Tests: Active Orders 24 hr Category Date Time Status IV Insertion STAT Care 05/28/22 07:40 Active ABDOMEN AND PELVIS W CONTRAST [CT] Stat Exams 05/28/22 07:40 Taken AMYLASE Stat Lab 05/28/22 07:50 Completed CBC W DIFF Stat Lab 05/28/22 07:50 Completed CMP Stat Lab 05/28/22 07:50 Completed HCG,QUALITATIVE URINE Stat Lab 05/28/22 08:19 Completed LIPASE Stat Lab 05/28/22 07:50 Completed Lactic Acid Stat Lab 05/28/22 07:40 Completed UA W/RFX UR CULTURE Stat Lab 05/28/22 08:19 Completed Urine Triage Profile Stat Lab 05/28/22 08:19 Completed Medication Summary Discontinued Medications Generic Name Dose Route Start Last Admin Trade Name Davidq PRN Reason Stop Dose Admin Hydromorphone HCl 0.5 mg 05/28/22 07:40 05/28/22 08:03 Hydromorphone 1 Mg/1ml Inj 1 Mg/Ml Syringe IV 05/28/22 07:41 0.5 mg STAT ONE Administration Hydromorphone HCl Confirm 05/28/22 07:58 Hydromorphone 1 Mg/1ml Inj 1 Mg/Ml Syringe Administered 05/28/22 07:59 Dose 1 mg .ROUTE .STK-MED ONE Hydromorphone HCl 1 mg 05/28/22 09:43 05/28/22 09:56 Hydromorphone 1 Mg/1ml Inj 1 Mg/Ml Syringe IV 05/28/22 09:44 1 mg STAT ONE Administration Hydromorphone HCl Confirm 05/28/22 09:55 Hydromorphone 1 Mg/1ml Inj 1 Mg/Ml Syringe Administered 05/28/22 09:56 Dose 1 mg .ROUTE .STK-MED ONE Sodium Chloride 1,000 mls @ 999 mls/hr 05/28/22 07:40 05/28/22 09:10 Sodium Chloride 0.9% 1000 Ml IV 05/28/22 08:40 Infused .Q1H1M STA Infusion Sodium Chloride Confirm 05/28/22 07:59 Sodium Chloride 0.9% 1000 Ml Administered 05/28/22 08:00 Dose 1,000 mls @ ud .ROUTE .STK-MED ONE Metoclopramide HCl 10 mg 05/28/22 07:43 05/28/22 08:02 Metoclopramide Hcl 10 Mg/2 Ml Vial IV 05/28/22 07:44 10 mg STAT ONE Administration Metoclopramide HCl Confirm 05/28/22 07:59 Metoclopramide Hcl 10 Mg/2 Ml Vial Administered 05/28/22 08:00 Dose 10 mg .ROUTE .STK-MED ONE Lab/Rad Data: Laboratory Result Diagrams 05/28/22 07:50 05/28/22 07:50 Laboratory Results 05/28/22 05/28/22 05/28/22 Range/Units 08:19 08:19 08:19 WBC (4.0-10.5) x10^3/uL RBC (4.1-5.4) x10^6/uL Hgb (12.0-16.0) g/dL Hct (35-47) % MCV (78-100) fL MCH (26-32) pg MCHC (32-36) g/dL RDW (11.5-14.0) % Plt Count (150-450) x10^3/uL MPV (7.5-11.0) fL Gran % (36.0-66.0) % Immature Gran % (Auto) (0.00-0.4) % Nucleat RBC Rel Count (0.00-0.1) % Eos # (Auto) (0-0.5) x10^3/uL Immature Gran # (Auto) (0.00-0.03) x10^3u/L Absolute Lymphs (auto) (1.0-4.6) x10^3/uL Absolute Monos (auto) (0.0-1.3) x10^3/uL Absolute Nucleated RBC (0.00-0.01) x10^3u/L Lymphocytes % (24.0-44.0) % Monocytes % (0.0-12.0) % Eosinophils % (0.00-5.0) % Basophils % (0.0-0.4) % Absolute Granulocytes (1.4-6.9) x10^3/uL Basophils # (0-0.4) x10^3/uL Sodium (137-145) mmol/L Potassium (3.5-5.1) mmol/L Chloride (98-107) mmol/L Carbon Dioxide (22-30) mmol/L Anion Gap (5-15) MEQ/L BUN (7-17) mg/dL Creatinine (0.52-1.04) mg/dL Estimated GFR ML/MIN Glucose (74-106) mg/dL Lactic Acid (0.4-2.0) Calcium (8.4-10.2) mg/dL Total Bilirubin (0.2-1.3) mg/dL AST (14-36) U/L ALT (0-35) U/L Alkaline Phosphatase (38-126) U/L Serum Total Protein (6.3-8.2) g/dL Albumin (3.5-5.0) g/dL Amylase (30-110) U/L Lipase (23-300) U/L Urine Color Yellow (Yellow) Urine Appearance Clear (Clear) Urine pH 5.5 (4.6-8.0) Ur Specific [place] >=1.030 A (1.005-1.030) Urine Protein Trace A (Negative) Urine Glucose (UA) Negative (Negative) mg/dL Urine Ketones Negative (Negative) Urine Blood Negative (Negative) Urine Nitrite Negative (Negative) Urine Bilirubin Negative (Negative) Urine Urobilinogen 1.0 A (0.2) mg/dL Ur Leukocyte Esterase Negative (Negative) U Hyaline Cast (Auto) NONE SEEN (0-2) /LPF Urine Microscopic RBC 6-10 A (0-5) /HPF Urine Microscopic WBC 0-2 (0-5) /HPF Ur Epithelial Cells Rare (None Seen) /HPF Urine Bacteria None Seen (None Seen) /HPF Urine Culture Reflexed NO (NO) Urine HCG, Qual NEGATIVE (Negative) Urine Opiates Level NEGATIVE (NEGATIVE) Ur Methadone NEGATIVE (NEGATIVE) Urine Barbiturates NEGATIVE (NEGATIVE) Ur Phencyclidine (PCP) NEGATIVE (NEGATIVE) Urine Amphetamine NEGATIVE (NEGATIVE) U Benzodiazepine Level NEGATIVE (NEGATIVE) Urine Cocaine NEGATIVE (NEGATIVE) Urine Marijuana (THC) NEGATIVE (NEGATIVE) 05/28/22 05/28/22 05/28/22 Range/Units 07:50 07:50 07:40 WBC 7.1 (4.0-10.5) x10^3/uL RBC 4.93 (4.1-5.4) x10^6/uL Hgb 13.3 (12.0-16.0) g/dL Hct 42.8 (35-47) % MCV 86.8 (78-100) fL MCH 27.0 (26-32) pg MCHC 31.1 L (32-36) g/dL RDW 13.2 (11.5-14.0) % Plt Count 206 (150-450) x10^3/uL MPV 11.8 H (7.5-11.0) fL Gran % 55.6 (36.0-66.0) % Immature Gran % (Auto) 0.3 (0.00-0.4) % Nucleat RBC Rel Count 0.0 (0.00-0.1) % Eos # (Auto) 0.39 (0-0.5) x10^3/uL Immature Gran # (Auto) 0.02 (0.00-0.03) x10^3u/L Absolute Lymphs (auto) 2.13 (1.0-4.6) x10^3/uL Absolute Monos (auto) 0.56 (0.0-1.3) x10^3/uL Absolute Nucleated RBC 0.00 (0.00-0.01) x10^3u/L Lymphocytes % 30.1 (24.0-44.0) % Monocytes % 7.9 (0.0-12.0) % Eosinophils % 5.5 H (0.00-5.0) % Basophils % 0.6 (0.0-0.4) % Absolute Granulocytes 3.93 (1.4-6.9) x10^3/uL Basophils # 0.04 (0-0.4) x10^3/uL Sodium 142 (137-145) mmol/L Potassium 3.6 (3.5-5.1) mmol/L Chloride 106 (98-107) mmol/L Carbon Dioxide 30 (22-30) mmol/L Anion Gap 10.0 (5-15) MEQ/L BUN 13 (7-17) mg/dL Creatinine 0.68 (0.52-1.04) mg/dL Estimated GFR > 60.0 ML/MIN Glucose 132 H (74-106) mg/dL Lactic Acid 1.3 (0.4-2.0) Calcium 8.3 L (8.4-10.2) mg/dL Total Bilirubin 0.60 (0.2-1.3) mg/dL AST 32 (14-36) U/L ALT 36 H (0-35) U/L Alkaline Phosphatase 91 (38-126) U/L Serum Total Protein 7.2 (6.3-8.2) g/dL Albumin 4.0 (3.5-5.0) g/dL Amylase 54 (30-110) U/L Lipase 74 (23-300) U/L Urine Color (Yellow) Urine Appearance (Clear) Urine pH (4.6-8.0) Ur Specific [place] (1.005-1.030) Urine Protein (Negative) Urine Glucose (UA) (Negative) mg/dL Urine Ketones (Negative) Urine Blood (Negative) Urine Nitrite (Negative) Urine Bilirubin (Negative) Urine Urobilinogen (0.2) mg/dL Ur Leukocyte Esterase (Negative) U Hyaline Cast (Auto) (0-2) /LPF Urine Microscopic RBC (0-5) /HPF Urine Microscopic WBC (0-5) /HPF Ur Epithelial Cells (None Seen) /HPF Urine Bacteria (None Seen) /HPF Urine Culture Reflexed (NO) Urine HCG, Qual (Negative) Urine Opiates Level (NEGATIVE) Ur Methadone (NEGATIVE) Urine Barbiturates (NEGATIVE) Ur Phencyclidine (PCP) (NEGATIVE) Urine Amphetamine (NEGATIVE) U Benzodiazepine Level (NEGATIVE) Urine Cocaine (NEGATIVE) Urine Marijuana (THC) (NEGATIVE) - Progress Progress: improved Medical Desision Making - Diagnostic Testing Radiological Interpretation: Reviewed by me, Teleradiologist Report - Risk of complications The pt has a mod risk of morbidity or mortality based on: Need for prescription drug management - Departure Departure Disposition: Home Clinical Impression: Right upper quadrant abdominal pain Condition: Stable Critical Care Time: No Referrals: QUINTON POWERS DO [Primary Care Provider] - Follow up/PCP as directed Instructions: Severe Abdominal Pain, Adult (DC) Prescriptions: PANTOPRAZOLE 40 mg Tablet [Protonix 40MG Tablet] 40 mg PO DAILY 30 Days #30 tab
[2022-05-28] MEDS ORDERED: Hydromorphone 1 mg/ml Injection ONE ×2 (07:58→09:55)
[2022-05-28 07:59] LABS: Absolute Neutrophil Ct (ANC) 3.93 x10^3/uL (1.4-6.9); BASOPHIL % 0.6 % (0.0-0.4); Basophil (Absolute #) 0.04 x10^3/uL (0-0.4); Eosinophil % 5.5 % (0.00-5.0); Eosinophil (Absolute #) 0.39 x10^3/uL (0-0.5); Hematocrit 42.8 % (35-47); Hemoglobin 13.3 g/dL (12.0-16.0); IMMATURE GRAN # 0.02 x10^3u/L (0.00-0.03); IMMATURE GRAN % 0.3 % (0.00-0.4); Lymphocyte (Absolute #) 2.13 x10^3/uL (1.0-4.6); Lymphocytes % 30.1 % (24.0-44.0); Mean Cell Volume 86.8 fL (78-100); Mean Corpuscular Hgb Concent. 31.1 g/dL (32-36); Mean Platelet Volume 11.8 fL (7.5-11.0); Monocyte (Absolute #) 0.56 x10^3/uL (0.0-1.3); Monocytes % 7.9 % (0.0-12.0); Neutrophil % 55.6 % (36.0-66.0); Platelet Count 206 x10^3/uL (150-450); Red Blood Count 4.93 x10^6/uL (4.1-5.4); Red Cell Distribution Width 13.2 % (11.5-14.0); White Blood Count 7.1 x10^3/uL (4.0-10.5)
[2022-05-28] MEDS ORDERED: Reglan 10 MG/2 ML ONE (07:59)
[2022-05-28] MEDS ORDERED: Sodium Chloride 0.9% 1000 ML 1,000 ML ONE (07:59)
[2022-05-28 08:27] LABS: ALKALINE PHOSPHATASE 91 U/L (38-126); AMYLASE 54 U/L (30-110); BLOOD UREA NITROGEN 13 mg/dL (7-17); CHLORIDE 106 mmol/L (98-107); Calcium 8.3 mg/dL (8.4-10.2); Carbon Dioxide 30 mmol/L (22-30); Creatinine 1 0.68 mg/dL (0.52-1.04); EST GLOMERULAR FILTRATION RATE > 60.0 ML/MIN; Glucose 132 mg/dL (74-106); LIPASE 74 U/L (23-300); Potassium 3.6 mmol/L (3.5-5.1); SGOT/AST 32 U/L (14-36); SGPT/ALT 36 U/L (0-35); SODIUM 142 mmol/L (137-145); Total Protein 7.2 g/dL (6.3-8.2)
[2022-05-28 08:44] LABS: ADD URINE CULTURE? NO (NO); Appearance Clear (Clear); Bacteria None Seen /HPF (None Seen); Bilirubin Negative (Negative); Blood Negative (Negative); Epithelial Cells Rare /HPF (None Seen); Glucose, Urine Negative (Negative); Hyaline Casts NONE SEEN /LPF (0-2); Ketones Negative (Negative); Leukocyte Esterase Negative (Negative); Nitrite Negative (Negative); Ph 5.5 (4.6-8.0); Protein,Urine Dip Trace (Negative); Specific Gravity >=1.030 (1.005-1.030); WBC 0-2 /HPF (0-5)
[2022-05-28 09:27] LABS: Amphetamine,Urine NEGATIVE (NEGATIVE); Barbiturate,Urine NEGATIVE (NEGATIVE); Benzodiazepine,Urine NEGATIVE (NEGATIVE); Cocaine,Urine NEGATIVE (NEGATIVE); Methadone,Urine NEGATIVE (NEGATIVE); Opiate,Urine NEGATIVE (NEGATIVE); PCP,Urine NEGATIVE (NEGATIVE); THC,Urine NEGATIVE (NEGATIVE)
[2022-05-28 10:28] VITALS: PULSE 69
[2022-05-28 11:09] VITALS: BP 144/85; O2SAT 95
--- NOTE | 2022-05-28 20:04 | XRAY ---
Indication: Right upper quadrant pain, nausea, and diarrhea. Multiple contiguous axial images obtained through the abdomen and pelvis using 100 cc Isovue 370 contrast. Comparison: February 08, 2019 Lung bases clear. Heart not enlarged. Stomach is distended with food. Gallbladder contracted without gallstones. Noncontrasted stomach and bowel loops appear nonobstructed with normal appendix. Mild sigmoid diverticulosis without diverticulitis. Diffuse fatty liver. No free fluid/air. Remaining liver, gallbladder, pancreas, spleen, adrenal glands, kidneys, ureters, bladder, uterus, and aorta are unremarkable. No pathologic retroperitoneal lymphadenopathy. Osseous structures intact. Impression: 1. Again fatty liver and sigmoid diverticulosis. 2. Remaining CT abdomen/pelvis with contrast exam is negative. Comment: Preliminary interpretation made by [facility]. No critical discrepancy.
== END 2022-05-28 11:19 | disposition home or self-care (01) ==
LOC: ED 07:30
DX: R10.11 Right upper quadrant pain (principal); I10 Essential (primary) hypertension; Z79.01 Long term (current) use of anticoagulants; Z79.899 Other long term (current) drug therapy; Z72.0 Tobacco use
CPT/HCPCS: 36000; 36415; 74177; 80053; 80307; 81001; 81025; 82150; 83605; 83690; 85025; 96374; 96375; 96376; 99284; J1170

== ENCOUNTER 2022-06-08 11:43 | Emergency (ER) | payer OTHER ==
[2022-06-08 12:05] LABS: Absolute Neutrophil Ct (ANC) 5.54 x10^3/uL (1.4-6.9); BASOPHIL % 0.3 % (0.0-0.4); Basophil (Absolute #) 0.03 x10^3/uL (0-0.4); Eosinophil % 4.4 % (0.00-5.0); Eosinophil (Absolute #) 0.39 x10^3/uL (0-0.5); Hematocrit 42.3 % (35-47); Hemoglobin 13.1 g/dL (12.0-16.0); IMMATURE GRAN # 0.03 x10^3u/L (0.00-0.03); IMMATURE GRAN % 0.3 % (0.00-0.4); Lymphocyte (Absolute #) 2.31 x10^3/uL (1.0-4.6); Lymphocytes % 25.9 % (24.0-44.0); Mean Cell Volume 86.2 fL (78-100); Mean Corpuscular Hemoglobin 26.7 pg (26-32); Mean Platelet Volume 11.9 fL (7.5-11.0); Monocyte (Absolute #) 0.62 x10^3/uL (0.0-1.3); Neutrophil % 62.1 % (36.0-66.0); Platelet Count 243 x10^3/uL (150-450); Red Blood Count 4.91 x10^6/uL (4.1-5.4); Red Cell Distribution Width 13.2 % (11.5-14.0); White Blood Count 8.9 x10^3/uL (4.0-10.5)
--- NOTE | 2022-06-08 12:18 | XRAY ---
Indication: Pain. Comparison: December 23, 2021 Portable chest again demonstrates normal heart, lungs, and bony thorax with a few incidental tiny left lung calcified granulomas.
[2022-06-08 12:27] LABS: ALKALINE PHOSPHATASE 87 U/L (38-126); ANION GAP 11.4 MEQ/L (5-15); BLOOD UREA NITROGEN 12 mg/dL (7-17); CHLORIDE 105 mmol/L (98-107); Calcium 8.8 mg/dL (8.4-10.2); Carbon Dioxide 30 mmol/L (22-30); Creatinine 1 0.66 mg/dL (0.52-1.04); EST GLOMERULAR FILTRATION RATE > 60.0 ML/MIN; Glucose 118 mg/dL (74-106); Potassium 3.6 mmol/L (3.5-5.1); SGOT/AST 30 U/L (14-36); SGPT/ALT 36 U/L (0-35); SODIUM 142 mmol/L (137-145); Total Protein 7.3 g/dL (6.3-8.2)
[2022-06-08 13:21] VITALS: O2SAT 92
--- NOTE | 2022-06-08 13:39 | ERPHSYRPT ---
- History of Present Illness Time Seen by Provider: 06/08/22 12:00 Historian: patient Exam Limitations: no limitations Patient Subjective Stated Complaint: PT statse "I was working this morning and I started to get short of breath and have pain in my chest that went into my left shoulder." Triage Nursing Assessment: Pt presented alert and oriented X 3, skin pwd.Pt ambualtes with an upright steady gait, able to speak in clear full sentences. Pt in no apparent respiratory distress. pt resting comfortably on the bed. Physician History: Patient 31-year-old female presents emergency department for evaluation of chest pain shortness of breath. Symptoms started this morning. Patient states chest pain radiates to her left shoulder. Patient has a history of PE and became concerned. Patient currently on Eliquis. Patient has not missed any doses. Pain is minimal at this time. No associated nausea vomiting or diaphoresis. No trauma. No fever. Patient voices no other complaints or concerns at this time. Portions of this note were created with voice recognition technology. There may be grammatical, spelling, punctuation or sound alike errors Timing/Duration: today Activities at Onset: none Quality: aching Location: substernal Chest Pain Radiation: arm Severity of Pain-Max: moderate Severity of Pain-Current: mild Modifying Factors: Improves With: nothing Associated Symptoms: denies symptoms Prior Chest Pain/Cardiac Workup: no prior chest pain Nitro Today/Relief: no nitro taken today Aspirin Treatment Today: no aspirin today Allergies/Adverse Reactions: fluoxetine HCl [From Prozac] Adverse Reaction (Severe, Verified 05/28/22 07:37) Nausea PROZAC WITH FLUOXETINE HAS BLOOD IN STOOL sertraline [From Zoloft] Adverse Reaction (Intermediate, Verified 05/28/22 07:37) Home Medications: Levothyroxine Sodium 25 Mcg [Synthroid 25 Mcg] 88 mcg PO DAILY 12/02/18 [History] Gabapentin 100 mg PO TID PRN PRN 05/25/20 [History] Naproxen 500 mg [Naprosyn 500 MG] 500 mg PO BID PRN PRN 05/25/20 [History] Allopurinol 100 mg [Zyloprim 100 mg] 100 mg PO DAILY 01/11/21 [History] Apixaban [Eliquis 2.5 mg Tablet] 5 mg PO DAILY 03/22/21 [History] Escitalopram Oxalate [Lexapro] 20 mg PO DAILY 09/03/21 [History] Metoprolol Succinate 25 mg Xl* [Toprol-Xl 25MG Tablets] 1 tab PO DAILY 05/28/22 [History] Hydroxyzine HCl 25 mg [Atarax 25 mg] 25 mg PO DAILY 06/08/22 [History] Hx Tetanus, Diphtheria Vaccination/Date Given: Yes Hx Influenza Vaccination/Date Given: No Hx Pneumococcal Vaccination/Date Given: No Immunizations Up to Date: No Travel Risk - International Travel Have you traveled outside of the country in past 3 weeks: No - Coronavirus Screening Are you exhibiting any of the following symptoms?: No Close contact with a COVID-19 positive Pt in past 14-21 Days: No - Vaccine Status Have you recieved a Covid-19 vaccination: Yes 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: [employer] - Vaccination Dates Date of 2cond Vaccination (if applicable): 10/2020 - Review of Systems Constitutional: No Symptoms, No Fever, No Chills Eyes: No Symptoms Ears, Nose, & Throat: No Symptoms Respiratory: No Symptoms, No Cough, No Dyspnea Cardiac: No Symptoms, No Chest Pain, No Edema, No Syncope Abdominal/Gastrointestinal: No Symptoms, No Abdominal Pain, No Nausea, No Vomiting, No Diarrhea Genitourinary Symptoms: No Symptoms, No Dysuria Musculoskeletal: No Symptoms, No Back Pain, No Neck Pain Skin: No Symptoms, No Rash Neurological: No Symptoms, No Dizziness, No Focal Weakness, No Sensory Changes Psychological: No Symptoms Endocrine: No Symptoms Hematologic/Lymphatic: No Symptoms Immunological/Allergic: No Symptoms All Other Systems: Reviewed and Negative - Past Medical History Pertinent Past Medical History: Yes Neurological History: Migraines ENT History: No Pertinent History Cardiac History: Deep Vein Thrombosis, Hypertension Respiratory History: No Pertinent History Endocrine Medical History: Hypothyroidism Musculoskeletal History: No Pertinent History GI Medical History: No Pertinent History History: No Pertinent History Psycho-Social History: Anxiety, Depression Female Reproductive Disorders: No Pertinent History Other Medical History: She notes sharp pain down R LE that go to her ankle. 8 months post . She notes back pain when she was . - Past Surgical History Past Surgical History: No Neuro Surgical History: No Pertinent History Cardiac: No Pertinent History Respiratory: No Pertinent History Gastrointestinal: No Pertinent History Genitourinary: No Pertinent History Musculoskeletal: No Pertinent History Female Surgical History: No Pertinent History - Social History Smoking Status: Current every day smoker How long have you smoked: 12 years Exposure to second hand smoke: Yes Drug Use: none Patient Lives Alone: No Significant Family History: no pertinent family hx - Female History Hx Last Menstrual Period: 05/23/2022 Hx Now: No - Nursing Vital Signs Nursing Vital Signs: Initial Vital Signs Temperature 96.6 F 06/08/22 11:44 Pulse Rate 82 06/08/22 11:44 Respiratory Rate 22 06/08/22 11:44 Blood Pressure 170/96 06/08/22 11:44 O2 Sat by Pulse Oximetry 96 06/08/22 11:44 Pain Scale Pain Intensity 4 - Physical Exam General Appearance: no apparent distress, alert Eye Exam: PERRL/EOMI, eyes nml inspection Ears, Nose, Throat Exam: normal ENT inspection, moist mucous membranes Neck Exam: normal inspection, non-tender, supple, full range of motion Respiratory Exam: normal breath sounds, lungs clear, airway intact, No respiratory distress Cardiovascular Exam: regular rate/rhythm, normal heart sounds Gastrointestinal/Abdomen Exam: soft, No tenderness, No mass Back Exam: normal inspection, No CVA tenderness, No vertebral tenderness Extremity Exam: normal inspection, normal range of motion Neurologic Exam: alert, oriented x 3, cooperative, normal mood/affect, sensation nml, No motor deficits Skin Exam: normal color, warm, dry Lymphatic Exam: No adenopathy SpO2 Interpretation: normal SpO2: 92 O2 Delivery: Room Air - Course Nursing assessment & vital signs reviewed: Yes EKG Interpreted by Me: RATE (79), Sinus Rhythm, NORMAL AXIS, NORMAL INTERVALS - Radiology Exams Chest X-ray Interpretation: Teleradiologist Report (Lung granuloma) Ordered Tests: Active Orders 24 hr Category Date Time 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 Care 06/08/22 11:56 Active EKG-ER Only STAT Care 06/08/22 11:55 Active IV Insertion STAT Care 06/08/22 11:55 Active Pulse Oximetry (ED) STAT Care 06/08/22 11:55 Active CHEST 1 VIEW (PORTABLE) Stat Exams 06/08/22 11:55 Completed CBC W DIFF Stat Lab 06/08/22 11:55 Completed CMP Stat Lab 06/08/22 12:00 Completed D-DIMER QUANTITATIVE Stat Lab 06/08/22 12:00 Completed TROPONIN Q4H Lab 06/08/22 12:00 Completed TROPONIN Q4H Lab 06/08/22 16:00 Ordered TROPONIN Q4H Lab 06/08/22 20:00 Ordered Lab/Rad Data: Laboratory Result Diagrams 06/08/22 11:55 06/08/22 12:00 Laboratory Results 06/08/22 06/08/22 06/08/22 Range/Units 12:00 12:00 12:00 WBC (4.0-10.5) x10^3/uL RBC (4.1-5.4) x10^6/uL Hgb (12.0-16.0) g/dL Hct (35-47) % MCV (78-100) fL MCH (26-32) pg MCHC (32-36) g/dL RDW (11.5-14.0) % Plt Count (150-450) x10^3/uL MPV (7.5-11.0) fL Gran % (36.0-66.0) % Immature Gran % (Auto) (0.00-0.4) % Nucleat RBC Rel Count (0.00-0.1) % Eos # (Auto) (0-0.5) x10^3/uL Immature Gran # (Auto) (0.00-0.03) x10^3u/L Absolute Lymphs (auto) (1.0-4.6) x10^3/uL Absolute Monos (auto) (0.0-1.3) x10^3/uL Absolute Nucleated RBC (0.00-0.01) x10^3u/L Lymphocytes % (24.0-44.0) % Monocytes % (0.0-12.0) % Eosinophils % (0.00-5.0) % Basophils % (0.0-0.4) % Absolute Granulocytes (1.4-6.9) x10^3/uL Basophils # (0-0.4) x10^3/uL D-Dimer 0.36 (0.0-0.50) mg/L Sodium 142 (137-145) mmol/L Potassium 3.6 (3.5-5.1) mmol/L Chloride 105 (98-107) mmol/L Carbon Dioxide 30 (22-30) mmol/L Anion Gap 11.4 (5-15) MEQ/L BUN 12 (7-17) mg/dL Creatinine 0.66 (0.52-1.04) mg/dL Estimated GFR > 60.0 ML/MIN Glucose 118 H (74-106) mg/dL Calcium 8.8 (8.4-10.2) mg/dL Total Bilirubin 0.50 (0.2-1.3) mg/dL AST 30 (14-36) U/L ALT 36 H (0-35) U/L Alkaline Phosphatase 87 (38-126) U/L Troponin I < 0.012 (0.000-0.034) ng/mL Serum Total Protein 7.3 (6.3-8.2) g/dL Albumin 4.0 (3.5-5.0) g/dL 06/08/22 Range/Units 11:55 WBC 8.9 (4.0-10.5) x10^3/uL RBC 4.91 (4.1-5.4) x10^6/uL Hgb 13.1 (12.0-16.0) g/dL Hct 42.3 (35-47) % MCV 86.2 (78-100) fL MCH 26.7 (26-32) pg MCHC 31.0 L (32-36) g/dL RDW 13.2 (11.5-14.0) % Plt Count 243 (150-450) x10^3/uL MPV 11.9 H (7.5-11.0) fL Gran % 62.1 (36.0-66.0) % Immature Gran % (Auto) 0.3 (0.00-0.4) % Nucleat RBC Rel Count 0.0 (0.00-0.1) % Eos # (Auto) 0.39 (0-0.5) x10^3/uL Immature Gran # (Auto) 0.03 (0.00-0.03) x10^3u/L Absolute Lymphs (auto) 2.31 (1.0-4.6) x10^3/uL Absolute Monos (auto) 0.62 (0.0-1.3) x10^3/uL Absolute Nucleated RBC 0.00 (0.00-0.01) x10^3u/L Lymphocytes % 25.9 (24.0-44.0) % Monocytes % 7.0 (0.0-12.0) % Eosinophils % 4.4 (0.00-5.0) % Basophils % 0.3 (0.0-0.4) % Absolute Granulocytes 5.54 (1.4-6.9) x10^3/uL Basophils # 0.03 (0-0.4) x10^3/uL D-Dimer (0.0-0.50) mg/L Sodium (137-145) mmol/L Potassium (3.5-5.1) mmol/L Chloride (98-107) mmol/L Carbon Dioxide (22-30) mmol/L Anion Gap (5-15) MEQ/L BUN (7-17) mg/dL Creatinine (0.52-1.04) mg/dL Estimated GFR ML/MIN Glucose (74-106) mg/dL Calcium (8.4-10.2) mg/dL Total Bilirubin (0.2-1.3) mg/dL AST (14-36) U/L ALT (0-35) U/L Alkaline Phosphatase (38-126) U/L Troponin I (0.000-0.034) ng/mL Serum Total Protein (6.3-8.2) g/dL Albumin (3.5-5.0) g/dL - Progress Progress: improved Air Movement: good Progress Note: 06/08/22 14:59 Heart score is 2 06/08/22 15:02 Patient reassessed. She is well asymptomatic. Studies include chest x-ray which is negative. CBC CMP D-dimer troponin also negative. Patient vitals are stable. 31-year-old female presents to our ED with chest pain. Preliminary work-up essentially nonremarkable. Patient has a history of blood clots. Patient currently anticoagulated on Eliquis. Complexity of problem addressed is low. Acute uncomplicated. No critical care time. Complexity of data reviewed is moderate. Test ordered. Test reviewed. Patient served as independent historian. No outside documents reviewed. Independent interpretation of laboratory data completed. Heart score calculation completed. Patient's heart score is 2. Based on this score patient may be safely discharged home. Visit complication and or risk morbidity/mortality of patient management is low. Patient be discharged home. Troponin negative x2. Heart pathway completed. Plan of care determined based on shared decision making process. Time spent on discharge is approximately 10 minutes. Discharge diagnosis is chest pain. Vital stable. Patient agrees to follow-up with primary care doctor within 48 hours for reevaluation. She voices no other complaints or concerns at this time. Portions of this note were created with voice recognition technology. There may be grammatical, spelling, punctuation or sound alike errors Work note provided 06/08/22 15:08 Blood Culture(s) Obtained: No Antibiotics given: No Counseled pt/family regarding: lab results, diagnosis, rad results - Departure Departure Disposition: Home Clinical Impression: Chest pain Condition: Stable Critical Care Time: No Referrals: QUINTON POWERS DO [Primary Care Provider] - Follow up/PCP as directed Forms: Work/School Release Form
[2022-06-08 15:08] VITALS: BP 149/90; PULSE 66
== END 2022-06-08 15:17 | disposition home or self-care (01) ==
LOC: ED 11:43
DX: R07.9 Chest pain, unspecified (principal); R06.02 Shortness of breath; I10 Essential (primary) hypertension; Z86.711 Personal history of pulmonary embolism; Z79.01 Long term (current) use of anticoagulants; Z79.899 Other long term (current) drug therapy; Z72.0 Tobacco use
CPT/HCPCS: 36000; 36415; 71045; 80053; 84484; 85025; 85379; 93005; 93041; 94760; 99284

== ENCOUNTER 2022-06-24 10:38 | Emergency (ER) | payer OTHER ==
--- NOTE | 2022-06-24 11:09 | ERPHSYRPT ---
- History of Present Illness Time Seen by Provider: 06/24/22 11:00 Source: patient Exam Limitations: no limitations Patient Subjective Stated Complaint: C/O right hip pain. Patient states she had pain yesterday but heard it pop while sitting on the floor this am making the pain worse. Triage Nursing Assessment: Patient ambulated back to ER with unsteady gait; refused the use of w/c. She is alert and oriented. No SOB. Patient moving leg around in bed independently. Physician History: This is a morbidly obese 31-year-old white female patient of Dr. Serna who was having some pain in her right hip recently. Dr. Castanon had written orders for right hip x-ray as an outpatient. However, this morning she heard a "pop" while sitting. It made the pain worse. Patient was able to ambulate from the waiting area to her emergency room bed with some discomfort noted. Patient did not fall or have acute traumatic injury. She denies chest pain she has no shortness of breath. She has no abdominal pain. She does have a history of hypothyroidism and hypertension. Timing/Duration: yesterday Occured at: other (Unknown) Context: unknown Quality: aching Hip Pain Location: hip (R) Severity of Pain-Max: mild (To moderate with ambulation) Severity of Pain-Current: mild (To moderate with ambulation) Modifying Factors: Improves With: movement Symptoms prior to fall: none Associated Symptoms: denies symptoms Allergies/Adverse Reactions: fluoxetine HCl [From Prozac] Adverse Reaction (Severe, Verified 06/24/22 10:44) Nausea PROZAC WITH FLUOXETINE HAS BLOOD IN STOOL sertraline [From Zoloft] Adverse Reaction (Intermediate, Verified 06/24/22 10:44) Home Medications: Levothyroxine Sodium 25 Mcg [Synthroid 25 Mcg] 88 mcg PO DAILY 12/02/18 [History] Gabapentin 100 mg PO TID PRN PRN 05/25/20 [History] Naproxen 500 mg [Naprosyn 500 MG] 500 mg PO BID PRN PRN 05/25/20 [History] Allopurinol 100 mg [Zyloprim 100 mg] 100 mg PO DAILY 01/11/21 [History] Apixaban [Eliquis 2.5 mg Tablet] 5 mg PO DAILY 03/22/21 [History] Escitalopram Oxalate [Lexapro] 20 mg PO DAILY 09/03/21 [History] Metoprolol Succinate 25 mg Xl* [Toprol-Xl 25MG Tablets] 1 tab PO DAILY 05/28/22 [History] Hydroxyzine HCl 25 mg [Atarax 25 mg] 25 mg PO DAILY 06/08/22 [History] Hx Tetanus, Diphtheria Vaccination/Date Given: Yes Hx Influenza Vaccination/Date Given: No Hx Pneumococcal Vaccination/Date Given: No Immunizations Up to Date: Yes Travel Risk - International Travel Have you traveled outside of the country in past 3 weeks: No - Coronavirus Screening Are you exhibiting any of the following symptoms?: No Close contact with a COVID-19 positive Pt in past 14-21 Days: No - Vaccine Status Have you recieved a Covid-19 vaccination: Yes 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[employer] - Vaccination Dates Date of 2cond Vaccination (if applicable): 10/2020 - Review of Systems Constitutional: No Symptoms Eyes: No Symptoms Ears, Nose, & Throat: No Symptoms Respiratory: No Symptoms Cardiac: No Symptoms Abdominal/Gastrointestinal: No Symptoms Genitourinary Symptoms: No Symptoms Musculoskeletal: Joint Pain (Right hip pain), No Fall, No Injury Skin: No Symptoms Neurological: No Symptoms Psychological: No Symptoms Endocrine: No Symptoms Hematologic/Lymphatic: No Symptoms Immunological/Allergic: No Symptoms All Other Systems: Reviewed and Negative - Past Medical History Pertinent Past Medical History: Yes Neurological History: Migraines ENT History: No Pertinent History Cardiac History: Deep Vein Thrombosis, Hypertension Respiratory History: No Pertinent History Endocrine Medical History: Hypothyroidism Musculoskeletal History: No Pertinent History GI Medical History: No Pertinent History History: No Pertinent History Psycho-Social History: Anxiety, Depression Female Reproductive Disorders: No Pertinent History Other Medical History: She notes sharp pain down R LE that go to her ankle. 8 months post . She notes back pain when she was . - Past Surgical History Past Surgical History: No Neuro Surgical History: No Pertinent History Cardiac: No Pertinent History Respiratory: No Pertinent History Gastrointestinal: No Pertinent History Genitourinary: No Pertinent History Musculoskeletal: No Pertinent History Female Surgical History: No Pertinent History - Social History Smoking Status: Current every day smoker How long have you smoked: 12 y.o. Exposure to second hand smoke: Yes Drug Use: none Patient Lives Alone: No Significant Family History: no pertinent family hx - Female History Hx Now: No - Nursing Vital Signs Nursing Vital Signs: Initial Vital Signs Temperature 97.8 F 06/24/22 10:45 Pulse Rate 70 06/24/22 10:45 Respiratory Rate 18 06/24/22 10:45 Blood Pressure 162/68 06/24/22 10:45 O2 Sat by Pulse Oximetry 97 06/24/22 10:45 Pain Scale Pain Intensity 8 - Physical Exam General Appearance: no apparent distress, alert, anxiety, obese Eye Exam: PERRL/EOMI, eyes nml inspection Ears, Nose, Throat Exam: normal ENT inspection, moist mucous membranes Neck Exam: normal inspection, non-tender, supple, full range of motion Respiratory Exam: lungs clear, airway intact, No chest tenderness, No respiratory distress Gastrointestinal Exam: No tenderness Pelvic Exam: not done Rectal Exam: not done Back Exam: normal inspection, normal range of motion, No CVA tenderness, No vertebral tenderness Extremity Exam: normal inspection, normal range of motion, pelvis stable, tenderness (Right hip), No deformities Neurologic Exam: alert, oriented x 3, cooperative, 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 There is no acute fracture or dislocation. This patient's medical issue is 1 of low complexity. The level of complexity in the work-up performed is based on the patient's history of present illness, review of the patient's medication list, review of the patient's drug allergy list, history of present illness and physical findings on examination. The sole test that was ordered was x-ray of the right hip and pelvis. There is no evidence of any acute fracture or dislocation. Patient will follow-up with her primary care provider for further evaluation management. Counseled pt/family regarding: diagnosis, need for follow-up, rad results Medical Desision Making - Discussion of managment Agreed on:: Treatment plan, need for follow-up - Diagnostic Testing Diagnostic test were ordered, analyzed, and reviewed by me: Yes Radiological Interpretation: Reviewed by me, Teleradiologist Report - Risk of complications Minimal Risk: Minimal risk of morbidity - Departure Departure Disposition: Home Clinical Impression: Right hip pain Condition: Stable Critical Care Time: No Referrals: QUINTON SERNA DO [Primary Care Provider] - Follow up/PCP as directed Additional Instructions: Ice pack to right hip 3 times a day for next 48 hours. Use Tylenol and ibup rofen for pain control. Activity as tolerated. Follow-up with Dr. Castanon in her office for further evaluation and management including pain control.
--- NOTE | 2022-06-24 11:54 | XRAY ---
Indication: Chronic popping right hip. Comparison: April 27, 2020 AP pelvis and 2 view right hip again demonstrates normal bones, articulation, and soft tissues.
[2022-06-24 12:41] VITALS: BP 128/81; PULSE 78; O2SAT 98
== END 2022-06-24 12:41 | disposition home or self-care (01) ==
LOC: ED 10:38
DX: M25.551 Pain in right hip (principal); I10 Essential (primary) hypertension; Z79.01 Long term (current) use of anticoagulants; Z79.899 Other long term (current) drug therapy; Z72.0 Tobacco use
CPT/HCPCS: 73502; 99282

== ENCOUNTER 2022-07-03 20:48 | Emergency (ER) | payer OTHER ==
--- NOTE | 2022-07-03 22:17 | ERPHSYRPT ---
- History of Present Illness Time Seen by Provider: 07/03/22 22:17 Source: patient, family Exam Limitations: no limitations Physician History: Jammed the second toe on her right foot, painful, needs work note. Method of Injury: direct blow Occurred: just prior to arrival Quality: constant Severity of Pain-Max: moderate Severity of Pain-Current: moderate Lower Extremities Pain: 2nd toe: right (contused) Modifying Factors: Improves With: rest. Worsens With: movement Associated Symptoms: none Allergies/Adverse Reactions: fluoxetine HCl [From Prozac] Adverse Reaction (Severe, Verified 06/24/22 10:44) Nausea PROZAC WITH FLUOXETINE HAS BLOOD IN STOOL sertraline [From Zoloft] Adverse Reaction (Intermediate, Verified 06/24/22 10:44) Home Medications: Levothyroxine Sodium 25 Mcg [Synthroid 25 Mcg] 100 mcg PO DAILY 12/02/18 [History] Gabapentin 100 mg PO TID PRN PRN 05/25/20 [History] Naproxen 500 mg [Naprosyn 500 MG] 500 mg PO BID PRN PRN 05/25/20 [History] Allopurinol 100 mg [Zyloprim 100 mg] 200 mg PO DAILY 01/11/21 [History] Apixaban [Eliquis 2.5 mg Tablet] 5 mg PO BID 03/22/21 [History] Escitalopram Oxalate [Lexapro] 20 mg PO DAILY 09/03/21 [History] Metoprolol Succinate 25 mg Xl* [Toprol-Xl 25MG Tablets] 1 tab PO DAILY 05/28/22 [History] Hydroxyzine HCl 25 mg [Atarax 25 mg] 25 mg PO DAILY 06/08/22 [History] Calcium Carbonate [Calcium] 1,200 mg PO DAILY 07/03/22 [History] Cyclobenzaprine HCl 5 mg PO TID PRN 07/03/22 [History] Magnesium 250 mg PO TID 07/03/22 [History] Mecobalamin [B12 Active] 1,000 mcg SL DAILY 07/03/22 [History] Rosuvastatin Calcium 5 mg PO DAILY 07/03/22 [History] predniSONE [Prednisone] 5 mg PO DIRECTIONS UNKNOWN 07/03/22 [History] Hx Tetanus, Diphtheria Vaccination/Date Given: Yes Hx Influenza Vaccination/Date Given: No Hx Pneumococcal Vaccination/Date Given: No Travel Risk - Vaccine Status Have you recieved a Covid-19 vaccination: Yes General Operator: Moderna - Vaccination Dates Date of 2cond Vaccination (if applicable): 10/2020 - Review of Systems Constitutional: No Symptoms Eyes: No Symptoms Ears, Nose, & Throat: No Symptoms Respiratory: No Symptoms Cardiac: No Symptoms Abdominal/Gastrointestinal: No Symptoms Genitourinary Symptoms: No Symptoms Musculoskeletal: No Symptoms Skin: No Symptoms Neurological: No Symptoms Psychological: No Symptoms Endocrine: No Symptoms Hematologic/Lymphatic: No Symptoms Immunological/Allergic: No Symptoms All Other Systems: Reviewed and Negative - Past Medical History Pertinent Past Medical History: Yes Neurological History: Migraines ENT History: No Pertinent History Cardiac History: Deep Vein Thrombosis, Hypertension Respiratory History: No Pertinent History Endocrine Medical History: Hypothyroidism Musculoskeletal History: No Pertinent History GI Medical History: No Pertinent History History: No Pertinent History Psycho-Social History: Anxiety, Depression Female Reproductive Disorders: No Pertinent History Other Medical History: She notes sharp pain down R LE that go to her ankle. 8 months post . She notes back pain when she was . - Past Surgical History Past Surgical History: No Neuro Surgical History: No Pertinent History Cardiac: No Pertinent History Respiratory: No Pertinent History Gastrointestinal: No Pertinent History Genitourinary: No Pertinent History Musculoskeletal: No Pertinent History Female Surgical History: No Pertinent History - Social History Smoking Status: Current every day smoker How long have you smoked: 12 y.o. Exposure to second hand smoke: Yes Drug Use: none Patient Lives Alone: No Significant Family History: no pertinent family hx - Female History Hx Now: No (per pt) - Nursing Vital Signs Nursing Vital Signs: Initial Vital Signs Temperature 96.9 F 07/03/22 22:29 Pulse Rate 64 07/03/22 22:29 Respiratory Rate 18 07/03/22 22:29 Blood Pressure 144/82 07/03/22 22:29 O2 Sat by Pulse Oximetry 95 07/03/22 22:29 Pain Scale Pain Intensity 6 - Physical Exam General Appearance: mild distress Eyes, Ears, Nose, Throat Exam: normal ENT inspection Neck Exam: normal inspection Cardiovascular/Respiratory Exam: chest non-tender Gastrointestinal/Abdominal Exam: non-tender Back Exam: normal inspection Hips Exam: bilateral: non-tender Legs Exam: bilateral leg: non-tender Knees Exam: bilateral knee: non-tender Ankle Exam: bilateral ankle: non-tender Foot Exam: right foot: limited range of motion (contused right second toe) - Course Nursing assessment & vital signs reviewed: Yes - Radiology Exams Foot X-ray Interpretation: Interpreted by me, Negative, No Fracture Ordered Tests: Active Orders 24 hr Category Date Time Status TOE(S) (MIN 2 VIEWS) Stat Exams 07/03/22 22:08 Taken - Progress Progress: unchanged Progress Note: 07/03/22 23:12 Minor toe contusion, dinorah tape, advil, recheck prn Counseled pt/family regarding: diagnosis, rad results - Departure Departure Disposition: Home Clinical Impression: Contusion of toe of right foot Qualifiers: Encounter type: initial encounter Toe: lesser toe Damage to nail status: without damage Qualified Code(s): S90.121A - Contusion of right lesser toe(s) without damage to nail, initial encounter Condition: Stable Critical Care Time: No Referrals: QUINTON POWERS, [Primary Care Provider] - Follow up/PCP as directed Instructions: Toe Injury (DC) Additional Instructions: Dinorah tape toes as helpful, OTC pain med, activity as tolerated. Forms: Work/School Release Form
[2022-07-03] MEDS ORDERED: TYLENOL 325 MG PO STA (23:13)
[2022-07-03] MEDS ORDERED: TYLENOL 325 MG ONE (23:29)
[2022-07-03 23:45] VITALS: BP 140/82; PULSE 72; O2SAT 100
--- NOTE | 2022-07-04 08:36 | XRAY ---
Indication: Pain following injury. Comparison: None 3 view right 2nd toe obtained. No bony, articular, or soft tissue abnormalities.
== END 2022-07-03 23:40 | disposition home or self-care (01) ==
LOC: ED 20:48
DX: S90.121A Contusion of right lesser toe(s) without damage to nail, initial encounter (principal); I10 Essential (primary) hypertension; Z79.01 Long term (current) use of anticoagulants; Z79.52 Long term (current) use of systemic steroids; Z79.899 Other long term (current) drug therapy; Z72.0 Tobacco use
CPT/HCPCS: 73660; 99283; A9270-GY

== ENCOUNTER 2022-09-11 12:14 | Emergency (ER) | payer OTHER ==
[2022-09-11 12:33] VITALS: PULSE 72; O2SAT 97
[2022-09-11] MEDS ORDERED: BABY ASPIRIN 81 MG CHEW PO ONE (12:54)
[2022-09-11 13:01] LABS: Absolute Neutrophil Ct (ANC) 2.94 x10^3/uL (1.4-6.9); BASOPHIL % 0.3 % (0.0-0.4); Basophil (Absolute #) 0.02 x10^3/uL (0-0.4); Eosinophil % 5.6 % (0.00-5.0); Eosinophil (Absolute #) 0.34 x10^3/uL (0-0.5); Hematocrit 43.4 % (35-47); Hemoglobin 13.6 g/dL (12.0-16.0); IMMATURE GRAN # 0.02 x10^3u/L (0.00-0.03); IMMATURE GRAN % 0.3 % (0.00-0.4); Lymphocytes % 36.3 % (24.0-44.0); Mean Cell Volume 86.6 fL (78-100); Mean Corpuscular Hemoglobin 27.1 pg (26-32); Mean Corpuscular Hgb Concent. 31.3 g/dL (32-36); Mean Platelet Volume 12.6 fL (7.5-11.0); Monocyte (Absolute #) 0.54 x10^3/uL (0.0-1.3); Monocytes % 8.9 % (0.0-12.0); Neutrophil % 48.6 % (36.0-66.0); Platelet Count 213 x10^3/uL (150-450); Red Blood Count 5.01 x10^6/uL (4.1-5.4); Red Cell Distribution Width 13.2 % (11.5-14.0); White Blood Count 6.1 x10^3/uL (4.0-10.5)
[2022-09-11] MEDS ORDERED: BABY ASPIRIN 81 MG CHEW ONE (13:07)
--- NOTE | 2022-09-11 13:16 | ERPHSYRPT ---
- History of Present Illness Time Seen by Provider: 09/11/22 12:53 Historian: patient Exam Limitations: no limitations Patient Subjective Stated Complaint: pt here for pain to left arm and shoulder for 20 mins now, no injury , no other syptoms Triage Nursing Assessment: pt alert, resp easy, walked in, skin w/d/p. no edema noted, Physician History: 32 years old female morbidly obese presented to the ER with chief complaint of left arm/shoulder tightness/dull aching pain started almost 20 minutes prior to arrival, moderate intensity without any significant aggravating or relieving factors. Denies any chest pain or shortness of breath or palpitations. Patient reports pain is much improved now. No history of coronary artery disease in the past. Timing/Duration: hour(s) (0.5), sudden, improved Activities at Onset: rest Quality: sharpness Chest Pain Radiation: arm Severity of Pain-Max: moderate Severity of Pain-Current: mild Modifying Factors: Improves With: nothing Associated Symptoms: denies symptoms Prior Chest Pain/Cardiac Workup: no prior chest pain Nitro Today/Relief: no nitro taken today Aspirin Treatment Today: unknown Allergies/Adverse Reactions: fluoxetine HCl [From Prozac] Adverse Reaction (Severe, Verified 09/11/22 12:16) Nausea PROZAC WITH FLUOXETINE HAS BLOOD IN STOOL sertraline [From Zoloft] Adverse Reaction (Intermediate, Verified 09/11/22 12:16) Home Medications: Levothyroxine Sodium 25 Mcg [Synthroid 25 Mcg] 88 mcg PO DAILY 12/02/18 [History] Naproxen 500 mg [Naprosyn 500 MG] 500 mg PO BID PRN PRN 05/25/20 [History] Allopurinol 100 mg [Zyloprim 100 mg] 200 mg PO DAILY 01/11/21 [History] Apixaban [Eliquis 2.5 mg Tablet] 5 mg PO BID 03/22/21 [History] Escitalopram Oxalate [Lexapro] 20 mg PO DAILY 09/03/21 [History] Metoprolol Succinate 25 mg Xl* [Toprol-Xl 25MG Tablets] 1 tab PO DAILY 05/28/22 [History] Hydroxyzine HCl 25 mg [Atarax 25 mg] 25 mg PO DAILY 06/08/22 [History] Calcium Carbonate [Calcium] 1,200 mg PO DAILY 07/03/22 [History] Magnesium 250 mg PO TID 07/03/22 [History] Mecobalamin [B12 Active] 1,000 mcg SL DAILY 07/03/22 [History] Rosuvastatin Calcium 5 mg PO DAILY 07/03/22 [History] Buprenorphine 1 each TD UD 09/11/22 [History] Hx Tetanus, Diphtheria Vaccination/Date Given: Yes Hx Influenza Vaccination/Date Given: No Hx Pneumococcal Vaccination/Date Given: No Travel Risk - International Travel Have you traveled outside of the country in past 3 weeks: No - Coronavirus Screening Are you exhibiting any of the following symptoms?: No - Vaccine Status Have you recieved a Covid-19 vaccination: Yes Small Parts Assembler: Moderna - Vaccination Dates Date of 2cond Vaccination (if applicable): 10/2020 - Review of Systems Constitutional: No Symptoms Eyes: No Symptoms Ears, Nose, & Throat: No Symptoms Respiratory: No Symptoms Cardiac: No Symptoms Abdominal/Gastrointestinal: No Symptoms Genitourinary Symptoms: No Symptoms Musculoskeletal: Myalgias Skin: No Symptoms Neurological: No Symptoms Psychological: No Symptoms Endocrine: No Symptoms Hematologic/Lymphatic: No Symptoms - Past Medical History Pertinent Past Medical History: Yes Neurological History: Migraines ENT History: No Pertinent History Cardiac History: Deep Vein Thrombosis, Hypertension Respiratory History: No Pertinent History Endocrine Medical History: Hypothyroidism Musculoskeletal History: No Pertinent History GI Medical History: No Pertinent History History: No Pertinent History Psycho-Social History: Anxiety, Depression Female Reproductive Disorders: No Pertinent History Other Medical History: She notes sharp pain down R LE that go to her ankle. 8 months post . She notes back pain when she was . - Past Surgical History Past Surgical History: No Neuro Surgical History: No Pertinent History Cardiac: No Pertinent History Respiratory: No Pertinent History Gastrointestinal: No Pertinent History Genitourinary: No Pertinent History Musculoskeletal: No Pertinent History Female Surgical History: No Pertinent History Other Surgical History: uterine ablation - Social History Smoking Status: Current every day smoker How long have you smoked: 12 y.o. Exposure to second hand smoke: Yes Drug Use: none Patient Lives Alone: No Significant Family History: no pertinent family hx - Female History Hx Last Menstrual Period: 2 weeks ago Hx Now: (unkn) - Nursing Vital Signs Nursing Vital Signs: Initial Vital Signs Pulse Rate 73 09/11/22 12:30 Pain Scale Pain Intensity 6 - Physical Exam General Appearance: no apparent distress, alert Eye Exam: PERRL/EOMI, eyes nml inspection Ears, Nose, Throat Exam: normal ENT inspection, TMs normal, pharynx normal, moist mucous membranes Neck Exam: normal inspection, non-tender, supple, full range of motion Respiratory Exam: normal breath sounds, lungs clear Cardiovascular Exam: regular rate/rhythm, normal heart sounds Gastrointestinal/Abdomen Exam: soft, normal bowel sounds, No tenderness Back Exam: normal inspection, normal range of motion Extremity Exam: normal inspection, normal range of motion, pelvis stable Neurologic Exam: alert, oriented x 3, cooperative Skin Exam: normal color SpO2 Interpretation: normal SpO2: 97 O2 Delivery: Room Air - Course EKG Interpreted by Me: RATE (63), Sinus Rhythm, NORMAL AXIS, NORMAL INTERVALS, NORMAL QRS, Other (PVC) Ordered Tests: Active Orders 24 hr Category Date Time Status Activity Assistant STAT Care 09/11/22 12:55 Active EKG-ER Only STAT Care 09/11/22 12:54 Active IV Insertion STAT Care 09/11/22 12:54 Active Pulse Oximetry (ED) STAT Care 09/11/22 12:54 Active CHEST 1 VIEW (PORTABLE) Stat Exams 09/11/22 13:11 Taken CBC W DIFF Stat Lab 09/11/22 13:00 Completed CMP Stat Lab 09/11/22 13:00 Completed HCG QUALITATIVE, URINE Stat Lab 09/11/22 Ordered NT PRO BNPII Stat Lab 09/11/22 13:00 Completed TROPONIN Q4H Lab 09/11/22 13:00 Completed TROPONIN Q4H Lab 09/11/22 14:55 Completed TROPONIN Q4H Lab 09/11/22 21:00 Ordered Medication Summary Discontinued Medications Generic Name Dose Route Start Last Admin Trade Name Freq PRN Reason Stop Dose Admin Aspirin 324 mg 09/11/22 12:54 09/11/22 13:07 Aspirin 81 Mg Tab.Chew PO 09/11/22 12:55 324 mg STAT ONE Administration Aspirin Confirm 09/11/22 13:07 Aspirin 81 Mg Tab.Chew Administered 09/11/22 13:08 Dose 324 mg .ROUTE .STK-MED ONE Lab/Rad Data: Laboratory Result Diagrams 09/11/22 13:00 09/11/22 13:00 Laboratory Results 09/11/22 09/11/22 09/11/22 Range/Units 14:55 13:00 13:00 WBC (4.0-10.5) x10^3/uL RBC (4.1-5.4) x10^6/uL Hgb (12.0-16.0) g/dL Hct (35-47) % MCV (78-100) fL MCH (26-32) pg MCHC (32-36) g/dL RDW (11.5-14.0) % Plt Count (150-450) x10^3/uL MPV (7.5-11.0) fL Gran % (36.0-66.0) % Immature Gran % (Auto) (0.00-0.4) % Nucleat RBC Rel Count (0.00-0.1) % Eos # (Auto) (0-0.5) x10^3/uL Immature Gran # (Auto) (0.00-0.03) x10^3u/L Absolute Lymphs (auto) (1.0-4.6) x10^3/uL Absolute Monos (auto) (0.0-1.3) x10^3/uL Absolute Nucleated RBC (0.00-0.01) x10^3u/L Lymphocytes % (24.0-44.0) % Monocytes % (0.0-12.0) % Eosinophils % (0.00-5.0) % Basophils % (0.0-0.4) % Absolute Granulocytes (1.4-6.9) x10^3/uL Basophils # (0-0.4) x10^3/uL Sodium 140 (137-145) mmol/L Potassium 4.0 (3.5-5.1) mmol/L Chloride 106 (98-107) mmol/L Carbon Dioxide 28 (22-30) mmol/L Anion Gap 10.2 (5-15) MEQ/L BUN 12 (7-17) mg/dL Creatinine 0.56 (0.52-1.04) mg/dL Estimated GFR > 60.0 ML/MIN Glucose 96 (74-106) mg/dL Calcium 8.5 (8.4-10.2) mg/dL Total Bilirubin 0.70 (0.2-1.3) mg/dL AST 44 H (14-36) U/L ALT 49 H (0-35) U/L Alkaline Phosphatase 73 (38-126) U/L Troponin I < 0.012 < 0.012 (0.000-0.034) ng/mL NT-Pro-B Natriuret Pep 169 (<300) pg/mL Serum Total Protein 7.5 (6.3-8.2) g/dL Albumin 3.9 (3.5-5.0) g/dL 09/11/22 Range/Units 13:00 WBC 6.1 (4.0-10.5) x10^3/uL RBC 5.01 (4.1-5.4) x10^6/uL Hgb 13.6 (12.0-16.0) g/dL Hct 43.4 (35-47) % MCV 86.6 (78-100) fL MCH 27.1 (26-32) pg MCHC 31.3 L (32-36) g/dL RDW 13.2 (11.5-14.0) % Plt Count 213 (150-450) x10^3/uL MPV 12.6 H (7.5-11.0) fL Gran % 48.6 (36.0-66.0) % Immature Gran % (Auto) 0.3 (0.00-0.4) % Nucleat RBC Rel Count 0.0 (0.00-0.1) % Eos # (Auto) 0.34 (0-0.5) x10^3/uL Immature Gran # (Auto) 0.02 (0.00-0.03) x10^3u/L Absolute Lymphs (auto) 2.20 (1.0-4.6) x10^3/uL Absolute Monos (auto) 0.54 (0.0-1.3) x10^3/uL Absolute Nucleated RBC 0.00 (0.00-0.01) x10^3u/L Lymphocytes % 36.3 (24.0-44.0) % Monocytes % 8.9 (0.0-12.0) % Eosinophils % 5.6 H (0.00-5.0) % Basophils % 0.3 (0.0-0.4) % Absolute Granulocytes 2.94 (1.4-6.9) x10^3/uL Basophils # 0.02 (0-0.4) x10^3/uL Sodium (137-145) mmol/L Potassium (3.5-5.1) mmol/L Chloride (98-107) mmol/L Carbon Dioxide (22-30) mmol/L Anion Gap (5-15) MEQ/L BUN (7-17) mg/dL Creatinine (0.52-1.04) mg/dL Estimated GFR ML/MIN Glucose (74-106) mg/dL Calcium (8.4-10.2) mg/dL Total Bilirubin (0.2-1.3) mg/dL AST (14-36) U/L ALT (0-35) U/L Alkaline Phosphatase (38-126) U/L Troponin I (0.000-0.034) ng/mL NT-Pro-B Natriuret Pep (<300) pg/mL Serum Total Protein (6.3-8.2) g/dL Albumin (3.5-5.0) g/dL - Progress Progress: improved, re-examined Air Movement: good Progress Note: 09/11/22 13:15 32 years old female morbidly obese presented to the ER with chief complaint of left arm/shoulder tightness/dull aching pain started almost 20 minutes prior to arrival, moderate intensity without any significant aggravating or relieving factors. Denies any chest pain or shortness of breath or palpitations. Patient reports pain is much improved now. No history of coronary artery disease in the past. EKG showed normal sinus rhythm with no acute ischemic changes. Patient is on Eliquis. Pain is almost completely resolved during my evaluation. Patient declined any pain medication. Chest x-ray negative for any acute cardiopulmonary findings reviewed by me. Will obtain chest pain work-up. Pat ient is low heart score. 09/11/22 15:58 Patient has negative troponin x2. Pain is completely resolved. Does not seem cardiac in nature. Baseline work-up unremarkable. Being discharged with outpatient follow-up primary care and cardiology. Discussed signs symptoms of worsening needing return to ER which she seems understanding. Stable for discharge. Counseled pt/family regarding: lab results, diagnosis, need for follow-up, rad results Medical Desision Making - Diagnostic Testing Diagnostic test were ordered, analyzed, and reviewed by me: Yes Radiological Interpretation: Interpreted by me, Reviewed by me - Departure Departure Disposition: Home Clinical Impression: Left arm pain Condition: Stable Critical Care Time: No Referrals: QUINTON POWERS DO [Primary Care Provider] - Follow up with PCP 1 day JUAN PEDERSON [CONSULTING PHYSICIAN] - Follow up/PCP as directed (Call for appointment for reevaluation.) Instructions: Angina (DC), Chest Pain (DC) Additional Instructions: Follow-up with primary care and cardiology for reevaluation. Return to ER if having chest pain palpitations or shortness of breath/tightness etc.
[2022-09-11 13:26] LABS: ALBUMIN 3.9 g/dL (3.5-5.0); ALKALINE PHOSPHATASE 73 U/L (38-126); ANION GAP 10.2 MEQ/L (5-15); BLOOD UREA NITROGEN 12 mg/dL (7-17); CHLORIDE 106 mmol/L (98-107); Calcium 8.5 mg/dL (8.4-10.2); Carbon Dioxide 28 mmol/L (22-30); Creatinine 1 0.56 mg/dL (0.52-1.04); EST GLOMERULAR FILTRATION RATE > 60.0 ML/MIN; Glucose 96 mg/dL (74-106); NT PRO BNPII 169 pg/mL (<300); SGOT/AST 44 U/L (14-36); SGPT/ALT 49 U/L (0-35); SODIUM 140 mmol/L (137-145); Total Protein 7.5 g/dL (6.3-8.2)
[2022-09-11 15:58] VITALS: BP 115/71
--- NOTE | 2022-09-11 21:05 | XRAY ---
Indication: Chest pain. Comparison: June 08, 2022 Portable chest again demonstrates normal heart, lungs, and bony thorax with a few incidental tiny left lung calcified granulomas. No new/acute findings.
== END 2022-09-11 16:06 | disposition home or self-care (01) ==
LOC: ED 12:14
DX: M79.602 Pain in left arm (principal); M25.512 Pain in left shoulder; I10 Essential (primary) hypertension; Z79.01 Long term (current) use of anticoagulants; Z79.891 Long term (current) use of opiate analgesic; Z79.899 Other long term (current) drug therapy; Z72.0 Tobacco use
CPT/HCPCS: 36415; 71045; 80053; 83880; 84484; 85025; 93005; 93041; 94760; 99284; A9270-GY

== ENCOUNTER 2022-10-30 17:46 | Emergency (ER) | payer OTHER ==
--- NOTE | 2022-10-30 17:54 | ERPHSYRPT ---
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 Additional, independent patient history obtained by the paramedics. Patient began having sudden onset of headache, dizziness, lightheadedness and bilateral upper extremity numbness. Patient requested that her family member call the ambulance service because of her symptoms. By the time the paramedics arrived and she is in the ambulance on her way here, the symptoms she was experiencing completely resolved. Patient has a history of hypertension, migraine headache as well as hypothyroidism. She denies chest pain. She denies shortness of breath. She denies abdominal pain. She denies having nausea vomiting or diarrhea at this time. Timing/Duration: today Severity: mild (But resolved prior to arrival to the emergency department) Associated Symptoms: headaches (Resolved), other (Dizziness and lightheadedness has resolved) Allergies/Adverse Reactions: fluoxetine HCl [From Prozac] Adverse Reaction (Severe, Verified 10/30/22 17:49) Nausea PROZAC WITH FLUOXETINE HAS BLOOD IN STOOL sertraline [From Zoloft] Adverse Reaction (Intermediate, Verified 10/30/22 17:49) Home Medications: Levothyroxine Sodium 25 Mcg [Synthroid 25 Mcg] 88 mcg PO DAILY 12/02/18 [History] Allopurinol 100 mg [Zyloprim 100 mg] 200 mg PO DAILY 01/11/21 [History] Apixaban [Eliquis 2.5 mg Tablet] 5 mg PO BID 03/22/21 [History] Escitalopram Oxalate [Lexapro] 20 mg PO DAILY 09/03/21 [History] Metoprolol Succinate 25 mg Xl* [Toprol-Xl 25MG Tablets] 1 tab PO DAILY 05/28/22 [History] Hydroxyzine HCl 25 mg [Atarax 25 mg] 25 mg PO DAILY 06/08/22 [History] Calcium Carbonate [Calcium] 1,200 mg PO DAILY 07/03/22 [History] Magnesium 250 mg PO TID 07/03/22 [History] Mecobalamin [B12 Active] 1,000 mcg SL DAILY 07/03/22 [History] Rosuvastatin Calcium 5 mg PO DAILY 07/03/22 [History] Buprenorphine 1 each TD UD 09/11/22 [History] Hx Tetanus, Diphtheria Vaccination/Date Given: Yes Hx Influenza Vaccination/Date Given: No Hx Pneumococcal Vaccination/Date Given: No Travel Risk - International Travel Have you traveled outside of the country in past 3 weeks: No - Coronavirus Screening Are you exhibiting any of the following symptoms?: No Close contact with a COVID-19 positive Pt in past 14-21 Days: No - Vaccine Status Have you recieved a Covid-19 vaccination: Yes Lead Painter: Moderna - Vaccination Dates Date of 2cond Vaccination (if applicable): 10/2020 - Review of Systems Constitutional: No Symptoms Eyes: No Symptoms Ears, Nose, & Throat: No Symptoms Respiratory: No Symptoms Cardiac: No Symptoms Abdominal/Gastrointestinal: No Symptoms Genitourinary Symptoms: No Symptoms Musculoskeletal: No Symptoms Skin: No Symptoms Neurological: Dizziness (Resolved completely prior to arrival), Headache (Resolved completely prior to arrival) Psychological: No Symptoms Endocrine: No Symptoms Hematologic/Lymphatic: No Symptoms Immunological/Allergic: No Symptoms All Other Systems: Reviewed and Negative - Past Medical History Pertinent Past Medical History: Yes Neurological History: Migraines ENT History: No Pertinent History Cardiac History: Deep Vein Thrombosis, Hypertension Respiratory History: No Pertinent History Endocrine Medical History: Hypothyroidism Musculoskeletal History: No Pertinent History GI Medical History: No Pertinent History History: No Pertinent History Psycho-Social History: Anxiety, Depression Female Reproductive Disorders: No Pertinent History Other Medical History: She notes sharp pain down R LE that go to her ankle. 8 months post . She notes back pain when she was . - Past Surgical History Past Surgical History: No Neuro Surgical History: No Pertinent History Cardiac: No Pertinent History Respiratory: No Pertinent History Gastrointestinal: No Pertinent History Genitourinary: No Pertinent History Musculoskeletal: No Pertinent History Female Surgical History: No Pertinent History Other Surgical History: uterine ablation - Social History Smoking Status: Current every day smoker How long have you smoked: 12 y.o. Exposure to second hand smoke: Yes Drug Use: none Patient Lives Alone: No Significant Family History: no pertinent family hx - Nursing Vital Signs Nursing Vital Signs: Initial Vital Signs Temperature 96.6 F 10/30/22 17:51 Pulse Rate 63 10/30/22 17:51 Respiratory Rate 18 10/30/22 17:51 Blood Pressure 132/72 10/30/22 17:51 O2 Sat by Pulse Oximetry 96 10/30/22 17:51 Pain Scale Pain Intensity 9 - Physical Exam General Appearance: no apparent distress, alert, anxiety Eye Exam: PERRL/EOMI, eyes nml inspection Ears, Nose, Throat Exam: normal ENT inspection, moist mucous membranes Neck Exam: normal inspection, non-tender, supple, full range of motion Respiratory Exam: normal breath sounds, lungs clear, airway intact, No chest tenderness, No respiratory distress Cardiovascular Exam: regular rate/rhythm, normal heart sounds, normal peripheral pulses Gastrointestinal/Abdomen Exam: soft, normal bowel sounds, No tenderness Pelvic Exam: not done Rectal Exam: not done Back Exam: normal inspection, normal range of motion, No CVA tenderness, No vertebral tenderness Extremity Exam: normal inspection, normal range of motion, pelvis stable Neurologic Exam: alert, oriented x 3, cooperative, clinical research spec II-XII nml as tested, normal mood/affect, nml cerebellar function, nml station & gait, sensation nml Skin Exam: normal color, warm, dry Lymphatic Exam: No adenopathy SpO2 Interpretation: normal O2 Delivery: Nasal Cannula - Course Nursing assessment & vital signs reviewed: Yes Ordered Tests: Active Orders 24 hr Category Date Time Status HEAD WITHOUT CONTRAST [CT] Stat Exams 10/30/22 17:55 Completed BMP Stat Lab 10/30/22 18:30 Completed CBC W DIFF Stat Lab 10/30/22 18:30 Completed D-DIMER QUANTITATIVE Stat Lab 10/30/22 18:30 Completed HCG QUALITATIVE, SERUM Stat Lab 10/30/22 Completed UA W/RFX UR CULTURE Stat Lab 10/30/22 19:43 Completed Medication Summary Discontinued Medications Generic Name Dose Route Start Last Admin Trade Name Silvestre PRN Reason Stop Dose Admin Hydrocodone Bitart/Acetaminophen 1 tab 10/30/22 19:46 10/30/22 19:49 Hydrocodone/Apap 5/325 1 Tab Tablet PO 10/30/22 19:47 1 tab STAT ONE Administration Hydrocodone Bitart/Acetaminophen Confirm 10/30/22 19:49 Hydrocodone/Apap 5/325 1 Tab Tablet Administered 10/30/22 19:50 Dose 1 tab .ROUTE [employer] [place] ONE Lab/Rad Data: Laboratory Result Diagrams 10/30/22 18:30 10/30/22 18:30 Laboratory Results 10/30/22 10/30/22 10/30/22 Range/Units Unknown 19:43 18:30 WBC (4.0-10.5) x10^3/uL RBC (4.1-5.4) x10^6/uL Hgb (12.0-16.0) g/dL Hct (35-47) % MCV (78-100) fL MCH (26-32) pg MCHC (32-36) g/dL RDW (11.5-14.0) % Plt Count (150-450) x10^3/uL MPV (7.5-11.0) fL Gran % (36.0-66.0) % Immature Gran % (Auto) (0.00-0.4) % Nucleat RBC Rel Count (0.00-0.1) % Eos # (Auto) (0-0.5) x10^3/uL Immature Gran # (Auto) (0.00-0.03) x10^3u/L Absolute Lymphs (auto) (1.0-4.6) x10^3/uL Absolute Monos (auto) (0.0-1.3) x10^3/uL Absolute Nucleated RBC (0.00-0.01) x10^3u/L Lymphocytes % (24.0-44.0) % Monocytes % (0.0-12.0) % Eosinophils % (0.00-5.0) % Basophils % (0.0-0.4) % Absolute Granulocytes (1.4-6.9) x10^3/uL Basophils # (0-0.4) x10^3/uL D-Dimer 0.59 H (0.0-0.50) mg/L Sodium (137-145) mmol/L Potassium (3.5-5.1) mmol/L Chloride (98-107) mmol/L Carbon Dioxide (22-30) mmol/L Anion Gap (5-15) MEQ/L BUN (7-17) mg/dL Creatinine (0.52-1.04) mg/dL Estimated GFR ML/MIN Glucose (74-106) mg/dL Calcium (8.4-10.2) mg/dL Serum HCG, Qual NEGATIVE (NEGATIVE) Urine Color Dark Yellow A (Yellow) Urine Appearance Clear (Clear) Urine pH 5.5 (4.6-8.0) Ur Specific [place] 1.025 (1.005-1.030) Urine Protein Trace A (Negative) Urine Glucose (UA) Negative (Negative) mg/dL Urine Ketones Negative (Negative) Urine Blood Negative (Negative) Urine Nitrite Negative (Negative) Urine Bilirubin Negative (Negative) Urine Urobilinogen 1.0 A (0.2) mg/dL Ur Leukocyte Esterase Negative (Negative) U Hyaline Cast (Auto) 6-10 A (0-2) /LPF Urine Microscopic RBC 3-5 (0-5) /HPF Urine Microscopic WBC 3-5 (0-5) /HPF Ur Epithelial Cells Rare (None Seen) /HPF Urine Bacteria None Seen (None Seen) /HPF Urine Culture Reflexed NO (NO) 10/30/22 10/30/22 Range/Units 18:30 18:30 WBC 9.5 (4.0-10.5) x10^3/uL RBC 4.89 (4.1-5.4) x10^6/uL Hgb 13.2 (12.0-16.0) g/dL Hct 42.9 (35-47) % MCV 87.7 (78-100) fL MCH 27.0 (26-32) pg MCHC 30.8 L (32-36) g/dL RDW 13.0 (11.5-14.0) % Plt Count 216 (150-450) x10^3/uL MPV 11.9 H (7.5-11.0) fL Gran % 62.8 (36.0-66.0) % Immature Gran % (Auto) 0.3 (0.00-0.4) % Nucleat RBC Rel Count 0.0 (0.00-0.1) % Eos # (Auto) 0.37 (0-0.5) x10^3/uL Immature Gran # (Auto) 0.03 (0.00-0.03) x10^3u/L Absolute Lymphs (auto) 2.50 (1.0-4.6) x10^3/uL Absolute Monos (auto) 0.61 (0.0-1.3) x10^3/uL Absolute Nucleated RBC 0.00 (0.00-0.01) x10^3u/L Lymphocytes % 26.3 (24.0-44.0) % Monocytes % 6.4 (0.0-12.0) % Eosinophils % 3.9 (0.00-5.0) % Basophils % 0.3 (0.0-0.4) % Absolute Granulocytes 5.97 (1.4-6.9) x10^3/uL Basophils # 0.03 (0-0.4) x10^3/uL D-Dimer (0.0-0.50) mg/L Sodium 140 (137-145) mmol/L Potassium 4.0 (3.5-5.1) mmol/L Chloride 105 (98-107) mmol/L Carbon Dioxide 27 (22-30) mmol/L Anion Gap 12.6 (5-15) MEQ/L BUN 7 (7-17) mg/dL Creatinine 0.62 (0.52-1.04) mg/dL Estimated GFR > 60.0 ML/MIN Glucose 103 (74-106) mg/dL Calcium 8.6 (8.4-10.2) mg/dL Serum HCG, Qual (NEGATIVE) Urine Color (Yellow) Urine Appearance (Clear) Urine pH (4.6-8.0) Ur Specific [place] (1.005-1.030) Urine Protein (Negative) Urine Glucose (UA) (Negative) mg/dL Urine Ketones (Negative) Urine Blood (Negative) Urine Nitrite (Negative) Urine Bilirubin (Negative) Urine Urobilinogen (0.2) mg/dL Ur Leukocyte Esterase (Negative) U Hyaline Cast (Auto) (0-2) /LPF Urine Microscopic RBC (0-5) /HPF Urine Microscopic WBC (0-5) /HPF Ur Epithelial Cells (None Seen) /HPF Urine Bacteria (None Seen) /HPF Urine Culture Reflexed (NO) - Progress Progress: unchanged Progress Note: 10/30/22 18:47 This patient's medical issue is 1 of moderate complexity. The level complexity in the work-up performed based on review of the patient's past medical history, review of the patient's medication list, review of the patient's drug allergy list, history present illness and physical findings on examination. The work-up in this patient includes CT scan of the head, urinalysis, CBC, BMP and D-dimer. Patient is already on Eliquis. Patient has an appointment to see a neurologist next month for periods of what she describes as possible episodes of narcolepsy. However she describes this as brief periods of passing out by dropping her head and then waking up suddenly 10/30/22 19:59 The results of the patient's work-up shows just a slightly elevated D-dimer. H owever, the patient is already on full dose Eliquis for treatment of a pulmonary embolus or DVT. She has no complaints of calf pain. She has no complaints of chest pain. She has no complaints of shortness of breath. I do not think it is necessary to perform a CT scan of the chest with contrast or bilateral lower extremities venous Doppler. 10/30/22 20:02 CT scan of the head without contrast was interpreted by the radiologist and I reviewed the impression. There is no evidence of any acute intracranial abnormality. Counseled pt/family regarding: lab results, diagnosis, need for follow-up, rad results Medical Desision Making - Independent Historian Additional History obtained from: Spouse - Diagnostic Testing Diagnostic test were ordered, analyzed, and reviewed by me: Yes Radiological Interpretation: Reviewed by me, Teleradiologist Report - Risk of complications Low Risk: Low risk of morbidity from additional dx testing or treatment - Departure Departure Disposition: Home Clinical Impression: Dizziness, Lightheadedness Condition: Stable Critical Care Time: No Referrals: QUINTON POWERS DO [Primary Care Provider] - Follow up/PCP as directed Additional Instructions: Continue all your medication as prescribed. Keep your appointment with your pain specialist tomorrow. Keep your appointment with your neurologist next month. Call your primary care doctor tomorrow, 10/31/2022, to make them aware that you were here and what symptoms you are having and to schedule a follow-up appointment in the next 3 to 5 days.
[2022-10-30 18:05] VITALS: TEMP 96.6; O2SAT 96
[2022-10-30 18:33] LABS: Absolute Neutrophil Ct (ANC) 5.97 x10^3/uL (1.4-6.9); BASOPHIL % 0.3 % (0.0-0.4); Basophil (Absolute #) 0.03 x10^3/uL (0-0.4); Eosinophil % 3.9 % (0.00-5.0); Eosinophil (Absolute #) 0.37 x10^3/uL (0-0.5); Hematocrit 42.9 % (35-47); Hemoglobin 13.2 g/dL (12.0-16.0); IMMATURE GRAN # 0.03 x10^3u/L (0.00-0.03); IMMATURE GRAN % 0.3 % (0.00-0.4); Lymphocytes % 26.3 % (24.0-44.0); Mean Cell Volume 87.7 fL (78-100); Mean Corpuscular Hgb Concent. 30.8 g/dL (32-36); Mean Platelet Volume 11.9 fL (7.5-11.0); Monocyte (Absolute #) 0.61 x10^3/uL (0.0-1.3); Monocytes % 6.4 % (0.0-12.0); Neutrophil % 62.8 % (36.0-66.0); Platelet Count 216 x10^3/uL (150-450); Red Blood Count 4.89 x10^6/uL (4.1-5.4); White Blood Count 9.5 x10^3/uL (4.0-10.5)
[2022-10-30 18:44] LABS: ANION GAP 12.6 MEQ/L (5-15); BLOOD UREA NITROGEN 7 mg/dL (7-17); CHLORIDE 105 mmol/L (98-107); Calcium 8.6 mg/dL (8.4-10.2); Carbon Dioxide 27 mmol/L (22-30); Creatinine 1 0.62 mg/dL (0.52-1.04); EST GLOMERULAR FILTRATION RATE > 60.0 ML/MIN; Glucose 103 mg/dL (74-106); SODIUM 140 mmol/L (137-145)
[2022-10-30 19:09] LABS: HCG SERUM TEST NEGATIVE (NEGATIVE)
[2022-10-30] MEDS ORDERED: NORCO 5/325 MG PO ONE (19:46)
[2022-10-30] MEDS ORDERED: NORCO 5/325 MG ONE (19:49)
[2022-10-30 19:53] LABS: ADD URINE CULTURE? NO (NO); Appearance Clear (Clear); Bacteria None Seen /HPF (None Seen); Bilirubin Negative (Negative); Blood Negative (Negative); Epithelial Cells Rare /HPF (None Seen); Glucose, Urine Negative (Negative); Ketones Negative (Negative); Leukocyte Esterase Negative (Negative); Nitrite Negative (Negative); Ph 5.5 (4.6-8.0); Protein,Urine Dip Trace (Negative); Specific Gravity 1.025 (1.005-1.030)
--- NOTE | 2022-10-30 19:54 | XRAY ---
CLINICAL HISTORY:Dizziness; lightheadedness COMPARISON:12/06/2018. TECHNIQUE:An axial;non-contrast CT scan of the brain was performed from the skull base to the high parietal region. FINDINGS: No evidence of acute intracranial hemorrhage or major vascular territory infarct. The cortical sulci, fissures, basal cisterns, and ventricles are normal in size and configuration. Sood-white matter differentiation is maintained. No midline shifts or deformity. There are coarse calcifications in the falx cerebri. Normal CT appearance of the posterior fossa structures namely the cerebellar hemispheres, brainstem, and cerebellar peduncles. The IACs are unremarkable. The cerebello-pontine angles are clear. The pituitary gland, the pineal gland, and the optic chiasm are unremarkable. The osseous structures in the skull base are unremarkable. There is hyperostosis in the bilateral anterior inner table of the frontal bone. No definite calvarium fractures. Round, fluid/soft tissue densities are seen in the right maxillary and left sphenoid sinuses. The rest of the scanned paranasal sinuses are clear. IMPRESSION: 1. No evidence of acute intracranial hemorrhage or major vascular territory infarct. 2. Right maxillary and left sphenoid round, fluid/soft tissue densities, mucus retention cysts versus polyps. Increased in size when compared to the prior study. 3. Hyperostosis frontalis interna. Electronically Signed by: Yennifer Zuniga MD. 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
[2022-10-30 20:08] VITALS: BP 130/76; PULSE 76; RESP 18
== END 2022-10-30 20:12 | disposition home or self-care (01) ==
LOC: ED 17:46
DX: R42 Dizziness and giddiness (principal); R51.9 Headache, unspecified; R20.2 Paresthesia of skin; I10 Essential (primary) hypertension; Z79.01 Long term (current) use of anticoagulants; Z79.891 Long term (current) use of opiate analgesic; Z79.899 Other long term (current) drug therapy; Z72.0 Tobacco use
CPT/HCPCS: 36415; 70450; 80048; 81001; 84703; 85025; 85379; 99283; A9270-GY

== ENCOUNTER 2023-01-08 19:03 | Emergency (ER) | payer OTHER ==
[2023-01-08 19:26] VITALS: TEMP 97.2
--- NOTE | 2023-01-08 19:45 | ERPHSYRPT ---
- History of Present Illness Time Seen by Provider: 01/08/23 19:06 Source: patient Exam Limitations: no limitations Patient Subjective Stated Complaint: pt states she has sudden onset of lt upper thigh pain today and is concerned she may have a blood cot since she has a hx of clots Triage Nursing Assessment: pt alert and oriented answers questions approp. pt ambulates into room with steady gait noted. skin warm and dry. respirations nonlabored. pedal pulse and cap refill wnl. Physician History: 32 years old female with history of hypertension, hypothyroidism, PE/DVT on Eliquis presented to the ER with chief complaint of left mid to lower thigh pain/cramping which started almost 20 minutes prior to arrival moderate intensity without any significant aggravating or relieving factors and started to improve on its own and currently having minimal pain. She denies any swelling of calf or thigh. Patient reports she has been walking a lot lately. Denies any redness of skin, fall or trauma. Denies any difficulty breathing or chest pain. Patient reports she missed couple doses of Eliquis and is concerned about having a blood clot. Patient has no swelling, has minimal tenderness in the mid anterolateral thigh. No redness/erythema. No increased temperature. Intact range of motion at the knee and ankle joints. Cap refill less than 2 seconds. No difficulty ambulation. Since patient has been taking Eliquis and is low risk to begin with but if she has missed the doses and she has a blood clot, it is not treatment failure but more of an noncompliance issue. Even if she has a positive DVT studies again treatment will continue with Eliquis. I have discussed this with the patient and has offered her D-dimer versus ultrasound and she does not want to have anything done and reports that her pain is already getting better. She was very anxious because of her previous histories. I recommended medication compliance and outpatient follow-up with primary care for reevaluation and return to ER for worsening pain swelling or if having chest pain difficulty breathing etc. Allergies/Adverse Reactions: fluoxetine HCl [From Prozac] Adverse Reaction (Severe, Verified 01/08/23 19:27) Nausea PROZAC WITH FLUOXETINE HAS BLOOD IN STOOL sertraline [From Zoloft] Adverse Reaction (Intermediate, Verified 01/08/23 19:27) gabapentin [From Horizant] Adverse Reaction (Mild, Verified 01/08/23 19:27) Nausea ketorolac [From Toradol] Adverse Reaction (Mild, Verified 01/08/23 19:27) Nausea tramadol Adverse Reaction (Mild, Verified 01/08/23 19:27) Nausea Home Medications: Levothyroxine Sodium 25 Mcg [Synthroid 25 Mcg] 88 mcg PO DAILY 12/02/18 [History] Allopurinol 100 mg [Zyloprim 100 mg] 200 mg PO DAILY 01/11/21 [History] Apixaban [Eliquis 2.5 mg Tablet] 5 mg PO BID 03/22/21 [History] Escitalopram Oxalate [Lexapro] 20 mg PO DAILY 09/03/21 [History] Metoprolol Succinate 25 mg Xl* [Toprol-Xl 25MG Tablets] 1 tab PO DAILY 05/28/22 [History] Hydroxyzine HCl 25 mg [Atarax 25 mg] 25 mg PO DAILY 06/08/22 [History] Calcium Carbonate [Calcium] 1,200 mg PO DAILY 07/03/22 [History] Magnesium 250 mg PO TID 07/03/22 [History] Mecobalamin [B12 Active] 1,000 mcg SL DAILY 07/03/22 [History] Rosuvastatin Calcium 5 mg PO DAILY 07/03/22 [History] Buprenorphine 1 each TD UD 09/11/22 [History] Hx Tetanus, Diphtheria Vaccination/Date Given: Yes Hx Influenza Vaccination/Date Given: Yes Hx Pneumococcal Vaccination/Date Given: No Travel Risk - International Travel Have you traveled outside of the country in past 3 weeks: No - Coronavirus Screening Are you exhibiting any of the following symptoms?: Yes Symptoms: Vomiting/Diarrhea, Headaches/Body Aches/Fatigue Close contact with a COVID-19 positive Pt in past 14-21 Days: No - Vaccine Status Have you recieved a Covid-19 vaccination: Yes Automotive Professional: Moderna - Vaccination Dates Date of 2cond Vaccination (if applicable): 10/2020 - Review of Systems Constitutional: No Symptoms Ears, Nose, & Throat: No Symptoms Respiratory: No Symptoms Cardiac: No Symptoms Abdominal/Gastrointestinal: No Symptoms Genitourinary Symptoms: No Symptoms Musculoskeletal: Myalgias Skin: No Symptoms Neurological: No Symptoms Psychological: Anxiety - Past Medical History Pertinent Past Medical History: Yes Neurological History: Migraines ENT History: No Pertinent History Cardiac History: Deep Vein Thrombosis, Hypertension Respiratory History: No Pertinent History, Pulmonary Embolism Endocrine Medical History: Hypothyroidism Musculoskeletal History: No Pertinent History GI Medical History: No Pertinent History History: No Pertinent History Psycho-Social History: Anxiety, Depression Female Reproductive Disorders: No Pertinent History Other Medical History: She notes sharp pain down R LE that go to her ankle. 8 months post . She notes back pain when she was . - Past Surgical History Past Surgical History: Yes Neuro Surgical History: No Pertinent History Cardiac: No Pertinent History Respiratory: No Pertinent History Gastrointestinal: No Pertinent History Genitourinary: No Pertinent History Musculoskeletal: No Pertinent History Female Surgical History: No Pertinent History Other Surgical History: uterine ablation, lymphadectomy - Social History Smoking Status: Current every day smoker How long have you smoked: 20 yrs Exposure to second hand smoke: Yes Drug Use: none Patient Lives Alone: No Significant Family History: no pertinent family hx - Female History Hx Last Menstrual Period: last week Hx Now: No - Nursing Vital Signs Nursing Vital Signs: Initial Vital Signs Temperature 97.2 F 01/08/23 19:11 Pulse Rate 81 01/08/23 19:11 Respiratory Rate 16 01/08/23 19:11 Blood Pressure 143/88 01/08/23 19:11 O2 Sat by Pulse Oximetry 98 01/08/23 19:11 Pain Scale Pain Intensity 7 - Physical Exam General Appearance: no apparent distress, alert, anxiety Eye Exam: PERRL/EOMI Neck Exam: normal inspection, non-tender, supple, full range of motion Respiratory Exam: normal breath sounds, lungs clear Cardiovascular Exam: regular rate/rhythm, normal heart sounds Extremity Exam: normal inspection, normal range of motion, pelvis stable Neurologic Exam: alert, oriented x 3, cooperative Skin Exam: normal color SpO2 Interpretation: normal SpO2: 98 O2 Delivery: Room Air - Progress Progress: improved Progress Note: 01/08/23 19:45 32 years old female with history of hypertension, hypothyroidism, PE/DVT on Eliquis presented to the ER with chief complaint of left mid to lower thigh p ain/cramping which started almost 20 minutes prior to arrival moderate intensity without any significant aggravating or relieving factors and started to improve on its own and currently having minimal pain. She denies any swelling of calf or thigh. Patient reports she has been walking a lot lately. Denies any redness of skin, fall or trauma. Denies any difficulty breathing or chest pain. Patient reports she missed couple doses of Eliquis and is concerned about having a blood clot. Patient has no swelling, has minimal tenderness in the mid anterolateral thigh. No redness/erythema. No increased temperature. Intact range of motion at the knee and ankle joints. Cap refill less than 2 seconds. No difficulty ambulation. Since patient has been taking Eliquis and is low risk to begin with but if she has missed the doses and she has a blood clot, it is not treatment failure but more of an noncompliance issue. Even if she has a positive DVT studies again treatment will continue with Eliquis. I have discussed this with the patient and has offered her D-dimer versus ultrasound and she does not want to have anything done and reports that her pain is already getting better. She was very anxious because of her previous histories. I recommended medication compliance and outpatient follow-up with primary care for reevaluation and return to ER for worsening pain swelling or if having chest pain difficulty breathing etc. Counseled pt/family regarding: diagnosis, need for follow-up Medical Desision Making - Diagnostic Testing Diagnostic test were ordered, analyzed, and reviewed by me: No - Risk of complications Low Risk: Low risk of morbidity from additional dx testing or treatment - Departure Departure Disposition: Home Clinical Impression: Leg pain, left Condition: Stable Critical Care Time: No Referrals: SANJAY MURRELL DO [Primary Care Provider] - Follow up with PCP 1 day Instructions: Deep Vein Thrombosis (Blood Clots in the Legs) (DC) Additional Instructions: Continue with Eliquis as recommended. Follow instructions for DVT and return to ER for any worsening of lower extremity pain, difficulty breathing, chest pain or palpitations etc.
[2023-01-08 19:53] VITALS: BP 149/82; O2SAT 95
[2023-01-08 19:55] VITALS: PULSE 76; RESP 18
== END 2023-01-08 19:55 | disposition home or self-care (01) ==
LOC: ED 19:03
DX: M79.652 Pain in left thigh (principal); I10 Essential (primary) hypertension; Z79.01 Long term (current) use of anticoagulants; Z79.891 Long term (current) use of opiate analgesic; Z79.899 Other long term (current) drug therapy; Z72.0 Tobacco use; Z86.718 Personal history of other venous thrombosis and embolism
CPT/HCPCS: 99281

== ENCOUNTER 2023-02-03 11:34 | Emergency (ER) | payer OTHER ==
[2023-02-03 11:41] VITALS: TEMP 97.7; O2SAT 95
--- NOTE | 2023-02-03 12:04 | XRAY ---
Indication: Chest pain and short of breath. Comparison: September 11, 2022 Portable chest again demonstrates normal heart, lungs, and bony thorax with a few incidental tiny calcified granulomas.
[2023-02-03] MEDS ORDERED: BABY ASPIRIN 81 MG CHEW PO ONE (12:07)
[2023-02-03 12:09] LABS: Absolute Neutrophil Ct (ANC) 5.01 x10^3/uL (1.4-6.9); BASOPHIL % 0.4 % (0.0-0.4); Basophil (Absolute #) 0.03 x10^3/uL (0-0.4); Eosinophil % 4.3 % (0.00-5.0); Eosinophil (Absolute #) 0.34 x10^3/uL (0-0.5); Hematocrit 42.9 % (35-47); Hemoglobin 13.5 g/dL (12.0-16.0); IMMATURE GRAN # 0.02 x10^3u/L (0.00-0.03); IMMATURE GRAN % 0.3 % (0.00-0.4); Lymphocyte (Absolute #) 2.05 x10^3/uL (1.0-4.6); Lymphocytes % 25.8 % (24.0-44.0); Mean Cell Volume 86.5 fL (78-100); Mean Corpuscular Hemoglobin 27.2 pg (26-32); Mean Corpuscular Hgb Concent. 31.5 g/dL (32-36); Mean Platelet Volume 11.9 fL (7.5-11.0); Monocyte (Absolute #) 0.49 x10^3/uL (0.0-1.3); Monocytes % 6.2 % (0.0-12.0); Platelet Count 211 x10^3/uL (150-450); Red Blood Count 4.96 x10^6/uL (4.1-5.4); Red Cell Distribution Width 12.9 % (11.5-14.0); White Blood Count 7.9 x10^3/uL (4.0-10.5)
--- NOTE | 2023-02-03 12:12 | ERPHSYRPT ---
- History of Present Illness Historian: patient Exam Limitations: no limitations Patient Subjective Stated Complaint: Pt states "I was sitting at work and started to have chest pain and a headache. [facility] and they told me to go to an er because they thought I had a heart attack at some point and want me to get my levels done." Triage Nursing Assessment: Pt presented alert and oriented X 3, skin pwd. Pt ambulates with an upright steady gait, able to speak in clear full sentences. Pt arrived with an ekg. EKG had quite a bit of artifact. 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 Pain is described as sharp, 5 out of 10 at present, and without radiation. Pain is worse with palpation. Patient states that she had similar pain with a dislocated rib in the past and that this feels the same. Patient denied nausea, vomiting, dyspnea, and diaphoresis with the pain. Past medical history includes hypertension and 1 pack a day tobacco use. Hyperlipidemia and diabetes mellitus both denied, along with history of CAD/[place]. Stat EKG in ER demonstrates poor R wave progression but no acute ST segment changes. Cough and fever all denied. She states that she was tested for flu/COVID at the clinic before coming to the ER. Patient does have a history of pulmonary embolus and takes Eliquis 5 mg twice daily. Timing/Duration: other (8 AM) Activities at Onset: rest Quality: sharpness Location: other (Left sternal) Chest Pain Radiation: no radiation Severity of Pain-Max: severe Severity of Pain-Current: moderate Modifying Factors: Improves With: nothing Associated Symptoms: denies symptoms Prior Chest Pain/Cardiac Workup: non-cardiac Nitro Today/Relief: no nitro taken today Aspirin Treatment Today: no aspirin today Allergies/Adverse Reactions: fluoxetine HCl [From Prozac] Adverse Reaction (Severe, Verified 01/08/23 19:27) Nausea PROZAC WITH FLUOXETINE HAS BLOOD IN STOOL sertraline [From Zoloft] Adverse Reaction (Intermediate, Verified 01/08/23 19:27) gabapentin [From Horizant] Adverse Reaction (Mild, Verified 01/08/23 19:27) Nausea ketorolac [From Toradol] Adverse Reaction (Mild, Verified 01/08/23 19:27) Nausea tramadol Adverse Reaction (Mild, Verified 01/08/23 19:27) Nausea Home Medications: Levothyroxine Sodium 25 Mcg [Synthroid 25 Mcg] 88 mcg PO DAILY 12/02/18 [History] Allopurinol 100 mg [Zyloprim 100 mg] 200 mg PO DAILY 01/11/21 [History] Apixaban [Eliquis 2.5 mg Tablet] 5 mg PO BID 03/22/21 [History] Escitalopram Oxalate [Lexapro] 20 mg PO DAILY 09/03/21 [History] Metoprolol Succinate 25 mg Xl* [Toprol-Xl 25MG Tablets] 1 tab PO DAILY 05/28/22 [History] Hydroxyzine HCl 25 mg [Atarax 25 mg] 25 mg PO DAILY 06/08/22 [History] Calcium Carbonate [Calcium] 1,200 mg PO DAILY 07/03/22 [History] Magnesium 250 mg PO TID 07/03/22 [History] Mecobalamin [B12 Active] 1,000 mcg SL DAILY 07/03/22 [History] Rosuvastatin Calcium 5 mg PO DAILY 07/03/22 [History] Buprenorphine 1 each TD UD 09/11/22 [History] Hx Tetanus, Diphtheria Vaccination/Date Given: Yes Hx Influenza Vaccination/Date Given: Yes Hx Pneumococcal Vaccination/Date Given: No Immunizations Up to Date: No Travel Risk - International Travel Have you traveled outside of the country in past 3 weeks: No - Coronavirus Screening Are you exhibiting any of the following symptoms?: No - Vaccine Status Have you recieved a Covid-19 vaccination: Yes 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[employer] - Vaccination Dates Date of 2cond Vaccination (if applicable): 10/2020 - Review of Systems Constitutional: No Symptoms Eyes: No Symptoms Ears, Nose, & Throat: No Symptoms Respiratory: No Symptoms Cardiac: No Symptoms, Chest Pain Abdominal/Gastrointestinal: No Symptoms Genitourinary Symptoms: No Symptoms Musculoskeletal: No Symptoms Skin: No Symptoms Neurological: No Symptoms Psychological: No Symptoms Endocrine: No Symptoms Hematologic/Lymphatic: No Symptoms Immunological/Allergic: No Symptoms - Past Medical History Pertinent Past Medical History: Yes Neurological History: Migraines ENT History: No Pertinent History Cardiac History: Deep Vein Thrombosis, Hypertension Respiratory History: No Pertinent History, Pulmonary Embolism Endocrine Medical History: Hypothyroidism Musculoskeletal History: No Pertinent History GI Medical History: No Pertinent History History: No Pertinent History Psycho-Social History: Anxiety, Depression Female Reproductive Disorders: No Pertinent History Other Medical History: She notes sharp pain down R LE that go to her ankle. 8 months post . She notes back pain when she was . - Past Surgical History Past Surgical History: Yes Neuro Surgical History: No Pertinent History Cardiac: No Pertinent History Respiratory: No Pertinent History Gastrointestinal: No Pertinent History Genitourinary: No Pertinent History Musculoskeletal: No Pertinent History Female Surgical History: No Pertinent History Other Surgical History: uterine ablation, lymphadectomy - Social History Smoking Status: Current every day smoker How long have you smoked: 20 yrs Exposure to second hand smoke: Yes Drug Use: none Patient Lives Alone: No Significant Family History: no pertinent family hx - Female History Hx Last Menstrual Period: 01/29/2023 Hx Now: No - Nursing Vital Signs Nursing Vital Signs: Initial Vital Signs Temperature 97.7 F 02/03/23 11:34 Pulse Rate 72 02/03/23 11:34 Respiratory Rate 20 02/03/23 11:34 Blood Pressure 155/95 02/03/23 11:34 O2 Sat by Pulse Oximetry 95 02/03/23 11:34 Pain Scale Pain Intensity 0 Hypertensive - Physical Exam General Appearance: no apparent distress Eye Exam: PERRL/EOMI, eyes nml inspection Ears, Nose, Throat Exam: normal ENT inspection, TMs normal, pharynx normal, moist mucous membranes Neck Exam: normal inspection, non-tender, supple, full range of motion, No meningismus, No mass, No Brudzinski, No Kernig's, No carotid bruit Respiratory Exam: normal breath sounds, chest tenderness (Point tenderness where patient states she is having the pain which is moderate.), lungs clear, airway intact, No respiratory distress Cardiovascular Exam: regular rate/rhythm, normal heart sounds, normal peripheral pulses, capillary refill <2 sec, No murmur Gastrointestinal/Abdomen Exam: soft, normal bowel sounds, No tenderness Back Exam: normal inspection, normal range of motion, No CVA tenderness, No vertebral tenderness Extremity Exam: normal inspection, normal range of motion Neurologic Exam: alert, oriented x 3, cooperative, decorating machine tender II-XII nml as tested, normal mood/affect, nml cerebellar function, nml station & gait, sensation nml Skin Exam: normal color, warm, dry Lymphatic Exam: No adenopathy SpO2 Interpretation: normal SpO2: 95 O2 Delivery: Room Air - Course Nursing assessment & vital signs reviewed: Yes EKG Interpreted by Me: RATE (Sinus bradycardia/rate 58/normal QT-QTc/Flat T wave in aVF, no acute ST segment changes, low voltage is most likely due to obesity.) - Radiology Exams Chest X-ray Interpretation: Reviewed by me (Chest x-ray negative per Dr. Doherty.) Ordered Tests: Active Orders 24 hr Category Date Time Status CHEST 1 VIEW (PORTABLE) Stat Exams 02/03/23 11:40 Completed CBC W DIFF Stat Lab 02/03/23 12:08 Completed CMP Stat Lab 02/03/23 12:08 Completed NT PRO BNPII Stat Lab 02/03/23 12:08 Completed PROTIME WITH INR Stat Lab 02/03/23 12:08 Completed PTT Stat Lab 02/03/23 12:08 Completed TROPONIN Q4H Lab 02/03/23 12:08 Completed TROPONIN Q4H Lab 02/03/23 15:45 Ordered TROPONIN Q4H Lab 02/03/23 19:45 Ordered Medication Summary Discontinued Medications Generic Name Dose Route Start Last Admin Trade Name Silvestre PRN Reason Stop Dose Admin Aspirin 324 mg 02/03/23 12:07 02/03/23 12:22 Aspirin 81 Mg Tab.Chew PO 02/03/23 12:08 324 mg STAT ONE Administration Aspirin Confirm 02/03/23 12:19 Aspirin 81 Mg Tab.Chew Administered 02/03/23 12:20 Dose 324 mg .ROUTE .STK-MED ONE Lab/Rad Data: Laboratory Result Diagrams 02/03/23 12:08 02/03/23 12:08 Laboratory Results 02/03/23 02/03/23 02/03/23 Range/Units 12:08 12:08 12:08 WBC (4.0-10.5) x10^3/uL RBC (4.1-5.4) x10^6/uL Hgb (12.0-16.0) g/dL Hct (35-47) % MCV (78-100) fL MCH (26-32) pg MCHC (32-36) g/dL RDW (11.5-14.0) % Plt Count (150-450) x10^3/uL MPV (7.5-11.0) fL Gran % (36.0-66.0) % Immature Gran % (Auto) (0.00-0.4) % Nucleat RBC Rel Count (0.00-0.1) % Eos # (Auto) (0-0.5) x10^3/uL Immature Gran # (Auto) (0.00-0.03) x10^3u/L Absolute Lymphs (auto) (1.0-4.6) x10^3/uL Absolute Monos (auto) (0.0-1.3) x10^3/uL Absolute Nucleated RBC (0.00-0.01) x10^3u/L Lymphocytes % (24.0-44.0) % Monocytes % (0.0-12.0) % Eosinophils % (0.00-5.0) % Basophils % (0.0-0.4) % Absolute Granulocytes (1.4-6.9) x10^3/uL Basophils # (0-0.4) x10^3/uL PT 10.8 (9.4-12.5) SECONDS INR 0.99 (0.8-3.0) APTT 29.1 (25.1-36.5) SECONDS Sodium 136 L (137-145) mmol/L Potassium 4.3 (3.5-5.1) mmol/L Chloride 103 (98-107) mmol/L Carbon Dioxide 28 (22-30) mmol/L Anion Gap 9.8 (5-15) MEQ/L BUN 11 (7-17) mg/dL Creatinine 0.61 (0.52-1.04) mg/dL Estimated GFR 121.7 ML/MIN Glucose 96 (74-106) mg/dL Calcium 9.0 (8.4-10.2) mg/dL Total Bilirubin 0.60 (0.2-1.3) mg/dL AST 24 (14-36) U/L ALT 28 (0-35) U/L Alkaline Phosphatase 82 (38-126) U/L Troponin I < 0.012 (0.000-0.034) ng/mL NT-Pro-B Natriuret Pep 167 (<300) pg/mL Serum Total Protein 7.5 (6.3-8.2) g/dL Albumin 4.1 (3.5-5.0) g/dL 02/03/23 Range/Units 12:08 WBC 7.9 (4.0-10.5) x10^3/uL RBC 4.96 (4.1-5.4) x10^6/uL Hgb 13.5 (12.0-16.0) g/dL Hct 42.9 (35-47) % MCV 86.5 (78-100) fL MCH 27.2 (26-32) pg MCHC 31.5 L (32-36) g/dL RDW 12.9 (11.5-14.0) % Plt Count 211 (150-450) x10^3/uL MPV 11.9 H (7.5-11.0) fL Gran % 63.0 (36.0-66.0) % Immature Gran % (Auto) 0.3 (0.00-0.4) % Nucleat RBC Rel Count 0.0 (0.00-0.1) % Eos # (Auto) 0.34 (0-0.5) x10^3/uL Immature Gran # (Auto) 0.02 (0.00-0.03) x10^3u/L Absolute Lymphs (auto) 2.05 (1.0-4.6) x10^3/uL Absolute Monos (auto) 0.49 (0.0-1.3) x10^3/uL Absolute Nucleated RBC 0.00 (0.00-0.01) x10^3u/L Lymphocytes % 25.8 (24.0-44.0) % Monocytes % 6.2 (0.0-12.0) % Eosinophils % 4.3 (0.00-5.0) % Basophils % 0.4 (0.0-0.4) % Absolute Granulocytes 5.01 (1.4-6.9) x10^3/uL Basophils # 0.03 (0-0.4) x10^3/uL PT (9.4-12.5) SECONDS INR (0.8-3.0) APTT (25.1-36.5) SECONDS Sodium (137-145) mmol/L Potassium (3.5-5.1) mmol/L Chloride (98-107) mmol/L Carbon Dioxide (22-30) mmol/L Anion Gap (5-15) MEQ/L BUN (7-17) mg/dL Creatinine (0.52-1.04) mg/dL Estimated GFR ML/MIN Glucose (74-106) mg/dL Calcium (8.4-10.2) mg/dL Total Bilirubin (0.2-1.3) mg/dL AST (14-36) U/L ALT (0-35) U/L Alkaline Phosphatase (38-126) U/L Troponin I (0.000-0.034) ng/mL NT-Pro-B Natriuret Pep (<300) pg/mL Serum Total Protein (6.3-8.2) g/dL Albumin (3.5-5.0) g/dL - Progress Progress Note: 02/03/23 13:08 Nursing note and vital signs reviewed. No food or housing insecurities noted. All lab results reviewed and shared with patient. Additional history per . Patient given 324 mg p.o. chewable aspirin after history and physical. Troponin was negative. Patient refused a repeat troponin at 1400. Pain most likely is musculoskeletal as she has no acute EKG changes and it is reproducible. Heart score is 2. Patient is currently on Eliquis 5 mg p.o. twice daily for history of PE. She states that she is taking her Eliquis. Patient has a history of hypertension and has been out of her blood pressure medication x 1 month. 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 Blood pressure was very acceptable on the majority of her ER readings. Pain was improved upon discharge. Counseled pt/family regarding: lab results, diagnosis, need for follow-up, rad results Medical Desision Making - Independent Historian Additional History obtained from: Spouse - External Record(s) Reviewed Records reviewed as a part of evaluation & management: Clinic (EKG reviewed from clinic/very poor quality.) - Diagnostic Testing Diagnostic test were ordered, analyzed, and reviewed by me: Yes Radiological Interpretation: Reviewed by me - Risk of complications The pt has a mod risk of morbidity or mortality based on: Need for prescription drug management - Departure Departure Disposition: Home Clinical Impression: Chest pain Condition: Stable Critical Care Time: No Referrals: SANJAY MURRELL DO [Primary Care Provider] - Follow up/PCP as directed Instructions: Chest Pain (DC) Additional Instructions: Follow-up with your family MD on Monday. Return to ER for worsening chest pain or shortness of breath. Please continue with your Eliquis 5 mg twice a day.
[2023-02-03] MEDS ORDERED: BABY ASPIRIN 81 MG CHEW ONE (12:19)
[2023-02-03 12:29] LABS: INR 0.99 (0.8-3.0); PROTIME 10.8 SECONDS (9.4-12.5); PTT 29.1 SECONDS (25.1-36.5)
[2023-02-03 12:38] LABS: ALBUMIN 4.1 g/dL (3.5-5.0); ANION GAP 9.8 MEQ/L (5-15); BILIRUBIN,TOTAL 0.6 mg/dL (0.2-1.3); Creatinine 1 0.61 mg/dL (0.52-1.04); EST GLOMERULAR FILTRATION RATE 121.7 ML/MIN; Potassium 4.3 mmol/L (3.5-5.1); Total Protein 7.5 g/dL (6.3-8.2)
[2023-02-03 12:59] VITALS: BP 123/80; PULSE 57; RESP 12
== END 2023-02-03 13:14 | disposition home or self-care (01) ==
LOC: ED 11:34
DX: R07.9 Chest pain, unspecified (principal); I10 Essential (primary) hypertension; Z79.01 Long term (current) use of anticoagulants; Z79.891 Long term (current) use of opiate analgesic; Z79.899 Other long term (current) drug therapy; Z72.0 Tobacco use
CPT/HCPCS: 36415; 71045; 80053; 83880; 84484; 85025; 85610; 85730; 99283; A9270-GY

== ENCOUNTER 2023-05-11 07:11 | Emergency (ER) | payer OTHER ==
[2023-05-11 07:33] VITALS: TEMP 97.7; O2SAT 96
[2023-05-11] MEDS: BABY ASPIRIN 81 MG CHEW PO ONE (07:48)
[2023-05-11] MEDS ORDERED: BABY ASPIRIN 81 MG CHEW ONE (07:48)
[2023-05-11 08:04] LABS: Absolute Neutrophil Ct (ANC) 6.09 x10^3/uL (1.4-6.9); BASOPHIL % 0.3 % (0.0-0.4); Basophil (Absolute #) 0.03 x10^3/uL (0-0.4); Eosinophil % 4.2 % (0.00-5.0); Hemoglobin 13.2 g/dL (12.0-16.0); IMMATURE GRAN # 0.03 x10^3u/L (0.00-0.03); IMMATURE GRAN % 0.3 % (0.00-0.4); Lymphocyte (Absolute #) 2.37 x10^3/uL (1.0-4.6); Mean Cell Volume 88.5 fL (78-100); Mean Corpuscular Hemoglobin 27.2 pg (26-32); Mean Corpuscular Hgb Concent. 30.7 g/dL (32-36); Monocyte (Absolute #) 0.55 x10^3/uL (0.0-1.3); Monocytes % 5.8 % (0.0-12.0); Neutrophil % 64.4 % (36.0-66.0); Platelet Count 244 x10^3/uL (150-450); Red Blood Count 4.86 x10^6/uL (4.1-5.4); Red Cell Distribution Width 13.2 % (11.5-14.0); White Blood Count 9.5 x10^3/uL (4.0-10.5)
--- NOTE | 2023-05-11 08:16 | ERPHSYRPT ---
- History of Present Illness Time Seen by Provider: 05/11/23 07:43 Historian: patient Exam Limitations: no limitations Patient Subjective Stated Complaint: C/O chest pain and SOB that started an hour ago while looking in her closet. Triage Nursing Assessment: Patient ambulated back to ER without difficulties. No SOB noted. Skin tone normal. Dry, cough present. PEARL WNL. NO edema present. Physician History: 32 years old female with history of hypertension, pulmonary embolism possibly missed couple of doses few days ago presented in the ER with complains of sudden onset chest pain while she was getting ready for work around 6:45 AM. Patient reports moderate intensity sharp pain with some radiation to the back and was aggravated with movements of left arm. Reports associated shortness of breath. No palpitations. Pain started to improve on its own and currently 2/10 intensity with no shortness of breath. Patient reports having URI with cough and congestion going on for the last 4 to 5 days. Patient is currently not in any distress. Aspirin Treatment Today: 81 mg x 4 Allergies/Adverse Reactions: fluoxetine HCl [From Prozac] Adverse Reaction (Severe, Verified 05/11/23 07:19) Nausea PROZAC WITH FLUOXETINE HAS BLOOD IN STOOL sertraline [From Zoloft] Adverse Reaction (Intermediate, Verified 05/11/23 07:19) gabapentin [From Horizant] Adverse Reaction (Mild, Verified 05/11/23 07:19) Nausea ketorolac [From Toradol] Adverse Reaction (Mild, Verified 05/11/23 07:19) Nausea tramadol Adverse Reaction (Mild, Verified 05/11/23 07:19) Nausea Home Medications: Levothyroxine Sodium 25 Mcg [Synthroid 25 Mcg] 88 mcg PO DAILY 12/02/18 [History] Allopurinol 100 mg [Zyloprim 100 mg] 200 mg PO DAILY 01/11/21 [History] Apixaban [Eliquis 2.5 mg Tablet] 5 mg PO BID 03/22/21 [History] Escitalopram Oxalate [Lexapro] 20 mg PO DAILY 09/03/21 [History] Metoprolol Succinate 25 mg Xl* [Toprol-Xl 25MG Tablets] 1 tab PO DAILY 05/28/22 [History] Hydroxyzine HCl 25 mg [Atarax 25 mg] 25 mg PO DAILY 06/08/22 [History] Calcium Carbonate [Calcium] 1,200 mg PO DAILY 07/03/22 [History] Magnesium 250 mg PO TID 07/03/22 [History] Mecobalamin [B12 Active] 1,000 mcg SL DAILY 07/03/22 [History] Rosuvastatin Calcium 5 mg PO DAILY 07/03/22 [History] Buprenorphine 1 each TD UD 09/11/22 [History] Hx Tetanus, Diphtheria Vaccination/Date Given: Yes Hx Influenza Vaccination/Date Given: Yes Hx Pneumococcal Vaccination/Date Given: No Travel Risk - International Travel Have you traveled outside of the country in past 3 weeks: No - Coronavirus Screening Are you exhibiting any of the following symptoms?: Yes Symptoms: Shortness of Breath Close contact with a COVID-19 positive Pt in past 14-21 Days: No - Vaccine Status Have you recieved a Covid-19 vaccination: Yes 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[employer] - Vaccination Dates Date of 2cond Vaccination (if applicable): 10/2020 - Review of Systems Constitutional: No Symptoms Eyes: No Symptoms Ears, Nose, & Throat: No Symptoms Respiratory: Cough, Dyspnea Cardiac: Chest Pain Abdominal/Gastrointestinal: No Symptoms Genitourinary Symptoms: No Symptoms Musculoskeletal: No Symptoms Skin: No Symptoms Neurological: No Symptoms Endocrine: No Symptoms Hematologic/Lymphatic: No Symptoms Immunological/Allergic: No Symptoms - Past Medical History Pertinent Past Medical History: Yes Neurological History: Migraines ENT History: No Pertinent History Cardiac History: Deep Vein Thrombosis, Hypertension Respiratory History: No Pertinent History, Pulmonary Embolism Endocrine Medical History: Hypothyroidism Musculoskeletal History: No Pertinent History GI Medical History: No Pertinent History History: No Pertinent History Psycho-Social History: Anxiety, Depression Female Reproductive Disorders: No Pertinent History Other Medical History: She notes sharp pain down R LE that go to her ankle. 8 months post . She notes back pain when she was . - Past Surgical History Past Surgical History: Yes Neuro Surgical History: No Pertinent History Cardiac: No Pertinent History Respiratory: No Pertinent History Gastrointestinal: No Pertinent History Genitourinary: No Pertinent History Musculoskeletal: No Pertinent History Female Surgical History: No Pertinent History Other Surgical History: uterine ablation, lymphadectomy - Social History Smoking Status: Current every day smoker How long have you smoked: 20 yrs Exposure to second hand smoke: Yes Drug Use: none Patient Lives Alone: No Significant Family History: no pertinent family hx - Female History Hx Now: (unkn) - Nursing Vital Signs Nursing Vital Signs: Initial Vital Signs Pulse Rate 64 05/11/23 07:18 Respiratory Rate 20 05/11/23 07:18 Blood Pressure 148/94 05/11/23 07:18 O2 Sat by Pulse Oximetry 96 05/11/23 07:18 Pain Scale Pain Intensity 0 - Physical Exam General Appearance: no apparent distress, alert Eye Exam: PERRL/EOMI Ears, Nose, Throat Exam: normal ENT inspection, TMs normal, pharynx normal, moist mucous membranes Neck Exam: normal inspection, non-tender, supple, full range of motion Respiratory Exam: normal breath sounds, lungs clear Cardiovascular Exam: regular rate/rhythm, normal heart sounds Gastrointestinal/Abdomen Exam: soft, normal bowel sounds, No tenderness Back Exam: normal inspection, normal range of motion Extremity Exam: normal inspection, normal range of motion Neurologic Exam: alert, oriented x 3, cooperative Skin Exam: normal color SpO2 Interpretation: normal SpO2: 96 O2 Delivery: Room Air - Course EKG Interpreted by Me: RATE (53), Sinus David, NORMAL AXIS, NORMAL INTERVALS, NORMAL QRS Ordered Tests: Active Orders 24 hr Category Date Time Status Professional Shopper STAT Care 05/11/23 07:45 Completed EKG-ER Only STAT Care 05/11/23 07:44 Completed IV Insertion STAT Care 05/11/23 07:44 Completed CHEST 1 VIEW (PORTABLE) Stat Exams 05/11/23 07:44 Completed CBC W DIFF Stat Lab 05/11/23 07:44 Completed CMP Stat Lab 05/11/23 07:35 Completed D-DIMER QUANTITATIVE Stat Lab 05/11/23 07:35 Completed NT PRO BNPII Stat Lab 05/11/23 07:35 Completed TROPONIN Q4H Lab 05/11/23 07:35 Completed TROPONIN Q4H Lab 05/11/23 10:54 Completed Medication Summary Discontinued Medications Generic Name Dose Route Start Last Admin Trade Name Freq PRN Reason Stop Dose Admin Aspirin 324 mg 05/11/23 07:44 05/11/23 07:48 Aspirin 81 Mg Tab.Chew PO 05/11/23 07:45 324 mg STAT ONE Administration Aspirin Confirm 05/11/23 07:48 Aspirin 81 Mg Tab.Chew Administered 05/11/23 07:49 Dose 324 mg .ROUTE .STK-MED ONE Lab/Rad Data: Laboratory Result Diagrams 05/11/23 07:44 05/11/23 07:35 Laboratory Results 05/11/23 05/11/23 05/11/23 Range/Units 10:54 07:44 07:35 WBC 9.5 (4.0-10.5) x10^3/uL RBC 4.86 (4.1-5.4) x10^6/uL Hgb 13.2 (12.0-16.0) g/dL Hct 43.0 (35-47) % MCV 88.5 (78-100) fL MCH 27.2 (26-32) pg MCHC 30.7 L (32-36) g/dL RDW 13.2 (11.5-14.0) % Plt Count 244 (150-450) x10^3/uL MPV 12.0 H (7.5-11.0) fL Gran % 64.4 (36.0-66.0) % Immature Gran % (Auto) 0.3 (0.00-0.4) % Nucleat RBC Rel Count 0.0 (0.00-0.1) % Eos # (Auto) 0.40 (0-0.5) x10^3/uL Immature Gran # (Auto) 0.03 (0.00-0.03) x10^3u/L Absolute Lymphs (auto) 2.37 (1.0-4.6) x10^3/uL Absolute Monos (auto) 0.55 (0.0-1.3) x10^3/uL Absolute Nucleated RBC 0.00 (0.00-0.01) x10^3u/L Lymphocytes % 25.0 (24.0-44.0) % Monocytes % 5.8 (0.0-12.0) % Eosinophils % 4.2 (0.00-5.0) % Basophils % 0.3 (0.0-0.4) % Absolute Granulocytes 6.09 (1.4-6.9) x10^3/uL Basophils # 0.03 (0-0.4) x10^3/uL D-Dimer (0.0-0.50) mg/L Sodium (135-145) mmol/L Potassium (3.5-5.1) mmol/L Chloride (98-107) mmol/L Carbon Dioxide (22-30) mmol/L Anion Gap (5-15) MEQ/L BUN (7-17) mg/dL Creatinine (0.52-1.04) mg/dL Estimated GFR ML/MIN Glucose (74-106) mg/dL Calcium (8.4-10.2) mg/dL Total Bilirubin (0.2-1.3) mg/dL AST (14-36) U/L ALT (0-35) U/L Alkaline Phosphatase (38-126) U/L Troponin I < 0.012 < 0.012 (0.000-0.034) ng/mL NT-Pro-B Natriuret Pep (<300) pg/mL Serum Total Protein (6.3-8.2) g/dL Albumin (3.5-5.0) g/dL 05/11/23 05/11/23 Range/Units 07:35 07:35 WBC (4.0-10.5) x10^3/uL RBC (4.1-5.4) x10^6/uL Hgb (12.0-16.0) g/dL Hct (35-47) % MCV (78-100) fL MCH (26-32) pg MCHC (32-36) g/dL RDW (11.5-14.0) % Plt Count (150-450) x10^3/uL MPV (7.5-11.0) fL Gran % (36.0-66.0) % Immature Gran % (Auto) (0.00-0.4) % Nucleat RBC Rel Count (0.00-0.1) % Eos # (Auto) (0-0.5) x10^3/uL Immature Gran # (Auto) (0.00-0.03) x10^3u/L Absolute Lymphs (auto) (1.0-4.6) x10^3/uL Absolute Monos (auto) (0.0-1.3) x10^3/uL Absolute Nucleated RBC (0.00-0.01) x10^3u/L Lymphocytes % (24.0-44.0) % Monocytes % (0.0-12.0) % Eosinophils % (0.00-5.0) % Basophils % (0.0-0.4) % Absolute Granulocytes (1.4-6.9) x10^3/uL Basophils # (0-0.4) x10^3/uL D-Dimer 0.44 (0.0-0.50) mg/L Sodium 141 (135-145) mmol/L Potassium 4.1 (3.5-5.1) mmol/L Chloride 107 (98-107) mmol/L Carbon Dioxide 28 (22-30) mmol/L Anion Gap 10.9 (5-15) MEQ/L BUN 10 (7-17) mg/dL Creatinine 0.61 (0.52-1.04) mg/dL Estimated GFR 121.7 ML/MIN Glucose 100 (74-106) mg/dL Calcium 8.5 (8.4-10.2) mg/dL Total Bilirubin 0.50 (0.2-1.3) mg/dL AST 22 (14-36) U/L ALT 23 (0-35) U/L Alkaline Phosphatase 72 (38-126) U/L Troponin I (0.000-0.034) ng/mL NT-Pro-B Natriuret Pep 151 (<300) pg/mL Serum Total Protein 7.1 (6.3-8.2) g/dL Albumin 4.0 (3.5-5.0) g/dL - Progress Progress: improved, re-examined Air Movement: good Progress Note: 05/11/23 11:15 32 years old is evaluated in the ER for sudden onset left-sided chest pain. Patient EKG is sinus bradycardia with no acute ischemic changes and chest pain is already improving on presentation in the ER. She is given full dose aspirin. Workup showed normal white count, negative initial troponin and D-dimers. Chest x-ray negative. Chemistries fairly unremarkable. On reevaluation patient chest pain is completely resolved. With her duration of chest pain starting at 645, recommended obtaining second troponin which patient initially did not want to get it done but later on agreeable with lab draw and wants to be called with results as she does not want to wait in the emergency room. She is chest pain- free. Patient chest pain was producible with movements of left arm, could have some element of musculoskeletal cause. Less likely cardiac. She is being discharged with outpatient follow-up. Discussed signs symptoms of worsening needing return to ER which she seems understanding. Stable for discharge. 05/11/23 11:16 05/11/23 11:51 second troponin is negative. Blood Culture(s) Obtained: No Antibiotics given: No Counseled pt/family regarding: lab results, diagnosis, need for follow-up, rad results, smoking cessation Medical Desision Making - Independent Historian Additional History obtained from: Spouse - Diagnostic Testing Diagnostic test were ordered, analyzed, and reviewed by me: Yes Radiological Interpretation: Reviewed by me - Departure Departure Disposition: Home Clinical Impression: Atypical chest pain Condition: Stable Critical Care Time: No Referrals: SANJAY MURRELL DO [Primary Care Provider] - Follow up with PCP 1 day Instructions: Angina (DC), Chest Pain (DC) Additional Instructions: Take Tylenol as needed for pain. Follow-up with your primary care/cardiology for reevaluation. Return to ER for worsening chest pain palpitations or if having difficulty breathing etc. Take your Eliquis regularly.
[2023-05-11 08:28] LABS: ANION GAP 10.9 MEQ/L (5-15); BILIRUBIN,TOTAL 0.5 mg/dL (0.2-1.3); Calcium 8.5 mg/dL (8.4-10.2); Creatinine 1 0.61 mg/dL (0.52-1.04); EST GLOMERULAR FILTRATION RATE 121.7 ML/MIN; Potassium 4.1 mmol/L (3.5-5.1); Total Protein 7.1 g/dL (6.3-8.2)
--- NOTE | 2023-05-11 09:20 | XRAY ---
Indication: Chest pain. Comparison: February 03, 2023 Portable chest again demonstrates normal heart, lungs, and bony thorax with a few incidental tiny calcified granulomas.
[2023-05-11 11:45] VITALS: BP 128/72; PULSE 55; RESP 13
== END 2023-05-11 11:45 | disposition home or self-care (01) ==
LOC: ED 07:11
DX: R07.9 Chest pain, unspecified (principal); I10 Essential (primary) hypertension; R00.1 Bradycardia, unspecified; F17.200 Nicotine dependence, unspecified, uncomplicated; Z86.711 Personal history of pulmonary embolism; Z79.01 Long term (current) use of anticoagulants; Z79.899 Other long term (current) drug therapy; Z20.828 Contact with and (suspected) exposure to other viral communicable diseases; Z86.718 Personal history of other venous thrombosis and embolism
CPT/HCPCS: 36000; 36415; 71045; 80053; 83880; 84484; 85025; 85379; 93005; 93041; 99284; A9270-GY

== ENCOUNTER 2023-10-19 14:48 | Emergency (ER) | payer OTHER ==
[2023-10-19 16:11] VITALS: RESP 20; TEMP 97.5
[2023-10-19 16:30] LABS: Absolute Neutrophil Ct (ANC) 7.73 x10^3/uL (1.56-6.13); BASOPHIL % 0.4 % (0.1-1.2); Basophil (Absolute #) 0.04 x10^3/uL (0.01-0.08); Eosinophil % 3.9 % (0.7-5.8); Eosinophil (Absolute #) 0.44 x10^3/uL (0.04-0.36); Hematocrit 43.6 % (34.1-44.9); Hemoglobin 13.8 g/dL (11.2-15.7); IMMATURE GRAN # 0.03 x10^3u/L (0.001-0.031); IMMATURE GRAN % 0.3 % (0.001-0.429); Lymphocyte (Absolute #) 2.19 x10^3/uL (1.18-3.74); Lymphocytes % 19.6 % (19.3-51.7); Mean Corpuscular Hemoglobin 27.5 pg (25.6-32.2); Mean Corpuscular Hgb Concent. 31.7 g/dL (32.2-35.5); Mean Platelet Volume 12.5 fL (9.4-12.3); Monocyte (Absolute #) 0.73 x10^3/uL (0.24-0.86); Monocytes % 6.5 % (4.7-12.5); Neutrophil % 69.3 % (34.0-71.1); Platelet Count 218 x10^3/uL (182-369); Red Blood Count 5.01 x10^6/uL (3.93-5.22); Red Cell Distribution Width 12.9 % (11.7-14.4); White Blood Count 11.2 x10^3/uL (3.98-10.04)
[2023-10-19 16:45] LABS: ALBUMIN 4.3 g/dL (3.5-5.0); BILIRUBIN,TOTAL 0.6 mg/dL (0.2-1.3); Calcium 8.9 mg/dL (8.4-10.2); Creatinine 1 0.74 mg/dL (0.52-1.04); EST GLOMERULAR FILTRATION RATE 109.5 ML/MIN; Potassium 4.1 mmol/L (3.5-5.1); Total Protein 7.6 g/dL (6.3-8.2)
[2023-10-19 16:50] LABS: HCG SERUM TEST NEGATIVE (NEGATIVE)
--- NOTE | 2023-10-19 16:51 | ERPHSYRPT ---
- History of Present Illness Time Seen by Provider: 10/19/23 15:58 Historian: patient Exam Limitations: no limitations Patient Subjective Stated Complaint: Vomiting Triage Nursing Assessment: Patient ambulated back to ED and transferred self to bed. Patient A+O X 3. Patient's skin pink, warm and dry. Patient complains of N/V for 6 days. Patient also complains of left lower pelvic pain 4/10 since yesterday. Abdomen soft and round with BS X 4. Physician History: 33 years old morbidly obese female presented in the ER with complaint of left lower quadrant/pelvic area pain for the last 5 to 6 days with associated nausea and vomiting. Patient has been evaluated outpatient urgent care, taking Zofran with no significant relief. Pain is dull aching pressure/discomfort feeling of 4/10 intensity, aggravated with palpation. Reports multiple episodes of nonprojectile, nonbilious vomiting without hematemesis. No fever or chills reported. Patient is concerned about ectopic as she does have history of ablation. Allergies/Adverse Reactions: fluoxetine HCl [From Prozac] Adverse Reaction (Severe, Verified 10/19/23 16:01) Nausea PROZAC WITH FLUOXETINE HAS BLOOD IN STOOL sertraline [From Zoloft] Adverse Reaction (Intermediate, Verified 10/19/23 16:01) gabapentin [From Horizant] Adverse Reaction (Mild, Verified 10/19/23 16:01) Nausea ketorolac [From Toradol] Adverse Reaction (Mild, Verified 10/19/23 16:01) Nausea tramadol Adverse Reaction (Mild, Verified 10/19/23 16:01) Nausea Home Medications: Levothyroxine Sodium 25 Mcg [Synthroid 25 Mcg] 88 mcg PO DAILY 12/02/18 [History] Allopurinol 100 mg [Zyloprim 100 mg] 200 mg PO DAILY 01/11/21 [History] Apixaban [Eliquis 2.5 mg Tablet] 5 mg PO BID 03/22/21 [History] Escitalopram Oxalate [Lexapro] 20 mg PO DAILY 09/03/21 [History] Metoprolol Succinate 25 mg Xl* [Toprol-Xl 25MG Tablets] 1 tab PO DAILY 05/28/22 [History] Hydroxyzine HCl 25 mg [Atarax 25 mg] 25 mg PO DAILY 06/08/22 [History] Calcium Carbonate [Calcium] 1,200 mg PO DAILY 07/03/22 [History] Magnesium 250 mg PO TID 07/03/22 [History] Mecobalamin [B12 Active] 1,000 mcg SL DAILY 07/03/22 [History] Rosuvastatin Calcium 5 mg PO DAILY 07/03/22 [History] Buprenorphine 1 each TD UD 09/11/22 [History] Hx Tetanus, Diphtheria Vaccination/Date Given: Yes Hx Influenza Vaccination/Date Given: Yes Hx Pneumococcal Vaccination/Date Given: No Immunizations Up to Date: Yes Travel Risk - International Travel Have you traveled outside of the country in past 3 weeks: No - Emerging Infectious Disease Are you exhibiting symptoms associated with any current EIDs: No - Review of Systems Constitutional: No Symptoms Eyes: No Symptoms Ears, Nose, & Throat: No Symptoms Respiratory: No Symptoms Cardiac: No Symptoms Abdominal/Gastrointestinal: Abdominal Pain, Nausea, Vomiting Genitourinary Symptoms: No Symptoms Musculoskeletal: No Symptoms Skin: No Symptoms Neurological: No Symptoms Hematologic/Lymphatic: No Symptoms - Past Medical History Pertinent Past Medical History: Yes Neurological History: Migraines ENT History: No Pertinent History Cardiac History: Deep Vein Thrombosis, Hypertension Respiratory History: No Pertinent History, Pulmonary Embolism Endocrine Medical History: Hypothyroidism Musculoskeletal History: No Pertinent History GI Medical History: No Pertinent History History: No Pertinent History Psycho-Social History: Anxiety, Depression Female Reproductive Disorders: No Pertinent History Other Medical History: She notes sharp pain down R LE that go to her ankle. 8 months post . She notes back pain when she was . - Past Surgical History Past Surgical History: Yes Neuro Surgical History: No Pertinent History Cardiac: No Pertinent History Respiratory: No Pertinent History Gastrointestinal: No Pertinent History Genitourinary: No Pertinent History Musculoskeletal: No Pertinent History Female Surgical History: No Pertinent History Other Surgical History: uterine ablation, lymphadectomy Significant Family History: no pertinent family hx - Female History Hx Last Menstrual Period: August 25, 2023 Hx Now: No - Social History Smoking Status: Current every day smoker How long have you smoked: 20 yrs Exposure to second hand smoke: Yes Drug Use: none Patient Lives Alone: No - Social Determinants of Health Will the patient participate in the screening: Yes Do you worry about a steady place to live?: No Do you have any problems with any of the following?: No known problems In the past 12 months,have you had to go without utilities?: No Transportation Issues: No Has anyone in your support network made you feel unsafe?: No Have you or anyone in your house had to go without enough: No - Nursing Vital Signs Nursing Vital Signs: Initial Vital Signs Temperature 97.5 F 10/19/23 16:04 Pulse Rate 86 10/19/23 16:04 Respiratory Rate 20 10/19/23 16:04 Blood Pressure 143/80 10/19/23 16:04 O2 Sat by Pulse Oximetry 96 10/19/23 16:04 Pain Scale Pain Intensity 0 - Physical Exam General Appearance: no apparent distress, alert Eye Exam: PERRL/EOMI Ears, Nose, Throat Exam: normal ENT inspection Neck Exam: normal inspection, full range of motion Respiratory Exam: normal breath sounds, lungs clear Cardiovascular Exam: regular rate/rhythm, normal heart sounds Gastrointestinal/Abdomen Exam: soft, normal bowel sounds, tenderness (Left lower quadrant), No guarding Back Exam: normal inspection, normal range of motion Extremity Exam: normal inspection, normal range of motion Neurologic Exam: alert, oriented x 3, cooperative Skin Exam: normal color SpO2 Interpretation: normal SpO2: 96 O2 Delivery: Room Air Ordered Tests: Active Orders 24 hr Category Date Time Status ABDOMEN AND PELVIS W/0 CONTRAS [CT] Stat Exams 10/19/23 16:13 Taken AMYLASE Stat Lab 10/19/23 16:15 Completed CBC W DIFF Stat Lab 10/19/23 16:15 Completed CMP Stat Lab 10/19/23 16:15 Completed CULTURE,URINE Stat Lab 10/19/23 16:14 Received HCG QUALITATIVE, SERUM Stat Lab 10/19/23 16:15 Completed LIPASE Stat Lab 10/19/23 16:15 Completed UA W/RFX UR CULTURE Stat Lab 10/19/23 16:14 Completed Lab/Rad Data: Laboratory Result Diagrams 10/19/23 16:15 10/19/23 16:15 Laboratory Results 10/19/23 10/19/23 10/19/23 Range/Units 16:15 16:15 16:15 WBC (3.98-10.04) x10^3/uL RBC (3.93-5.22) x10^6/uL Hgb (11.2-15.7) g/dL Hct (34.1-44.9) % MCV (79.4-94.8) fL MCH (25.6-32.2) pg MCHC (32.2-35.5) g/dL RDW (11.7-14.4) % Plt Count (182-369) x10^3/uL MPV (9.4-12.3) fL Gran % (34.0-71.1) % Immature Gran % (Auto) (0.001-0.429) % Nucleat RBC Rel Count (0.00-0.2) % Eos # (Auto) (0.04-0.36) x10^3/uL Immature Gran # (Auto) (0.001-0.031) x10^3u/L Absolute Lymphs (auto) (1.18-3.74) x10^3/uL Absolute Monos (auto) (0.24-0.86) x10^3/uL Absolute Nucleated RBC (0.00-0.012) x10^3u/L Lymphocytes % (19.3-51.7) % Monocytes % (4.7-12.5) % Eosinophils % (0.7-5.8) % Basophils % (0.1-1.2) % Absolute Granulocytes (1.56-6.13) x10^3/uL Basophils # (0.01-0.08) x10^3/uL Sodium 142 (135-145) mmol/L Potassium 4.1 (3.5-5.1) mmol/L Chloride 106 (98-107) mmol/L Carbon Dioxide 28 (22-30) mmol/L Anion Gap 11.0 (5-15) MEQ/L BUN 13 (7-17) mg/dL Creatinine 0.74 (0.52-1.04) mg/dL Estimated GFR 109.5 ML/MIN Glucose 95 (74-106) mg/dL Calcium 8.9 (8.4-10.2) mg/dL Total Bilirubin 0.60 (0.2-1.3) mg/dL AST 26 (14-36) U/L ALT 28 (0-35) U/L Alkaline Phosphatase 86 (38-126) U/L Serum Total Protein 7.6 (6.3-8.2) g/dL Albumin 4.3 (3.5-5.0) g/dL Amylase 66 (30-110) U/L Lipase 72 (23-300) U/L Serum HCG, Qual NEGATIVE (NEGATIVE) Urine Color (Yellow) Urine Appearance (Clear) Urine pH (4.6-8.0) Ur Specific Mutual (1.005-1.030) Urine Protein (Negative) Urine Glucose (UA) (Negative) mg/dL Urine Ketones (Negative) Urine Blood (Negative) Urine Nitrite (Negative) Urine Bilirubin (Negative) Urine Urobilinogen (0.2) mg/dL Ur Leukocyte Esterase (Negative) U Hyaline Cast (Auto) (0-2) /LPF Urine Microscopic RBC (0-5) /HPF Urine Microscopic WBC (0-5) /HPF Ur Epithelial Cells (None Seen) /HPF Urine Bacteria (None Seen) /HPF Urine Culture Reflexed (NO) Influenza Type A Ag NEGATIVE (NEGATIVE) Influenza Type B Ag NEGATIVE (NEGATIVE) RSV (PCR) NEGATIVE (NEGATIVE) SARS-CoV-2 (PCR) NEGATIVE (NEGATIVE) Group A Strep Antibody NOT DETECTED (NEGATIVE) 10/19/23 10/19/23 Range/Units 16:15 16:14 WBC 11.2 H (3.98-10.04) x10^3/uL RBC 5.01 (3.93-5.22) x10^6/uL Hgb 13.8 (11.2-15.7) g/dL Hct 43.6 (34.1-44.9) % MCV 87.0 (79.4-94.8) fL MCH 27.5 (25.6-32.2) pg MCHC 31.7 L (32.2-35.5) g/dL RDW 12.9 (11.7-14.4) % Plt Count 218 (182-369) x10^3/uL MPV 12.5 H (9.4-12.3) fL Gran % 69.3 (34.0-71.1) % Immature Gran % (Auto) 0.3 (0.001-0.429) % Nucleat RBC Rel Count 0.0 (0.00-0.2) % Eos # (Auto) 0.44 H (0.04-0.36) x10^3/uL Immature Gran # (Auto) 0.03 (0.001-0.031) x10^3u/L Absolute Lymphs (auto) 2.19 (1.18-3.74) x10^3/uL Absolute Monos (auto) 0.73 (0.24-0.86) x10^3/uL Absolute Nucleated RBC 0.00 (0.00-0.012) x10^3u/L Lymphocytes % 19.6 (19.3-51.7) % Monocytes % 6.5 (4.7-12.5) % Eosinophils % 3.9 (0.7-5.8) % Basophils % 0.4 (0.1-1.2) % Absolute Granulocytes 7.73 H (1.56-6.13) x10^3/uL Basophils # 0.04 (0.01-0.08) x10^3/uL Sodium (135-145) mmol/L Potassium (3.5-5.1) mmol/L Chloride (98-107) mmol/L Carbon Dioxide (22-30) mmol/L Anion Gap (5-15) MEQ/L BUN (7-17) mg/dL Creatinine (0.52-1.04) mg/dL Estimated GFR ML/MIN Glucose (74-106) mg/dL Calcium (8.4-10.2) mg/dL Total Bilirubin (0.2-1.3) mg/dL AST (14-36) U/L ALT (0-35) U/L Alkaline Phosphatase (38-126) U/L Serum Total Protein (6.3-8.2) g/dL Albumin (3.5-5.0) g/dL Amylase (30-110) U/L Lipase (23-300) U/L Serum HCG, Qual (NEGATIVE) Urine Color Yellow (Yellow) Urine Appearance Cloudy A (Clear) Urine pH 7.5 (4.6-8.0) Ur Specific Mutual >=1.030 A (1.005-1.030) Urine Protein Trace A (Negative) Urine Glucose (UA) Negative (Negative) mg/dL Urine Ketones Negative (Negative) Urine Blood Negative (Negative) Urine Nitrite Negative (Negative) Urine Bilirubin Negative (Negative) Urine Urobilinogen 2.0 A (0.2) mg/dL Ur Leukocyte Esterase Negative (Negative) U Hyaline Cast (Auto) NONE SEEN (0-2) /LPF Urine Microscopic RBC 11-20 A (0-5) /HPF Urine Microscopic WBC 3-5 (0-5) /HPF Ur Epithelial Cells Few (None Seen) /HPF Urine Bacteria Moderate A (None Seen) /HPF Urine Culture Reflexed YES (NO) Influenza Type A Ag (NEGATIVE) Influenza Type B Ag (NEGATIVE) RSV (PCR) (NEGATIVE) SARS-CoV-2 (PCR) (NEGATIVE) Group A Strep Antibody (NEGATIVE) - Progress Progress: pain not gone completely, re-examined Progress Note: 10/19/23 19:25 33-year-old is evaluated in the ER for left lower abdominal pain with nausea v omiting for the last few days. Patient was concerned about having ectopic . test is negative. Workup showed white count 11, fairly unremarkable chemistries. No UTI. CT abdomen pelvis is negative for any acute intra-abdominal pelvic findings. Patient is offered IV fluids and symptomatic treatment which she declined. On reevaluation she does not have peritoneal signs. I would switch her antinausea medication from Zofran to Phenergan. Recommended taking Tylenol as needed and outpatient follow-up. Discussed signs symptoms of worsening needing return to ER which she seems understanding. Counseled pt/family regarding: lab results, diagnosis, need for follow-up, rad results Medical Desision Making - Independent Historian Additional History obtained from: Relative/friend - Diagnostic Testing Diagnostic test were ordered, analyzed, and reviewed by me: Yes Radiological Interpretation: Reviewed by me - Risk of complications The pt has a mod risk of morbidity or mortality based on: Need for prescription drug management - Departure Departure Disposition: Home Clinical Impression: Left sided abdominal pain Condition: Stable Critical Care Time: No Referrals: DEBI REYES MD [Primary Care Provider] - Follow up with PCP 1 day Instructions: Nausea and vomiting in adults, Abdominal Pain, Adult ED Additional Instructions: Take Tylenol/Phenergan as needed. Follow-up with primary care for reevaluation. Drink plenty of fluids to keep yourself well-hydrated. Return to ER for intractable pain/vomiting or if develop fever chills etc. Prescriptions: Promethazine HCl 25 mg [Phenergan 25 mg] 25 mg PO Q8H PRN PRN #10 tablet PRN Reason: Vomiting
[2023-10-19 17:01] LABS: Appearance Cloudy (Clear); Bacteria Moderate /HPF (None Seen); Bilirubin Negative (Negative); Blood Negative (Negative); Epithelial Cells Few /HPF (None Seen); Glucose, Urine Negative (Negative); Hyaline Casts NONE SEEN /LPF (0-2); Ketones Negative (Negative); Leukocyte Esterase Negative (Negative); Nitrite Negative (Negative); Ph 7.5 (4.6-8.0); Protein,Urine Dip Trace (Negative); Specific Gravity >=1.030 (1.005-1.030)
[2023-10-19 17:09] LABS: ADD URINE CULTURE? YES (NO)
[2023-10-19 17:16] LABS: Group A Strep NOT DETECTED (NEGATIVE)
[2023-10-19 17:32] LABS: INFLUENZA A NEGATIVE (NEGATIVE); INFLUENZA B NEGATIVE (NEGATIVE); RESPIRATORY SYNCTIAL VIRUS NEGATIVE (NEGATIVE); SARS-CoV-2 Xpert Express NEGATIVE (NEGATIVE)
[2023-10-19 19:04] VITALS: BP 133/81; PULSE 68
[2023-10-19 19:30] VITALS: O2SAT 96
--- NOTE | 2023-10-19 23:00 | XRAY ---
Indication: Left pelvic pain. Vomiting. Multiple contiguous axial images obtained through the abdomen and pelvis without contrast. Comparison: May 28, 2022 Lung bases remain clear. Heart is not enlarged. Noncontrasted stomach and bowel loops appear nonobstructed again with normal appendix. Again mild diffuse fatty liver. No free fluid/air. Main liver, gallbladder, pancreas, spleen, adrenal glands, kidneys, ureters, bladder, uterus, and aorta are unremarkable for noncontrast exam. Osseous structures intact. No ventral or inguinal hernias. Impression: Fatty liver. Remaining CT abdomen/pelvis without contrast exam continues to be negative.
== END 2023-10-19 19:38 | disposition home or self-care (01) ==
LOC: ED 14:48
DX: R10.32 Left lower quadrant pain (principal); R11.2 Nausea with vomiting, unspecified; I10 Essential (primary) hypertension; Z79.01 Long term (current) use of anticoagulants; Z79.891 Long term (current) use of opiate analgesic; Z79.899 Other long term (current) drug therapy; Z72.0 Tobacco use
CPT/HCPCS: 0241U; 36415; 74176; 80053; 81001; 82150; 83690; 84703; 85025; 87086; 87651; 99283

== ENCOUNTER 2024-06-21 21:21 | Emergency (ER) | payer OTHER ==
--- NOTE | 2024-06-21 21:34 | ERPHSYRPT ---
- History of Present Illness Time Seen by Provider: 06/21/24 21:33 Source: patient Exam Limitations: no limitations Physician History: This is a morbidly obese 33-year-old white female patient who prior to arrival, accidentally placed her elbow down on a stand where there were sharp knives present. Patient's tetanus status is up-to-date. She has a small skin laceration overlying her left elbow. She was concerned that there was persistent bleeding present. However on arrival to the emergency department there was no active bleeding. Timing/Duration: today Quality: painful Severity: mild Location: extremities (Skin overlying left elbow) Possible Causes: other Associated Symptoms: denies symptoms Allergies/Adverse Reactions: fluoxetine HCl [From Prozac] Adverse Reaction (Severe, Verified 06/21/24 21:32) Nausea PROZAC WITH FLUOXETINE HAS BLOOD IN STOOL sertraline [From Zoloft] Adverse Reaction (Intermediate, Verified 06/21/24 21:32) gabapentin [From Horizant] Adverse Reaction (Mild, Verified 06/21/24 21:32) Nausea ketorolac [From Toradol] Adverse Reaction (Mild, Verified 06/21/24 21:32) Nausea tramadol Adverse Reaction (Mild, Verified 06/21/24 21:32) Nausea Home Medications: Levothyroxine Sodium 25 Mcg [Synthroid 25 Mcg] 88 mcg PO DAILY 12/02/18 [History] Allopurinol 100 mg [Zyloprim 100 mg] 200 mg PO DAILY 01/11/21 [History] Apixaban [Eliquis 2.5 mg Tablet] 5 mg PO BID 03/22/21 [History] Escitalopram Oxalate [Lexapro] 20 mg PO DAILY 09/03/21 [History] Metoprolol Succinate 25 mg Xl* [Toprol-Xl 25MG Tablets] 1 tab PO DAILY 05/28/22 [History] Hydroxyzine HCl 25 mg [Atarax 25 mg] 25 mg PO DAILY 06/08/22 [History] Calcium Carbonate [Calcium] 1,200 mg PO DAILY 07/03/22 [History] Magnesium 250 mg PO TID 07/03/22 [History] Mecobalamin [B12 Active] 1,000 mcg SL DAILY 07/03/22 [History] Rosuvastatin Calcium 5 mg PO DAILY 07/03/22 [History] Buprenorphine 1 each TD UD 09/11/22 [History] Hx Tetanus, Diphtheria Vaccination/Date Given: Yes Hx Influenza Vaccination/Date Given: Yes Hx Pneumococcal Vaccination/Date Given: No Travel Risk - International Travel Have you traveled outside of the country in past 3 weeks: No - Emerging Infectious Disease Are you exhibiting symptoms associated with any current EIDs: No - Review of Systems Constitutional: No Symptoms Eyes: No Symptoms Ears, Nose, & Throat: No Symptoms Respiratory: No Symptoms Cardiac: No Symptoms Abdominal/Gastrointestinal: No Symptoms Genitourinary Symptoms: No Symptoms Musculoskeletal: No Symptoms Skin: Other (1 cm skin laceration overlying left elbow) Neurological: No Symptoms Psychological: No Symptoms Endocrine: No Symptoms Hematologic/Lymphatic: No Symptoms Immunological/Allergic: No Symptoms All Other Systems: Reviewed and Negative - Past Medical History Pertinent Past Medical History: Yes Neurological History: Migraines ENT History: No Pertinent History Cardiac History: Deep Vein Thrombosis, Hypertension Respiratory History: No Pertinent History, Pulmonary Embolism Endocrine Medical History: Hypothyroidism Musculoskeletal History: No Pertinent History GI Medical History: No Pertinent History History: No Pertinent History Psycho-Social History: Anxiety, Depression Female Reproductive Disorders: No Pertinent History Other Medical History: She notes sharp pain down R LE that go to her ankle. 8 months post . She notes back pain when she was . - Past Surgical History Past Surgical History: Yes Neuro Surgical History: No Pertinent History Cardiac: No Pertinent History Respiratory: No Pertinent History Gastrointestinal: No Pertinent History Genitourinary: No Pertinent History Musculoskeletal: No Pertinent History Female Surgical History: No Pertinent History Other Surgical History: uterine ablation, lymphadectomy Significant Family History: no pertinent family hx - Female History Hx Last Menstrual Period: August 25, 2023 - Social History Smoking Status: Current every day smoker How long have you smoked: 20 yrs Exposure to second hand smoke: Yes Drug Use: none Patient Lives Alone: No - Social Determinants of Health Will the patient participate in the screening: Yes Do you worry about a steady place to live?: No In the past 12 months,have you had to go without utilities?: No Transportation Issues: No Has anyone in your support network made you feel unsafe?: No Have you or anyone in your house had to go w/o enough food: No - Nursing Vital Signs Nursing Vital Signs: Initial Vital Signs Temperature 98.1 F 06/21/24 21:33 Pulse Rate 89 06/21/24 21:33 Respiratory Rate 18 06/21/24 21:33 Blood Pressure 136/82 06/21/24 21:33 O2 Sat by Pulse Oximetry 99 06/21/24 21:33 Pain Scale Pain Intensity 0 - Physical Exam General Appearance: no apparent distress, alert, anxiety, obese Eye Exam: PERRL/EOMI, eyes nml inspection Ears, Nose, Throat Exam: normal ENT inspection, moist mucous membranes Neck Exam: normal inspection, non-tender, supple, full range of motion Respiratory Exam: airway intact, No chest tenderness, No respiratory distress Cardiovascular Exam: regular rate/rhythm, normal heart sounds, normal peripheral pulses Gastrointestinal/Abdomen Exam: No tenderness Pelvic Exam: not done Rectal Exam: not done Back Exam: normal inspection, normal range of motion, No CVA tenderness, No vertebral tenderness Extremity Exam: normal range of motion, lacerations (1 cm laceration of the skin overlying the left elbow. No active bleeding. No tendon involvement. Neurovascularly intact) Neurologic Exam: alert, oriented x 3, cooperative, organizational effectiveness director II-XII nml as tested, nml cerebellar function, nml station & gait, sensation nml Skin Exam: normal color, warm, laceration (The above extremity section), No dry Lymphatic Exam: No adenopathy SpO2 Interpretation: normal O2 Delivery: Room Air Procedures - Laceration/Wound Repair Left Dorsal Elbow Time of Procedure: 22:30 Wound Location: Left, lower arm (Elbow) Wound Length (cm): 1 Wound's Depth, Shape: superficial Wound Explored: clean (Wound explored to the base. The wound was cleaned. No foreign body noted. There is no bleeding present) Irrigated: Yes Hibiclens Prep: Yes Wound Repaired With: Gl[place] (Single skin staple in the middle of the 1 cm skin laceration) Layer Closure?: No - Course Nursing assessment & vital signs reviewed: Yes - Progress Progress: improved Progress Note: 06/21/24 22:46 I medical decision making and the assignment of low complexity of this patient's medical issue today is based on review of the patient's past medical history, review the patient's medication list, review the patient drug allergy list, history present illness and physical findings on examination. The workup does not require any laboratory radiographic studies. Differential diagnosis includes but is not limited to skin abrasion, skin laceration Counseled pt/family regarding: diagnosis, need for follow-up Medical Desision Making - Independent Historian Additional History obtained from: Spouse - Diagnostic Testing Diagnostic test were ordered, analyzed, and reviewed by me: No - Risk of complications Minimal Risk: Minimal risk of morbidity - Departure Departure Disposition: Home Clinical Impression: Laceration of skin of left elbow Condition: Stable Critical Care Time: No Referrals: DEBI REYES MD [Primary Care Provider, [facility]] - Follow up/PCP as directed Instructions: Wound Care (DC), Laceration Repair With Caty (DC) Additional Instructions: Keep the laceration repair site clean and dry for 24 hours. After 24 hours, may rinse the site off daily with soapy water. Blot dry or use a hair blender to dry the site after cleansing. May cover with a nonstick bandage. Staple removal in 7 to 8 days.
[2024-06-21 21:43] VITALS: BP 136/82; PULSE 89; RESP 18; TEMP 98.1; O2SAT 99
== END 2024-06-21 22:53 | disposition home or self-care (01) ==
LOC: ED 21:21
DX: S51.012A Laceration without foreign body of left elbow, initial encounter (principal); W26.0XXA Contact with knife, initial encounter; I10 Essential (primary) hypertension; Z79.01 Long term (current) use of anticoagulants; Z79.899 Other long term (current) drug therapy; Z72.0 Tobacco use
CPT/HCPCS: 12001; 99281; 99283